=== PATIENT | male | born 1965 | race Caucasian/White ===

== ENCOUNTER 2018-06-23 11:33 | Emergency (ER) | payer BC, SELFPAY ==
[2018-06-23 11:33] VITALS: BP 177/93; PULSE 104; RESP 16; TEMP 36.6; O2SAT 96; BMI 45.6
--- NOTE | 2018-06-23 11:42 | EKG12_ITS ---
Test Reason : SOB Blood Pressure : / mmHG Vent. Rate : 076 BPM Atrial Rate : 076 BPM P-R Int : 174 ms QRS Dur : 096 ms QT Int : 372 ms P-R-T Axes : 058 -04 021 degrees QTc Int : 418 ms Normal sinus rhythm Moderate voltage criteria for LVH, may be normal variant Borderline ECG Confirmed by BETSY JENKINS, KAMI ([id number]), fan mail editor DOTTY HUERTAS ([id number]) on 06/28/2018 4:26:39 PM Referred By: SANIA Confirmed By:KAMI MEYER MD
--- NOTE | 2018-06-23 11:44 | ED.VIS.GEN ---
History of Present Illness Chief Complaint: Shortness of Breath Detail of Chief Complaint: Shortness of breath, YAP and chest pressure Informant: Patient Onset: Today - Dyspnea on exertion and chest pressure this morning walking up a flight of steps. Presently he has no chest discomfort., Month(s) - Patient reports shortness of breath since March. Has been on multiple course of antibiotics. States he gets better when on the antibiotics and then gets worse. Context: Onset with activity - YAP and chest pressure Timing: Continuous - Shortness of breath continuous since March with periods of improvement while on antibiotics, Intermittent - Patient unable to tell me how severe chest pain was or duration of chest tightness. He corrected me and states it is not pain its pressure. Quality: Chest pressure centrally Location: Central anterior chest Current Severity: Chest discomfort is gone. Shortness of breath is minimal Maximum Severity: Moderate Worsened by: Activity and upper respiratory infection Relieved by: Improvement while on antibiotics Associated Symptoms: He does acknowledge diaphoresis this morning. Narrative: Patient is a middle-aged male with history of hypertension, obstructive sleep apnea and reports compliance with CPAP machine who presents with shortness of breath since March is felt to be related to respiratory infection. He is completed multiple courses of antibiotics. He is present on Augmentin for reported sore throat. He also reports central chest discomfort walking up a flight of stairs with shortness of breath and diaphoresis. He denies symptoms of claudication. He denies history of hiatal hernia, hematemesis, melena medication. He denies history of PE, DVT or any risk factors. Prior similar symptoms: Yes Recent Illness/Hospitalization: Yes - Read narrative - Past Medical History (1) Hypertension Status: Chronic (2) Obstructive sleep apnea Status: Chronic Past Medical History - Allergies and Home Meds Allergies/Adverse Reactions: Allergies doxycycline monohydrate [From Monodox] Allergy (Verified 06/23/18 11:33) DOUBLE VISION Primary Care Physician: Ok Maldonado MD [Primary Care Provider] - Prior records reviewed: Yes Lives: Alone Smoking Status: Never smoker Drugs: None Review of Systems General: Denies: Chills, Fever, Malaise, Subjective, Sweats, Weight loss, - Eyes: Denies: Visual changes - bilaterally, Diplopia ENT: Reports: Rhinorrhea, Sore throat. Denies: Bilateral ear pain Cardiovascular: Reports: Chest pain, Palpitations Respiratory: Reports: Dyspnea, Dyspnea on exertion Gastrointestinal: Denies: Abdominal pain, Nausea, Vomiting, Diarrhea, Melena, Hematochezia Genitourinary: Denies: Dysuria, Hematuria, Frequency Musculoskeletal: Reports: Swelling - Patient reports swelling of lower extremities for months.. Denies: Myalgias, Arthralgias, Neck pain, Back pain, Extremity Pain Skin: Denies: Rash, Wounds Neurological: Denies: Headache, Weakness, Numbness Hematologic: Denies: Easy bruising, Easy bleeding Allergy: Denies: Uticaria, Swelling of the mouth Physical Exam Vital Signs/Narrative: Vital Signs Temp Pulse Resp BP Pulse Ox 06/23/18 11:33 97.8 F 104 H 16 177/93 H 96 Inital Vital Signs reviewed: Yes General: Well nourished, Well developed, Obese - BMI 45.7, No Acute Distress Head: Normocephalic, Atraumatic Eyes: Perrl, EOMI. Negative for: Pale conjunctiva, Scleral icterus ENT: Moist mucous membranes, No rhinorrhea Neck: Supple, Nontender, No lymphadenopathy, No JVD, - Cardiovascular: Regular rhythm, No murmurs, Normal S1, Normal S2, Tachycardia Respiratory: No distress, CTA bilaterally, Chest nontender. Negative for: Decreased Air Movement Abdomen: Soft, Nontender, Nondistended, Normal bowel sounds, No masses. Negative for: Hepatomegaly, Splenomegaly Back: Nontender, Normal Inspection Extremities: Nontender, Edema - 1+ pitting, - - There is no asymmetry, swelling, discoloration, leg vein distention, palpable cords or tenderness along the distribution of the deep venous system. Skin: Normal color, No rash. Negative for: Cyanosis, Jaundice Neurological: Alert, Oriented x3, Cranial nerves II-XII grossly intact, Normal Strength, Normal Sensation, Normal Gait Psychological: Normal affect, Normal Mood Diagnostic/Tx/Re-eval Impressions Chest X-Ray 06/23/18 12:33 IMPRESSION: Prominence of the pulmonary arteries bilaterally. 6.8 mm nodular density at the left lung base suggestive of a granuloma. This is unchanged. Electronically Signed: Trenton Myrick, at 12:51 EDT , Service support , 06/23/18 12:33 Chest PA and Lateral [RAD] Stat Laboratory Results 06/23/18 06/23/18 06/23/18 12:25 12:25 12:25 WBC 11.6 H RBC 4.92 Hgb 14.5 Hct 42.1 MCV 85.6 MCH 29.5 MCHC 34.4 RDW 13.5 RDW Differential 42.1 Plt Count 250 MPV 9.1 D-Dimer Quant (PE/DVT) 4.92 H* Sodium 141 Potassium 3.3 L Chloride 105 Carbon Dioxide 27.0 Anion Gap 9 BUN 18 Creatinine 0.96 Estim Creat Clear Calc 88.99 Est GFR (MDRD) Af Amer 106 Est GFR (MDRD) Non-Af 87 BUN/Creatinine Ratio 18.8 Glucose 92 Calcium 8.9 Troponin I < 0.015 CTA reveals bilateral blood clots right greater than left. - Medical Decision Making To evaluate patient's symptoms will obtain EKG to evaluate for cardiac ischemia. Chest x-ray to evaluate for pneumonia. Because he is tachycardic tachypnic and greater than age of 50 he has not PERC negative and reason for d-dimer. Since he is on a diuretic elect lites were obtained and to assess renal function in the event a CTA is indicated. CBC was obtained to evaluate for anemia. Clinically he does not appear anemic. Concern patient's symptoms are anginal equivalent. Because his d-dimer is elevated at 4.98 will obtain a CTA to evaluate for pulmonary embolus. If negative will call hospitalist for admission and further testing or exertional chest pain and dyspnea. Patient was informed he has blood clots bilaterally. He was informed treatment is anticoagulation. He was informed that there are multiple medications. He was specifically informed regarding Coumadin, Xarelto and Eliquis. He was explained risk benefits of all 3, reversing agents, dietary restrictions etc. He was informed of published studies. After numerous questions were asked and answered to his satisfaction he elected Eliquis. He received her first dose in the emergency department. He was informed since there is no cause for his pulmonary embolus he will be on anticoagulant for life. He was told no lacrosse, soccer football with his sons. He was informed he may bleed more easily and if he does hit his head he would need evaluation in the emergency department and probable CAT scan. ED Disposition - Plan for ED Patient: Disposition: Home or Assisted Living Diagnosis: Pulmonary embolism, bilateral Prescriptions: Apixaban [Eliquis] 5 mg PO BID #74 tablet Referrals: Ok Maldonado MD [Primary Care Provider] - 1 Week
[2018-06-23 11:47] VITALS: O2SAT 96
--- NOTE | 2018-06-23 12:33 | RAD_ITS ---
STUDY: X-RAY CHEST REASON FOR EXAM: Male, 53 years old. Chest pressure. Dyspnea on exertion. TECHNIQUE: PA and lateral views of the chest. COMPARISON: Comparison is made with prior study dated July 16, 2012. FINDINGS: EKG electrodes are seen. There is a 6.8 mm nodule in the lingular segment of the left upper lobe suggestive of a small granuloma. There is no demonstrated pleural abnormality. Normal size heart. Normal mediastinum and luisa. There is prominence of the pulmonary hilar arteries without peripheral pulmonary vascular congestion, suggesting pulmonary hypertension. Normal visualized aortic arch and descending thoracic aorta. There are degenerative changes of the visualized thoracic spine. Normal visualized ribs, clavicles, and shoulders. There is no demonstrated abnormality of the visualized soft tissue structures of the upper abdomen. RAD/Chest PA and Lateral IMPRESSION: Prominence of the pulmonary arteries bilaterally. 6.8 mm nodular density at the left lung base suggestive of a granuloma. This is unchanged. Electronically Signed: Trenton Myrick, at 12:51 EDT , Service support ,
[2018-06-23 12:50] LABS: Hematocrit 42.1 % (40-54); Hemoglobin 14.5 g/dl (13.0-16.5); Mean Corp Hgb Conc 34.4 g/gl (32-36); Mean Corpuscular Hgb 29.5 pg (27.0-32.0); Mean Corpuscular Volume 85.6 fL (80-94); Mean Platelet Vol. 9.1 fl (6.2-12.0); Platelet Count 250 K/mm3 (150-450); RBC Distribution Width CV 13.5 % (11.6-14.6); RBC Distribution Width SD 42.1 fl (35.1-43.9); Red Blood Count 4.92 M/mm3 (4.6-6.2); White Blood Count 11.6 K/mm3 (4.4-11.0)
[2018-06-23 12:57] LABS: Scan Indicated on CBC? Y/N NO
[2018-06-23 13:01] LABS: Anion Gap 9 (5-15); BUN 18 mg/dL (7-18); BUN/Creat Ratio 18.8 RATIO (10-20); Calcium,Total 8.9 mg/dL (8.5-10.1); Chloride 105 mmol/L (98-107); Creatinine, Serum 0.96 mg/dL (0.70-1.30); EST Glomerular Filtration Rate 87 mL/min (>60); Est Glom Filt Rate - Afr Amer 106 mL/min (>60); Estimated Creatinine Clearance 88.99 ml/min; Glucose 92 mg/dL (74-106); Potassium 3.3 mmol/L (3.5-5.1); Sodium Level 141 mmol/L (136-145)
[2018-06-23 13:33] LABS: D-Dimer Quantitative (DVT/PE) 4.92 FEU/ug/m (0.27-0.49)
--- NOTE | 2018-06-23 13:35 | CT_ITS ---
STUDY: CTA CHEST REASON FOR EXAM: Male, 53 years old. Shortness of breath. Elevated d-dimer. RADIATION DOSAGE (If Supplied By Facility): CTDIvol = ( 18.05 ) mGy, DLP = ( 742.55 ) mGycm TECHNIQUE: The examination was performed with the intravenous administration of 100 IV Isovue 370. Post-processing of the angiographic images was performed, with multiplanar reformation and 3D reconstruction. Individualized dose optimization techniques were used for this CT. COMPARISON: None. FINDINGS: There are multiple intraluminal filling defects in the distal portion of the right pulmonary artery extending into branches of the right upper, right interlobar and right lower lobe pulmonary arterial branches in keeping with the pulmonary emboli. Nonocclusive intraluminal filling defects are seen in branches of the left lower lobe pulmonary arterial branches. Normal thoracic aorta and visualized great vessels. There is no demonstrated aortic dissection. Normal heart and pericardium. Normal mediastinum. There are calcified right hilar lymph nodes. Normal visualized trachea and bronchi. The lungs are well expanded. Normal pulmonary parenchyma. Calcified granuloma in the left lower lobe. Normal pleura. Normal chest wall structures. There are degenerative changes of thoracic spine. Small hiatal hernia. CT/CTA Chest W/WO Contrast IMPRESSION: Extensive right pulmonary arterial emboli. Smaller left lower lobe pulmonary arterial emboli. N.B. : The above information has been verbally conveyed by Trenton Myrick to Johnathon Cope MD, on 06/23/2018 14:18:43 (ET). Electronically Signed: Trenton Myrick, at 14:19 EDT , Service support ,
[2018-06-23 13:46] VITALS: BP 124/72; PULSE 82; RESP 17; O2SAT 97
[2018-06-23 14:50] VITALS: BP 139/79; PULSE 74; RESP 16; O2SAT 94
[2018-06-23] MEDS: APIXABAN 5 MG TABLET 10 MG PO (15:05)
== END 2018-06-23 15:06 | disposition home or self-care (01) ==
PROVIDERS: Emergency Provider Emergency Medicine; Family Provider Family Medicine; PCP Family Medicine
DX: I26.99 Other pulmonary embolism without acute cor pulmonale (principal); I10 Essential (primary) hypertension; G47.33 Obstructive sleep apnea (adult) (pediatric); E66.9 Obesity, unspecified; Z68.42 Body mass index [BMI] 45.0-49.9, adult; Z79.82 Long term (current) use of aspirin; Z79.899 Other long term (current) drug therapy
CPT/HCPCS: 71046; 71275; 80048; 84484; 85027; 85379; 93005; 96360; 96361; 99285; J7040; Q9967; A4216

== ENCOUNTER 2018-06-24 20:02 | Observation (INO) | payer BC, SELFPAY ==
[2018-06-23 11:33] VITALS: BMI 45.6
[2018-06-24] VITALS (7 sets, daily range): BP systolic 108–167; BP diastolic 65–95; PULSE 75–115; RESP 14–20; TEMP 36.7; O2SAT 93–99; BMI 43.8; BMI 43.9
--- NOTE | 2018-06-24 20:17 | EKG12_ITS ---
Test Reason : REPEAT Blood Pressure : / mmHG Vent. Rate : 059 BPM Atrial Rate : 059 BPM P-R Int : 160 ms QRS Dur : 086 ms QT Int : 392 ms P-R-T Axes : 050 010 023 degrees QTc Int : 388 ms Sinus bradycardia Otherwise normal ECG Confirmed by LAVELLE COWAN ([id number]), assignment desk editor DOTTY HUERTAS ([id number]) on 06/28/2018 4:50:47 PM Referred By: KASSY Confirmed By:LAVELLE COWAN
--- NOTE | 2018-06-24 20:23 | US_ITS ---
STUDY: VENOUS DOPPLER ULTRASOUND - BILATERAL LOWER EXTREMITIES REASON FOR EXAM: Male, 53 years old. Bilateral swelling, right knee pain. TECHNIQUE: Ultrasound evaluation of the deep vein system to include snider-scale imaging and compression was performed. Snider-scale imaging and Doppler sonographic evaluation, including duplex spectral analysis and qualitative color flow sonography, was performed. COMPARISON: None. FINDINGS: RIGHT LEG Common femoral, femoral, and popliteal veins are patent with no evidence of luminal thrombus. Deep venous structures respond normally to compression and augmentation maneuvers. Normal color Doppler. Visualized calf veins are patent. LEFT LEG Common femoral, femoral, and popliteal veins are patent with no evidence of luminal thrombus. Deep venous structures respond normally to compression and augmentation maneuvers. Normal color Doppler. Visualized calf veins are patent. US/Venous Duplex Imag/Randolph Extrem IMPRESSION: Normal venous Doppler ultrasound of the bilateral lower extremities. Electronically Signed: Marilyn Abraham MD at 22:28 EDT Tel , Service support ,
--- NOTE | 2018-06-24 20:25 | RAD_ITS ---
STUDY: X-RAY CHEST REASON FOR EXAM: Male, 53 years old. Shortness breath. History of PE recently diagnosed. TECHNIQUE: Single AP portable view of the chest. COMPARISON: Chest x-ray and CT scan 06/23/2018. FINDINGS: The lungs are clear and expanded. Stable small calcified granuloma in the lower left lung. There is no demonstrated pleural abnormality. Normal size heart. Normal mediastinum and luisa. Normal visualized pulmonary arteries. Normal visualized aortic arch and descending thoracic aorta. Normal visualized thoracic spine. Normal visualized ribs, clavicles, and shoulders. There is no demonstrated abnormality of the visualized soft tissue structures of the upper abdomen. RAD/Chest 1 View (Portable) IMPRESSION: No change or acute chest disease. Electronically Signed: Bhavesh Orona MD at 20:40 EDT , Service support ,
--- NOTE | 2018-06-24 20:26 | ED.DCSUM_ITS ---
- ER Visit Summary Date of Service: 06/24/18 Chief Complaint: Shortness of breath History of Present Illness: The patient is a 53 M presents to the emergency department worsening shortness of breath. Patient was actually seen here yesterday. At that time, he is been having exertional dyspnea for the past few months. He underwent CTA of his chest. He had multiple bilateral pulmonary emboli. He was started on Eliquis and was discharged home because he was not hypoxic or tachypneic. He states that since starting Eliquis, his shortness of breath is actually worsened. He states he feels like he cannot walk a distance without getting dyspneic. He is also begun to have some right leg pain in his posterior thigh. He is also had increasing pain in his back which he states is what led him to the emergency department to get diagnosed. He denies any recent travel. He denies any recent surgeries. He states that he did injure his knee last year but was still ambulating without issue. He has no history of hypercoagulability. Physical Examination: Vital signs reviewed General: Well-nourished, well-developed Head: Normocephalic, atraumatic Eyes: Pupils equal and reactive, extraocular muscles intact Neck, supple, no lymphadenopathy Heart: Regular rate and rhythm Respiratory: No distress, clear bilaterally Abdomen: Soft, nontender, nondistended, no peritoneal signs Back: Nontender Extremities: Nontender, no edema, no cords Skin: Normal color no rash Neuro: Alert and oriented, no focal or lateralizing deficits Test Results: [] Emergency Department Course and Treatment: The patient presents with increased work of breathing, increasing pain and exertional dyspnea. He was diagnosed with pulmonary embolus yesterday. He was tachycardic and tachypneic on arrival. He would have transient episodes of hypoxia from 88-90%. However, when he ambulated he did not become hypoxic but did become markedly tachycardic and dyspneic. EKG shows no evidence of right ventricular strain. X-ray shows no volume overload. Will in the room, the patient did have what appeared to be a vasovagal episode. His heart rate went into the low 50s. He dropped his blood pressure became diaphoretic. He felt very lightheaded. This was transient and resolved. Cardiac enzymes are normal. Chest x-ray shows no volume overload. BNP is normal. However, given the patient's recent diagnosis of pulmonary embolus, exertional dyspnea, hypoxia, tachypnea I do feel that he would benefit from admission. I do feel that he is likely going to need further workup and is not doing well as an outpatient. The patient was discussed with the hospitalist. Treatment Plan: [] Disposition: Admission Impression: 1. Bilateral pulmonary embolus 2. Exertional dyspnea 3. Persistent tachycardia 4. Vasovagal near syncope This note was generated with [employer] dictation software. It may contain incorrect words, spelling, and punctuation that were not noted in review of the chart prior to signing ED Disposition - Plan for ED Patient: Referrals: Ok Maldonado MD [Primary Care Provider] -
[2018-06-24] MEDS: 0.9% Normal Saline 1,000 ML 999 ML IV (21:09)
[2018-06-24 21:18] LABS: Absolute Lymphocyte Count 2.17 X10^3/ul (0.83-4.51); Absolute Neutrophil Count 8.4 X10^3/uL (2.0-7.7); Basophil# 0.03 X10^3/uL; Basophil% 0.3 % (0-1); Eosinophil# 0.08 X10^3/uL; Eosinophils% 0.7 % (0-5); Hematocrit 48.2 % (40-54); Hemoglobin 17.1 g/dl (13.0-16.5); Lymphocyte # 2.17 X10^3/ul (4.0); Lymphocyte % 18.2 % (19-41); Mean Corp Hgb Conc 35.5 g/gl (32-36); Mean Corpuscular Hgb 29.9 pg (27.0-32.0); Mean Corpuscular Volume 84.4 fL (80-94); Mean Platelet Vol. 9.2 fl (6.2-12.0); Monocyte% 10.1 % (0-10); Neutrophil % 70.4 % (47-70); Platelet Count 296 K/mm3 (150-450); RBC Distribution Width CV 13.6 % (11.6-14.6); RBC Distribution Width SD 41.5 fl (35.1-43.9); Red Blood Count 5.71 M/mm3 (4.6-6.2); White Blood Count 11.9 K/mm3 (4.4-11.0)
[2018-06-24 21:19] LABS: POSITIVE COUNT NO; POSITIVE DIFFERENTIAL NO; POSITIVE MORPHOLOGY NO
--- NOTE | 2018-06-24 21:28 | EKG12_ITS ---
Test Reason : SOB Blood Pressure : / mmHG Vent. Rate : 095 BPM Atrial Rate : 095 BPM P-R Int : 152 ms QRS Dur : 084 ms QT Int : 346 ms P-R-T Axes : -02 -08 032 degrees QTc Int : 434 ms Normal sinus rhythm Normal ECG Confirmed by LAVELLE COWAN ([id number]), desk editor DOTTY HUERTAS ([id number]) on 06/28/2018 4:51:11 PM Referred By: KASSY Confirmed By:LAVELLE COWAN
[2018-06-24 21:32] LABS: ALB/GLOB Ratio 0.9 RATIO (0.9-2.4); AST(SGOT) 24 U/L (15-37); Alanine Aminotransfer ALT/SGPT 42 U/L (16-61); Alkaline Phosphatase 121 U/L (45-117); Anion Gap 9 (5-15); BUN 12 mg/dL (7-18); BUN/Creat Ratio 11.4 RATIO (10-20); Calcium,Total 9.3 mg/dL (8.5-10.1); Chloride 103 mmol/L (98-107); Creatinine, Serum 1.05 mg/dL (0.70-1.30); EST Glomerular Filtration Rate 78 mL/min (>60); Est Glom Filt Rate - Afr Amer 95 mL/min (>60); Estimated Creatinine Clearance 81.36 ml/min; Globulin 4.6 g/dL (2.2-4.2); Glucose 104 mg/dL (74-106); Potassium 3.4 mmol/L (3.5-5.1); Protein, Total 8.6 g/dL (6.4-8.2); Sodium Level 140 mmol/L (136-145)
[2018-06-24 21:44] LABS: BNP,B-Type NATRIURETIC PEPTIDE 14.8 pg/mL (0-100)
--- NOTE | 2018-06-24 22:17 | PCM.HP.STD ---
Problem List (1) Pulmonary embolism Status: Acute Qualifiers: Pulmonary embolism type: unspecified Chronicity: acute Acute cor pulmonale presence: without acute cor pulmonale Qualified Code(s): I26.99 - Other pulmonary embolism without acute cor pulmonale (2) Morbid obesity Status: Chronic (3) Hypertension Status: Chronic Qualifiers: Hypertension type: essential hypertension Qualified Code(s): I10 - Essential (primary) hypertension (4) Obstructive sleep apnea Status: Chronic History of Present Illness Date of Admission: 06/24/18 Chief Complaint: LE pain, dyspnea, chest pain The patient is a 53 y/o M w/ PMHx: HTN, Morbid Obesity, NINA on CPAP, recent 06/23/18 ED vision secondary to dyspnea as well as chest discomfort diagnosed with pulmonary emboli and secondary to patient appropriate vital signs with no evidence of hypoxia discharged home on Eliquis regimen with history of notable URI sxs since March and decreased activity who now returns to the [facility] ED on 06/24/18 with history of worsening exertional dyspnea, tachycardia with racing heart, lightheadedness and near syncope with exertional attempts in addition to severe RLE discomfort radiating upward. While in the ED the patient had notable vasovagal event, tachycardic initially then bradycardic, diaphoretic but improved with IVFs. Work-up in the ED included the evening prior CTPA w/ extensive right pulmonary artery emboli with a smaller left lower lobe pulmonary arterial emboli, currently evaluation w/ T 98, heart rate 115, BP 167/95, respiratory rate 18, 93% on room air, CBC with WBC 11.9, hemoglobin 17.1, platelet 296 with left shift, CMP with potassium 3.4, alk phos 121, troponin less than 0.015, BNP 14.8, chest x-ray with no acute cardiopulmonary process, EKG with sinus tachycardia without acute evidence of ischemia, DVT US w/ preliminary evaluation with no evidence to BL LE of acute DVT. In the ED patient administered normal saline. Past Medical History Past Medical History (Chronic Problems): Chronic Problems Hypertension (Chronic) Obstructive sleep apnea (Chronic) Morbid obesity (Chronic) Allergies doxycycline monohydrate [From Monodox] Allergy (Verified 06/24/18 20:07) DOUBLE VISION Home Medications: Ambulatory Orders Medication Instructions Recorded Aspirin E.C. [Ecotrin] 81 mg PO DAILY@0800 03/10/13 Lisinopril/Hydrochlorothiazide 1 tablet PO DAILY 03/10/13 [Zestoretic 20/ Tablet] Potassium Chloride [K-Dur] 10 meq PO DAILY 03/10/13 Apixaban [Eliquis] 10 mg PO BID 06/24/18 Surgical History: - - [place] teeth extraction, left bicep reattachment. Psychiatric History: No pertinent psych hx Lives: With Family - Patient is but still maintains a friendly relationship with his , has his kids. Smoking Status: Never smoker Tobacco Use: Non-smoker Alcohol: Occasional Drugs: None - *Family History Maternal History Items: - - Patient notes a maternal family history of severe osteoarthritis. Paternal History Items: - - Patient notes a paternal family history of congestive heart failure. Review of Systems Constitutional: Reports: Malaise, Weakness, Fatigue. Denies: Chills, Fever, Weight Change HEENT: Denies: Head Aches, Sinus Congestion, Sinus Drainage Cardiovascular: Reports: Chest Pain, Light Headedness. Denies: Palpitations Respiratory: Reports: Pleuritic Pain, Shortness of Breath, Shortness of breath upon exertion. Denies: Cough, Shortness of breath at rest, Sputum production, Wheezing Gastrointestinal: Denies: Abdominal Pain, Nausea, Vomiting Genitourinary: Denies: Dysuria Musculoskeletal: Reports: Joint Pain, Joint stiffness, Joint swelling, Joint Tenderness, Leg Pain Skin: Denies: Rash, Wounds Neurological: Denies: Numbness, Tingling, Focal weakness Psychiatric: Denies: Anxiety, Depression, Homicidal Ideations, Suicidal Ideations Hematologic/ Lymphatic: Denies: Easy Bruising, Easy Bleeding VTE Information - Inpt Only VTE Present on Admission: No VTE Mechan Device Prophylaxis: SCD's VTE Pharm Prophylaxis ordered?: Yes Patient Problems: Active and Suspected Problems Pulmonary embolism (Acute) Subjective: Seated upright in ED bed, fatigued appearing, [place] any current chest discomfort or market dyspnea. Objective: Physical Examination: General: awake, alert, oriented x 3 and cooperative, seated upright in the ED bed in no apparent distress. Skin: normal color, turgor, no icterus, cyanosis. HEENT: AT/NC, EOMI, PERRLA, mildly dry MM, no carotid bruits or JVD noted. Lungs: CTA bilaterally, moderate effort, mild decrease BL bases, no rales, ronchi or wheezing. Heart: Mildly tachycardic with regular rhythm; no gallop, rub audible. Abdomen: soft, morbidly obese, NTTP, ND, normal BS, no HSM; however, habitus makes examination difficult. Extremities: no cyanosis, clubbing, or edema, unable to reproduce any discomfort to the legs with palpation. Neurological: patient awake, alert, oriented x 3; cognitive function intact; pupils equally reactive to light and accomodation; cranial nerves II-XII grossly normal, moving all 4 extremities, no focal deficits, strength moderately to severely globally decreased secondary to acute presentation. Psychiatric: affect appears normal, no acute evidence of depressive or anxiety feelings. - Physical Exam Vital Signs Temp Pulse Resp BP Pulse Ox 98.0 F 75 14 108/67 96 06/24/18 20:03 06/24/18 21:11 06/24/18 21:11 06/24/18 21:11 06/24/18 21:11 Oxygen Flow Rate (L/min) 3 Oxygen Delivery Method Nasal Cannula Weight: 296 lb 15.402 oz Body Mass Index (BMI) 43.8 Laboratory Tests Past 24 Hrs 06/24/18 06/24/18 06/24/18 21:05 21:05 21:05 WBC 11.9 H RBC 5.71 Hgb 17.1 H Hct 48.2 MCV 84.4 MCH 29.9 MCHC 35.5 RDW 13.6 RDW Differential 41.5 Plt Count 296 MPV 9.2 Immature Gran % (Auto) 0.300 Neut % (Auto) 70.4 H Lymph % (Auto) 18.2 L [place] % (Auto) 10.1 H Eos % (Auto) 0.7 Baso % (Auto) 0.3 Absolute Neuts (auto) 8.4 H Absolute Lymphs (auto) 2.17 Total Counted Not Reportable Sodium 140 Potassium 3.4 L Chloride 103 Carbon Dioxide 28.0 Anion Gap 9 BUN 12 Creatinine 1.05 Estim Creat Clear Calc 81.36 Est GFR (MDRD) Af Amer 95 Est GFR (MDRD) Non-Af 78 BUN/Creatinine Ratio 11.4 Glucose 104 Calcium 9.3 Total Bilirubin 0.70 AST 24 ALT 42 Alkaline Phosphatase 121 H Troponin I < 0.015 B-Natriuretic Peptide 14.8 Total Protein 8.6 H Albumin 4.0 Globulin 4.6 H Albumin/Globulin Ratio 0.9 Assessment/Plan All Active Problems Pulmonary embolism (Acute) The patient is a 53 y/o M w/ PMHx: HTN, Morbid Obesity, NINA on CPAP, recent 06/23/18 ED vision secondary to dyspnea as well as chest discomfort diagnosed with pulmonary emboli and secondary to patient appropriate vital signs with no evidence of hypoxia discharged home on Eliquis regimen with history of notable URI sxs since March and decreased activity who now returns to the [facility] ED on 06/24/18 with history of worsening exertional dyspnea, tachycardia with racing heart, lightheadedness and near syncope with exertional attempts in addition to severe RLE discomfort radiating upward. (1) Dyspnea, chest pain secondary to Pulmonary Embolism: Work-up in the ED included the evening prior CTPA w/ extensive right pulmonary artery emboli with a smaller left lower lobe pulmonary arterial emboli, currently evaluation w/ T 98, heart rate 115, BP 167/95, respiratory rate 18, 93% on room air, CBC with WBC 11.9, hemoglobin 17.1, platelet 296 with left shift, CMP with potassium 3.4, alk phos 121, troponin less than 0.015, BNP 14.8, chest x-ray with no acute cardiopulmonary process, EKG with sinus tachycardia without acute evidence of ischemia, DVT US w/ preliminary evaluation with no evidence to BL LE of acute DVT. In the ED patient administered normal saline. Will admit to PCU, maintain on cardiac telemetry. Will obtain ECHO. Patient notes only ~ [address] recently at the most otherwise no marked travel, no recent surgeries but has been sessile with L knee pain, debility and URI intermittently since March. Given already on oral anticoagulant, will need to defer hypercoaguable panel. Will continue therapeutic eliquis regimen. Will obtain AM oxygenation assessment. (2) Hypokalemia: Admission K+ 3.4, supplementation given, repeat level in AM. (3) Hypertension: Continue home regimen including lisinopril, hydrochlorothiazide, PRN hydralazine. (4) Morbid Obesity: Weight loss and lifestyle changes encouraged, nutrition consulted. (5) NINA: CPAP q HS. (6) DVT Prophylaxis: SCDs, continue Eliquis as noted. Code Visit Inpatient E&M: 96965 Init Hosp L3
--- NOTE | 2018-06-24 23:22 | ECHOCS_ITS ---
Reason For Study: Dyspnea/SOB Procedure This was a 2D Doppler, Color Flow transthoracic echocardiogram. Contrast injection was performed. Exam performed portable in patient room. Left Ventricle Mild concentric left ventricular hypertrophy. The estimated ejection fraction is 65 %. Stage 1 diastolic dysfunction. No regional wall motion abnormalities noted. Right Ventricle Normal size and thickness. Normal systolic function. Atria The left atrium is mildly enlarged. Normal right atrium. Normal atrial septum. Mitral Valve The mitral valve is structurally normal. No prolapse or stenosis seen. Trivial mitral valve insufficiency. Tricuspid Valve Normal tricuspid valve. Trivial tricuspid valve insufficiency. Right ventricular systolic pressure estimated to be 41 mmHg. Mild pulmonary hypertension. Aortic Valve Normal aortic valve. Trisinus/trileaflet aortic valve. Pulmonic Valve Normal pulmonic valve. Great Vessels Normal aortic root. Normal arch. Normal inferior vena cava. Inferior vena cava collapse with sniff. Pericardium/Pleural No pericardial effusion. Medication Diluted definity 2ml given slow IV push to enhance endocardial definition. MMode/2D Measurements & Calculations LVIDd: 4.6 cm IVSd: 1.6 cm LAV(MOD-bp): 77.4 ml LVIDs: 3.1 cm LVPWd: 1.3 cm FS: 33.2 % LAV(MOD-bp) Indexed: 31.7 ml/m2 LAV(MOD-sp2): 81.1 ml LAV(MOD-sp4): 67.1 ml LA A4 area: 23.4 cm2 RA A4 area: 15.6 cm2 Time Measurements MV dec time: 0.22 sec Doppler Measurements & Calculations MV E max yon: 76.5 cm/sec Lat Peak E' Yon: 17.9 cm/sec Med Peak E' Yon: 9.5 cm/sec MV A max yon: 84.3 cm/sec E/E' lat: 4.3 E/E' med: 8.1 MV E/A: 0.91 MV V2 max: 102.1 cm/sec MV P1/2t max yon: 99.2 cm/sec Ao V2 max: 177.7 cm/sec MV max P.2 mmHg MV P1/2t: 91.3 msec Ao max P.6 mmHg MV V2 mean: 63.1 cm/sec Ao V2 mean: 110.2 cm/sec MV mean P.9 mmHg MV dec slope: 318.3 cm/sec2 Ao mean P.7 mmHg MV V2 VTI: 26.3 cm MVA(P1/2t): 2.4 cm2 Ao V2 VTI: 29.1 cm AI max yon: 278.2 cm/sec LV V1 max: 161.9 cm/sec PA V2 max: 122.3 cm/sec AI max P.0 mmHg LV V1 max P.5 mmHg AI dec slope: 163.7 cm/sec2 LV V1 mean P.8 mmHg AI P1/2t: 497.8 msec LV V1 mean: 98.6 cm/sec LV V1 VTI: 31.8 cm TR max yon: 299.1 cm/sec TR max P.8 mmHg Interpretation Summary Mild concentric left ventricular hypertrophy. The estimated ejection fraction is 65 %. Stage 1 diastolic dysfunction. The left atrium is mildly enlarged. Trivial mitral valve insufficiency. Trivial tricuspid valve insufficiency. Right ventricular systolic pressure estimated to be 41 mmHg. The study was technically difficult. There is no comparison study available. Contrast injection was performed. Ordering Physician: Alissa Butterfield Performed By: Donny Syed RCS
[2018-06-24 23:52] LABS: Magnesium 2.1 mg/dL (1.6-2.6)
[2018-06-24] MEDS: 0.9% NaCl Peripheral Flush Adult/Peds IV (23:56)
[2018-06-25] VITALS (7 sets, daily range): BP systolic 121–127; BP diastolic 66–75; PULSE 69–84; RESP 16–18; TEMP 37.2; O2SAT 94–98
--- NOTE | 2018-06-25 05:55 | EKG12_ITS ---
Test Reason : AM EKG Blood Pressure : / mmHG Vent. Rate : 069 BPM Atrial Rate : 069 BPM P-R Int : 156 ms QRS Dur : 084 ms QT Int : 378 ms P-R-T Axes : 003 018 030 degrees QTc Int : 405 ms Normal sinus rhythm Normal ECG When compared with ECG of 24-JUN-2018 21:06, MANUAL COMPARISON REQUIRED, DATA IS UNCONFIRMED Confirmed by BETSY JENKINS, KAMI ([id number]), film editor DOTTY HUERTAS ([id number]) on 06/30/2018 1:54:21 PM Referred By: DR COCHRAN Confirmed By:KAMI MEYER MD
[2018-06-25 07:02] LABS: Hematocrit 43.4 % (40-54); Hemoglobin 14.9 g/dl (13.0-16.5); Mean Corp Hgb Conc 34.3 g/gl (32-36); Mean Corpuscular Hgb 28.9 pg (27.0-32.0); Mean Corpuscular Volume 84.3 fL (80-94); Mean Platelet Vol. 9.5 fl (6.2-12.0); Platelet Count 235 K/mm3 (150-450); RBC Distribution Width CV 13.8 % (11.6-14.6); RBC Distribution Width SD 42.1 fl (35.1-43.9); Red Blood Count 5.15 M/mm3 (4.6-6.2)
[2018-06-25 07:13] LABS: Scan Indicated on CBC? Y/N NO
[2018-06-25 07:24] LABS: Anion Gap 6 (5-15); BUN 15 mg/dL (7-18); BUN/Creat Ratio 17.7 RATIO (10-20); Calcium,Total 8.4 mg/dL (8.5-10.1); Chloride 108 mmol/L (98-107); Creatinine, Serum 0.85 mg/dL (0.70-1.30); EST Glomerular Filtration Rate 100 mL/min (>60); Est Glom Filt Rate - Afr Amer 121 mL/min (>60); Glucose 107 mg/dL (74-106); Potassium 3.9 mmol/L (3.5-5.1); Sodium Level 139 mmol/L (136-145)
[2018-06-25] MEDS: hydroCHLOROthiazide 25 MG Tablet PO (08:50)
[2018-06-25] MEDS: APIXABAN 5 MG TABLET 10 MG PO (08:50)
[2018-06-25] MEDS: Lisinopril 20 MG Tablet PO (08:50)
--- NOTE | 2018-06-25 10:17 | CASEMGMT ---
TRAV LARIOS HOUSEKEEPER HOME CM to room to meet with patient for initial transition planning/care coordination assessment. TRAV LARIOS introduced self and role at [facility]. Pt voices understanding and consents to assessment at this time. Pt resting in bed in no distress at this time. Pt is A/O at this time and answers all questions appropriately. Care providers, pharmacy, and demographics verified/updated at this time. PCP: Joel Specialists: Delvin Renae Pharmacy: [facility] Insurance: [place] Prescription Benefit: Yes Living Will/HPOA: States think he has completed LW and HCPOA paperwork, but is unsure. States if he has, that his mom is HCPOA. Pt made aware that if he determines that he has not completed this paperwork and wishes to do so in the future, that he can make appt with SW as an out-pt. Provided pt with Traffic Rate Clerk Rac Card. [place]: Mother, 2 boys ages 11 and 12. Living Arrangements: Lives @ home and states both of his boys live with him. States is independent and currently employed. Transportation: Pt states drives self and states no transportation concerns at this time. States his ex- brought him to ER and either she or his mom will be able to take him home on d/c. DME: Has a CPAP. Denies having home O2 or nebulizer. Pt states no need for further DME at this time. HHC/SNF: No hx of either. No needs identified. Pt wishes to return home and states has no concerns with going home at time of discharge. CM to follow for home oxygen needs and any further discharge planning/needs. Pt voices no further concerns/needs at this time. Advised pt to ask for CM if any further questions/concerns/needs arise. Voices understanding. PLAN: Home Cristina CARDENAS RN, CM
--- NOTE | 2018-06-25 11:55 | DCINST_ITS ---
- Discharge Diagnoses Current Active Problems: Current Active and Chronic Problems Pulmonary embolism (Acute) Morbid obesity (Chronic) You will use the following diet at home:: No restrictions Your food should be the consistency of: Regular Your liquids should be the consistency of: Regular/Thin Discharge Activity: Return to Normal Activity Weight Bearing Status: Full weight bearing Additional Instructions: no aspirin, Ibuprofen, or Alleve use. Tylenol for pain Allergies/Adverse Reactions: Allergies doxycycline monohydrate [From Monodox] Allergy (Verified 06/24/18 20:07) DOUBLE VISION Medications to take at Discharge Lisinopril/Hydrochlorothiazide [Zestoretic / Tablet] 1 tablet PO DAILY 03/10/13 Potassium Chloride [K-Dur] 10 meq PO DAILY 03/10/13 Apixaban [Eliquis] 10 mg PO BID 06/24/18 Primary Care Physician: Ok Maldonado MD [Primary Care Provider] - Please follow up with your Primary Care Physician in: in 1-2 weeks Test Results: Test results from this visit will be discussed in further detail at your follow- up appointment, if applicable.
--- NOTE | 2018-06-26 08:29 | PCM.DC.SUM ---
Discharge Date and Diagnosis Date of Admission: 06/24/18 Date of Discharge: 06/25/18 - Primary Discharge Diagnosis #1 bilateral pulmonary emboli #2 near syncope secondary to bilateral pulmonary emboli #3 hypertension #4 obstructive sleep apnea #5 morbid obesity - Secondary Discharge Diagnosis Chronic Problems Hypertension (Chronic) Obstructive sleep apnea (Chronic) Morbid obesity (Chronic) Hospital Course and Treatment Operations: None Procedures: 2-D Echocardiogram Summary of Care Provided: The patient is a 53 year old M who was seen in the emergency room at [facility] with chief complaint of shortness of breath and lightheadedness. He had been seen in the emergency room 1 day prior and diagnosed with bilateral pulmonary emboli and placed on Eliquis. Workup in the emergency room included an examination which showed the patient to be tachycardic, pulse ox on room air was 93%-however when the patient ambulated he became tachycardic and dyspneic. Patient also felt lightheaded. Patient was placed in observation status on PCU, echocardiogram was obtained which showed a normal EF and no evidence of thrombus. Patient was kept on his Eliquis and monitored on telemetry. Patient did not require oxygen. On 06/25/18, patient was seen and examined: On examination he appeared in good health and spirits. Vital signs as documented. Skin warm and dry and without overt rashes. Neck without JVD. Lungs clear. Heart exam notable for regular rhythm, normal sounds and absence of murmurs, rubs or gallops. Abdomen unremarkable and without evidence of organomegaly, masses, or abdominal aortic enlargement. Extremities nonedematous. Neuro: Cranial nerves II through XII are grossly intact, no focal motor deficits were noted, sensation to light touch and pinprick intact. Psych: Patient is alert and oriented x3, he does not appear anxious or depressed On 06/25/18, patient was seen and examined felt to be in stable condition for discharge home. - Physical Exam Vital Signs Temp Pulse Resp BP Pulse Ox 98.9 F 84 18 121/75 H 95 06/25/18 08:43 06/25/18 10:52 06/25/18 08:43 06/25/18 08:43 06/25/18 08:43 Oxygen Flow Rate (L/min) 3 Oxygen Delivery Method Room Air Weight: 134.9 kg Body Mass Index (BMI) 43.9 Intake and Output for Last 24 Hours 06/24/18 06/25/18 06/26/18 23:59 23:59 23:59 Intake Total 320 / 320 Balance 320 / 320 Discharge Activity: Return to Normal Activity Weight Bearing Status: Full weight bearing Home Medications: Medications to take at Discharge Lisinopril/Hydrochlorothiazide [Zestoretic 20/25 Tablet] 1 tablet PO DAILY 03/10/13 Potassium Chloride [K-Dur] 10 meq PO DAILY 03/10/13 Apixaban [Eliquis] 10 mg PO BID 06/24/18 Primary Care Physician: Ok Maldonado MD [Primary Care Provider] - Please follow up with your Primary Care Physician in: in 1-2 weeks Disposition: Home Minutes spent on discharge:: 30 Patient Condition:: Stable Medical Necessity - Tobacco Use Smoking Status: Never smoker Tobacco Use: Non-smoker Meaningful Use Info Meaningful Use Diagnoses (Choose all that apply): VTE - VTE Anticoag overlap given w/in hospital stay or rx'd at dc?: No Pt receive overlap for 5 days?: No Reason overlap not ordered, prescribed, or given for 5 days: Treatment Not Indicated Code Visit OBSV E&M: 13092 Observation care discharge
== END 2018-06-25 11:55 | disposition home or self-care (01) ==
LOC: ED 20:25 → PCU 22:46
PROVIDERS: Admitting Provider Family Medicine; Emergency Provider Emergency Medicine; Family Provider Family Medicine; PCP Family Medicine; Visit Provider Internal Medicine
DX: I26.99 Other pulmonary embolism without acute cor pulmonale (principal); R55 Syncope and collapse; I10 Essential (primary) hypertension; G47.33 Obstructive sleep apnea (adult) (pediatric); E66.01 Morbid (severe) obesity due to excess calories; Z68.41 Body mass index [BMI] 40.0-44.9, adult; Z71.3 Dietary counseling and surveillance; Z79.01 Long term (current) use of anticoagulants; Z79.82 Long term (current) use of aspirin; Z79.899 Other long term (current) drug therapy; E87.6 Hypokalemia
CPT/HCPCS: 36415; 71045; 80048; 80053; 83735; 83880; 84484; 85025; 85027; 93005; 93306; 93970; 96360; 99218; 99285; J7030; J7040; Q9957; A4216; C8929; G0378

== ENCOUNTER 2018-08-25 21:02 | Emergency (ER) | payer BC, SELFPAY ==
[2018-06-24 23:03] VITALS: BMI 43.9
[2018-08-25 21:03] VITALS: BP 166/83; PULSE 95; RESP 20; TEMP 37; O2SAT 94; BMI 43.2
--- NOTE | 2018-08-25 21:51 | EKG12_ITS ---
Test Reason : BACK PAIN Blood Pressure : / mmHG Vent. Rate : 082 BPM Atrial Rate : 082 BPM P-R Int : 184 ms QRS Dur : 096 ms QT Int : 376 ms P-R-T Axes : 035 -10 023 degrees QTc Int : 439 ms Normal sinus rhythm with sinus arrhythmia Minimal voltage criteria for LVH, may be normal variant Borderline ECG Confirmed by CHARLES JENKINS, MAYTE ([id number]), state editor DERICK FISHMAN ([id number]) on 08/27/2018 9:30:56 AM Referred By: WARNER Confirmed By:MAYTE SOTO MD
--- NOTE | 2018-08-25 21:52 | CT_ITS ---
HISTORY: SOB,UPPER BACK PAIN.PRIOR PE ,PT ON ELIQUISHX:HTN,ASTHMA,GERD,SLEEP APNEA,PE EXAMINATION: CTA Chest WO/W Contrast TECHNIQUE: Helically acquired images were obtained of the chest following IV contrast as per pulmonary angiogram protocol with 3D reconstructions. A radiation dose optimization technique was used for this scan. IV Contrast dosage and agent: 100ML Isovue 370 COMPARISON: 06/23/18 CTA chest. FINDINGS: UPPER ABDOMEN: No acute pathology. PULMONARY ARTERIES: No new pulmonary emboli are evident. A small amount of residual linear nonocclusive clot is seen within right lower lobe basilar segmental branches, otherwise the extensive pulmonary emboli seen on the previous study have resolved. AORTA AND GREAT VESSELS: Normal in caliber. No evidence of dissection. HEART AND PERICARDIUM: Heart size is normal. There is no pericardial effusion. No signs of right heart strain. MEDIASTINUM AND DELANEY: There is no mediastinal or hilar adenopathy. Esophagus is unremarkable. There is no hiatal hernia. Calcified subcarinal and hilar lymph nodes incidentally noted. OTHER SOFT TISSUES: Included thyroid gland is unremarkable. There is no axillary, supraclavicular or lower cervical adenopathy. LUNGS AND LARGE AIRWAYS: No pneumonia or edema or acute findings. Incidental calcified granuloma left lower lobe. No pneumothorax. PLEURA: Unremarkable. No pleural effusion or thickening. BONES: No acute osseous abnormality. Mild degenerative changes thoracic spine. CT/CTA Chest W/WO Contrast IMPRESSION: No acute findings. Small amount of residual linear nonocclusive clot in right lower lobe segmental branches, residua of the large pulmonary embolus seen on the previous study. Individualized dose optimization techniques were used for this CT. at 2327 Reported and signed by: Javy Tesfaye MD Electronically Signed: Javy Tesfaye, at 23:26 EDT Tel , Service support ,
--- NOTE | 2018-08-25 21:58 | ED.DCSUM_ITS ---
History of Present Illness Chief Complaint: Back Informant: Patient, Family Onset: Days - 3 Context: Sudden Onset - randomly Timing: Intermittent, Lasts - minutes Quality: ache Location: mid-back Current Severity: gone Maximum Severity: Mild Worsened by: nothing - not worse w/ movement or deep breathing Relieved by: nothing - goes away on its own Associated Symptoms: sob mild. no cp. transient upper mid-abd discomfort earlier, gone. Narrative: 2 months ago patient was diagnosed with a PE and he had the same symptoms except he was much more short of breath. He had no chest discomfort. He had no pleuritic discomfort as he does not now. He is on Eliquis and has been compliant with it. He has a history of lymphedema in both of his legs, usually worse on the left. When he was diagnosed with a PE he had ultrasounds of his legs that were negative and nothing has changed there. He wears compression stockings. He had remote surgery in his left arm, states his bicep has been aching lately. No injury. - Past Medical History (1) Pulmonary embolism Status: Chronic (2) Hypertension Status: Chronic (3) Obstructive sleep apnea Status: Chronic Past Medical History - Allergies and Home Meds Allergies/Adverse Reactions: Allergies doxycycline monohydrate [From Monodox] Allergy (Verified 08/25/18 21:02) DOUBLE VISION Primary Care Physician: Ok Maldonado MD [Primary Care Provider] - Surgical History: - - [place] teeth extraction, left bicep reattachment. Lives: Spouse/ Significant Other Smoking Status: Never smoker - Family History Maternal Family History: Reports: - - Patient notes a maternal family history of severe osteoarthritis. Paternal Family History: Reports: - - Patient notes a paternal family history of congestive heart failure. Review of Systems General: Denies: Chills, Fever, Sweats Eyes: Denies: Visual changes - bilaterally, Diplopia ENT: Denies: Rhinorrhea, Sore throat Cardiovascular: Denies: Chest pain, Palpitations Respiratory: Reports: Dyspnea. Denies: Cough, Dyspnea on exertion Gastrointestinal: Denies: Abdominal pain, Nausea, Vomiting, Diarrhea, Melena, Hematochezia Genitourinary: Denies: Dysuria, Hematuria, Frequency Musculoskeletal: Reports: Back pain, Swelling - Chronic lower extremities, Extremity Pain - Left arm, mild Skin: Denies: Rash, Wounds Neurological: Denies: Headache, Weakness, Numbness Physical Exam Vital Signs/Narrative: Vital Signs Temp Pulse Resp BP Pulse Ox 08/25/18 21:03 98.6 F 95 20 H 166/83 H 94 Inital Vital Signs reviewed: Yes General: Well nourished, Well developed, Obese, No Acute Distress Head: Normocephalic, Atraumatic Eyes: Perrl, EOMI ENT: Moist mucous membranes, No rhinorrhea Neck: Supple, Nontender Cardiovascular: Regular rate, Regular rhythm, No murmurs Respiratory: No distress, CTA bilaterally, Chest nontender Abdomen: Soft, Nontender, Nondistended, Normal bowel sounds Back: Nontender, Normal Inspection Extremities: Nontender, Edema - Asymmetric both lower extremities, a little worse on left. Negative for: Calf Tenderness Skin: Normal color, No rash, No Trauma Neurological: Alert, Oriented x3, Cranial nerves II-XII grossly intact, Normal Strength, Normal Sensation, Normal Gait Psychological: Normal affect, Normal Mood Diagnostic/Tx/Re-eval Impressions Chest CTA 08/25/18 21:52 IMPRESSION: No acute findings. Small amount of residual linear nonocclusive clot in right lower lobe segmental branches, residua of the large pulmonary embolus seen on the previous study. Individualized dose optimization techniques were used for this CT. at 2327 Reported and signed by: Javy Tesfaye MD Electronically Signed: Javy Tesfaye, at 23:26 EDT Tel , Service support , 08/25/18 21:52 CTA Chest W/WO Contrast [CT] Stat Laboratory Results 08/25/18 08/25/18 08/25/18 22:05 22:10 22:10 WBC 8.9 RBC 5.02 Hgb 14.6 Hct 41.5 MCV 82.7 MCH 29.1 MCHC 35.2 RDW 12.9 RDW Differential 38.8 Plt Count 289 MPV 9.5 Immature Gran % (Auto) 0.200 Neut % (Auto) 55.5 Lymph % (Auto) 32.7 [place] % (Auto) 10.6 H Eos % (Auto) 0.8 Baso % (Auto) 0.2 Absolute Neuts (auto) 4.9 Absolute Lymphs (auto) 2.91 Total Counted Not Reportable Sodium 135 L Potassium 3.2 L Chloride 103 Carbon Dioxide 26.0 Anion Gap 6 BUN 8 Creatinine 0.81 Estim Creat Clear Calc 105.47 Est GFR (MDRD) Af Amer 129 Est GFR (MDRD) Non-Af 106 BUN/Creatinine Ratio 9.9 L Glucose 98 Calcium 9.1 Troponin I < 0.015 Urine Color Straw Urine Clarity Clear Urine pH 7.0 Ur Specific [place] 1.010 Urine Protein Negative Urine Glucose (UA) Normal Urine Ketones Negative Urine Occult Blood Negative Urine Nitrite Negative Urine Bilirubin Negative Urine Urobilinogen Normal Ur Leukocyte Esterase Negative Urine RBC 0 SEEN Urine WBC 0 SEEN Ur Squamous Epith Cells 0 SEEN Urine Bacteria 0 SEEN Urine Mucus 0 SEEN - Medical Decision Making Clinically patient is doing well. Testing was very reassuring, showing decreased and clot load of all pulmonary emboli and no new issues. He is reassured, recommend close outpatient follow-up, I think his low potassium is relatively incidental and has nothing to do with any of this. He does not have glycosuria, his dry mouth may have been a medication side effect causing him to drink a lot and in turn, urinate a lot. He is reassured and safely discharged home to follow-up. ED Disposition - Plan for ED Patient: Disposition: Home or Assisted Living Diagnosis: Back pain, Dyspnea, Pulmonary embolism Instructions: ED Spasm Back No Trauma Referrals: Ok Maldonado MD [Primary Care Provider] - As Needed
[2018-08-25 22:21] LABS: Bacteria 0 SEEN /hpf (None Seen); Mucous, Urine 0 SEEN /hpf (<or=2+); Red Blood Cells-Urine 0 SEEN /hpf (0-5); Squamous Epithelial Cells - UA 0 SEEN /hpf (0-5); White Blood Cells 0 SEEN /hpf (0-5)
[2018-08-25 22:25] LABS: Absolute Lymphocyte Count 2.91 X10^3/ul (0.83-4.51); Absolute Neutrophil Count 4.9 X10^3/uL (2.0-7.7); Basophil# 0.02 X10^3/uL; Basophil% 0.2 % (0-1); Eosinophil# 0.07 X10^3/uL; Eosinophils% 0.8 % (0-5); Hematocrit 41.5 % (40-54); Hemoglobin 14.6 g/dl (13.0-16.5); Lymphocyte # 2.91 X10^3/ul (4.0); Lymphocyte % 32.7 % (19-41); Mean Corp Hgb Conc 35.2 g/gl (32-36); Mean Corpuscular Hgb 29.1 pg (27.0-32.0); Mean Corpuscular Volume 82.7 fL (80-94); Mean Platelet Vol. 9.5 fl (6.2-12.0); Monocyte# 0.94 X10^3/uL; Monocyte% 10.6 % (0-10); Neutrophil # 4.94 X10^3/uL (2.7-7.7); Neutrophil % 55.5 % (47-70); Platelet Count 289 K/mm3 (150-450); RBC Distribution Width CV 12.9 % (11.6-14.6); RBC Distribution Width SD 38.8 fl (35.1-43.9); Red Blood Count 5.02 M/mm3 (4.6-6.2); White Blood Count 8.9 K/mm3 (4.4-11.0)
[2018-08-25 22:26] LABS: POSITIVE COUNT NO; POSITIVE DIFFERENTIAL NO; POSITIVE MORPHOLOGY NO
[2018-08-25 22:35] LABS: Color, Urine Straw (Yellow); Glucose, Dipstick Normal (Normal); Ketone-Dipstick Negative (Negative); Leukocyte Esterase-Dipstick Negative /ul (Negative); Nitrite-Dipstick Negative (Negative); Occult Blood-Urine Negative /ul (Negative); Protein-Dipstick Negative (Negative); Urine Bilirubin Dipstick Negative (Negative); Urine Clarity Clear (Clear); Urine Urobilinogen Normal (Normal)
[2018-08-25 22:43] LABS: Anion Gap 6 (5-15); BUN 8 mg/dL (7-18); BUN/Creat Ratio 9.9 RATIO (10-20); Calcium,Total 9.1 mg/dL (8.5-10.1); Chloride 103 mmol/L (98-107); Creatinine, Serum 0.81 mg/dL (0.70-1.30); EST Glomerular Filtration Rate 106 mL/min (>60); Est Glom Filt Rate - Afr Amer 129 mL/min (>60); Estimated Creatinine Clearance 105.47 ml/min; Glucose 98 mg/dL (74-106); Potassium 3.2 mmol/L (3.5-5.1); Sodium Level 135 mmol/L (136-145)
[2018-08-26 00:11] VITALS: BP 129/79; PULSE 72; RESP 16; O2SAT 97
== END 2018-08-26 00:22 | disposition home or self-care (01) ==
PROVIDERS: Emergency Provider Emergency Medicine; Family Provider Family Medicine; PCP Family Medicine
DX: M54.6 Pain in thoracic spine (principal); I26.99 Other pulmonary embolism without acute cor pulmonale; R06.00 Dyspnea, unspecified; I10 Essential (primary) hypertension; G47.33 Obstructive sleep apnea (adult) (pediatric); Z79.02 Long term (current) use of antithrombotics/antiplatelets; Z79.899 Other long term (current) drug therapy
CPT/HCPCS: 71275; 80048; 81001; 84484; 85025; 93005; 96360; 96361; 99283; J7030; Q9967; A4216

== ENCOUNTER 2019-02-16 12:10 | Emergency (ER) | payer BC, SELFPAY ==
[2019-02-16 12:11] VITALS: BP 172/99; PULSE 103; RESP 18; TEMP 36.1; O2SAT 96; BMI 44.6
[2019-02-16 12:30] VITALS: O2SAT 97
--- NOTE | 2019-02-16 12:50 | EKG12_ITS ---
Test Reason : CP SOB Blood Pressure : / mmHG Vent. Rate : 087 BPM Atrial Rate : 087 BPM P-R Int : 190 ms QRS Dur : 094 ms QT Int : 362 ms P-R-T Axes : 047 -07 028 degrees QTc Int : 435 ms Normal sinus rhythm Moderate voltage criteria for LVH, may be normal variant Borderline ECG Confirmed by ZOEY JENKINS, EJ ([id number]), editor continuity and script DOTTY HUERTAS ([id number]) on 02/20/2019 9:47:21 AM Referred By: IVÁN Confirmed By:STEVE GREER MD
--- NOTE | 2019-02-16 12:50 | CT_ITS ---
STUDY: CTA CHEST REASON FOR EXAM: Male, 54 years old. History of pulmonary embolism. RADIATION DOSAGE (If Supplied By Facility): CTDIvol = ( 11.47 ) mGy, DLP = ( 565.97 ) mGycm TECHNIQUE: The examination was performed with the intravenous administration of 100ML OF ISOVUE 370. Post-processing of the angiographic images was performed, with multiplanar reformation and 3D reconstruction. Individualized dose optimization techniques were used for this CT. COMPARISON: Comparison is made with prior study dated June 23, 2018. FINDINGS: Small benign-appearing bilateral Normal enhancement of the main pulmonary artery and right and left pulmonary arteries. Normal enhancement of the bilateral peripheral pulmonary arteries. There is no demonstrated pulmonary embolism. Normal thoracic aorta and visualized great vessels. There is no demonstrated aortic dissection. Normal heart and pericardium. Normal mediastinum. Normal hilar regions. Normal visualized trachea and bronchi. The lungs are well expanded. Normal pulmonary parenchyma. Normal pleura. Normal chest wall structures. There are degenerative changes of thoracic spine. Small hiatal hernia. CT/CTA Chest W/WO Contrast IMPRESSION: Normal CTA chest examination, without a demonstrated pulmonary embolism or arterial dissection. Electronically Signed: Trenton Myrick, at 14:28 EST , Service support ,
--- NOTE | 2019-02-16 12:51 | ED.DCSUM_ITS ---
History of Present Illness Chief Complaint: Shortness of Breath Detail of Chief Complaint: Short of breath, cough, back pain Onset: Weeks Current Severity: Moderate Maximum Severity: Moderate Narrative: Patient reports having 7-week history of cough and shortness of breath. He states it is been waxing and waning. He has had occasional chest and back pain. Today he noted more pain between his shoulder blades. He does have a history of pulmonary embolism and is currently on Eliquis. He denies fever or chills. He is been taking Sudafed and Mucinex. - Past Medical History (1) Hypertension Status: Chronic (2) Obstructive sleep apnea Status: Chronic (3) Pulmonary embolism Status: Chronic Past Medical History - Allergies and Home Meds Allergies/Adverse Reactions: Allergies doxycycline monohydrate [From Monodox] Allergy (Verified 02/16/19 12:15) DOUBLE VISION Primary Care Physician: Ok Maldonado MD [Primary Care Provider] - Prior records reviewed: Yes Surgical History: - - [place] teeth extraction, left bicep reattachment. Smoking Status: Never smoker - Family History Maternal Family History: Reports: - - Patient notes a maternal family history of severe osteoarthritis. Paternal Family History: Reports: - - Patient notes a paternal family history of congestive heart failure. Review of Systems General: Denies: Chills, Fever Eyes: Denies: Visual changes - bilaterally ENT: Reports: - - Sinus drainage. Denies: Bilateral ear pain Cardiovascular: Reports: Chest pain - Intermittent chest pain Respiratory: Reports: Dyspnea, Cough, Sputum Gastrointestinal: Denies: Abdominal pain, Vomiting, Diarrhea Musculoskeletal: Reports: Back pain Skin: Denies: Rash Neurological: Denies: Headache Hematologic: Denies: Easy bruising Allergy: Denies: Uticaria Physical Exam Vital Signs/Narrative: Vital Signs Temp Pulse Resp BP Pulse Ox 02/16/19 12:11 97 F L 103 H 18 172/99 H 96 Inital Vital Signs reviewed: Yes General: Well nourished, Well developed Head: Normocephalic ENT: Moist mucous membranes Neck: Supple Cardiovascular: Regular rate, Regular rhythm Respiratory: No distress, CTA bilaterally Abdomen: Soft, Nontender Skin: Normal color Neurological: Alert, Oriented x3 Psychological: Normal affect Diagnostic/Tx/Re-eval Impressions Chest CTA 02/16/19 12:50 IMPRESSION: Normal CTA chest examination, without a demonstrated pulmonary embolism or arterial dissection. Electronically Signed: Trenton Myrick, at 14:28 EST , Service support , 02/16/19 12:50 CTA Chest W/WO Contrast [CT] Stat Laboratory Results 02/16/19 02/16/19 13:20 13:20 WBC 7.4 RBC 4.98 Hgb 14.5 Hct 43.0 MCV 86.3 MCH 29.1 MCHC 33.7 RDW Std Deviation 41.0 RDW Coeff of Selena 13.2 Plt Count 278 MPV 9.4 Immature Gran % (Auto) 0.400 Neut % (Auto) 65.8 Lymph % (Auto) 21.6 [place] % (Auto) 10.2 H Eos % (Auto) 1.3 Baso % (Auto) 0.7 Absolute Neuts (auto) 4.9 Absolute Lymphs (auto) 1.61 Nucleated RBC % 0 Sodium 139 Potassium 3.5 Chloride 105 Carbon Dioxide 27.0 Anion Gap 7 BUN 14 Creatinine 0.93 Estim Creat Clear Calc 90.80 Est GFR (MDRD) Af Amer 109 Est GFR (MDRD) Non-Af 90 BUN/Creatinine Ratio 15.0 Glucose 93 Calcium 9.1 Troponin I < 0.015 - EKG Initial EKG Interpretation: Sinus Rhythm - Sinus at 87 with no acute ischemia. - Medical Decision Making On repeat evaluation patient is resting comfortably. Blood pressure was quite elevated on arrival but is currently 125/57. Test results are discussed with the patient. He has had this ongoing cough for the past 7 weeks. He has not had fever or chills. He does have URI symptoms with sinus drainage. I recommended taking Claritin daily to help dry this up. I did discuss with him the possibility that he may be developing cough from his lisinopril. Once his URI symptoms have resolved if he continues to have cough he will speak with his primary care physician. ED Disposition - Plan for ED Patient: Disposition: Home or Assisted Living Diagnosis: Viral URI, Musculoskeletal back pain Instructions: BRONCHITIS, No Antibiotic (Adult) Referrals: Ok Maldonado MD [Primary Care Provider] - 1-2 Weeks
[2019-02-16] MEDS: 0.9% Normal Saline 1,000 ML 150 ML IV (13:30)
[2019-02-16 13:31] LABS: Absolute Lymphocyte Count 1.61 X10^3/uL (0.83-4.51); Absolute Neutrophil Count 4.9 X10^3/uL (2.0-7.7); Basophil# 0.05 X10^3/uL; Basophil% 0.7 % (0-1); Eosinophils% 1.3 % (0-5); Hemoglobin 14.5 g/dL (13.0-16.5); Lymphocyte # 1.61 X10^3/ul (4.0); Lymphocyte % 21.6 % (19-41); Mean Corp Hgb Conc 33.7 g/dL (32-36); Mean Corpuscular Hgb 29.1 pg (27.0-32.0); Mean Corpuscular Volume 86.3 fL (80-94); Mean Platelet Vol. 9.4 fl (6.2-12.0); Monocyte# 0.76 X10^3/uL; Monocyte% 10.2 % (0-10); NRBC Flagged by Analyzer 0 % (0-5); Neutrophil # 4.89 X10^3/uL (2.7-7.7); Neutrophil % 65.8 % (47-70); Platelet Count 278 K/mm3 (150-450); RBC Distribution Width CV 13.2 % (11.6-14.6); Red Blood Count 4.98 M/mm3 (4.6-6.2); White Blood Count 7.4 K/mm3 (4.4-11.0)
[2019-02-16 13:47] LABS: Anion Gap 7 (5-15); BUN 14 mg/dL (7-18); Calcium,Total 9.1 mg/dL (8.5-10.1); Chloride 105 mmol/L (98-107); Creatinine, Serum 0.93 mg/dL (0.70-1.30); EST Glomerular Filtration Rate 90 mL/min (>60); Est Glom Filt Rate - Afr Amer 109 mL/min (>60); Glucose 93 mg/dL (74-106); Potassium 3.5 mmol/L (3.5-5.1); Sodium Level 139 mmol/L (136-145)
[2019-02-16 14:11] VITALS: BP 125/57; PULSE 81; RESP 14; O2SAT 96
[2019-02-16 14:47] VITALS: BP 111/63; PULSE 67; RESP 15; TEMP 34.4
== END 2019-02-16 14:48 | disposition home or self-care (01) ==
PROVIDERS: Emergency Provider Emergency Medicine; Family Provider Family Medicine; PCP Family Medicine
DX: J06.9 Acute upper respiratory infection, unspecified (principal); M54.6 Pain in thoracic spine; I10 Essential (primary) hypertension; G47.33 Obstructive sleep apnea (adult) (pediatric); Z86.711 Personal history of pulmonary embolism; Z79.02 Long term (current) use of antithrombotics/antiplatelets; Z79.899 Other long term (current) drug therapy
CPT/HCPCS: 71275; 80048; 84484; 85025; 93005; 96360; 99285; J7030; Q9967; A4216

== ENCOUNTER 2019-10-25 14:57 | Emergency (ER) | payer BC, SELFPAY ==
[2019-10-25 15:05] VITALS: BP 155/73; PULSE 94; RESP 18; TEMP 37.1; O2SAT 98; BMI 46.3
--- NOTE | 2019-10-25 15:14 | EKG12_ITS ---
Test Reason : PALP Blood Pressure : / mmHG Vent. Rate : 094 BPM Atrial Rate : 094 BPM P-R Int : 188 ms QRS Dur : 094 ms QT Int : 354 ms P-R-T Axes : 059 -05 038 degrees QTc Int : 442 ms Sinus rhythm with Premature supraventricular complexes Otherwise normal ECG Confirmed by LAVELLE COWAN ([id number]), editor house organ KEKE NERI ([id number]) on 10/28/2019 10:29:46 AM Referred By: IVÁN Confirmed By:LAVELLE COWAN
--- NOTE | 2019-10-25 15:15 | ED.VIS.GEN ---
History of Present Illness Chief Complaint: Palpitations Narrative: This patient is a 54-year-old male who presents with palpitations. This is been present for about 2 days. He has had similar symptoms in the past but not this consistent. He has no chest pain shortness of breath dizziness or lightheadedness. He denies a history of coronary artery disease. He does have a history of pulmonary embolism and is currently on Eliquis. He is treated for hypertension but denies diabetes or hyperlipidemia. Past Medical History - Allergies and Home Meds Allergies/Adverse Reactions: Allergies doxycycline monohydrate [From Monodox] Allergy (Verified 10/25/19 15:07) DOUBLE VISION Primary Care Physician: Ok Maldonado MD [Primary Care Provider] - Past Medical History: - - Pulmonary embolism, hypertension Surgical History: - - [place] teeth extraction, left bicep reattachment. Smoking Status: Never smoker - Family History Maternal Family History: Reports: - - Patient notes a maternal family history of severe osteoarthritis. Paternal Family History: Reports: - - Patient notes a paternal family history of congestive heart failure. Review of Systems All systems negative except as indicated General: Denies: Fever Eyes: Denies: Visual changes - bilaterally ENT: Denies: Bilateral ear pain Cardiovascular: Reports: Palpitations. Denies: Chest pain Respiratory: Denies: Dyspnea Gastrointestinal: Denies: Abdominal pain, Nausea, Vomiting Musculoskeletal: Denies: Myalgias, Arthralgias Skin: Denies: Rash Neurological: Denies: Headache Allergy: Denies: Uticaria Physical Exam Vital Signs/Narrative: Vital Signs Temp Pulse Resp BP Pulse Ox 10/25/19 15:05 98.8 F 94 18 155/73 H 98 Inital Vital Signs reviewed: Yes General: Well nourished, Well developed, Obese Head: Normocephalic Eyes: EOMI ENT: Moist mucous membranes Neck: Supple Cardiovascular: Regular rate, Regular rhythm Respiratory: No distress, CTA bilaterally Abdomen: Soft, Nontender Extremities: Nontender Skin: Normal color Neurological: Alert Psychological: Normal affect Diagnostic/Tx/Re-eval 10/25/19 16:35 Chest PA and Lateral [RAD] Stat Laboratory Results 10/25/19 10/25/19 15:18 15:18 WBC 9.4 RBC 4.94 Hgb 14.5 Hct 43.5 MCV 88.1 MCH 29.4 MCHC 33.3 RDW Std Deviation 41.3 RDW Coeff of Selena 12.9 Plt Count 307 MPV 9.5 Immature Gran % (Auto) 0.400 Neut % (Auto) 59.2 Lymph % (Auto) 27.2 [place] % (Auto) 11.0 H Eos % (Auto) 1.7 Baso % (Auto) 0.5 Absolute Neuts (auto) 5.5 Absolute Lymphs (auto) 2.55 Nucleated RBC % 0 Sodium 140 Potassium 3.4 L Chloride 108 H Carbon Dioxide 26.0 Anion Gap 6 BUN 15 Creatinine 0.96 Estim Creat Clear Calc 87.97 Est GFR (MDRD) Af Amer 104 Est GFR (MDRD) Non-Af 86 BUN/Creatinine Ratio 15.5 Glucose 94 Calcium 9.2 Magnesium 2.1 Troponin I < 0.015 - Medical Decision Making EKG shows sinus rhythm at a rate of 94 with occasional premature supraventricular complex. Labs are unremarkable. Chest x-ray 2 views on my view shows no obvious acute abnormality. Formal radiology read pending but if unremarkable plan is discharged with outpatient follow-up. ED Disposition - Plan for ED Patient: Disposition: Home or Assisted Living Diagnosis: Palpitations Instructions: ED Palpitations Referrals: Ok Maldonado MD [Primary Care Provider] -
[2019-10-25] MEDS: 0.9% Normal Saline 1,000 ML 999 ML IV (15:23)
[2019-10-25 15:40] LABS: Absolute Lymphocyte Count 2.55 X10^3/uL (0.83-4.51); Absolute Neutrophil Count 5.5 X10^3/uL (2.0-7.7); Basophil# 0.05 X10^3/uL; Basophil% 0.5 % (0-1); Eosinophil# 0.16 X10^3/uL; Eosinophils% 1.7 % (0-5); Hematocrit 43.5 % (40-54); Hemoglobin 14.5 g/dL (13.0-16.5); Lymphocyte # 2.55 X10^3/ul (4.0); Lymphocyte % 27.2 % (19-41); Mean Corp Hgb Conc 33.3 g/dL (32-36); Mean Corpuscular Hgb 29.4 pg (27.0-32.0); Mean Corpuscular Volume 88.1 fL (80-94); Mean Platelet Vol. 9.5 fl (6.2-12.0); Monocyte# 1.03 X10^3/uL; NRBC Flagged by Analyzer 0 % (0-5); Neutrophil # 5.53 X10^3/uL (2.7-7.7); Neutrophil % 59.2 % (47-70); Platelet Count 307 K/mm3 (150-450); RBC Distribution Width CV 12.9 % (11.6-14.6); RBC Distribution Width SD 41.3 fl (35.1-43.9); Red Blood Count 4.94 M/mm3 (4.6-6.2); White Blood Count 9.4 K/mm3 (4.4-11.0)
[2019-10-25 15:54] LABS: Anion Gap 6 (5-15); BUN 15 mg/dL (7-18); BUN/Creat Ratio 15.5 RATIO (10-20); Calcium,Total 9.2 mg/dL (8.5-10.1); Chloride 108 mmol/L (98-107); Creatinine, Serum 0.96 mg/dL (0.70-1.30); EST Glomerular Filtration Rate 86 mL/min (>60); Est Glom Filt Rate - Afr Amer 104 mL/min (>60); Estimated Creatinine Clearance 87.97 ml/min; Glucose 94 mg/dL (74-106); Magnesium 2.1 mg/dL (1.6-2.6); Potassium 3.4 mmol/L (3.5-5.1); Sodium Level 140 mmol/L (136-145)
[2019-10-25 16:15] VITALS: BP 134/69; PULSE 75; RESP 16; O2SAT 98
--- NOTE | 2019-10-25 16:35 | RAD_ITS ---
STUDY: X-RAY CHEST REASON FOR EXAM: Male, 54 years old. irregular heart beat x 3 days, happening more frequently today per patient TECHNIQUE: PA and lateral views of the chest. COMPARISON: JUNE 24 2018 FINDINGS: The lungs are clear and expanded. There is no demonstrated pleural abnormality. Normal size heart. Stable osseous structures. RAD/Chest PA and Lateral IMPRESSION: No demonstrated acute process Electronically Signed: Jaxson Friend MD at 16:49 EDT , Service support ,
[2019-10-25 17:24] VITALS: BP 129/69; PULSE 58; RESP 16; O2SAT 98
== END 2019-10-25 17:26 | disposition home or self-care (01) ==
PROVIDERS: Emergency Provider Emergency Medicine; PCP Family Medicine
DX: R00.2 Palpitations (principal); E66.9 Obesity, unspecified; I10 Essential (primary) hypertension; Z86.711 Personal history of pulmonary embolism; Z79.01 Long term (current) use of anticoagulants
CPT/HCPCS: 71046; 80048; 83735; 84484; 85025; 93005; 99284; J7030; A4216

== ENCOUNTER 2020-01-28 14:49 | Emergency (ER) | payer BC, SELFPAY ==
[2020-01-28 14:50] VITALS: BP 163/80; PULSE 93; RESP 20; TEMP 36.3; O2SAT 93; BMI 45.8
--- NOTE | 2020-01-28 15:07 | EKG12_ITS ---
Test Reason : SOB Blood Pressure : / mmHG Vent. Rate : 067 BPM Atrial Rate : 067 BPM P-R Int : 188 ms QRS Dur : 096 ms QT Int : 424 ms P-R-T Axes : 028 -02 010 degrees QTc Int : 448 ms Normal sinus rhythm Normal ECG Confirmed by CHARLES JENKINS, MAYTE ([id number]), general expeditor KEKE NERI ([id number]) on 01/31/2020 12:50:22 PM Referred By: ALEX Confirmed By:MAYTE SOTO MD
--- NOTE | 2020-01-28 15:08 | ED.DCSUM_ITS ---
- ER Visit Summary Date of Service: 01/28/20 Chief Complaint: Feels dehydrated History of Present Illness: The patient is a 54 M presenting to the ED because he feels dehydrated. He was diagnosed with Covid 8 days ago. His symptoms started 12 days ago. His children have also tested positive for Covid. He states his symptoms started with cough, sore throat, headache. He started having diarrhea 1-2 days ago. He is having diarrhea approximately 4 times per day. Denies abdominal pain, nausea, vomiting. Denies blood in his stool. Denies chest pain or shortness of breath. He has subjective fever and cough. He feels weak and fatigued. He states his mouth is dry. He has been drinking fluids but continues to feel fatigued and dehydrated. Physical Examination: Vitals are stable. Patient is afebrile. Alert no acute distress. Pulse ox 93% on room air. HEENT exam is unremarkable. Neck is supple. Lungs are clear and equal bilaterally. Heart is regular rate and rhythm. Abdomen is soft nontender nondistended. No guarding or rebound Extremities are unremarkable. Skin is warm and dry. No focal neurologic deficit. Remainder of exam is unremarkable. Emergency Department Course and Treatment: Patient was given IV fluids, Zofran. CBC unremarkable other than low lymphocytes. Sodium 131, potassium 3.3, glucose 109. Troponin is negative. EKG is sinus rhythm rate of 67 with no acute ischemic changes. Chest x-ray shows patchy ill-defined pulmonary opacities bilaterally worse on the left. Findings are nonspecific but could represent multifocal pneumonia including viral etiology. With ambulation his pulse ox is 95 to 97% on room air. He is started on Decadron and given a prescription for Decadron. He is set up for home O2 to use with exertion and as needed at home. He is advised signs and symptoms for which to return to the ED. Advised to follow up with PCP. Disposition: Discharge home Impression: COVID-19, pneumonia This note was generated with [employer] dictation software. It may contain incorrect words, spelling, and punctuation that were not noted in review of the chart prior to signing ED Disposition - Plan for ED Patient: Instructions: ED Viral Syndrome Prescriptions: Dexamethasone [Decadron] 6 mg PO DAILY #9 tab Prescription Printed Referrals: Ok Maldonado MD [Primary Care Provider] -
[2020-01-28] MEDS: 0.9% Normal Saline 1,000 ML 1000 ML IV (15:29)
[2020-01-28] MEDS: Ondansetron 4 MG/2 ML Vial IV (15:29)
--- NOTE | 2020-01-28 15:40 | RAD_ITS ---
STUDY: X-RAY CHEST REASON FOR EXAM: Male, 54 years old. COVID POSITIVE PATIENT, DEHYDRATION TECHNIQUE: Single AP portable view of the chest. COMPARISON: 10/25/2019. FINDINGS: Normal lung volumes. Patchy ill-defined pulmonary opacities bilaterally worse on the left. Findings are nonspecific but could represent multifocal pneumonia including viral etiology. No gross effusions. Normal size heart. Normal mediastinum and luisa. Normal visualized pulmonary arteries. Normal visualized aortic arch and descending thoracic aorta. Normal visualized thoracic spine. Normal visualized ribs, clavicles, and shoulders. There is no demonstrated abnormality of the visualized soft tissue structures of the upper abdomen. RAD/Chest 1 View (Portable) IMPRESSION: Patchy ill-defined pulmonary opacities bilaterally worse on the left. Findings are nonspecific but could represent multifocal pneumonia including viral etiology. Electronically Signed: Bhavesh Orona MD at 16:16 EST , Service support ,
[2020-01-28 15:45] LABS: Absolute Lymphocyte Count 0.95 X10^3/uL (0.83-4.51); Absolute Neutrophil Count 3.5 X10^3/uL (2.0-7.7); Basophil# 0.03 X10^3/uL; Basophil% 0.6 % (0-1); Eosinophil# 0.02 X10^3/uL; Eosinophils% 0.4 % (0-5); Hemoglobin 15.1 g/dL (13.0-16.5); Lymphocyte # 0.95 X10^3/ul (4.0); Lymphocyte % 18.6 % (19-41); Mean Corp Hgb Conc 34.3 g/dL (32-36); Mean Corpuscular Volume 84.6 fL (80-94); Monocyte# 0.63 X10^3/uL; Monocyte% 12.3 % (0-10); NRBC Flagged by Analyzer 0 % (0-5); Neutrophil # 3.45 X10^3/uL (2.7-7.7); Neutrophil % 67.3 % (47-70); Platelet Count 218 K/mm3 (150-450); RBC Distribution Width CV 12.1 % (11.6-14.6); RBC Distribution Width SD 36.8 fl (35.1-43.9); White Blood Count 5.1 K/mm3 (4.4-11.0)
[2020-01-28 16:06] LABS: Anion Gap 6 (5-15); BUN 7 mg/dL (7-18); BUN/Creat Ratio 7.9 RATIO (10-20); Calcium,Total 8.1 mg/dL (8.5-10.1); Chloride 99 mmol/L (98-107); Creatinine, Serum 0.89 mg/dL (0.70-1.30); EST Glomerular Filtration Rate 94 mL/min (>60); Est Glom Filt Rate - Afr Amer 114 mL/min (>60); Estimated Creatinine Clearance 94.88 ml/min; Glucose 109 mg/dL (74-106); Potassium 3.3 mmol/L (3.5-5.1); Sodium Level 131 mmol/L (136-145)
--- NOTE | 2020-01-28 16:35 | CM.ED ---
Social Work Consult: Home O2 Informant: Dr. Liao Telephone call to patient room due to patient being in precautions. Introduced self and social work role. Patient agreeable to speak with this group social worker. Patient agreeable to home oxygen being set up in the home through [employer]. Patient reports to have support in the home and adults checking in with patient. Patient does live at home with two children, 13 and 14. Patient ex- checks in on patient often. Patient denies concerns on returning to home/community. Patient states to have transportation to home today when oxygen is able to be set up. Telephone call to [facility] [employer], intake. Referral made. [employer] to call this group social worker with ETA for delivery of oxygen tank. Order for O2 obtained from Dr. Liao and faxed to [facility] [place]. Ferny TOMAS, TRAN
--- NOTE | 2020-01-28 16:44 | ED.DEP ---
ED Disposition - Plan for ED Patient: Instructions: ED Viral Syndrome Prescriptions: Dexamethasone [Decadron] 6 mg PO DAILY #9 tab Prescription Printed Referrals: Ok Maldonado MD [Primary Care Provider] -
[2020-01-28 16:45] VITALS: BP 136/73; PULSE 72; RESP 18; O2SAT 99
[2020-01-28] MEDS: dexAMETHasone 4 MG Tablet 6 MG PO (16:55)
--- NOTE | 2020-01-28 17:25 | CM.ED ---
Social Work Telephone call from [employer] delivery, ETA of [id number]. Updated medical team and patient. Ferny Booth [employer]OS[employer]RIER TENDER, TRAN
[2020-01-28 18:10] VITALS: BP 136/78; PULSE 82; RESP 16; O2SAT 98
--- NOTE | 2020-01-30 14:51 | CASEMGMT ---
TRAV CM follow-up call: Phone call placed to pt. Identifying voicemail received and voicemail left requesting a return call. Jennifer Mcdonald RN CM
--- NOTE | 2020-01-30 16:16 | CASEMGMT ---
TRAV LARIOS Follow-up: Pt returned call and left a voicemail stating that he was feeling better since his ED visit. He reported that he has been taking his prescription and and using his oxygen prn for shortness of breath. This TRAV LARIOS attempted to return pt's call but identifying voicemail was again received. Message left thanking patient for return call and information provided. Instructed pt to return call if he had any questions or if he began to feel worse to contact his PCP. Jennifer Mcdonald RN CM
--- NOTE | 2020-01-31 14:44 | CASEMGMT ---
TRAV LARIOS Follow-up: Call placed to pt's cell phone. TRAV LARIOS role and reason for call explained to pt. Pt agreeable to conversation. Pt states he is doing the same, is not getting better but not getting worse. Breathing: Pt reports SOB with exertion but not with rest. States he is wearing his home O2 at 2l/min continuously but takes it off occasionally. Pt states he does not have a pulse oximeter to check is PO reading. Pt reports a non-productive cough. Diet: Pt states he taking in water/fluids ok and has been eating some but not a lot. Sleep: Pt states he has been sleeping in a recliner to avoid laying flat. He has only been able to sleep 3-4 hours each night and then naps intermittently during the day. Other complaints/concerns: Pt also reports back pain while sitting up. Pt states he is concerned with getting blood clots as he has had them in the past. Noted pt was on Eliquis prior to his ED presentation. PCP Follow-up: Pt states he has not made a follow-up appointment with Dr. Maldnoado, his PCP. Encouraged pt to contact Dr. Maldonado's office for a follow-up appointment and to discuss his concerns regarding his back pain. Medications: Pt states he has been taking the prescribed decadron. Quarantine: Pt states he has been able to remain indoors but states his two sons that live with him also have had COVID so they have not needed to separate themselves. He has been able to have groceries and needed items delivered to his home. Jennifer Mcdonald RN CM
--- NOTE | 2020-02-01 15:23 | CASEMGMT ---
TRAV LARIOS Follow-up Call: Call placed to pt's cell phone number. Pt states he was feeling better this AM but is back to feeling how he was yesterday. States he does not feel worse than yesterday just the same. States he still gets SOB at times and has coughing fits. He was able to eat breakfast this AM but did not eat lunch. Still having difficulty with sleeping and was only able to sleep 3 hours in the recliner and then another hour in bed. Pt states he has a virtual call with his PCP in a few minutes. Pt denies any other questions or concerns at this time. Jennifer Mcdonald RN CM
--- NOTE | 2020-02-02 13:39 | CASEMGMT ---
RNCM Follow up phone call: -Called to materials management. Pulse oximeters are available and are in the ED. Call to [facility] Explained a pulse ox is needed for Sedrick Milian and he will have someone pick it up. She will have it at the triage desk along with the zone management paper. -Intro role of CM to patient via phone. Reviewed patient's condition. He states he is still tired and coughing, but his physician prescribed medication which he picked up and this has been helping him. No shortness of breath except with ambulation, resolves at rest. -Updated patient that pulse oximetry finger probe is available for him to peanut picker @ the ER. He would need to have a friend/family pull up to ER and let the screener know patient's name and they will get for him and instruct on use. -Instructed patient on pulse ox reading. He is currently on 2L NC. If pulse ox stays over 90, and breathing is comfortable, this would suffice. Instructed patient to monitor when ambulating, and if pulse ox drops he can increase the oxygen to 4L. If more than this is required, he should contact his physician. Explained he will receive a zone sheet from the ED with information on symptoms and when to call physician. Patient has good understanding and states he has someone not in quarantine who can pick pulse ox up. -pt states he still has back pain, but his PCP is aware. Zuri CARDENAS RN ACM
--- NOTE | 2020-02-03 15:40 | CASEMGMT ---
TRAV LARIOS Note: intro role of CM to patient via phone. Patient states he is doing well. He did receive the pulse oximeter from ER. His pulse ox is staying above 92% with rest and activity. Does still notice shortness of breath with activity, however has not needed to raise the oxygen liter flow as it does not drop below 91% and is resolved with rest. The patient states he lost his taste yesterday, but his smell has returned. Dr. Chaney was on unit and states though it is uncommon to lose smell, then taste at different times, the virus reacts differently with each person. This can last a few months. -Patient has f/u with his physician on Feb.16. TRAV LARIOS reviewed symptoms of concern including new fevers, increased shortness of breath. Pt is aware to contact his physician over weekend if symptoms worsen. - Pt states he still has no appetite, but is eating and drinking. TRAV LARIOS encouraged him to maintain fluid intake and mild foods at least as his appetite may stay decreased. -No further questions. TRAV LARIOS asked if pt would like a call on Thursday to see how he is doing, and he would prefer this. -Will call Thursday for final f/u. Zuri CARDENAS RN ACM
== END 2020-01-28 18:11 | disposition home or self-care (01) ==
LOC: ED 16:05
PROVIDERS: Emergency Provider Emergency Medicine; PCP Family Medicine
DX: U07.1 COVID-19 (principal); J12.89 Other viral pneumonia; I10 Essential (primary) hypertension; Z79.899 Other long term (current) drug therapy
CPT/HCPCS: 71045; 80048; 84484; 85025; 93005; 96361; 96374; 99284; J7030; A4216; J2405

== ENCOUNTER 2020-02-22 15:48 | Emergency (ER) | payer BC, SELFPAY ==
[2020-02-22 15:49] VITALS: BP 164/93; PULSE 102; RESP 16; TEMP 37.2; O2SAT 95; BMI 44.3
[2020-02-22 16:31] VITALS: O2SAT 99
--- NOTE | 2020-02-22 16:40 | ED.DCSUM_ITS ---
History of Present Illness Chief Complaint: Shortness of Breath Informant: Patient Narrative: 55-year-old male presenting with shortness of breath. He states this is mild and intermittent. He states he did note that his home pulse ox was 90% while ambulating. Patient admits to having Covid?19 a month ago. He states he has recovered well and has no other symptoms other than the shortness of breath and the low pulse ox reading. He is not sure if this is accurate. He denies any chest pain but does state that he has some back pain which is in his upper back. Patient has history of pulmonary embolism in the past and is on Eliquis currently. He states that he told his primary care physician about his back pain, hypoxia and he wanted him to come to the ER for a CT to make sure that his blood thinner is working. - Past Medical History (1) Hypertension Status: Chronic (2) Morbid obesity Status: Chronic (3) Obstructive sleep apnea Status: Chronic (4) Pulmonary embolism Status: Chronic Past Medical History - Allergies and Home Meds Allergies/Adverse Reactions: Allergies doxycycline monohydrate [From Monodox] Allergy (Verified 01/28/20 15:06) DOUBLE VISION Primary Care Physician: Ok Maldonado MD [Primary Care Provider] - Prior records reviewed: Yes Past Medical History: None - Reviewed in problem list Surgical History: noncontributory, - - Sawyer teeth extraction, left bicep reattachment. Lives: Alone Smoking Status: Never smoker Alcohol: None Drugs: None - Family History Maternal Family History: Reports: - - Patient notes a maternal family history of severe osteoarthritis. Paternal Family History: Reports: - - Patient notes a paternal family history of congestive heart failure. Review of Systems General: Denies: Chills, Fever, Sweats Eyes: Denies: Visual changes - bilaterally, Diplopia ENT: Denies: Rhinorrhea, Sore throat Cardiovascular: Denies: Chest pain, Palpitations Respiratory: Reports: Dyspnea. Denies: Cough, Sputum Gastrointestinal: Denies: Abdominal pain, Nausea, Vomiting, Diarrhea, Melena, Hematochezia Genitourinary: Denies: Dysuria, Hematuria Musculoskeletal: Denies: Myalgias, Arthralgias Skin: Denies: Rash, Abscess Neurological: Denies: Headache, Weakness Physical Exam Vital Signs/Narrative: Vital Signs Temp Pulse Resp BP Pulse Ox 02/22/20 15:49 99.0 F 102 H 16 164/93 H 95 Inital Vital Signs reviewed: Yes General: Obese, No Acute Distress Head: Normocephalic, Atraumatic Eyes: Perrl, EOMI ENT: Moist mucous membranes, No rhinorrhea Cardiovascular: Regular rate, Regular rhythm Respiratory: No distress, CTA bilaterally Abdomen: Soft, Nontender, Nondistended Back: Normal Inspection, - - No tenderness to palpation at T10/T11 where his stated pain is.. There is no bony step-off or deformity. . Negative for: CVA tenderness Extremities: Nontender, No edema Skin: Normal color, No rash. Negative for: Cyanosis Neurological: Alert, Oriented x3 Psychological: Normal affect, Normal Mood Diagnostic/Tx/Re-eval Clinical Impression(s) from Imaging Studies Chest CTA 02/22/20 17:12 IMPRESSION: Minimal to mild sporadic mostly peripheral infiltrates somewhat greater in the left than the right without a new broad area of consolidation, focal atelectasis or pleural effusion. This pattern would be substantially improved from the positive chest radiograph of 01/28/2020 but has not returned to a completely normal baseline appearance of 02/16/2019. Negative for pulmonary embolus. Normal thoracic aorta. Normal cardiac size without pericardial effusion. Minimal coronary calcification. Stigmata of old granulomatous disease. No acute bone findings. No acute findings in the uppermost abdomen. Electronically Signed: Claudia Nguyen MD at 18:23 EST , Service support , Laboratory Data 02/22/20 02/22/20 02/22/20 16:29 16:29 16:29 WBC 7.1 RBC 4.87 Hgb 14.5 Hct 42.1 MCV 86.4 MCH 29.8 MCHC 34.4 RDW Std Deviation 42.6 RDW Coeff of Selena 13.7 Plt Count 248 MPV 9.2 Immature Gran % (Auto) 0.600 Neut % (Auto) 54.0 Lymph % (Auto) 29.5 [place] % (Auto) 13.0 H Eos % (Auto) 2.5 Baso % (Auto) 0.4 Absolute Neuts (auto) 3.8 Absolute Lymphs (auto) 2.09 Nucleated RBC % 0 Sodium 137 Potassium 3.5 Chloride 105 Carbon Dioxide 27.0 Anion Gap 5 BUN 8 Creatinine 0.80 Estim Creat Clear Calc 104.33 Est GFR (MDRD) Af Amer 130 Est GFR (MDRD) Non-Af 107 BUN/Creatinine Ratio 10.1 Glucose 82 Calcium 9.2 Troponin I < 0.015 B-Natriuretic Peptide 15.4 - Rhythm Strip Rhythm Strip: Sinus Rhythm Rate: 88 - EKG Initial EKG Interpretation: Sinus Rhythm, No Acute Injury Pattern - Medical Decision Making 55-year-old male with history of Covid?nineteen 1 month ago presenting with some mild shortness of breath. He states his pulse ox was dipping into the 90s at home. He states this only happened a couple of times he was unsure if it is accurate. He called his PCP and told him he was having some upper back pain as well as a little bit of shortness of breath. He did tell him about his pulse oximeter. His PCP wanted him to come to the ER so he could get a CT scan to ensure that his Eliquis is working for his history of PE. Patient was tested again for Covid?19. He is not having any symptoms of this currently except the shortness of breath. I ambulated him at the bedside for 30 seconds and his pulse ox never went below 96 percent on room air. His EKG is interpreted by myself is sinus rhythm at [address] elevation or depressions. CBC and BMP are unremarkable troponin is negative. CTA of the chest does not show PE. Also resolving areas where previous Covid?19 infiltrate was. Given improvement on CTA and negative for pulmonary embolism I feel patient is safe to be discharged home. I did funeral pre arrangement counselor him to buy a new pulse oximeter is is may not be accurate. He will follow-up with his PCP and he is given return precautions. Impression: 1. Shortness of breath 2. History of Covid?19 ED Disposition - Plan for ED Patient: Disposition: Home or Assisted Living Instructions: Coronavirus Disease 2019 (COVID-19): Overview Referrals: Ok Maldonado MD [Primary Care Provider] -
--- NOTE | 2020-02-22 17:12 | CT_ITS ---
STUDY: CTA CHEST REASON FOR EXAM: Male, 55 years old. POST COVID X3 WKS AGO, SAT DROPS BELOW 90% W/ EXERTION RADIATION DOSAGE (If Supplied By Facility): CTDIvol = ( 11.48 ) mGy, DLP = ( 554.10 ) mGycm TECHNIQUE: The examination was performed with the intravenous administration of IV 100mL Isovue-370. Post-processing of the angiographic images was performed, with multiplanar reformation and 3D reconstruction. Individualized dose optimization techniques were used for this CT. COMPARISON: Prior portable chest exam 01/31/2020 and a prior chest CT exam of 02/17/2020. FINDINGS: Normal enhancement of the main pulmonary artery and right and left pulmonary arteries. Normal enhancement of the bilateral peripheral pulmonary arteries. There is no demonstrated pulmonary embolism. Normal thoracic aorta and visualized great vessels. There is no demonstrated aortic dissection. Normal heart and pericardium. Minimal coronary calcifications. Normal mediastinum. Normal hilar regions. Normal visualized trachea and bronchi. The lungs are well expanded. Mild/minimal sporadic mostly peripheral pulmonary infiltrates somewhat greater in the left lung than the right without a new area of broad consolidation, focal atelectasis or pleural effusion. Calcified granuloma at the left lung base. Calcified subcarinal lymph nodes. Normal chest wall structures. There are degenerative changes of thoracic spine. No acute findings in the uppermost abdomen. CT/CTA Chest W/WO Contrast IMPRESSION: Minimal to mild sporadic mostly peripheral infiltrates somewhat greater in the left than the right without a new broad area of consolidation, focal atelectasis or pleural effusion. This pattern would be substantially improved from the positive chest radiograph of 01/28/2020 but has not returned to a completely normal baseline appearance of 02/16/2019. Negative for pulmonary embolus. Normal thoracic aorta. Normal cardiac size without pericardial effusion. Minimal coronary calcification. Stigmata of old granulomatous disease. No acute bone findings. No acute findings in the uppermost abdomen. Electronically Signed: Claudia Nguyen MD at 18:23 EST , Service support ,
--- NOTE | 2020-02-22 17:12 | EKG12_ITS ---
Test Reason : Blood Pressure : / mmHG Vent. Rate : 088 BPM Atrial Rate : 088 BPM P-R Int : 184 ms QRS Dur : 082 ms QT Int : 368 ms P-R-T Axes : 054 012 044 degrees QTc Int : 445 ms Normal sinus rhythm Normal ECG Confirmed by BETSY JENKINS, KAMI ([id number]), editor city KEKE NERI ([id number]) on 02/24/2020 2:05:34 PM Referred By: DAYAMI/MARTIN Confirmed By:KAMI MEYER MD
[2020-02-22 17:22] LABS: Absolute Lymphocyte Count 2.09 X10^3/uL (0.83-4.51); Absolute Neutrophil Count 3.8 X10^3/uL (2.0-7.7); Basophil# 0.03 X10^3/uL; Basophil% 0.4 % (0-1); Eosinophil# 0.18 X10^3/uL; Eosinophils% 2.5 % (0-5); Hematocrit 42.1 % (40-54); Hemoglobin 14.5 g/dL (13.0-16.5); Lymphocyte # 2.09 X10^3/ul (4.0); Lymphocyte % 29.5 % (19-41); Mean Corp Hgb Conc 34.4 g/dL (32-36); Mean Corpuscular Hgb 29.8 pg (27.0-32.0); Mean Corpuscular Volume 86.4 fL (80-94); Mean Platelet Vol. 9.2 fl (6.2-12.0); Monocyte# 0.92 X10^3/uL; NRBC Flagged by Analyzer 0 % (0-5); Neutrophil # 3.82 X10^3/uL (2.7-7.7); Platelet Count 248 K/mm3 (150-450); RBC Distribution Width CV 13.7 % (11.6-14.6); RBC Distribution Width SD 42.6 fl (35.1-43.9); Red Blood Count 4.87 M/mm3 (4.6-6.2); White Blood Count 7.1 K/mm3 (4.4-11.0)
[2020-02-22 17:35] LABS: Anion Gap 5 (5-15); BUN 8 mg/dL (7-18); BUN/Creat Ratio 10.1 RATIO (10-20); Calcium,Total 9.2 mg/dL (8.5-10.1); Chloride 105 mmol/L (98-107); EST Glomerular Filtration Rate 107 mL/min (>60); Est Glom Filt Rate - Afr Amer 130 mL/min (>60); Estimated Creatinine Clearance 104.33 ml/min; Glucose 82 mg/dL (74-106); Potassium 3.5 mmol/L (3.5-5.1); Sodium Level 137 mmol/L (136-145)
[2020-02-22 17:50] LABS: BNP,B-Type NATRIURETIC PEPTIDE 15.4 pg/mL (0-100)
[2020-02-22 18:51] VITALS: BP 135/80; PULSE 87; RESP 22; O2SAT 97
== END 2020-02-22 19:00 | disposition home or self-care (01) ==
PROVIDERS: Emergency Provider Student in an Organized Health Care Education/Training Program; PCP Family Medicine
DX: U07.1 COVID-19 (principal); R06.02 Shortness of breath; I10 Essential (primary) hypertension; E66.01 Morbid (severe) obesity due to excess calories; Z86.711 Personal history of pulmonary embolism; Z79.02 Long term (current) use of antithrombotics/antiplatelets; Z79.899 Other long term (current) drug therapy
CPT/HCPCS: 71275; 80048; 83880; 84484; 85025; 87635; 93005; 99284; Q9967; A4216; U0003

== ENCOUNTER 2021-05-06 12:45 | Outpatient (RCR) | payer BC, SELFPAY | END 2021-05-13 23:59 | LOC: NS 12:45 | PROVIDERS: PCP Family Medicine; Visit Provider Family Medicine | DX: Z71.3 Dietary counseling and surveillance (principal); E66.01 Morbid (severe) obesity due to excess calories; Z68.42 Body mass index [BMI] 45.0-49.9, adult | CPT/HCPCS: 97802 ==

== ENCOUNTER 2021-06-04 16:00 | Outpatient (RCR) | payer BC, SELFPAY | END 2021-06-13 23:59 | LOC: NS 16:00 | PROVIDERS: PCP Family Medicine; Referring Provider Family Medicine; Visit Provider Family Medicine | DX: E66.01 Morbid (severe) obesity due to excess calories (principal); Z68.42 Body mass index [BMI] 45.0-49.9, adult | CPT/HCPCS: 97803 ==

== ENCOUNTER 2021-07-04 15:57 | Outpatient (RCR) | payer BC, SELFPAY | END 2021-07-13 23:59 | LOC: NS 15:57 | PROVIDERS: PCP Family Medicine; Referring Provider Family Medicine; Visit Provider Family Medicine | DX: Z71.3 Dietary counseling and surveillance (principal); E66.01 Morbid (severe) obesity due to excess calories; Z68.42 Body mass index [BMI] 45.0-49.9, adult | CPT/HCPCS: 97803 ==

== ENCOUNTER 2021-07-18 16:00 | Outpatient (RCR) | payer BC, SELFPAY | END 2021-08-13 23:59 | LOC: NS 16:00 | PROVIDERS: PCP Family Medicine; Referring Provider Family Medicine; Visit Provider Family Medicine | DX: Z71.3 Dietary counseling and surveillance (principal); E66.01 Morbid (severe) obesity due to excess calories; Z68.42 Body mass index [BMI] 45.0-49.9, adult | CPT/HCPCS: 97803 ==

== ENCOUNTER 2021-09-23 16:28 | Outpatient (RCR) | payer BC, SELFPAY | END 2021-10-13 23:59 | LOC: NS 16:28 | PROVIDERS: PCP Family Medicine; Referring Provider Family Medicine; Visit Provider Family Medicine | DX: Z71.3 Dietary counseling and surveillance (principal); E66.01 Morbid (severe) obesity due to excess calories; Z68.42 Body mass index [BMI] 45.0-49.9, adult | CPT/HCPCS: 97803 ==

== ENCOUNTER → 2021-10-08 | Outpatient (CLI) | payer BC, SELFPAY | END | disposition home or self-care (01) | PROVIDERS: PCP Family Medicine; Referring Provider Otolaryngology Otolaryngology/Facial Plastic Surgery; Visit Provider Otolaryngology Otolaryngology/Facial Plastic Surgery | DX: B36.9 Superficial mycosis, unspecified (principal) | CPT/HCPCS: 87070 ==

== ENCOUNTER 2021-10-21 16:28 | Outpatient (RCR) | payer BC, SELFPAY | END 2021-11-13 23:59 | LOC: NS 16:28 | PROVIDERS: PCP Family Medicine; Referring Provider Family Medicine; Visit Provider Family Medicine | DX: Z71.3 Dietary counseling and surveillance (principal); E66.01 Morbid (severe) obesity due to excess calories; Z68.42 Body mass index [BMI] 45.0-49.9, adult | CPT/HCPCS: 97803 ==

== ENCOUNTER 2021-11-20 16:26 | Outpatient (RCR) | payer BC, SELFPAY | END 2021-12-13 23:59 | LOC: NS 16:26 | PROVIDERS: PCP Family Medicine; Referring Provider Family Medicine; Visit Provider Family Medicine | DX: Z71.3 Dietary counseling and surveillance (principal); E66.01 Morbid (severe) obesity due to excess calories; Z68.42 Body mass index [BMI] 45.0-49.9, adult | CPT/HCPCS: 97803 ==

== ENCOUNTER 2022-01-09 16:29 | Outpatient (RCR) | payer BC, SELFPAY | END 2022-01-13 23:59 | LOC: NS 16:29 | PROVIDERS: PCP Family Medicine; Referring Provider Family Medicine; Visit Provider Family Medicine | DX: Z71.3 Dietary counseling and surveillance (principal); E66.01 Morbid (severe) obesity due to excess calories; Z68.42 Body mass index [BMI] 45.0-49.9, adult | CPT/HCPCS: 97803 ==

== ENCOUNTER 2022-03-25 16:00 | Outpatient (RCR) | payer BC, SELFPAY | END 2022-04-15 23:59 | LOC: NS 16:00 | PROVIDERS: PCP Family Medicine; Referring Provider Family Medicine; Visit Provider Family Medicine | DX: Z71.3 Dietary counseling and surveillance (principal); E66.01 Morbid (severe) obesity due to excess calories; Z68.42 Body mass index [BMI] 45.0-49.9, adult | CPT/HCPCS: 97803 ==

== ENCOUNTER 2022-04-29 15:56 | Outpatient (RCR) | payer BC, SELFPAY | END 2022-05-13 23:59 | LOC: NS 15:56 | PROVIDERS: PCP Family Medicine; Referring Provider Family Medicine; Visit Provider Family Medicine | DX: Z71.3 Dietary counseling and surveillance (principal); E66.01 Morbid (severe) obesity due to excess calories; Z68.42 Body mass index [BMI] 45.0-49.9, adult | CPT/HCPCS: 97803 ==

== ENCOUNTER 2022-07-07 16:29 | Outpatient (RCR) | payer BC, SELFPAY | END 2022-07-13 23:59 | LOC: NS 16:29 | PROVIDERS: PCP Family Medicine; Referring Provider Family Medicine; Visit Provider Family Medicine | DX: Z71.3 Dietary counseling and surveillance (principal); E66.01 Morbid (severe) obesity due to excess calories; Z68.42 Body mass index [BMI] 45.0-49.9, adult | CPT/HCPCS: 97803 ==

== ENCOUNTER 2022-09-01 16:30 | Outpatient (RCR) | payer BC, SELFPAY | END 2022-09-12 23:59 | LOC: NS 16:30 | PROVIDERS: PCP Family Medicine; Referring Provider Family Medicine; Visit Provider Family Medicine | DX: Z71.3 Dietary counseling and surveillance (principal); E66.01 Morbid (severe) obesity due to excess calories; Z68.42 Body mass index [BMI] 45.0-49.9, adult | CPT/HCPCS: 97803 ==

== ENCOUNTER 2022-11-05 15:56 | Outpatient (RCR) | payer BC, SELFPAY | END 2022-11-13 23:59 | LOC: NS 15:56 | PROVIDERS: PCP Family Medicine; Referring Provider Family Medicine; Visit Provider Family Medicine | DX: Z71.3 Dietary counseling and surveillance (principal); E66.01 Morbid (severe) obesity due to excess calories; Z68.42 Body mass index [BMI] 45.0-49.9, adult | CPT/HCPCS: 97803 ==

== ENCOUNTER 2023-02-14 07:08 | Emergency (ER) | payer BC, SELFPAY ==
[2023-02-14 07:09] VITALS: BP 176/90; PULSE 90; RESP 16; TEMP 36.2; O2SAT 100; BMI 47.9
--- NOTE | 2023-02-14 07:19 | CT_ITS ---
INDICATION: right submandibular swelling EXAMINATION: CT NECK WITH CONTRAST - CT Soft Tissue Neck W/ Contrast Injection TECHNIQUE: Helically acquired images were obtained of the neck following IV contrast. A radiation dose optimization technique was used for this scan. RADIATION DOSAGE (If Supplied By Facility): CTDIvol = ( 17.88 ) mGy, DLP = ( 513.79 ) mGycm IV Contrast dosage and agent: 75 mL of Isovue-300. COMPARISON: None. FINDINGS: NASOPHARYNX: Unremarkable. SUPRAHYOID NECK: Unremarkable oropharynx, oral cavity, parapharyngeal space, and retropharyngeal space. INFRAHYOID NECK: Unremarkable larynx, hypopharynx, and supraglottis. THYROID: No focal lesions. SALIVARY GLANDS: Mild enlargement of the right submandibular gland with inflammatory changes of the surrounding fat including mild thickening of the overlying the right platysma muscle in the overlying subcutaneous fat. No right submandibular intraglandular ductal dilatation and no right submandibular duct dilatation. Normal left submandibular gland. Normal sublingual glands. Normal and symmetrical parotid glands. LYMPH NODES: Small benign reactive nodes in the suprahyoid neck more than the infrahyoid neck. VASCULAR STRUCTURES: Normal carotid sheaths and normal vertebral arteries. VISUALIZED PORTIONS OF THE ORBITS, PARANASAL SINUSES, MASTOID AIR CELLS AND SKULL BASE: Unremarkable. BONES: C5-C6 degenerative disc space height narrowing with endplate sclerosis. Normal remaining cervical disc space heights. Normal vertebral body heights and alignment. No lytic or blastic lesions. No suspicious abnormality of the mandible and dentition. THORACIC INLET: Clear lung apices. CT/Soft Tissue Neck WITH Contrast IMPRESSION: Sialoadenitis of the right submandibular gland without obstructing calculi, intraglandular ductal dilatation or right submandibular duct dilatation. Electronically Signed: Alvarez Paz MD at 8:53 EST ,
--- NOTE | 2023-02-14 07:20 | EX.ED.DYSGE1 ---
HPI History of Present Illness Chief Complaint: Other, Pain/Inj Detail of Chief Complaint: Right neck swelling Informant: patient Narrative Narrative: Patient presents with swelling to the right side of his neck that started yesterday. Patient states that he has been sick with upper respiratory symptoms for about a week. He was seen at urgent care for the swelling and thought he may have a reactive lymph node. Patient also states the lower portion of his mouth under his tongue was swollen yesterday. He denies any fever other than low-grade temp up to 99. He denies chills or sweats. He cough mostly nonproductive and just mild. Denies significant sore throat. PFSH PFSH Home Medications Lisinopril/Hydrochlorothiazide [Zestoretic 20/25 Tablet] 1 tab PO DAILY bp 03/10/13 [History Last Taken 06/24/18] potassium chloride 10 mEq tablet,extended release(part/cryst) 10 meq PO DAILY supplement 03/10/13 [History Last Taken 06/24/18] apixaban 5 mg tablet (Eliquis) 5 mg PO BID blood thinner 06/24/18 [History Last Taken 06/24/18] albuterol sulfate 90 mcg/actuation aerosol inhaler 1 puff PO BID 02/16/19 [History Last Taken Unknown] clindamycin HCl 300 mg capsule (Cleocin HCl) 300 mg PO Q6H #40 CAPSULES 02/14/23 [Rx Last Taken Unknown] Allergy/AdvReac Type Severity Reaction Status Date / Time doxycycline monohydrate Allergy DOUBLE Verified 02/14/23 07:11 [From Monodox] VISION Social History Smoking Status: Never smoker ROS ROS ED Review of Systems ROS Unobtainable: other Constitutional Constitutional ED: Reports lethargy; Denies chills, fever(s), sweats or weight loss Eyes Eyes: Denies blurry vision, change in vision or diplopia ENT ENT ED: Reports other Details: Right neck swelling ; Denies rhinorrhea or sore throat Cardiovascular Cardiovascular: Denies chest pain, orthopnea or racing heartbeat Respiratory/Chest Respiratory/Chest: Reports dyspnea and dyspnea on exertion; Denies cough, orthopnea or sputum Gastrointestinal Gastrointestinal: Denies abdominal pain, diarrhea, nausea or vomiting Genitourinary Genitourinary ED: Denies dysuria, hematuria or urinary frequency Musculoskeletal Musculoskeletal: Denies arthralgias, back pain, myalgias or neck pain Integumentary Denies abscess, Abrasions or rash Neurologic Neurologic: Denies headache(s) or weakness Psychiatric Psychiatric: Denies anxiety, depression or suicidal thoughts Endocrine Endocrinology: Denies polydipsia, polyphagia or polyuria Hematologic/Lymphatic Hematologic/Lymphatic: Denies easy bleeding, easy bruising or lymphadenopathy Allergic/Immunologic Allergic/Immunologic ED: Denies mouth swelling, tongue swelling or urticaria EXAM Physical Exam Const Vital Signs: 02/14/23 07:09 Temperature 97.2 F L Temperature Source Temporal Pulse Rate 90 Respiratory Rate 16 Blood Pressure 176/90 H Blood Pressure Mean 118 Pulse Ox 100 Oxygen Delivery Method Room Air Positive well nourished and well developed General Appearance ED: well developed and NAD HEENT Reports TM's clear and moist mucous membranes normocephalic and atraumatic; Negative for trauma or tenderness Tympanic Membrane ED: Yes TM's clear Eyes PERRL and EOMs intact bilaterally General Eye ED: Negative for pale conjunctiva or scleral icterus Neck supple and no JVD Neck Narrative: Shahid with soft tissue swelling underneath the right mandible which I suspect may be submandibular gland. Evaluation of the salivary duct at the floor of the mouth does not reveal any abnormalities or stones within the duct. No facial swelling or cellulitic changes noted. Patient able to touch his tongue to the roof of his mouth. Uvula midline with no trismus General: Negative for tenderness Chest Wall inspection of chest normal and palpation of chest normal Chest: Negative for tenderness Resp normal respiratory effort and clear to auscultation bilaterally Effort and Inspection: Negative for respiratory distress or pain with movement Auscultation: Negative for rhonchi, wheezes or diminished lung sounds Cardio regular rate, regular rhythm, S1 normal heart sound, S2 normal heart sound and no murmurs Peripheral Pulses: pulses 2+ throughout GI normal to inspection, nondistended, normoactive bowel sounds, soft to palpation, non-tender, non-distended and no masses Back/Spine no CVA tenderness and no thoracic nor lumbar tenderness Extremity normal to inspection General Extremety ED: Negative for edema General Extremity: Negative for edema Neuro oriented x3, CN's II-XII intact bilaterally, no sensory deficits noted and gait normal Sensorium / Orientation: awake, alert, oriented to person, oriented to place and oriented to time Motor Exam: strength 5/5 throughout and strength abnormal Psych mental status grossly normal Skin no rashes or lesions noted and no wounds MDM MDM MDM Narrative Medical decision making narrative: Patient presents with right-sided submandibular swelling. Clinically I suspected enlarged salivary gland. IV line established. CBC with differential obtained showing a 12.0 with hemoglobin of 15 and platelet count of 284. Chemistries were unremarkable. I did obtain a CT scan of the soft tissue neck with IV contrast that was read by radiology as sialoadenitis without evidence of ductal obstruction. Patient will be started on clindamycin and will be referred to ENT. He is advised to use some warm compresses to the area. He is to return if difficulty swallowing or breathing. He is to return if high fevers or increased redness or swelling. Lab Data Attestation: I reviewed the patient's lab results. Labs: Laboratory Results - last 24 hr 02/14/23 07:50 WBC 12.0 H RBC 5.16 Hgb 15.0 Hct 44.9 MCV 87.0 MCH 29.1 MCHC 33.4 RDW Std Deviation 43.4 RDW Coeff of Selena 13.5 Plt Count 284 MPV 9.0 Immature Gran % (Auto) 1.300 H Neut % (Auto) 55.3 Lymph % (Auto) 33.2 [place] % (Auto) 9.3 Eos % (Auto) 0.6 Baso % (Auto) 0.3 Absolute Neuts (auto) 6.6 Absolute Lymphs (auto) 3.98 Nucleated RBC % 0 Sodium 134 L Potassium 3.4 L Chloride 99 Carbon Dioxide 30.0 Anion Gap 5 BUN 19 H Creatinine 0.86 Estim Creat Clear Calc 93.63 Est GFR (MDRD) Af Amer 117 Est GFR (MDRD) Non-Af 96 BUN/Creatinine Ratio 22.0 H Glucose 100 Calcium 8.6 Radiography Diagnostic Testing: Clinical Impression(s) from Imaging Studies Soft Tissue Neck CT 02/14/23 07:19 IMPRESSION: Sialoadenitis of the right submandibular gland without obstructing calculi, intraglandular ductal dilatation or right submandibular duct dilatation. Electronically Signed: Alvarez Paz MD at 8:53 EST , Discharge Plan Triage Chief Complaint: Other, Pain/Inj ED Provider: Cammy Mcnulty Dx/Rx/DC Orders Clinical Impression: Acute sialoadenitis Instructions: ED Salivary Gland Infection Prescriptions: New clindamycin HCl [Cleocin HCl] 300 mg capsule 300 mg PO Q6H Qty: 40 0RF No Action potassium chloride 10 MEQ tablet 10 meq PO DAILY Lisinopril/Hydrochlorothiazide [Zestoretic 20/25 Tablet] 1 TABLET tablet 1 tab PO DAILY apixaban [Eliquis] 5 MG tablet 5 mg PO BID Rx Instructions: 10 mg twice a day for 10 days. Then 5 mg twice a day. albuterol sulfate 18 GM HFA aerosol inhaler 1 puff PO BID Patient Comments: Inhale 2 Puffs as instructed every 4 hours as needed for Wheezing/Shortness of Breath. Primary Care Provider: Ok Maldonado Referrals: Ok Maldonado MD [Primary Care Provider] - Amari Penny MD [Med Staff - Active Staff] - 3-5 Days Disposition Disposition: Home, Self Care
[2023-02-14 08:03] LABS: Absolute Lymphocyte Count 3.98 X10^3/uL (0.83-4.51); Absolute Neutrophil Count 6.6 X10^3/uL (2.0-7.7); Basophil# 0.03 X10^3/uL; Basophil% 0.3 % (0-1); Eosinophil# 0.07 X10^3/uL; Eosinophils% 0.6 % (0-5); Hematocrit 44.9 % (40-54); Lymphocyte # 3.98 X10^3/ul (0.83-4.51); Lymphocyte % 33.2 % (19-41); Mean Corp Hgb Conc 33.4 g/dL (32-36); Mean Corpuscular Hgb 29.1 pg (27.0-32.0); Monocyte# 1.12 X10^3/uL; Monocyte% 9.3 % (0-10); NRBC Flagged by Analyzer 0 % (0-5); Neutrophil # 6.64 X10^3/uL (2.7-7.7); Neutrophil % 55.3 % (47-70); Platelet Count 284 K/mm3 (150-450); RBC Distribution Width CV 13.5 % (11.6-14.6); RBC Distribution Width SD 43.4 fl (35.1-43.9); Red Blood Count 5.16 M/mm3 (4.6-6.2)
[2023-02-14 08:15] LABS: Anion Gap 5 (5-15); BUN 19 mg/dL (7-18); Calcium,Total 8.6 mg/dL (8.5-10.1); Chloride 99 mmol/L (98-107); Creatinine, Serum 0.86 mg/dL (0.70-1.30); EST Glomerular Filtration Rate 96 mL/min (>60); Est Glom Filt Rate - Afr Amer 117 mL/min (>60); Estimated Creatinine Clearance 93.63 ml/min; Glucose 100 mg/dL (74-106); Potassium 3.4 mmol/L (3.5-5.1); Sodium Level 134 mmol/L (136-145)
[2023-02-14 09:08] VITALS: BP 126/59; BP 127/53; PULSE 76; RESP 16; O2SAT 96; O2SAT 97
[2023-02-14] MEDS: Clindamycin HCl 150 MG Capsule 300 MG PO (09:28)
== END 2023-02-14 09:34 | disposition home or self-care (01) ==
PROVIDERS: Emergency Provider Emergency Medicine; PCP Family Medicine; Visit Provider Emergency Medicine
DX: K11.20 Sialoadenitis, unspecified (principal)
CPT/HCPCS: 70491; 80048; 85025; 99283; A4216

== ENCOUNTER 2023-03-02 16:28 | Outpatient (RCR) | payer BC, SELFPAY | END 2023-03-15 23:59 | LOC: NS 16:28 | PROVIDERS: PCP Family Medicine; Referring Provider Family Medicine; Visit Provider Family Medicine | DX: Z71.3 Dietary counseling and surveillance (principal); E66.01 Morbid (severe) obesity due to excess calories; Z68.42 Body mass index [BMI] 45.0-49.9, adult | CPT/HCPCS: 97803 ==

== ENCOUNTER → 2023-04-20 | Outpatient (CLI) | payer BC, SELFPAY ==
--- NOTE | 2023-04-20 06:47 | CT_ITS ---
CT LEFT LOWER EXTREMITY WITH 3-D IMAGING CLINICAL INDICATION: Unilateral primary osteoarthritis, left knee TECHNIQUE: Axial CT images of the left lower extremity (including left hip, left knee, and left ankle) was performed without IV contrast material. Coronal and sagittal reformats were provided. RADIATION DOSAGE (If Supplied By Facility): CTDIvol = ( 21.35 ) mGy, DLP = ( 2539.59 ) mGycm COMPARISON: No relevant prior comparison study available. FINDINGS: Bones: Unremarkable left hip. There is severe degenerative arthrosis of the medial femorotibial compartment of the left knee with joint space narrowing, marginal osteophyte formation, and subchondral sclerosis. There is mild degenerative arthrosis of the patellofemoral and lateral femorotibial compartments of the left knee. Unremarkable left ankle. Osseous structures are intact without evidence of fracture or dislocation. No lytic or blastic osseous masses. Soft Tissues: There is a small left knee joint effusion. There is mild subcutaneous soft tissue edema along the anterior aspect of the knee. The deep soft tissue structures are unremarkable. The superficial soft tissues are otherwise unremarkable without evidence of a foreign body. CT/Extremity Lower without Contra IMPRESSION: Tricompartment degenerative arthrosis of the left knee, most severe in the medial femorotibial compartment. Small left knee joint effusion. Electronically Signed: Max Zazueta MD at 8:09 EST Reading Location ID and State: [facility] / [place] , Service support ,
--- OUTSIDE RECORDS SUMMARY | 2023-04-20 06:52 | XMS RPT_ITS | CCD ---
Author Name Unknown Address [address] [place] [address] Organization [facility] Care Team Providers Care Buckle Sewer Machine Name Role Phone Unavailable Primary Care Provider Unavailgeronimo Lemos MD, Lyssa Obrien Primary Care Provider Canelo JENKINS, Lyssa Obrien Primary Care Provider Canelo JENKINS, Lyssa Orbien Primary Care Provider PIERRE BURGOS Attending Unavailable LYSSA LEMOS Primary Care Unavailable LYSSA LEMOS Primary Care Unavailable LYSSA LEMOS Attending Unavailable CANELO, LYSSA A Primary Care Unavailable CANELO, LYSSA A Primary Care Unavailable CANELO, LYSSA A Primary Care Unavailable PIERRE BURGOS Attending Unavailable LYSSA LEMOS Primary Care Unavailable CANELOLYSSA AUGUSTE A Primary Care Unavailable LYSSA CARRIZALES Referring Unavailable CANELO, LYSSA A Primary Care Unavailable KATIA TAVARES Attending Unavailable CANELO, LYSSA A Primary Care Unavailable KATIA TAVARES Referring Unavailable CANELO LYSSA A Primary Care Unavailable PIERRE BURGOS Attending Unavailable LYSSA LEMOS Primary Care Unavailable BRIA OKEEFE Referring Unavailable DERICK SEGOVIA Attending Unavailable CANELO, LYSSA A Primary Care Unavailable CANELO, LYSAS A Primary Care Unavailable CANELO LYSSA A Attending Unavailable CANELO LYSSA A Primary Care Unavailable CANELO, LYSSA A Primary Care Unavailable LYSSA LEMOS A Referring Unavailable Allergies Allergy Classification Reported Allergen(s) Allergy Type Date of Onset Reaction(s) Facility (20 sources) Doxycycline; Translations: [DOXYCYCLINE MONOHYDRATE] Drug Allergy 09-14-2010 Other: See Comments [facility] Work Phone: Medications Current Medications Medication Drug Class(es) Dates Sig (Normalized) Sig (Original) amoxicillin 500 mg oral capsule (1 source) Penicillin-class Antibacterial Start: 08-25-2021 End: 08-30-2021 take 2 capsules by mouth three times daily amoxicillin (POLYMOX, AMOXIL) 500 mg capsule Take 2 capsules by mouth three times daily for 5 days. 30 capsule 0 08/25/2021 08/30/2021 Active Completed/Discontinued Medications Medication Drug Class(es) Dates Sig (Normalized) Sig (Original) [id number] 200 actuat albuterol 0.09 mg/actuat metered dose inhaler (20 sources) beta2-Adrenergic Agonist Start: 2020 End: 02-11-2023 take 2 puff(s) by inhalation every four hours as needed for wheezing albuterol HFA (VENTOLIN HFA) 90 mcg/actuation inhaler Inhale 2 Puffs as instructed every 4 hours as needed for wheezing/shortnes s of breath. 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 Diseases of mouth; excluding dental (3 sources) Disorder of tongue; Translations: [Other disturbances of oral epithelium, including tongue] Episodic Essential hypertension (20 sources) Benign essential hypertension; Translations: [Essential (primary) hypertension] Onset: 05-20-2007 Chronic Genitourinary symptoms and ill-defined conditions (20 sources) Delay when starting to pass urine; Translations: [Hesitancy of micturition] 03-11-2021 Episodic Mycoses (1 source) Tinea pedis; Translations: [Tinea pedis] Episodic Nonspecific chest pain (2 sources) Chest wall pain; Translations: [Other chest pain] Episodic Osteoarthritis (15 sources) Bilateral arthritis of knees; Translations: [Bilateral primary osteoarthritis of knee] Onset: 09-17-2022 Chronic Other connective tissue disease (4 sources) Pain in axilla; Translations: [Pain in unspecified upper arm] Episodic Other connective tissue disease (1 source) Pain in right toe(s); Translations: [Pain in right toe(s)] Onset: 03-26-2023 Episodic Other inflammatory condition of skin (20 sources) Rosacea; Translations: [Rosacea, unspecified] Onset: 06-30-2018 09-21-2018 Chronic Other liver diseases (20 sources) Steatosis of liver; Translations: [Fatty (change of) liver, not elsewhere classified] Onset: 10-03-2019 10-03-2019 Chronic Other liver diseases (1 source) Fatty (change of) liver, not elsewhere classified; Translations: [Fatty liver] Onset: 10-03-2019 Chronic Other lower respiratory disease (4 sources) Cough; Translations: [Cough] Episodic Other nutritional; endocrine; and metabolic disorders (4 sources) Body mass index 40+ - severely obese; Translations: [Morbid (severe) obesity due to excess calories] Chronic Other nutritional; endocrine; and metabolic disorders (20 sources) Morbid obesity; Translations: [Morbid (severe) obesity due to excess calories] Onset: 01-19-2009 05-29-2015 Chronic Other nutritional; endocrine; and metabolic disorders (20 sources) Iron overload; Translations: [Other disorders of iron metabolism] Onset: 10-12-2010 03-11-2021 Chronic Other nutritional; endocrine; and metabolic disorders (1 source) Morbid (severe) obesity due to excess calories; Translations: [Morbid obesity (HCC)] Onset: 05-29-2015 Chronic Other nutritional; endocrine; and metabolic disorders (1 source) Other disorders of iron metabolism; Translations: [Iron excess] Onset: 03-11-2021 Chronic Other upper respiratory infections (20 sources) Chronic sinusitis; Translations: [Chronic sinusitis, unspecified] Onset: 05-20-2007 03-11-2021 Chronic Other upper respiratory infections (3 sources) Acute maxillary sinusitis; Translations: [Acute maxillary sinusitis, unspecified] Episodic Otitis media and related conditions (1 source) Dysfunction of bilateral eustachian tubes; Translations: [Other specified disorders of Eustachian tube, bilateral] Episodic Residual codes; unclassified (20 sources) Obstructive sleep apnea syndrome; Translations: [Obstructive sleep apnea (adult) (pediatric)] Onset: 04-09-2021 04-09-2021 Chronic Residual codes; unclassified (20 sources) At risk for impaired skin integrity ; Translations: [Other specified personal risk factors, not elsewhere classified] Onset: 02-17-2019 02-17-2019 Episodic Spondylosis; intervertebral disc disorders; other back problems (20 sources) Lumbar arthritis; Translations: [Spondylosis without myelopathy or radiculopathy, lumbar region] Onset: 06-14-2015 03-11-2021 Chronic Unclassified (1 source) APPOINTMENT CANCELLED 01-27-2023 Unclassified (1 source) Acute cough; Translations: [Acute cough] Onset: 03-17-2023 Past or Other Problems Problem Classification Problem Date Documented Date Episodic/Chronic Allergic reactions (20 sources) Eczema; Translations: [Dermatitis, unspecified] Onset: 09-15-2017 03-23-2018 Episodic Diabetes mellitus without complication (20 sources) High hemoglobin A1c level; Translations: [Other abnormal glucose] Onset: 09-28-2019 05-03-2020 Episodic Miscellaneous mental health disorders (20 sources) Acute insomnia; Translations: [Adjustment insomnia] Onset: 06-06-2015 03-04-2016 Episodic Other aftercare (20 sources) Patient encounter status; Translations: [Other long term care pharmacist (current) drug therapy] Onset: 03-04-2016 04-09-2021 Episodic Other diseases of veins and lymphatics (20 sources) Venous insufficiency of leg; Translations: [Venous insufficiency (chronic) (peripheral)] Onset: 03-04-2016 03-04-2016 Episodic Other infections; including parasitic (20 sources) Personal history of other infectious and parasitic diseases; Translations: [History of 2019 novel coronavirus disease (COVID-19)] Onset: 01-25-2020 01-25-2020 Episodic Other inflammatory condition of skin (20 sources) Seborrheic dermatitis; Translations: [Seborrheic dermatitis, unspecified] Onset: 05-20-2007 03-04-2016 Episodic Other nervous system disorders (20 sources) H/O: visual disturbance; Translations: [Personal history of other diseases of the nervous system and sense organs] Onset: 09-13-2019 09-13-2019 Episodic Other non-traumatic joint disorders (20 sources) Pain in right knee; Translations: [Pain in joint, lower leg] Onset: 10-27-2011 03-04-2016 Episodic Other screening for suspected conditions (not mental disorders or infectious disease) (20 sources) D-dimer above reference range; Translations: [Other specified abnormal findings of blood chemistry] Onset: 03-04-2016 09-28-2019 Episodic Other skin disorders (20 sources) Actinic keratosis; Translations: [Actinic keratosis] Onset: 03-23-2018 09-21-2018 Episodic Pulmonary heart disease (20 sources) H/O: pulmonary embolus; Translations: [Personal history of pulmonary embolism] Onset: 06-23-2018 03-30-2019 Episodic Residual codes; unclassified (20 sources) Bilateral lower limb edema; Translations: [Localized edema] Onset: 05-20-2007 06-06-2015 Episodic Spondylosis; intervertebral disc disorders; other back problems (20 sources) Low back pain; Translations: [Midline low back pain without sciatica] Onset: 06-06-2015 03-04-2016 Episodic Results Test Name Value Interpretation Reference Range Facil ity Vital Signs Date Time Vital Sign Value Performing Clinician Faci lity 02-13-2023 08:07-0500 Body temperature 98.29 [degF] Amari Lin MD Work Phone: [facility] 02-13-2023 08:07-0500 Body weight 146.15 kg Amari Lin MD Work Phone: [facility] 02-13-2023 08:07-0500 Diastolic blood pressure 80 mm[Hg] Amari Lin MD Work Phone: [facility] 02-13-2023 08:07-0500 Heart rate 86 /min Amari Lin MD Work Phone: [facility] 02-13-2023 08:07-0500 Respiratory rate 16 /min Amari Lin MD Work Phone: [facility] 02-13-2023 08:07-0500 SaO2% (BldA) [Mass fraction] 97 % Amari Lin MD Work Phone: [facility] 02-13-2023 08:07-0500 Systolic blood pressure 138 mm[Hg] Amari Lin MD Work Phone: [facility] 02-09-2023 14:43-0500 Body temperature 99.19 [degF] Krislyn Aberegg PA Work Phone: [facility] 02-09-2023 14:43-0500 Body weight 148.33 kg Krislyn Aberegg PA Work Phone: [facility] 02-09-2023 14:43-0500 Diastolic blood pressure 78 mm[Hg] Krislyn Aberegg PA Work Phone: [facility] 02-09-2023 14:43-0500 Heart rate 90 /min Krislyn Aberegg PA Work Phone: [facility] 02-09-2023 14:43-0500 Respiratory rate 20 /min Krislyn Aberegg PA Work Phone: [facility] 02-09-2023 14:43-0500 SaO2% (BldA) [Mass fraction] 95 % Krislyn Aberegg PA Work Phone: [facility] 02-09-2023 14:43-0500 Systolic blood pressure 132 mm[Hg] Krislyn Aberegg PA Work Phone: [facility] 12-30-2022 09:07-0400 Body weight 144.7 kg Pierre Burgos MD Work Phone: [facility] 12-30-2022 09:07-0400 Diastolic blood pressure 74 mm[Hg] Pierre Burgos MD Work Phone: [facility] 12-30-2022 09:07-0400 Heart rate 60 /min Pierre Burgos MD Work Phone: [facility] 12-30-2022 09:07-0400 Respiratory rate 18 /min Pierre Burgos MD Work Phone: [facility] 12-30-2022 09:07-0400 Systolic blood pressure 128 mm[Hg] Pierre Burgos MD Work Phone: [facility] 09-29-2022 12:24-0400 Body weight 149.69 kg Pierre Burgos MD Work Phone: [facility] 09-29-2022 12:24-0400 Diastolic blood pressure 80 mm[Hg] Pierre Burgos MD Work Phone: [facility] 09-29-2022 12:24-0400 Heart rate 88 /min Pierre Burgos MD Work Phone: [facility] 09-29-2022 12:24-0400 Respiratory rate 16 /min Pierre Burgos MD Work Phone: [facility] 09-29-2022 12:24-0400 Systolic blood pressure 148 mm[Hg] Pierre Burgos MD Work Phone: [facility] 09-17-2022 19:43-0400 Diastolic blood pressure 80 mm[Hg] Lyssa Lemos MD Work Phone: [facility] 09-17-2022 19:43-0400 Systolic blood pressure 128 mm[Hg] Lyssa Lemos MD Work Phone: [facility] 09-17-2022 18:58-0400 Body weight 148.33 kg Lyssa Lemos MD Work Phone: [facility] 09-17-2022 18:58-0400 Heart rate 76 /min Lyssa Lemos MD Work Phone: [facility] 09-17-2022 18:58-0400 Respiratory rate 16 /min Lyssa Lemos MD Work Phone: [facility] 06-25-2022 12:22-0400 Body temperature 98.01 [degF] Corin Monserrat TRAFFIC ANALYST.ENTRY LEVEL FINANCIAL ANALYST Work Phone: [facility] 06-25-2022 12:22-0400 Body weight 150.14 kg Corin Monserrat TRAFFIC ANALYST.ENTRY LEVEL FINANCIAL ANALYST Work Phone: [facility] 06-25-2022 12:22-0400 Diastolic blood pressure 76 mm[Hg] Corin Monserrat TRAFFIC ANALYST.ENTRY LEVEL FINANCIAL ANALYST Work Phone: [facility] 06-25-2022 12:22-0400 Heart rate 92 /min Corin Monserrat TRAFFIC ANALYST.ENTRY LEVEL FINANCIAL ANALYST Work Phone: [facility] 06-25-2022 12:22-0400 Respiratory rate 16 /min Corin German TRAFFIC ANALYST.ENTRY LEVEL FINANCIAL ANALYST Work Phone: [facility] 06-25-2022 12:22-0400 SaO2% (BldA) [Mass fraction] 97 % Corin German TRAFFIC ANALYST.ENTRY LEVEL FINANCIAL ANALYST Work Phone: [facility] 06-25-2022 12:22-0400 Systolic blood pressure 144 mm[Hg] Corin German TRAFFIC ANALYST.ENTRY LEVEL FINANCIAL ANALYST Work Phone: [facility] 03-29-2022 08:56-0500 Body weight 144.7 kg Pierre Burgos MD Work Phone: [facility] 03-29-2022 08:56-0500 Diastolic blood pressure 82 mm[Hg] Pierre Burgos MD Work Phone: [facility] 03-29-2022 08:56-0500 Heart rate 72 /min Pierre Burgos MD Work Phone: [facility] 03-29-2022 08:56-0500 Respiratory rate 16 /min Pierre Burgos MD Work Phone: [facility] 03-29-2022 08:56-0500 Systolic blood pressure 128 mm[Hg] Pierre Burgos MD Work Phone: [facility] 02-28-2022 11:47-0500 Body temperature 98.4 [degF] Lyssa Carrizales TRAFFIC ANALYST.ENTRY LEVEL FINANCIAL ANALYST Work Phone: [facility] 02-28-2022 11:47-0500 Body weight 149.32 kg Lyssa Carrizales TRAFFIC ANALYST.ENTRY LEVEL FINANCIAL ANALYST Work Phone: [facility] 02-28-2022 11:47-0500 Diastolic blood pressure 82 mm[Hg] Lyssa Carrizales TRAFFIC ANALYST.ENTRY LEVEL FINANCIAL ANALYST Work Phone: [facility] 02-28-2022 11:47-0500 Heart rate 72 /min Lyssa Carrizales TRAFFIC ANALYST.ENTRY LEVEL FINANCIAL ANALYST Work Phone: [facility] 02-28-2022 11:47-0500 Respiratory rate 16 /min Lyssa Carrizales TRAFFIC ANALYST.ENTRY LEVEL FINANCIAL ANALYST Work Phone: [facility] 02-28-2022 11:47-0500 SaO2% (BldA) [Mass fraction] 98 % Lyssa Carrizales TRAFFIC ANALYST.ENTRY LEVEL FINANCIAL ANALYST Work Phone: [facility] 02-28-2022 11:47-0500 Systolic blood pressure 132 mm[Hg] Lyssa Carrizales TRAFFIC ANALYST.ENTRY LEVEL FINANCIAL ANALYST Work Phone: [facility] 10-15-2021 07:05-0400 Body temperature 97.39 [degF] Berenice Marie PA-C Work Phone: [facility] 10-15-2021 07:05-0400 Body weight 144.24 kg Berenice Marie PA-C Work Phone: [facility] 10-15-2021 07:05-0400 Diastolic blood pressure 70 mm[Hg] Berenice Marie PA-C Work Phone: [facility] 10-15-2021 07:05-0400 Heart rate 64 /min Berenicevalentine Marie PA-C Work Phone: [facility] 10-15-2021 07:05-0400 Respiratory rate 18 /min Berenicevalentine Marie PA-C Work Phone: [facility] 10-15-2021 07:05-0400 Systolic blood pressure 118 mm[Hg] Berenice Marie PA-C Work Phone: [facility] 10-10-2021 11:14-0400 Body temperature 98.01 [degF] Umu Panda-Juanjose TRAFFIC ANALYST.ENTRY LEVEL FINANCIAL ANALYST Work Phone: [facility] 10-10-2021 11:14-0400 Body weight 144.15 kg Umu Panda-Juanjose TRAFFIC ANALYST.ENTRY LEVEL FINANCIAL ANALYST Work Phone: [facility] 10-10-2021 11:14-0400 Diastolic blood pressure 76 mm[Hg] Umu Panda-Juanjose TRAFFIC ANALYST.ENTRY LEVEL FINANCIAL ANALYST Work Phone: [facility] 10-10-2021 11:14-0400 Heart rate 78 /min Umu Praisler-Wood TRAFFIC ANALYST.ENTRY LEVEL FINANCIAL ANALYST Work Phone: [facility] 10-10-2021 11:14-0400 Respiratory rate 20 /min Umu Praisler-Wood TRAFFIC ANALYST.ENTRY LEVEL FINANCIAL ANALYST Work Phone: [facility] 10-10-2021 11:14-0400 SaO2% (BldA) [Mass fraction] 97 % Umu Praisler-Wood TRAFFIC ANALYST.ENTRY LEVEL FINANCIAL ANALYST Work Phone: [facility] 10-10-2021 11:14-0400 Systolic blood pressure 122 mm[Hg] Umu Praisler-Wood TRAFFIC ANALYST.ENTRY LEVEL FINANCIAL ANALYST Work Phone: [facility] 09-30-2021 18:18-0400 Body temperature 98.2 [degF] Corin Monserrat TRAFFIC ANALYST.ENTRY LEVEL FINANCIAL ANALYST Work Phone: [facility] 09-30-2021 18:18-0400 Body weight 143.79 kg Corin Monserrat TRAFFIC ANALYST.ENTRY LEVEL FINANCIAL ANALYST Work Phone: [facility] 09-30-2021 18:18-0400 Diastolic blood pressure 82 mm[Hg] Corin Monserrat TRAFFIC ANALYST.ENTRY LEVEL FINANCIAL ANALYST Work Phone: [facility] 09-30-2021 18:18-0400 Heart rate 98 /min Corin Monserrat TRAFFIC ANALYST.ENTRY LEVEL FINANCIAL ANALYST Work Phone: [facility] 09-30-2021 18:18-0400 Respiratory rate 16 /min Corin Monserrat TRAFFIC ANALYST.ENTRY LEVEL FINANCIAL ANALYST Work Phone: [facility] 09-30-2021 18:18-0400 SaO2% (BldA) [Mass fraction] 96 % Corin Monserrat TRAFFIC ANALYST.ENTRY LEVEL FINANCIAL ANALYST Work Phone: [facility] 09-30-2021 18:18-0400 Systolic blood pressure 142 mm[Hg] Corin Monserrat TRAFFIC ANALYST.ENTRY LEVEL FINANCIAL ANALYST Work Phone: [facility] 08-25-2021 14:34-0400 Body temperature 98.8 [degF] Mable Walker TRAFFIC ANALYST.ENTRY LEVEL FINANCIAL ANALYST Work Phone: [facility] 08-25-2021 14:34-0400 Body weight 145.15 kg Mable Walker TRAFFIC ANALYST.ENTRY LEVEL FINANCIAL ANALYST Work Phone: [facility] 08-25-2021 14:34-0400 Diastolic blood pressure 92 mm[Hg] Mable Walker TRAFFIC ANALYST.ENTRY LEVEL FINANCIAL ANALYST Work Phone: [facility] 08-25-2021 14:34-0400 Heart rate 103 /min Mable Walker TRAFFIC ANALYST.ENTRY LEVEL FINANCIAL ANALYST Work Phone: [facility] 08-25-2021 14:34-0400 Respiratory rate 24 /min Mable Walker TRAFFIC ANALYST.ENTRY LEVEL FINANCIAL ANALYST Work Phone: [facility] 08-25-2021 14:34-0400 SaO2% (BldA) [Mass fraction] 98 % Mable Walker TRAFFIC ANALYST.ENTRY LEVEL FINANCIAL ANALYST Work Phone: [facility] 08-25-2021 14:34-0400 Systolic blood pressure 174 mm[Hg] Mable Walker TRAFFIC ANALYST.ENTRY LEVEL FINANCIAL ANALYST Work Phone: [facility] 08-19-2021 13:33-0400 Body temperature 99.19 [degF] Umu Praisler-Wood TRAFFIC ANALYST.ENTRY LEVEL FINANCIAL ANALYST Work Phone: [facility] 08-19-2021 13:33-0400 Body weight 144.52 kg Umu Praisler-Wood TRAFFIC ANALYST.ENTRY LEVEL FINANCIAL ANALYST Work Phone: [facility] 08-19-2021 13:33-0400 Diastolic blood pressure 70 mm[Hg] Umu Praisler-Wood TRAFFIC ANALYST.ENTRY LEVEL FINANCIAL ANALYST Work Phone: [facility] 08-19-2021 13:33-0400 Heart rate 105 /min Umu Praisler-Wood TRAFFIC ANALYST.ENTRY LEVEL FINANCIAL ANALYST Work Phone: [facility] 08-19-2021 13:33-0400 Respiratory rate 21 /min Umu Praisler-Wood TRAFFIC ANALYST.ENTRY LEVEL FINANCIAL ANALYST Work Phone: [facility] 08-19-2021 13:33-0400 SaO2% (BldA) [Mass fraction] 98 % Umu Praisler-Wood TRAFFIC ANALYST.ENTRY LEVEL FINANCIAL ANALYST Work Phone: [facility] 08-19-2021 13:33-0400 Systolic blood pressure 132 mm[Hg] Umu Kowalski APRN.ENTRY LEVEL FINANCIAL ANALYST Work Phone: [facility] 07-30-2021 19:52-0400 Body temperature 97.81 [degF] Mable Walker APRN.ENTRY LEVEL FINANCIAL ANALYST Work Phone: [facility] 07-30-2021 19:52-0400 Body weight 145.51 kg Mable Walker APRN.ENTRY LEVEL FINANCIAL ANALYST Work Phone: [facility] 07-30-2021 19:52-0400 Diastolic blood pressure 80 mm[Hg] Mable Walker APRN.ENTRY LEVEL FINANCIAL ANALYST Work Phone: [facility] 07-30-2021 19:52-0400 Heart rate 114 /min Mable Walker APRN.ENTRY LEVEL FINANCIAL ANALYST Work Phone: [facility] 07-30-2021 19:52-0400 Respiratory rate 18 /min Mable Walker APRN.ENTRY LEVEL FINANCIAL ANALYST Work Phone: [facility] 07-30-2021 19:52-0400 SaO2% (BldA) [Mass fraction] 98 % Mable Walker APRN.ENTRY LEVEL FINANCIAL ANALYST Work Phone: [facility] 07-30-2021 19:52-0400 Systolic blood pressure 126 mm[Hg] Mable Walker APRN.ENTRY LEVEL FINANCIAL ANALYST Work Phone: [facility] 06-11-2021 11:09-0400 Body weight 139.34 kg Pierre Burgos MD Work Phone: [facility] 06-11-2021 11:09-0400 Diastolic blood pressure 70 mm[Hg] Pierre Burgos MD Work Phone: [facility] 06-11-2021 11:09-0400 Heart rate 60 /min Pierre Burgos MD Work Phone: [facility] 06-11-2021 11:09-0400 Respiratory rate 16 /min Pierre Burgos MD Work Phone: [facility] 06-11-2021 11:090400 Systolic blood pressure 124 mm[Hg] Pierre Burgos MD Work Phone: [facility] Encounters Encounter Date Encounter Type Care Provider Facility Start: 04-08-2023 End: 04-08-2023 ambulatory BRIA OKEEFE Facility:[facility] Start: 04-02-2023 End: 04-02-2023 ambulatory PIERRE BURGOS Facility:[facility] Start: 03-26-2023 End: 03-27-2023 ambulatory KATIA ANUSHA Facility:[facility] Start: 03-24-2023 End: 03-24-2023 ambulatory LYSSA LEMOS Facility:[facility] Start: 03-17-2023 End: 03-17-2023 ambulatory LYSSA LEMOS Facility:[facility] Start: 02-13-2023 End: 02-13-2023 ambulatory LYSSA LEMOS Facility:[facility] Start: 02-13-2023 End: 02-13-2023 Patient encounter procedure Amari Lin MD Work Phone: [facility] Procedures Date Procedure Procedure Detail Performing Clinician Start: 09-24-2022 Lipid 1996 panel - S william or Plasma Caitlyn Walker MA Start: 11-26-2021 Us lmtd joint/oth no nvasc xtr strux r-t w/img Berenice Marie PA-C Work Phone: Start: 11-26-2021 Diagnostic mammograp hy computer-aided detcj bi Berenice Marie PA-C Work Phone: Start: 10-10-2021 Urnls dip stick/tabl et rgnt auto w/o microscopy [facility] Provider Start: 09-11-2021 Adult depression scr eening assessment Corin German APRN.ENTRY LEVEL FINANCIAL ANALYST Work Phone: Start: 05-03-2020 Adult depression scr eening assessment Pierre Burgos MD Work Phone: Start: 05-19-2019 Colonoscopy Pierre chambers MD Work Phone: Plan of Treatment Date Care Activity Detail Author Start: 05-18-2029 Colonoscopy COLONOSCOPY [facility] Start: 05-18-2029 COLORECTAL CANCER SCREENING COLORECTAL CANCER SCREENING [facility] Start: 09-25-2027 Lipid 1996 panel - Serum or Plasma Lipid Screening [facility] Start: 09-25-2027 LIPID SCREEN LIPID SCREEN [facility] Start: 09-25-2027 PROSTATE CANCER SCREENING DISCUSSION PROSTATE CANCER SCREENING DISCUSSION [facility] Start: 10-11-2026 LIPID SCREEN LIPID SCREEN [facility] Start: 10-11-2026 PROSTATE CANCER SCREENING DISCUSSION PROSTATE CANCER SCREENING DISCUSSION [facility] Start: 10-01-2025 LIPID SCREEN LIPID SCREEN [facility] Start: 10-01-2025 PROSTATE CANCER SCREENING DISCUSSION PROSTATE CANCER SCREENING DISCUSSION [facility] Start: 09-24-2025 DIABETES SCREEN DIABETES SCREEN [facility] Start: 09-24-2025 Diabetes Screening Diabetes Screening [facility] Start: 10-11-2024 DIABETES SCREEN DIABETES SCREEN [facility] Start: 03-11-2024 DIABETES SCREEN DIABETES SCREEN [facility] Start: 01-28-2024 Annual PCP Team Chronic Disease Visit Annual PCP Team Chronic Disease Visit [facility] Start: 12-31-2023 Annual PCP Team Chronic Disease Visit [facility] [facility] Start: 12-31-2023 BP Controlled (<130/80) BP Controlled (<130/80) [facility] Start: 09-30-2023 ANNUAL PCP TEAM CHRONIC DISEASE VISIT ANNUAL PCP TEAM CHRONIC DISEASE VISIT [facility] Start: 09-18-2023 ANNUAL PCP TEAM CHRONIC DISEASE VISIT ANNUAL PCP TEAM CHRONIC DISEASE VISIT [facility] Start: 09-18-2023 BP CONTROLLED (<130/80) BP CONTROLLED (<130/80) [facility] Start: 03-29-2023 ANNUAL PCP TEAM CHRONIC DISEASE VISIT ANNUAL PCP TEAM CHRONIC DISEASE VISIT [facility] Start: 03-04-2023 Urine microalbumin profile [facility] Start: 11-14-2022 Covid-19 Vaccine () Covid-19 Vaccine () [facility] Start: 11-14-2022 Influenza vaccination [facility] Start: 10-15-2022 ANNUAL PCP TEAM CHRONIC DISEASE VISIT ANNUAL PCP TEAM CHRONIC DISEASE VISIT [facility] Start: 10-15-2022 BP CONTROLLED (<130/80) BP CONTROLLED (<130/80) [facility] Start: 10-10-2022 BP CONTROLLED (<130/80) BP CONTROLLED (<130/80) [facility] Start: 09-15-2022 End: 11-15-2022 CBC W Auto Differential panel - Blood CBC + DIFF Lab Routine Iron excess Expected: 09/15/2022, Expires: 11/15/2022 [facility] Work Phone: Immunizations Immunization Date Immunization Notes Care Provider Jessica figueroa 12-22-2022 influenza, seasonal, injectable Pierre Burgos MD Work Phone: [facility] 03-18-2021 COVID-19 vaccine, ag e 12+ yr ([employer] - PURPLE TOP) Pierre Burgos MD Work Phone: [facility] Work Phone: 03-18-2021 zoster vaccine recombinant Pierre Burgos MD Work Phone: [facility] Work Phone: 12-17-2020 influenza, injectabl e, quadrivalent, contains preservative Pierre Burgos MD Work Phone: [facility] 12-17-2020 influenza virus vacc ine, unspecified formulation Caitlyn Walker MA [facility] 10-03-2020 zoster vaccine recombinant Pierre Burgos MD Work Phone: [facility] 06-29-2020 COVID-19 vaccine, fu ll dose (MODERNA) Pierre Burgos MD Work Phone: [facility] 05-31-2020 COVID-19 vaccine, fu ll dose (MODERNA) Pierre Burgos MD Work Phone: [facility] 12-15-2018 influenza virus vacc ine, unspecified formulation Pierre Burgos MD Work Phone: [facility] 12-07-2017 influenza, seasonal, injectable, preservative free Pierre Burgos MD Work Phone: [facility] 12-03-2017 influenza virus vacc ine, unspecified formulation Pierre Burgos MD Work Phone: [facility] 12-29-2016 influenza, seasonal, injectable Pierre Burgos MD Work Phone: [facility] 01-11-2016 influenza, seasonal, injectable Pierre Burgos MD Work Phone: [facility] 02-24-2014 pneumococcal polysaccharide vaccine, 23 valent Pierre Burgos MD Work Phone: [facility] 03-04-2013 tetanus toxoid, redu halie diphtheria toxoid, and acellular pertussis vaccine, adsorbed Pierre Burgos MD Work Phone: [facility] 12-12-2011 influenza virus vacc ine, unspecified formulation Pierre Burgos MD Work Phone: [facility] Work Phone: 02-27-2009 novel influenza-H1N1 -09, preservative-free, injectable Pierre Burgos MD Work Phone: [facility] Payers Date Payer Category Payer Unknown [employer] [id number] 2021-Present [phone] [address] [place] [address] PPO [id number] 2021 Unknown [employer] SS PPO [id number] 2021-Present [phone] [address] [place] [address] PPO [id number] 2021 Unknown [id number] Social History Date Type Detail Facility Tobacco smoking stat us NHIS [facility] Start: 1965 Sex Assigned At Not on file [place] Start: 05-08-2011 End: 02-28-2022 Tobacco smoking status NHIS Never smoked tobacco [facility] Start: 06-11-2021 End: 02-13-2023 Alcohol intake Current drinker of alcohol (finding) [facility] Start: 2020 End: 01-14-2021 History SDOH Alcohol Frequency 2 [facility] Start: 09-28-2019 End: 2020 History SDOH Alcohol Std Drinks 1 [facility] Start: 02-20-2012 History SDOH Alcohol Comment episodic, 3-4 drinks per month [facility] Start: 03-29-2019 End: 09-28-2019 History SDOH Social Connections Phone 5 [facility] Start: 03-29-2019 End: 2020 History SDOH Social Connections Orthodox 3 [facility] Start: 03-29-2019 Education 17 [facility] Start: 06-01-2021 End: 11-26-2021 Exposure to SARS-CoV-2 (event) Not sure [facility] Start: 05-08-2011 End: 02-28-2022 Tobacco use and exposure Smokeless tobacco non-user [facility] Start: 2020 End: 09-17-2022 History of Social function [facility] Start: 2020 End: 09-17-2022 Social connection and isolation panel [facility] Frequency of Communi cation with Friends and Family Not on file [facility] How often to you hav e a drink containing alcohol? Monthly or less [facility] How often do you hav e 6 or more drinks on 1 occasion? Never [facility] Do you feel stress - tense, restless, nervous, or anxious, or unable to sleep at night because your mind is troubled all the time - these days [OSQ] Not at all [facility] (I/We) worried wheth er (my/our) food would run out before (I/we) got money to buy more. Never true [facility] In the past 12 month s, was there a time when you were not able to pay the mortgage or rent on time? No [facility] Clinical Notes 06-11-2021 to 04-08-2023 Amari Lin MD - 02/13/2023 8:26 AM ESTTelephone Encounter - Lyssa Lemos MD - 02/11/2023 1:02 PM ESTTelephone Encounter - Diane Sanchez LPN - 02/11/2023 12:44 PM EST Note Date & Type Note Facility 04-08-2023 Note HNO ID: [id number] Author: DERICK SEGOVIA MD Service: ? Author Type: Physician Type: Progress Notes Filed: 04/08/2023 15:20 Note Text: HISTORY OF PRESENT ILLNESS: Sedrick Milian is a 58 year old male who presented with idiopathic pulmonary embolism in June 2018. He presented with acute shortness of breath and some back pain. No history of lower extremity edema or pain with an elevated d-dimer. His CT chest showing extensive pulmonary emboli in the right lung and smaller in the left lower lobe. He was started on Eliquis and venous Doppler study lower extremity showed no evidence of DVTs. He also had a 2-D echocardiogram which also showed normal LVEF with grade 1 diastolic dysfunction. He has been doing well on Eliquis, with no problems with anemia or bleeding. He is also taking a baby aspirin every day for prevention. His shortness of breath almost completely resolved and he has no further chest pain or back pain. He does not smoke, drink alcohol occasionally. He had a colonoscopy screening 8 years ago and it was normal. Recent PSA screening was normal as well. No family history of thromboembolism except for father who had phlebitis. Here for opinion re holding anticoagulation perioperatively around a knee replacement. Patient states they plan to stop eliquis 3 days pre op, cover with lovenox, then shortly after surgery resume eliquis. 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 I agree with plan for managing anticoagulation perioperatively as described.clear for surgery as planned Written and verbal health teaching given to patient, patient verbalizes understanding and agrees with treatment plan. PAST MEDICAL HISTORY Diagnosis Date Adjustment insomnia 06/06/2015 AK (actinic keratosis) 03/23/2018 right anterior scapl, treated cryo 03/23/2018 Arthritis of both knees 09/17/2022 Seeing Ceasar rodriguez Arthritis, lumbar spine 06/14/2015 Mild on x-ray 06/14/2015 Bilateral leg edema 05/20/2007 Long-standing, has had full work-up, negative, suspected weight-related Combined forms of age-related cataract of both eyes 08/29/2019 Eczema 09/15/2017 feet Elevated hemoglobin A1c 09/28/2019 Essential hypertension, benign 05/20/2007 Dx'd around 2000 Fatty liver 10/03/2019 History of 2019 novel coronavirus disease (COVID-19) 01/25/2020 01/19/2020 History of diplopia 09/13/201908/2019 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 Morales History of pulmonary embolus (PE) 06/23/2018 ER visit 06/23/2018 bilateral placed on Eliquis. Per hematology 03/2019 needs long term care pharmacist anticoagulation. Iron excess 10/12/2010 Negative hematology workup 2012: ASSESSMENT/PLAN: Patient does not have hemachromatosis based on lack of family history of hemachromatosis, genetic study, normal liver function and ferritin level. Elevated iron level likely related to ingestion of iron supplement and diet. Midline low back pain without sciatica 06/06/2015 Morbid obesity (HCC) NINA (obstructive sleep apnea) 04/09/2021 On CPAP Positive D dimer 09/28/2019 Reactive airway disease Right knee pain 10/27/2011 Rosacea Seborrhea SI (sacroiliac) pain 09/28/2019 right Unspecified sinusitis (chronic) Urinary hesitancy triggered by decongestant, improves with alpha sharmaine Venous insufficiency of both lower extremities 03/04/2016 Well adult exam 09/15/2017 last done: PAST SURGICAL HISTORY Procedure Laterality Date COLONOSCOPY FLX DX W/COLLJ SPEC WHEN PFRMD 07/23/09 Normal Colonoscopy, repeat 10 yrs COLONOSCOPY FLX DX W/COLLJ SPEC WHEN PFRMD 05/19/2019 Colonoscopy EGD 05/19/2019 EXTRACTION, ERUPTED TOOTH OR EXPOSED ROOT (ELEVATION AND/OR FORCEPS REMOVAL) wisdom teeth FECAL OCCULT BLOOD TEST 09/09/2016 negative PAST SURGICAL HISTORY OF 07/27/2015 left distal biceps repair FAMILY HISTORY Problem Relation Age of Onset Hypertension Mother Heart Father age 56 of CHF, enlarged heart Hypertension Father Coronary Artery Disease Brother CABG (possible drug related) Hypertension Brother other (congestive heart failure) Brother Alzheimer's Disease Maternal Grandmother 93 dementia Lipids Maternal Grandmother Coronary Artery Disease Maternal Grandfather mi age 62 Hypertension Maternal Grandfather Stroke Paternal Grandfather Diabetes Other no 1st degree other than late in life (80's) Colon Cancer No Family History Prostate Cancer No Family History Social History Tobacco Use Smoking status: Never Smokeless tobacco: Never Vaping Use Vaping Use: Never used Substance Use Topics Alcohol use: Yes Comment: episodic, 3-4 drinks per month Drug use: No ALLERGIES: ALLERGIES Allergen Reactions Monodox [Doxycyclin* Other: See Comments headaches and double vision CURRENT OUTPATIENT MEDICATIONS: lisinopril-hydroCHLOROthiazide (ZESTORETIC (more content not included)... [facility] 04-02-2023 Note HNO ID: [id number] Author: PIERRE BURGOS MD Service: ? Author Type: Physician Type: Progress Notes Filed: 04/02/2023 09:39 Note Text: Chief Complaint Patient presents with: F/U 3 Month HPI Sedrick Milian is a 58 year old male who presents here today for 3 month follow up. Pt of Dr. Lemos, who is here for weight loss management. Obesity: Tries to watch diet, less carb intake, trying to eat fruits and vegetables. Does not eat much sweets. He does not put any creamers or sugars in his coffee. He is exercising more to make sure he has strength to complete PT after his knee replacement. He was on 2 rounds of Prednisone recently due to having an URI, off the Prednisone tx now. Has used Adipex in the past but stopped taking due to breaking out in rash. He was on Ozempic which helped him to lose weight but it cost too much, insurance would not cover. He was 319 lbs at last visit in Dec. His goal is to get down to 312 lbs or lower to get his surgery done at end of next month. 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 Admits that he is not getting up in the middle of the night to eat. Past medical history, appointments, medications, allergies reviewed. Previous Medical History PAST MEDICAL HISTORY Diagnosis Date Adjustment insomnia 06/06/2015 AK (actinic keratosis) 03/23/2018 right anterior scapl, treated cryo 03/23/2018 Arthritis of both knees 09/17/2022 Seeing Ceasar rodriguez Arthritis, lumbar spine 06/14/2015 Mild on x-ray 06/14/2015 Bilateral leg edema 05/20/2007 Long-standing, has had full work-up, negative, suspected weight-related Combined forms of age-related cataract of both eyes 08/29/2019 Eczema 09/15/2017 feet Elevated hemoglobin A1c 09/28/2019 Essential hypertension, benign 05/20/2007 Dx'd around 2000 Fatty liver 10/03/2019 History of 2019 novel coronavirus disease (COVID-19) 01/25/2020 01/19/2020 History of diplopia 09/13/201908/2019 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 Morales History of pulmonary embolus (PE) 06/23/2018 ER visit 06/23/2018 bilateral placed on Eliquis. Per hematology 03/2019 needs chcf anticoagulation. Iron excess 10/12/2010 Negative hematology workup 2012: ASSESSMENT/PLAN: Patient does not have hemachromatosis based on lack of family history of hemachromatosis, genetic study, normal liver function and ferritin level. Elevated iron level likely related to ingestion of iron supplement and diet. Midline low back pain without sciatica 06/06/2015 Morbid obesity (HCC) NINA (obstructive sleep apnea) 04/09/2021 On CPAP Positive D dimer 09/28/2019 Reactive airway disease Right knee pain 10/27/2011 Rosacea Seborrhea SI (sacroiliac) pain 09/28/2019 right Unspecified sinusitis (chronic) Urinary hesitancy triggered by decongestant, improves with alpha sharmaine Venous insufficiency of both lower extremities 03/04/2016 Well adult exam 09/15/2017 last done: 09/28/20110 Previous Surgical History PAST SURGICAL HISTORY Procedure Laterality Date COLONOSCOPY FLX DX W/COLLJ SPEC WHEN PFRMD 07/23/09 Normal Colonoscopy, repeat 10 yrs COLONOSCOPY FLX DX W/COLLJ SPEC WHEN PFRMD 05/19/2019 Colonoscopy EGD 05/19/2019 EXTRACTION, ERUPTED TOOTH OR EXPOSED ROOT (ELEVATION AND/OR FORCEPS REMOVAL) wisdom teeth FECAL OCCULT BLOOD TEST 09/09/2016 negative PAST SURGICAL HISTORY OF 07/27/2015 left distal biceps repair Family History FAMILY HISTORY Problem Relation Age of Onset Hypertension Mother Heart Father age 56 of CHF, enlarged heart Hypertension Father Coronary Artery Disease Brother CABG (possible drug related) Hypertension Brother other (congestive heart failure) Brother Alzheimer's Disease Maternal Grandmother 93 dementia Lipids Maternal Grandmother Coronary Artery Disease Maternal Grandfather mi age 62 Hypertension Maternal Grandfather Stroke Paternal Grandfather Diabetes Other no 1st degree other than late in life (80's) Colon Cancer No Family History Prostate Cancer No Family History Patient Allergies ALLERGIES Allergen Reactions Monodox [Doxycyclin* Other: See Comments headaches and double vision Current Medications Current Outpatient Medications on File Prior to Visit Medication Sig lisinopril-hydroCHLOROthiazide (ZESTORETIC) 20-25 mg per tablet Take 1 tablet by mouth once daily. hydroCHLOROthiazide 25 mg tablet Take 1 tablet by mouth once daily. (Take in addition to the lisinopril/hctz combo.) apixaban (ELIQUIS) 5 mg tab(s) Take 1 tablet by mouth two times a day. [employer] azithromycin (ZITHROMAX Z-CINDY) 250 mg tablet Take 2 tablets day one, then, 1 tablet daily until gone. predniSONE (DELTASONE) 10 mg tablet Take 4 tabs daily for 3 days, then 2 tabs daily for 3 days, then 1 tab daily for 3 days with food. fluticasone (FLONASE) 50 mcg/actuation nasal spray Use 1 [place] in each nostril once daily. Or up to twice a day. (more content not included)... [facility] 03-26-2023 Note HNO ID: [id number] Author: RACHEL HARDEN RT(R) Service: ? Author Type: Cyber Security Instructor Type: Progress Notes Filed: 03/26/2023 12:30 Note Text: Radiology Service Progress Note PATIENT NAME: Sedrick Milian DATE OF SERVICE: March 26, 2023 TIME: 12:18 PM PATIENT IDENTITY VERIFICATION COMPLETED USING TWO (2) IDENTIFIERS: Name and Date of confirmed by patient verbally. FALL SCREENING: Has the patient had 2 falls in the last year or 1 fall with injury or currently using an Ambulatory Assistive Device (Walker, Cane, Wheelchair, Crutches, etc.)? No PATIENT GENDER DATA: Male PATIENT RELEVANT IMPLANT DATA REVIEWED: Yes RADIOLOGY DEPARTMENT: General X-ray: Exam(s) Completed: Lower Extremity X-Ray(s): Foot, Right PERIPHERAL IV DATA: Not applicable SIGNED BY: RT Kevin(R) March 26, 2023 12:18 PM [facility] 03-26-2023 Note HNO ID: [id number] Author: KATIA TAVARES APRN.ENTRY LEVEL FINANCIAL ANALYST Service: ? Author Type: Nurse Practitioner Type: Progress Notes Filed: 03/26/2023 12:06 Note Text: Chief Complaint Patient presents with: 6 Month Exam HPI Sedrick Milian is a 58 year old male who presents here today for Above Complaints.. Patient presents for routine follow up. Patient reports dry flaky patch to right first finger. Patient reports at times it cracks open and bleeds. Patient also reports right little toe pain when walking barefoot and turning. Past medical history, appointments, medications, allergies reviewed. Previous Medical History PAST MEDICAL HISTORY Diagnosis Date Adjustment insomnia 06/06/2015 AK (actinic keratosis) 03/23/2018 right anterior scapl, treated cryo 03/23/2018 Arthritis of both knees 09/17/2022 Seeing Ceasar rodriguez Arthritis, lumbar spine 06/14/2015 Mild on x-ray 06/14/2015 Bilateral leg edema 05/20/2007 Long-standing, has had full work-up, negative, suspected weight-related Combined forms of age-related cataract of both eyes 08/29/2019 Eczema 09/15/2017 feet Elevated hemoglobin A1c 09/28/2019 Essential hypertension, benign 05/20/2007 Dx'd around 2000 Fatty liver 10/03/2019 History of 2019 novel coronavirus disease (COVID-19) 01/25/2020 01/19/2020 History of diplopia 09/13/201908/2019 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 Morales History of pulmonary embolus (PE) 06/23/2018 ER visit 06/23/2018 bilateral placed on Eliquis. Per hematology 03/2019 needs long term care pharmacist anticoagulation. Iron excess 10/12/2010 Negative hematology workup 2012: ASSESSMENT/PLAN: Patient does not have hemachromatosis based on lack of family history of hemachromatosis, genetic study, normal liver function and ferritin level. Elevated iron level likely related to ingestion of iron supplement and diet. Midline low back pain without sciatica 06/06/2015 Morbid obesity (HCC) NINA (obstructive sleep apnea) 04/09/2021 On CPAP Positive D dimer 09/28/2019 Reactive airway disease Right knee pain 10/27/2011 Rosacea Seborrhea SI (sacroiliac) pain 09/28/2019 right Unspecified sinusitis (chronic) Urinary hesitancy triggered by decongestant, improves with alpha sharmaine Venous insufficiency of both lower extremities 03/04/2016 Well adult exam 09/15/2017 last done: 09/28/20110 Previous Surgical History PAST SURGICAL HISTORY Procedure Laterality Date COLONOSCOPY FLX DX W/COLLJ SPEC WHEN PFRMD 07/23/09 Normal Colonoscopy, repeat 10 yrs COLONOSCOPY FLX DX W/COLLJ SPEC WHEN PFRMD 05/19/2019 Colonoscopy EGD 05/19/2019 EXTRACTION, ERUPTED TOOTH OR EXPOSED ROOT (ELEVATION AND/OR FORCEPS REMOVAL) wisdom teeth FECAL OCCULT BLOOD TEST 09/09/2016 negative PAST SURGICAL HISTORY OF 07/27/2015 left distal biceps repair Family History FAMILY HISTORY Problem Relation Age of Onset Hypertension Mother Heart Father age 56 of CHF, enlarged heart Hypertension Father Coronary Artery Disease Brother CABG (possible drug related) Hypertension Brother other (congestive heart failure) Brother Alzheimer's Disease Maternal Grandmother 93 dementia Lipids Maternal Grandmother Coronary Artery Disease Maternal Grandfather mi age 62 Hypertension Maternal Grandfather Stroke Paternal Grandfather Diabetes Other no 1st degree other than late in life (80's) Colon Cancer No Family History Prostate Cancer No Family History Patient Allergies ALLERGIES Allergen Reactions Monodox [Doxycyclin* Other: See Comments headaches and double vision Current Medications Current Outpatient Medications on File Prior to Visit Medication Sig lisinopril-hydroCHLOROthiazide (ZESTORETIC) 20-25 mg per tablet Take 1 tablet by mouth once daily. hydroCHLOROthiazide 25 mg tablet Take 1 tablet by mouth once daily. (Take in addition to the lisinopril/hctz combo.) apixaban (ELIQUIS) 5 mg tab(s) Take 1 tablet by mouth two times a day. [employer] azithromycin (ZITHROMAX Z-CINDY) 250 mg tablet Take 2 tablets day one, then, 1 tablet daily until gone. predniSONE (DELTASONE) 10 mg tablet Take 4 tabs daily for 3 days, then 2 tabs daily for 3 days, then 1 tab daily for 3 days with food. fluticasone (FLONASE) 50 mcg/actuation nasal spray Use 1 [place] in each nostril once daily. Or up to twice a day. Rinse mouth after use. benzonatate (TESSALON PERLES) 100 mg capsule Take 1 capsule by mouth three times a day as needed for cough. albuterol HFA (VENTOLIN HFA) 90 mcg/actuation inhaler Inhale 2 Puffs as instructed every 4 hours as needed for wheezing/shortness of breath. Comp.Stocking,Knee,Regular,Lrg misc 1 Each once daily. For Leg Edema: R60.0, I87.2, and Z91.89. 30-40 mm. potassium chloride ER (KLOR-CON) 20 mEq tablet Take 1 tablet by mouth two times a day. Ipratropium (ATROVENT) 17 mcg/actuation inhaler Inhale 2 Puffs as instructed every 6 hours. (Patient not taki (more content not included)... [facility] 03-24-2023 Note HNO ID: [id number] Author: FADY CHANEY APRN.ENTRY LEVEL FINANCIAL ANALYST Service: ? Author Type: Nurse Practitioner Type: Progress Notes Filed: 03/24/2023 19:25 Note Text: This note was created using NoteWriter. Subjective Sedrick Milian is a 58 year old male. 58 year old male with PMH HTN presents for illness. Acute onset over the past several days Right ear pain Mild congestion +sinus pressure +cough Of note, he was evaluated on 03/17/22 for URI sx Treated as viral Endorses it is not getting better The history is provided by the patient. No foreign language interpreter was used. Sinus Problem This is a new problem. The current episode started in the past 7 days. The problem occurs constantly. The problem has been gradually worsening. Associated symptoms include congestion, coughing, fatigue and headaches. Pertinent negatives include no abdominal pain, anorexia, arthralgias, change in bowel habit, chest pain, chills, diaphoresis, fever, joint swelling, myalgias, nausea, neck pain, numbness, rash, sore throat, swollen glands, urinary symptoms, vertigo, visual change, vomiting or weakness. Nothing aggravates the symptoms. He has tried nothing for the symptoms. The treatment provided no relief. PAST MEDICAL HISTORY Diagnosis Date Adjustment insomnia 06/06/2015 AK (actinic keratosis) 03/23/2018 right anterior scapl, treated cryo 03/23/2018 Arthritis of both knees 09/17/2022 Seeing Ceasar rodriguez Arthritis, lumbar spine 06/14/2015 Mild on x-ray 06/14/2015 Bilateral leg edema 05/20/2007 Long-standing, has had full work-up, negative, suspected weight-related Combined forms of age-related cataract of both eyes 08/29/2019 Eczema 09/15/2017 feet Elevated hemoglobin A1c 09/28/2019 Essential hypertension, benign 05/20/2007 Dx'd around 2000 Fatty liver 10/03/2019 History of 2019 novel coronavirus disease (COVID-19) 01/25/2020 01/19/2020 History of diplopia 09/13/201908/2019 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 Morales History of pulmonary embolus (PE) 06/23/2018 ER visit 06/23/2018 bilateral placed on Eliquis. Per hematology 03/2019 needs chcf anticoagulation. Iron excess 10/12/2010 Negative hematology workup 2012: ASSESSMENT/PLAN: Patient does not have hemachromatosis based on lack of family history of hemachromatosis, genetic study, normal liver function and ferritin level. Elevated iron level likely related to ingestion of iron supplement and diet. Midline low back pain without sciatica 06/06/2015 Morbid obesity (HCC) NINA (obstructive sleep apnea) 04/09/2021 On CPAP Positive D dimer 09/28/2019 Reactive airway disease Right knee pain 10/27/2011 Rosacea Seborrhea SI (sacroiliac) pain 09/28/2019 right Unspecified sinusitis (chronic) Urinary hesitancy triggered by decongestant, improves with alpha sharmaine Venous insufficiency of both lower extremities 03/04/2016 Well adult exam 09/15/2017 last done: PAST SURGICAL HISTORY Procedure Laterality Date COLONOSCOPY FLX DX W/COLLJ SPEC WHEN PFRMD 07/23/09 Normal Colonoscopy, repeat 10 yrs COLONOSCOPY FLX DX W/COLLJ SPEC WHEN PFRMD 05/19/2019 Colonoscopy EGD 05/19/2019 EXTRACTION, ERUPTED TOOTH OR EXPOSED ROOT (ELEVATION AND/OR FORCEPS REMOVAL) wisdom teeth FECAL OCCULT BLOOD TEST 09/09/2016 negative PAST SURGICAL HISTORY OF 07/27/2015 left distal biceps repair ALLERGIES Monodox [Doxycycline Monohydrate] MEDICATIONS apixaban (ELIQUIS) 5 mg tab(s) Take 1 tablet by mouth two times a day. Script Sourcing fluticasone (FLONASE) 50 mcg/actuation nasal spray Use 1 [place] in each nostril once daily. Or up to twice a day. Rinse mouth after use. benzonatate (TESSALON PERLES) 100 mg capsule Take 1 capsule by mouth three times a day as needed for cough. guaiFENesin (MUCINEX) 600 mg 12 hr tablet Take 1 tablet by mouth two times a day as needed for cold/allergy symptoms (cough) for up to 7 days. albuterol HFA (VENTOLIN HFA) 90 mcg/actuation inhaler Inhale 2 Puffs as instructed every 4 hours as needed for wheezing/shortness of breath. Comp.Stocking,Knee,Regular,Lrg misc 1 Each once daily. For Leg Edema: R60.0, I87.2, and Z91.89. 30-40 mm. potassium chloride ER (KLOR-CON) 20 mEq tablet Take 1 tablet by mouth two times a day. lisinopril-hydroCHLOROthiazide (ZESTORETIC) 20-25 mg per tablet Take 1 tablet by mouth once daily. hydroCHLOROthiazide 25 mg tablet Take 1 tablet by mouth once daily. (Take in addition to the lisinopril/hctz combo.) azithromycin (ZITHROMAX Z-CINDY) 250 mg tablet Take 2 tablets day one, then, 1 tablet daily until gone. predniSONE (DELTASONE) 10 mg tablet Take 4 tabs daily for 3 days, then 2 tabs daily for 3 days, then 1 tab daily for 3 days with food. Ipratropium (ATROVENT) 17 mcg/actuation inhaler Inhale 2 Puffs as instructed every 6 hours. (Patient not taking: Reported on 03/17/2023) FAMILY HISTORY Problem Relation Age of Onset Hypertens (more content not included)... [facility] 03-17-2023 Note HNO ID: [id number] Author: Maria Isabel Lee RT(Simeon) Service: Radiology Author Type: Technologist Type: Progress Notes Filed: 03/17/2023 10:37 AM Note Text: Radiology Service Progress Note PATIENT NAME: Sedrick Milian DATE OF SERVICE: March 17, 2023 TIME: 10:32 AM PATIENT IDENTITY VERIFICATION COMPLETED USING TWO (2) IDENTIFIERS: Name and Date of confirmed by patient verbally. FALL SCREENING: Has the patient had 2 falls in the last year or 1 fall with injury or currently using an Ambulatory Assistive Device (Walker, Cane, Wheelchair, Crutches, etc.)? No PATIENT GENDER DATA: Male PATIENT RELEVANT IMPLANT DATA REVIEWED: Not Applicable RADIOLOGY DEPARTMENT: General X-ray: Exam(s) Completed: Chest X-Ray PERIPHERAL IV DATA: Not applicable SIGNED BY: RT Dariela(R) March 17, 2023 10:32 AM [facility] 03-17-2023 Note HNO ID: [id number] Author: Lyssa Carrizales APRN.[employer]CIAL ANALYST Service: ? Author Type: Nurse Practitioner Type: Progress Notes Filed: 03/17/2023 11:13 AM Note Text: Subjective HPI Nontoxic-appearing male presents urgent care chief complaint cough chest congestion headache fatigue. Duration of symptoms around 2 months. Was seen here 1127 diagnosed with viral cough. Placed on prednisone and Tessalon Perles. Returned again diagnosed with salivary duct infection on February 13. States next day he woke up and had facial swelling. Seen in the ED. Placed on 10 days of clindamycin. Followed up with ENT at the completion of antibiotics was diagnosed with ear infection. Placed on cefdinir. States felt a little better. Became ill about a week ago with new symptoms. States son is sick with a viral infection as well. Has not use any OTC medications. Denies any fever body aches chills productive cough chest pain shortness of breath pleuritic pain hemoptysis nausea vomiting abdominal pain change in bowel or bladder habits. Past medical history prescription medication use and allergies reviewed. BP 152/72 Pulse 96 Temp 37.3 ?C (99.1 ?F) Resp 18 Wt (!) 150.1 kg (331 lb) SpO2 97% BMI 48.88 kg/m? .Patient presents with: Chest Congestion: cough and headache x 2 months PAST MEDICAL HISTORY Diagnosis Date Adjustment insomnia 06/06/2015 AK (actinic keratosis) 03/23/2018 right anterior scapl, treated cryo 03/23/2018 Arthritis of both knees 09/17/2022 Seeing Ceasar rodriguez Arthritis, lumbar spine 06/14/2015 Mild on x-ray 06/14/2015 Bilateral leg edema 05/20/2007 Long-standing, has had full work-up, negative, suspected weight-related Combined forms of age-related cataract of both eyes 08/29/2019 Eczema 09/15/2017 feet Elevated hemoglobin A1c 09/28/2019 Essential hypertension, benign 05/20/2007 Dx'd around 2000 Fatty liver 10/03/2019 History of 2019 novel coronavirus disease (COVID-19) 01/25/2020 01/19/2020 History of diplopia 09/13/201908/2019 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 Morales History of pulmonary embolus (PE) 06/23/2018 ER visit 06/23/2018 bilateral placed on Eliquis. Per hematology 03/2019 needs [facility] anticoagulation. Iron excess 10/12/2010 Negative hematology workup 2012: ASSESSMENT/PLAN: Patient does not have hemachromatosis based on lack of family history of hemachromatosis, genetic study, normal liver function and ferritin level. Elevated iron level likely related to ingestion of iron supplement and diet. Midline low back pain without sciatica 06/06/2015 Morbid obesity (HCC) NINA (obstructive sleep apnea) 04/09/2021 On CPAP Positive D dimer 09/28/2019 Reactive airway disease Right knee pain 10/27/2011 Rosacea Seborrhea SI (sacroiliac) pain 09/28/2019 right Unspecified sinusitis (chronic) Urinary hesitancy triggered by decongestant, improves with alpha sharmaine Venous insufficiency of both lower extremities 03/04/2016 Well adult exam 09/15/2017 last done: PAST SURGICAL HISTORY Procedure Laterality Date COLONOSCOPY FLX DX W/COLLJ SPEC WHEN PFRMD 07/23/09 Normal Colonoscopy, repeat 10 yrs COLONOSCOPY FLX DX W/COLLJ SPEC WHEN PFRMD 05/19/2019 Colonoscopy EGD 05/19/2019 EXTRACTION, ERUPTED TOOTH OR EXPOSED ROOT (ELEVATION AND/OR FORCEPS REMOVAL) wisdom teeth FECAL OCCULT BLOOD TEST 09/09/2016 negative PAST SURGICAL HISTORY OF 07/27/2015 left distal biceps repair ALLERGIES Monodox [Doxycycline Monohydrate] MEDICATIONS albuterol HFA (VENTOLIN HFA) 90 mcg/actuation inhaler Inhale 2 Puffs as instructed every 4 hours as needed for wheezing/shortness of breath. apixaban (ELIQUIS) 5 mg tab(s) Take 1 tablet by mouth two times a day. Script Sourcing Comp.Stocking,Knee,Regular,Lrg misc 1 Each once daily. For Leg Edema: R60.0, I87.2, and Z91.89. 30-40 mm. potassium chloride ER (KLOR-CON) 20 mEq tablet Take 1 tablet by mouth two times a day. lisinopril-hydroCHLOROthiazide (ZESTORETIC) 20-25 mg per tablet Take 1 tablet by mouth once daily. hydroCHLOROthiazide 25 mg tablet Take 1 tablet by mouth once daily. (Take in addition to the lisinopril/hctz combo.) fluticasone (FLONASE) 50 mcg/actuation nasal spray Use 1 [place] in each nostril once daily. Or up to twice a day. Rinse mouth after use. benzonatate (TESSALON PERLES) 100 mg capsule Take 1 capsule by mouth three times a day as needed for cough. (Patient not taking: Reported on 03/17/2023) Ipratropium (ATROVENT) 17 mcg/actuation inhaler Inhale 2 Puffs as instructed every 6 hours. (Patient not taking: Reported on 03/17/2023) FAMILY HISTORY Problem Relation Age of Onset Hypertension Mother Heart Father age 56 of CHF, enlarged heart Hypertension Father Coronary Artery Disease Brother CABG (possible drug related) Hypertension Brother other (congestive heart failure) Brother Alzheimer's Disease Maternal Grandmother 93 (more content not included)... [facility] 02-13-2023 Note HNO ID: [id number] Author: Amari Lin MD Service: ? Author Type: Physician Type: Progress Notes Filed: 02/13/2023 11:53 AM Note Text: Patient presents with: Mouth Sores: Mouth sore under tongue x2 days and right ear pain. HPI: Feeling sore under the tongue for 2 days. He has been sick with URI for the last week. 2 home COVID tests negative. Positive symptoms: swollen area on the floor of the mouth at the right front of the tongue, swelling below the right jaw, Cough, Chest congestion, Sore throat, Earache, Nasal Congestion, Rhinorrhea, Negative symptoms: Shortness of breath, Fever, OTC: albuterol, robitussin. Prescribed prednisone and Tessalon for viral URI/bronchitis 4 days ago. MEDICATIONS: Current Outpatient Medications Medication Sig albuterol HFA (VENTOLIN HFA) 90 mcg/actuation inhaler Inhale 2 Puffs as instructed every 4 hours as needed for wheezing/shortness of breath. apixaban (ELIQUIS) 5 mg tab(s) Take 1 tablet by mouth two times a day. Script Sourcing predniSONE (DELTASONE) 20 mg tablet Take 2 tablets by mouth once daily for 4 days. Take daily with food. benzonatate (TESSALON PERLES) 100 mg capsule Take 1 capsule by mouth three times a day as needed for cough. Comp.Stocking,Knee,Regular,Lrg misc 1 Each once daily. For Leg Edema: R60.0, I87.2, and Z91.89. 30-40 mm. potassium chloride ER (KLOR-CON) 20 mEq tablet Take 1 tablet by mouth two times a day. lisinopril-hydroCHLOROthiazide (ZESTORETIC) 20-25 mg per tablet Take 1 tablet by mouth once daily. hydroCHLOROthiazide 25 mg tablet Take 1 tablet by mouth once daily. (Take in addition to the lisinopril/hctz combo.) fluticasone (FLONASE) 50 mcg/actuation nasal spray Use 1 [place] in each nostril once daily. Or up to twice a day. Rinse mouth after use. Ipratropium (ATROVENT) 17 mcg/actuation inhaler Inhale 2 Puffs as instructed every 6 hours. No current facility-administered medications for this visit. ALLERGIES: ALLERGIES Allergen Reactions Monodox [Doxycyclin* Other: See Comments headaches and double vision VITALS: BP 138/80 Pulse 86 Temp 36.8 ?C (98.3 ?F) Resp 16 Wt (!) 146.1 kg (322 lb 3.2 oz) SpO2 97% BMI 47.58 kg/m? PHYSICAL EXAM: GEN: mildly ill appearing, alert HEENT: PERRL, EOMI, conjunctiva clear Ears: canals clear. TMs without erythema, bulge, or effusion. Trace hyperemia right lower TM. Sinuses: non-tender frontal sinus, non-tender maxillary sinuses Throat: moist mucous membranes, mild erythema, no exudate. Mild erythema/ecchymosis at the right sublingual caruncle, no palpable mass. Neck: supple, no thyromegaly. Patient identifies tender mass at the submandibular triangle on the right, no other lymphadenopathy HEART: regular rate and rhythm, no murmurs LUNGS: clear to auscultation, no wheezes or crackles, no increased WOB; wheezy-raspy cough ASSESSMENT/PLAN: 1. Disorder of salivary duct - ICD9: 527.9, ICD10: K11.9 (primary diagnosis) No palpable salivary duct stone. Suspect viral sialadenitis. Supportive care with as needed analgesia and sour candy. Follow up with ENT if duct or gland swelling do not show improvement next week. 2. URI, acute - ICD9: 465.9, ICD10: J06.9 Continue supportive care for viral bronchitis. - BENZONATATE 100 MG CAPSULE Follow up with worsening cough, worsening shortness of breath, increasing chest pain, or late onset fever. Amari Lin MD [facility] 02-13-2023 History of Presen t illness Narrative Patient presents with: Mouth Sores: Mouth sore under tongue x2 days and right ear pain. HPI: Feeling sore under the tongue for 2 days. He has been sick with URI for the last week. 2 home COVID tests negative. Positive symptoms: swollen area on the floor of the mouth at the right front of the tongue, swelling below the right jaw, Cough, Chest congestion, Sore throat, Earache, Nasal Congestion, Rhinorrhea, Negative symptoms: Shortness of breath, Fever, OTC: albuterol, robitussin. Prescribed prednisone and Tessalon for viral URI/bronchitis 4 days ago. MEDICATIONS: Current Outpatient Medications Medication Sig albuterol HFA (VENTOLIN HFA) 90 mcg/actuation inhaler Inhale 2 Puffs as instructed every 4 hours as needed for wheezing/shortness of breath. apixaban (ELIQUIS) 5 mg tab(s) Take 1 tablet by mouth two times a day. Script Sourcing predniSONE (DELTASONE) 20 mg tablet Take 2 tablets by mouth once daily for 4 days. Take daily with food. benzonatate (TESSALON PERLES) 100 mg capsule Take 1 capsule by mouth three times a day as needed for cough. Comp.Stocking,Knee,Regular,Lrg misc 1 Each once daily. For Leg Edema: R60.0, I87.2, and Z91.89. 30-40 mm. potassium chloride ER (KLOR-CON) 20 mEq tablet Take 1 tablet by mouth two times a day. lisinopril-hydroCHLOROthiazide (ZESTORETIC) 20-25 mg per tablet Take 1 tablet by mouth once daily. hydroCHLOROthiazide 25 mg tablet Take 1 tablet by mouth once daily. (Take in addition to the lisinopril/hctz combo.) fluticasone (FLONASE) 50 mcg/actuation nasal spray Use 1 [place] in each nostril once daily. Or up to twice a day. Rinse mouth after use. Ipratropium (ATROVENT) 17 mcg/actuation inhaler Inhale 2 Puffs as instructed every 6 hours. No current facility-administered medications for this visit. ALLERGIES: ALLERGIES Allergen Reactions Monodox [Doxycyclin* Other: See Comments headaches and double vision VITALS: BP 138/80 Pulse 86 Temp 36.8 C (98.3 F) Resp 16 Wt (!) 146.1 kg (322 lb 3.2 oz) SpO2 97% BMI 47.58 kg/m PHYSICAL EXAM: GEN: mildly ill appearing, alert HEENT: PERRL, EOMI, conjunctiva clear Ears: canals clear. TMs without erythema, bulge, or effusion. Trace hyperemia right lower TM. Sinuses: non-tender frontal sinus, non-tender maxillary sinuses Throat: moist mucous membranes, mild erythema, no exudate. Mild erythema/ecchymosis at the right sublingual caruncle, no palpable mass. Neck: supple, no thyromegaly. Patient identifies tender mass at the submandibular triangle on the right, no other lymphadenopathy HEART: regular rate and rhythm, no murmurs LUNGS: clear to auscultation, no wheezes or crackles, no increased WOB; wheezy-raspy cough ASSESSMENT/PLAN: 1. Disorder of salivary duct - ICD9: 527.9, ICD10: K11.9 (primary diagnosis) No palpable salivary duct stone. Suspect viral sialadenitis. Supportive care with as needed analgesia and sour candy. Follow up with ENT if duct or gland swelling do not show improvement next week. 2. URI, acute - ICD9: 465.9, ICD10: J06.9 Continue supportive care for viral bronchitis. - BENZONATATE 100 MG CAPSULE Follow up with worsening cough, worsening shortness of breath, increasing chest pain, or late onset fever. Amari Lin MD documented in this encounter [facility] 02-11-2023 Miscellaneous Notes The following approved medication requests have been transmitted electronically. Requested Prescriptions Signed Prescriptions Disp Refills albuterol HFA (VENTOLIN HFA) 90 mcg/actuation inhaler 18 g 0 Sig: Inhale 2 Puffs as instructed every 4 hours as needed for wheezing/shortness of breath. Authorizing Provider: LYSSA LEMOS MD Last refill 02/01/20 Qty: 18 g with 1 refill MAGGIE 12/30/[address] Fawad STODDARD 03/20/23 Diane Sanchez LPN documented in this encounter [facility] 02-09-2023 Note HNO ID: [id number] Author: Magdaleno Dan PA Service: ? Author Type: Physician Motor Racer Type: Progress Notes Filed: 02/09/2023 2:57 PM Note Text: This note was created using [employer]. Subjective Sedrick Milian is a 58 year old male. HPI 8-year-old male presents for cough, congestion, body aches for 3 days. Patient has taken 2 home COVID test which were negative. He states he has been having a dry cough and nasal congestion. No fevers. No vomiting. No chest pain or shortness of breath. States he has had bronchitis in the past and does have some inhalers at home, but does not use them regularly. No other complaint. PAST MEDICAL HISTORY Diagnosis Date Adjustment insomnia 06/06/2015 AK (actinic keratosis) 03/23/2018 right anterior scapl, treated cryo 03/23/2018 Arthritis of both knees 09/17/2022 Seeing Ceasar rodriguez Arthritis, lumbar spine 06/14/2015 Mild on x-ray 06/14/2015 Bilateral leg edema 05/20/2007 Long-standing, has had full work-up, negative, suspected weight-related Combined forms of age-related cataract of both eyes 08/29/2019 Eczema 09/15/2017 feet Elevated hemoglobin A1c 09/28/2019 Essential hypertension, benign 05/20/2007 Dx'd around 2000 Fatty liver 10/03/2019 History of 2019 novel coronavirus disease (COVID-19) 01/25/2020 01/19/2020 History of diplopia 09/13/201908/2019 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 Morales History of pulmonary embolus (PE) 06/23/2018 ER visit 06/23/2018 bilateral placed on Eliquis. Per hematology 03/2019 needs long term care pharmacist anticoagulation. Iron excess 10/12/2010 Negative hematology workup 2012: ASSESSMENT/PLAN: Patient does not have hemachromatosis based on lack of family history of hemachromatosis, genetic study, normal liver function and ferritin level. Elevated iron level likely related to ingestion of iron supplement and diet. Midline low back pain without sciatica 06/06/2015 Morbid obesity (HCC) NINA (obstructive sleep apnea) 04/09/2021 On CPAP Positive D dimer 09/28/2019 Reactive airway disease Right knee pain 10/27/2011 Rosacea Seborrhea SI (sacroiliac) pain 09/28/2019 right Unspecified sinusitis (chronic) Urinary hesitancy triggered by decongestant, improves with alpha sharmaine Venous insufficiency of both lower extremities 03/04/2016 Well adult exam 09/15/2017 last done: PAST SURGICAL HISTORY Procedure Laterality Date COLONOSCOPY FLX DX W/COLLJ SPEC WHEN PFRMD 07/23/09 Normal Colonoscopy, repeat 10 yrs COLONOSCOPY FLX DX W/COLLJ SPEC WHEN PFRMD 05/19/2019 Colonoscopy EGD 05/19/2019 EXTRACTION, ERUPTED TOOTH OR EXPOSED ROOT (ELEVATION AND/OR FORCEPS REMOVAL) wisdom teeth FECAL OCCULT BLOOD TEST 09/09/2016 negative PAST SURGICAL HISTORY OF 07/27/2015 left distal biceps repair ALLERGIES Monodox [Doxycycline Monohydrate] MEDICATIONS Comp.Stocking,Knee,Regular,Lrg misc 1 Each once daily. For Leg Edema: R60.0, I87.2, and Z91.89. 30-40 mm. potassium chloride ER (KLOR-CON) 20 mEq tablet Take 1 tablet by mouth two times a day. lisinopril-hydroCHLOROthiazide (ZESTORETIC) 20-25 mg per tablet Take 1 tablet by mouth once daily. hydroCHLOROthiazide 25 mg tablet Take 1 tablet by mouth once daily. (Take in addition to the lisinopril/hctz combo.) apixaban (ELIQUIS) 5 mg tab(s) Take 1 tablet by mouth twice daily. Script Sourcing fluticasone (FLONASE) 50 mcg/actuation nasal spray Use 1 [place] in each nostril once daily. Or up to twice a day. Rinse mouth after use. Ipratropium (ATROVENT) 17 mcg/actuation inhaler Inhale 2 Puffs as instructed every 6 hours. albuterol HFA (VENTOLIN HFA) 90 mcg/actuation inhaler Inhale 2 Puffs as instructed every 4 hours as needed for Wheezing/Shortness of Breath. predniSONE (DELTASONE) 20 mg tablet Take 2 tablets by mouth once daily for 4 days. Take daily with food. benzonatate (TESSALON PERLES) 100 mg capsule Take 1 capsule by mouth three times a day as needed for cough. FAMILY HISTORY Problem Relation Age of Onset Hypertension Mother Heart Father age 56 of CHF, enlarged heart Hypertension Father Coronary Artery Disease Brother CABG (possible drug related) Hypertension Brother other (congestive heart failure) Brother Alzheimer's Disease Maternal Grandmother 93 dementia Lipids Maternal Grandmother Coronary Artery Disease Maternal Grandfather mi age 62 Hypertension Maternal Grandfather Stroke Paternal Grandfather Diabetes Other no 1st degree other than late in life (80's) Colon Cancer No Family History Prostate Cancer No Family History Social History Tobacco Use Smoking status: Never Smokeless tobacco: Never Vaping Use Vaping Use: Never used Substance Use Topics Alcohol use: Yes Comment: episodic, 3-4 drinks per month Drug use: No Review of Systems Constitutional: Negative for chills and fever. HENT: Positive for congestion. Negative for sore throat. (more content not included)... [facility] 02-09-2023 History of Presen t illness Narrative This note was created using [employer]. Subjective Sedrick Milian is a 58 year old male. HPI 8-year-old male presents for cough, congestion, body aches for 3 days. Patient has taken 2 home COVID test which were negative. He states he has been having a dry cough and nasal congestion. No fevers. No vomiting. No chest pain or shortness of breath. States he has had bronchitis in the past and does have some inhalers at home, but does not use them regularly. No other complaint. PAST MEDICAL HISTORY Diagnosis Date Adjustment insomnia 06/06/2015 AK (actinic keratosis) 03/23/2018 right anterior scapl, treated cryo 03/23/2018 Arthritis of both knees 09/17/2022 Seeing Ceasar rodriguez Arthritis, lumbar spine 06/14/2015 Mild on x-ray 06/14/2015 Bilateral leg edema 05/20/2007 Long-standing, has had full work-up, negative, suspected weight-related Combined forms of age-related cataract of both eyes 08/29/2019 Eczema 09/15/2017 feet Elevated hemoglobin A1c 09/28/2019 Essential hypertension, benign 05/20/2007 Dx'd around 2000 Fatty liver 10/03/2019 History of 2019 novel coronavirus disease (COVID-19) 01/25/2020 01/19/2020 History of diplopia 09/13/201908/2019 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 Morales History of pulmonary embolus (PE) 06/23/2018 ER visit 06/23/2018 bilateral placed on Eliquis. Per hematology 03/2019 needs long term care pharmacist anticoagulation. Iron excess 10/12/2010 Negative hematology workup 2012: ASSESSMENT/PLAN: Patient does not have hemachromatosis based on lack of family history of hemachromatosis, genetic study, normal liver function and ferritin level. Elevated iron level likely related to ingestion of iron supplement and diet. Midline low back pain without sciatica 06/06/2015 Morbid obesity (HCC) NINA (obstructive sleep apnea) 04/09/2021 On CPAP Positive D dimer 09/28/2019 Reactive airway disease Right knee pain 10/27/2011 Rosacea Seborrhea SI (sacroiliac) pain 09/28/2019 right Unspecified sinusitis (chronic) Urinary hesitancy triggered by decongestant, improves with alpha sharmaine Venous insufficiency of both lower extremities 03/04/2016 Well adult exam 09/15/2017 last done: PAST SURGICAL HISTORY Procedure Laterality Date COLONOSCOPY FLX DX W/COLLJ SPEC WHEN PFRMD 07/23/09 Normal Colonoscopy, repeat 10 yrs COLONOSCOPY FLX DX W/COLLJ SPEC WHEN PFRMD 05/19/2019 Colonoscopy EGD 05/19/2019 EXTRACTION, ERUPTED TOOTH OR EXPOSED ROOT (ELEVATION AND/OR FORCEPS REMOVAL) wisdom teeth FECAL OCCULT BLOOD TEST 09/09/2016 negative PAST SURGICAL HISTORY OF 07/27/2015 left distal biceps repair ALLERGIES Monodox [Doxycycline Monohydrate] MEDICATIONS Comp.Stocking,Knee,Regular,Lrg misc 1 Each once daily. For Leg Edema: R60.0, I87.2, and Z91.89. 30-40 mm. potassium chloride ER (KLOR-CON) 20 mEq tablet Take 1 tablet by mouth two times a day. lisinopril-hydroCHLOROthiazide (ZESTORETIC) 20-25 mg per tablet Take 1 tablet by mouth once daily. hydroCHLOROthiazide 25 mg tablet Take 1 tablet by mouth once daily. (Take in addition to the lisinopril/hctz combo.) apixaban (ELIQUIS) 5 mg tab(s) Take 1 tablet by mouth twice daily. Script Sourcing fluticasone (FLONASE) 50 mcg/actuation nasal spray Use 1 [place] in each nostril once daily. Or up to twice a day. Rinse mouth after use. Ipratropium (ATROVENT) 17 mcg/actuation inhaler Inhale 2 Puffs as instructed every 6 hours. albuterol HFA (VENTOLIN HFA) 90 mcg/actuation inhaler Inhale 2 Puffs as instructed every 4 hours as needed for Wheezing/Shortness of Breath. predniSONE (DELTASONE) 20 mg tablet Take 2 tablets by mouth once daily for 4 days. Take daily with food. benzonatate (TESSALON PERLES) 100 mg capsule Take 1 capsule by mouth three times a day as needed for cough. FAMILY HISTORY Problem Relation Age of Onset Hypertension Mother Heart Father age 56 of CHF, enlarged heart Hypertension Father Coronary Artery Disease Brother CABG (possible drug related) Hypertension Brother other (congestive heart failure) Brother Alzheimer's Disease Maternal Grandmother 93 dementia Lipids Maternal Grandmother Coronary Artery Disease Maternal Grandfather mi age 62 Hypertension Maternal Grandfather Stroke Paternal Grandfather Diabetes Other no 1st degree other than late in life (80's) Colon Cancer No Family History Prostate Cancer No Family History Social History Tobacco Use Smoking status: Never Smokeless tobacco: Never Vaping Use Vaping Use: Never used Substance Use Topics Alcohol use: Yes Comment: episodic, 3-4 drinks per month Drug use: No Review of Systems Constitutional: Negative for chills and fever. HENT: Positive for congestion. Negative for sore throat. Respiratory: Positive for cough. Negative for shortness of breath. Gastrointestinal: Negative for diarrhea and vomiting. Objective BP 132/78 Pulse 90 Temp 37.3 C (99.2 F) Resp 20 Wt (!) 148.3 kg (327 lb) SpO2 95% BMI 48.29 kg/m Physical Exam Vitals and nursing note reviewed. Constitutional: General: He is not in acute distress. Appearance: Normal appearance. He is not toxic-appearing. HENT: Right Ear: Tympanic membrane and ear canal normal. Left Ear: Tympanic membrane and ear canal normal. Nose: Nose normal. Mouth/Throat: Mouth: Mucous membranes are moist. Eyes: Conjunctiva/sclera: Conjunctivae normal. Cardiovascular: Rate and Rhythm: Normal rate and regular rhythm. Pulmonary: Effort: Pulmonary effort is normal. Breath sounds: Normal breath sounds. Skin: General: Skin is warm and dry. Neurological: Mental Status: He is alert. Assessment and Plan ASSESSMENT/PLAN: 1. Acute cough - ICD9: 786.2, ICD10: R05.1 (primary diagnosis) -Rx for prednisone. Rx for Tessalon Perles. -Suspect viral bronchitis. 2. URI, acute - ICD9: 465.9, ICD10: J06.9 - Discussed viral etiology and rationale for treatment. - Symptomatic treatment with prn analgesia - Supportive care with fluids and rest -declines viral swab Diagnosis and treatment plan were discussed and questions were answered to the patient's satisfaction. Pt acknowledged understanding of concepts and follow up plan. Specific signs and symptoms that would indicate the need for higher level of care were discussed in detail warranting prompt ER evaluation. ANNELIESE Boland documented in this encounter [facility] 01-27-2023 Note HNO ID: [id number] Author: Lyssa Lemos MD Service: ? Author Type: Physician Type: Progress Notes Filed: 01/27/2023 12:04 PM Note Text: Patient's surgery will not be until after the first of the year. Patient will contact ortho and let us know date of surgery and will get him in for pre-op. Patient will need Lovenox bridging prior to surgery. [facility] 01-27-2023 History of Presen t illness Narrative Patient's surgery will not be until after the first of the year. Patient will contact ortho and let us know date of surgery and will get him in for pre-op. Patient will need Lovenox bridging prior to surgery. documented in this encounter [facility] 01-05-2023 Miscellaneous Notes The following approved medication requests have been transmitted electronically. Requested Prescriptions Signed Prescriptions Disp Refills Comp.Stocking,Knee,Regular,Lrg misc 4 Each 11 Si Each once daily. For Leg Edema: R60.0, I87.2, and Z91.89. 30-40 mm. Authorizing Provider: LYSSA LEMOS MD MAGGIE 12/30/22 NOV 01/27/23 Diane Sanchez LPN documented in this encounter [facility] 01-05-2023 Miscellaneous Notes The following approved medication requests have been transmitted electronically. Requested Prescriptions Signed Prescriptions Disp Refills potassium chloride ER (KLOR-CON) 20 mEq tablet 180 tablet 1 Sig: Take 1 tablet by mouth two times a day. Authorizing Provider: LYSSA LEMOS MD Patient has been identified by name and date of : Yes Requested Prescriptions Pending Prescriptions Disp Refills potassium chloride ER (KLOR-CON) 20 mEq tablet 180 tablet 1 Sig: Take 1 tablet by mouth two times a day. RX INSTRUCTIONS: Patient aware RX will be sent to pharmacy. No need to notify patient. Caitlyn Walker MA Maggie 09/2022 Nov 01/2023 Last refill: 04/2022 Patient has been identified by name and date of : Yes Requested Prescriptions Pending Prescriptions Disp Refills potassium chloride ER (KLOR-CON) 20 mEq tablet 180 tablet 1 Sig: Take 1 tablet by mouth two times a day. RX INSTRUCTIONS: Patient aware RX will be sent to pharmacy. No need to notify patient. Camilla Solo documented in this encounter [facility] 12-30-2022 Note HNO ID: [id number] Author: Pierre Burgos MD Service: ? Author Type: Physician Type: Progress Notes Filed: 12/30/2022 9:24 AM Note Text: Chief Complaint Patient presents with: Follow Up HPI Sedrick Milian is a 57 year old male who presents here today for weight. Pt of Dr. Lemos who is seeing me for weight loss options. Obesity/PreDM: Pt taking Ozempic 0.5 mg weekly. Weight last visit was 330 lbs, today's weight 319 lbs. Pt reports that the medication is very expensive and is not covered by his insurance. Every refill is $998, without a voucher it was $1200.00. Didn't feel that he lost that much weight to continue taking the medication. He has used Adipex in the past but did not tolerate it, had side effects of rash while on it. He is working on watching diet, does have decreased appetite and less snacking between meals. Has cut out carbs, eating more protein, vegetables and adding more fruits. Cooking more meals at home and not eating fast food. Notes it's difficult with having two teenage children. 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 Reports that his exercise has really came to a stop due to his L knee, states it's shot. Does try to do walking. They want to see his weight at 312 lbs before they will replace the knee. HM - Received flu shot through Employer. Past medical history, appointments, medications, allergies reviewed. Previous Medical History PAST MEDICAL HISTORY Diagnosis Date Adjustment insomnia 06/06/2015 AK (actinic keratosis) 03/23/2018 right anterior scapl, treated cryo 03/23/2018 Arthritis of both knees 09/17/2022 Seeing Ceasar rodriguez Arthritis, lumbar spine 06/14/2015 Mild on x-ray 06/14/2015 Bilateral leg edema 05/20/2007 Long-standing, has had full work-up, negative, suspected weight-related Combined forms of age-related cataract of both eyes 08/29/2019 Eczema 09/15/2017 feet Elevated hemoglobin A1c 09/28/2019 Essential hypertension, benign 05/20/2007 Dx'd around 2000 Fatty liver 10/03/2019 History of 2019 novel coronavirus disease (COVID-19) 01/25/2020 01/19/2020 History of diplopia 09/13/201908/2019 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 Morales History of pulmonary embolus (PE) 06/23/2018 ER visit 06/23/2018 bilateral placed on Eliquis. Per hematology 03/2019 needs chcf anticoagulation. Iron excess 10/12/2010 Negative hematology workup 2012: ASSESSMENT/PLAN: Patient does not have hemachromatosis based on lack of family history of hemachromatosis, genetic study, normal liver function and ferritin level. Elevated iron level likely related to ingestion of iron supplement and diet. Midline low back pain without sciatica 06/06/2015 Morbid obesity (HCC) NINA (obstructive sleep apnea) 04/09/2021 On CPAP Positive D dimer 09/28/2019 Reactive airway disease Right knee pain 10/27/2011 Rosacea Seborrhea SI (sacroiliac) pain 09/28/2019 right Unspecified sinusitis (chronic) Urinary hesitancy triggered by decongestant, improves with alpha sharmaine Venous insufficiency of both lower extremities 03/04/2016 Well adult exam 09/15/2017 last done: Previous Surgical History PAST SURGICAL HISTORY Procedure Laterality Date COLONOSCOPY FLX DX W/COLLJ SPEC WHEN PFRMD 07/23/09 Normal Colonoscopy, repeat 10 yrs COLONOSCOPY FLX DX W/COLLJ SPEC WHEN PFRMD 05/19/2019 Colonoscopy EGD 05/19/2019 EXTRACTION, ERUPTED TOOTH OR EXPOSED ROOT (ELEVATION AND/OR FORCEPS REMOVAL) wisdom teeth FECAL OCCULT BLOOD TEST 09/09/2016 negative PAST SURGICAL HISTORY OF 07/27/2015 left distal biceps repair Family History FAMILY HISTORY Problem Relation Age of Onset Hypertension Mother Heart Father age 56 of CHF, enlarged heart Hypertension Father Coronary Artery Disease Brother CABG (possible drug related) Hypertension Brother other (congestive heart failure) Brother Alzheimer's Disease Maternal Grandmother 93 dementia Lipids Maternal Grandmother Coronary Artery Disease Maternal Grandfather mi age 62 Hypertension Maternal Grandfather Stroke Paternal Grandfather Diabetes Other no 1st degree other than late in life (80's) Colon Cancer No Family History Prostate Cancer No Family History Patient Allergies ALLERGIES Allergen Reactions Monodox [Doxycyclin* Other: See Comments headaches and double vision Current Medications Current Outpatient Medications on File Prior to Visit Medication Sig semaglutide (OZEMPIC) 0.25 mg or 0.5 mg (2 mg/3 mL) pen Inject 0.25 mg subcutaneously one time a week for 28 days, THEN 0.5 mg one time a week. lisinopril-hydroCHLOROthiazide (ZESTORETIC) 20-25 mg per tablet Take 1 tablet by mouth once daily. hydroCHLOROthiazide 25 mg tablet Take 1 tablet by mouth once daily. (Take in addition to the lisinopril/hctz combo.) potassium chloride ER (K-DUR, KLOR-CON) 20 mEq tablet Take 1 tablet by mouth twice daily. apixaban (ELIQUIS) 5 mg tab(s) Take (more content not included)... [facility] 12-30-2022 History of Presen t illness Narrative Chief Complaint Patient presents with: Follow Up HPI Sedrick Milian is a 57 year old male who presents here today for weight. Pt of Dr. Lemos who is seeing me for weight loss options. Obesity/PreDM: Pt taking Ozempic 0.5 mg weekly. Weight last visit was 330 lbs, today's weight 319 lbs. Pt reports that the medication is very expensive and is not covered by his insurance. Every refill is $998, without a voucher it was $1200.00. Didn't feel that he lost that much weight to continue taking the medication. He has used Adipex in the past but did not tolerate it, had side effects of rash while on it. He is working on watching diet, does have decreased appetite and less snacking between meals. Has cut out carbs, eating more protein, vegetables and adding more fruits. Cooking more meals at home and not eating fast food. Notes it's difficult with having two teenage children. 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 Reports that his exercise has really came to a stop due to his L knee, states it's shot. Does try to do walking. They want to see his weight at 312 lbs before they will replace the knee. HM - Received flu shot through Employer. Past medical history, appointments, medications, allergies reviewed. Previous Medical History PAST MEDICAL HISTORY Diagnosis Date Adjustment insomnia 06/06/2015 AK (actinic keratosis) 03/23/2018 right anterior scapl, treated cryo 03/23/2018 Arthritis of both knees 09/17/2022 Seeing Ceasar rodriguez Arthritis, lumbar spine 06/14/2015 Mild on x-ray 06/14/2015 Bilateral leg edema 05/20/2007 Long-standing, has had full work-up, negative, suspected weight-related Combined forms of age-related cataract of both eyes 08/29/2019 Eczema 09/15/2017 feet Elevated hemoglobin A1c 09/28/2019 Essential hypertension, benign 05/20/2007 Dx'd around 2000 Fatty liver 10/03/2019 History of 2019 novel coronavirus disease (COVID-19) 01/25/2020 01/19/2020 History of diplopia 09/13/201908/2019 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 Morales History of pulmonary embolus (PE) 06/23/2018 ER visit 06/23/2018 bilateral placed on Eliquis. Per hematology 03/2019 needs chcf anticoagulation. Iron excess 10/12/2010 Negative hematology workup 2012: ASSESSMENT/PLAN: Patient does not have hemachromatosis based on lack of family history of hemachromatosis, genetic study, normal liver function and ferritin level. Elevated iron level likely related to ingestion of iron supplement and diet. Midline low back pain without sciatica 06/06/2015 Morbid obesity (HCC) NINA (obstructive sleep apnea) 04/09/2021 On CPAP Positive D dimer 09/28/2019 Reactive airway disease Right knee pain 10/27/2011 Rosacea Seborrhea SI (sacroiliac) pain 09/28/2019 right Unspecified sinusitis (chronic) Urinary hesitancy triggered by decongestant, improves with alpha sharmaine Venous insufficiency of both lower extremities 03/04/2016 Well adult exam 09/15/2017 last done: Previous Surgical History PAST SURGICAL HISTORY Procedure Laterality Date COLONOSCOPY FLX DX W/COLLJ SPEC WHEN PFRMD 5/10/10 Normal Colonoscopy, repeat 10 yrs COLONOSCOPY FLX DX W/COLLJ SPEC WHEN PFRMD 05/19/2019 Colonoscopy EGD 05/19/2019 EXTRACTION, ERUPTED TOOTH OR EXPOSED ROOT (ELEVATION AND/OR FORCEPS REMOVAL) wisdom teeth FECAL OCCULT BLOOD TEST 09/09/2016 negative PAST SURGICAL HISTORY OF 07/27/2015 left distal biceps repair Family History FAMILY HISTORY Problem Relation Age of Onset Hypertension Mother Heart Father age 56 of CHF, enlarged heart Hypertension Father Coronary Artery Disease Brother CABG (possible drug related) Hypertension Brother other (congestive heart failure) Brother Alzheimer's Disease Maternal Grandmother 93 dementia Lipids Maternal Grandmother Coronary Artery Disease Maternal Grandfather mi age 62 Hypertension Maternal Grandfather Stroke Paternal Grandfather Diabetes Other no 1st degree other than late in life (80's) Colon Cancer No Family History Prostate Cancer No Family History Patient Allergies ALLERGIES Allergen Reactions Monodox [Doxycyclin* Other: See Comments headaches and double vision Current Medications Current Outpatient Medications on File Prior to Visit Medication Sig semaglutide (OZEMPIC) 0.25 mg or 0.5 mg (2 mg/3 mL) pen Inject 0.25 mg subcutaneously one time a week for 28 days, THEN 0.5 mg one time a week. lisinopril-hydroCHLOROthiazide (ZESTORETIC) 20-25 mg per tablet Take 1 tablet by mouth once daily. hydroCHLOROthiazide 25 mg tablet Take 1 tablet by mouth once daily. (Take in addition to the lisinopril/hctz combo.) potassium chloride ER (K-DUR, KLOR-CON) 20 mEq tablet Take 1 tablet by mouth twice daily. apixaban (ELIQUIS) 5 mg tab(s) Take 1 tablet by mouth twice daily. [employer] Comp.Stocking,Knee,Regular,Lrg misc 1 Each once daily. For Leg Edema: R60.0, I87.2, and Z91.89. 30-40 mm. fluticasone (FLONASE) 50 mcg/actuation nasal spray Use 1 [place] in each nostril once daily. Or up to twice a day. Rinse mouth after use. Ipratropium (ATROVENT) 17 mcg/actuation inhaler Inhale 2 Puffs as instructed every 6 hours. albuterol HFA (VENTOLIN HFA) 90 mcg/actuation inhaler Inhale 2 Puffs as instructed every 4 hours as needed for Wheezing/Shortness of Breath. No current facility-administered medications on file prior to visit. Social History Social History Tobacco Use Smoking status: Never Smokeless tobacco: Never Vaping Use Vaping Use: Never used Substance Use Topics Alcohol use: Yes Comment: episodic, 3-4 drinks per month Drug use: No EXAM: BP 128/74 (BP Site: Left Arm, BP Position: Sitting, BP Cuff Size: Large Adult) Pulse 60 Resp 18 Wt (!) 144.7 kg (319 lb) BMI 47.11 kg/m General Appearance: Well appearing, alert, in no acute distress, well-hydrated, well nourished. and Morbidly obese. Lungs: Lungs clear to auscultation. No wheezing, rhonchi, rales.. Heart: RRR without murmur, gallop, or rubs. No ectopy. Health Maintenance List Depression Assessment Never done Influenza Vaccine(1) due on 11/14/2022 DTaP,Tdap,Td Vaccine(2 - Td or Tdap) due on 03/04/2023 BP Controlled (<130/80) due on 09/18/2023 Annual PCP Team Chronic Disease Visit due on 09/30/2023 Diabetes Screening due on 09/24/2025 Lipid Screening due on 09/25/2027 Prostate Cancer Screening Discussion due on 09/25/2027 Colorectal Cancer Screening due on 05/18/2029 Hepatitis C Screening Completed HIV Screening Completed Shingrix Vaccine Completed Covid-19 Vaccine Completed Hepatitis B Vaccine Discontinued Data reviewed Weight graph ASSESSMENT/PLAN: 1. Obesity, Class III, BMI 40-49.9 (morbid obesity) (HCC) - ICD9: 278.01, ICD10: E66.01 (primary diagnosis) Weight decreasing - Will continue what he has at home of the Ozempic, then d/c - Will continue with diet changes and walking - Follow up in 3 months 2. Elevated hemoglobin A1c - ICD9: 790.29, ICD10: R73.09 - Diet, exercise and log peeler 3. Prediabetes - ICD9: 790.29, ICD10: R73.03 - As noted above 3 mo f/u I agree with the Chief Complaint, ROS, and Past Histories independently gathered by the clinical product support sales representative and the remaining scribed note accurately describes my personal service to the patient. Medical Decision Making: Problems: Low: Stable chronic illness Risk: Moderate: Drug management Medical Decision Making Level: 3 - Low Pierre Burgos MD The documentation for this note was completed by Nini Evans Ma acting as scribe for Pierre Burgos MD. December 30, 2022 9:18 AM. Nini Evans Ma documented in this encounter [facility] 12-25-2022 Miscellaneous Notes Patient scheduled. Caitlyn Walker MA Received paperwork from [facility] requesting surgery clearance. Left patient a message that patient needs scheduled for pre op appointment this can be with Dr. Lemos or Katia. Please allow 40 minute appointment. Paperwork given back to provider. Caitlyn Walker MA documented in this encounter [facility] 10-31-2022 Miscellaneous Notes Received denial for ozempic not covered for weight loss Elsa Johnston Ma Received PA request from pharmacy on Ozempic Completed form through [email or web address] and faxed Elsa Johnston Ma documented in this encounter [facility] 09-29-2022 Note HNO ID: [id number] Author: Pierre Burgos MD Service: ? Author Type: Physician Type: Progress Notes Filed: 09/29/2022 1:04 PM Note Text: Chief Complaint Patient presents with: 6 Month Exam HPI Sedrick Milian is a 57 year old male who presents here today for weight loss options Pt of Dr. Lemos. Obesity: Pt has used Adipex in the past but developed a rash while on it., dry mouth, extreme constipation, impotence issues. He tries to watch diet and is working with a log peeler. Pt prefers not to have surgery for his weight. States his weight is up and down and seems to more up every time it goes up. He states he has been walking a lot, has been getting cortisone shots in the knees due to knee pain. He states he feels like he is always running and busy. States that he will exercise too much and throw his knee out and then he is down and getting injections which then cause him to eat more. He states that the steroids increase his appetite. He wants to know how he can suppress his appetite. He states he is willing to try anything to get his weight under control. Last A1c was 5.7 and has been running around that for the last few years. He likes fruits and vegetables, forcing himself to eat more fruits. He doesn't eat many potatoes. He has switched his bread to [place] that has low calories. He states he is raising 2 boys ages 15 and 16 years old and then when they have taco night or pizza night he over eats. He tries to eat more protein. Past medical history, appointments, medications, allergies reviewed. Previous Medical History PAST MEDICAL HISTORY Diagnosis Date Adjustment insomnia 06/06/2015 AK (actinic keratosis) 03/23/2018 right anterior scapl, treated cryo 03/23/2018 Arthritis of both knees 09/17/2022 Seeing Ceasar rodriguez Arthritis, lumbar spine 06/14/2015 Mild on x-ray 06/14/2015 Bilateral leg edema 05/20/2007 Long-standing, has had full work-up, negative, suspected weight-related Combined forms of age-related cataract of both eyes 08/29/2019 Eczema 09/15/2017 feet Elevated hemoglobin A1c 09/28/2019 Essential hypertension, benign 05/20/2007 Dx'd around 2000 Fatty liver 10/03/2019 History of 2019 novel coronavirus disease (COVID-19) 01/25/2020 01/19/2020 History of diplopia 09/13/201908/2019 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 Morales History of pulmonary embolus (PE) 06/23/2018 ER visit 06/23/2018 bilateral placed on Eliquis. Per hematology 03/2019 needs long term care pharmacist anticoagulation. Iron excess 10/12/2010 Negative hematology workup 2012: ASSESSMENT/PLAN: Patient does not have hemachromatosis based on lack of family history of hemachromatosis, genetic study, normal liver function and ferritin level. Elevated iron level likely related to ingestion of iron supplement and diet. Midline low back pain without sciatica 06/06/2015 Morbid obesity (HCC) NINA (obstructive sleep apnea) 04/09/2021 On CPAP Positive D dimer 09/28/2019 Reactive airway disease Right knee pain 10/27/2011 Rosacea Seborrhea SI (sacroiliac) pain 09/28/2019 right Unspecified sinusitis (chronic) Urinary hesitancy triggered by decongestant, improves with alpha sharmaine Venous insufficiency of both lower extremities 03/04/2016 Well adult exam 09/15/2017 last done: 09/28/20110 Previous Surgical History PAST SURGICAL HISTORY Procedure Laterality Date COLONOSCOPY FLX DX W/COLLJ SPEC WHEN PFRMD 07/23/09 Normal Colonoscopy, repeat 10 yrs COLONOSCOPY FLX DX W/COLLJ SPEC WHEN PFRMD 05/19/2019 Colonoscopy EGD 05/19/2019 EXTRACTION, ERUPTED TOOTH OR EXPOSED ROOT (ELEVATION AND/OR FORCEPS REMOVAL) wisdom teeth FECAL OCCULT BLOOD TEST 09/09/2016 negative PAST SURGICAL HISTORY OF 07/27/2015 left distal biceps repair Family History FAMILY HISTORY Problem Relation Age of Onset Hypertension Mother Heart Father age 56 of CHF, enlarged heart Hypertension Father Coronary Artery Disease Brother CABG (possible drug related) Hypertension Brother other (congestive heart failure) Brother Alzheimer's Disease Maternal Grandmother 93 dementia Lipids Maternal Grandmother Coronary Artery Disease Maternal Grandfather mi age 62 Hypertension Maternal Grandfather Stroke Paternal Grandfather Diabetes Other no 1st degree other than late in life (80's) Colon Cancer No Family History Prostate Cancer No Family History Patient Allergies ALLERGIES Allergen Reactions Monodox [Doxycyclin* Other: See Comments headaches and double vision Current Medications Current Outpatient Medications on File Prior to Visit Medication Sig lisinopril-hydroCHLOROthiazide (ZESTORETIC) 20-25 mg per tablet Take 1 tablet by mouth once daily. hydroCHLOROthiazide 25 mg tablet Take 1 tablet by mouth once daily. (Take in addition to the lisinopril/hctz combo.) potassium chloride ER (K-DUR, KLOR-CON) 20 mEq tablet Take 1 tablet by mouth twice daily. (more content not included)... [facility] 09-29-2022 Instructions Trina Myrick Ma - 09/29/2022 12:59 PM EDT Start Ozempic 0.25 mg weekly for 4 weeks then increase to the 0.5 mg weekly till next visit with provider. You can go to the Ozempic website and see if there is any discount cards or coupons to apply toward cost. May try [facility]. documented in this encounter [facility] 09-29-2022 History of Presen t illness Narrative Chief Complaint Patient presents with: 6 Month Exam HPI Sedrick Milian is a 57 year old male who presents here today for weight loss options Pt of Dr. Lemos. Obesity: Pt has used Adipex in the past but developed a rash while on it., dry mouth, extreme constipation, impotence issues. He tries to watch diet and is working with a log peeler. Pt prefers not to have surgery for his weight. States his weight is up and down and seems to more up every time it goes up. He states he has been walking a lot, has been getting cortisone shots in the knees due to knee pain. He states he feels like he is always running and busy. States that he will exercise too much and throw his knee out and then he is down and getting injections which then cause him to eat more. He states that the steroids increase his appetite. He wants to know how he can suppress his appetite. He states he is willing to try anything to get his weight under control. Last A1c was 5.7 and has been running around that for the last few years. He likes fruits and vegetables, forcing himself to eat more fruits. He doesn't eat many potatoes. He has switched his bread to [place] that has low calories. He states he is raising 2 boys ages 15 and 16 years old and then when they have taco night or pizza night he over eats. He tries to eat more protein. Past medical history, appointments, medications, allergies reviewed. Previous Medical History PAST MEDICAL HISTORY Diagnosis Date Adjustment insomnia 06/06/2015 AK (actinic keratosis) 03/23/2018 right anterior scapl, treated cryo 03/23/2018 Arthritis of both knees 09/17/2022 Seeing Ceasar rodriguez Arthritis, lumbar spine 06/14/2015 Mild on x-ray 06/14/2015 Bilateral leg edema 05/20/2007 Long-standing, has had full work-up, negative, suspected weight-related Combined forms of age-related cataract of both eyes 08/29/2019 Eczema 09/15/2017 feet Elevated hemoglobin A1c 09/28/2019 Essential hypertension, benign 05/20/2007 Dx'd around 1999 Fatty liver 10/03/2019 History of 2019 novel coronavirus disease (COVID-19) 01/25/2020 01/19/2020 History of diplopia 09/13/201908/2019 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 Morales History of pulmonary embolus (PE) 06/23/2018 ER visit 06/23/2018 bilateral placed on Eliquis. Per hematology 03/2019 needs [facility] anticoagulation. Iron excess 10/12/2010 Negative hematology workup 2012: ASSESSMENT/PLAN: Patient does not have hemachromatosis based on lack of family history of hemachromatosis, genetic study, normal liver function and ferritin level. Elevated iron level likely related to ingestion of iron supplement and diet. Midline low back pain without sciatica 06/06/2015 Morbid obesity (HCC) NINA (obstructive sleep apnea) 04/09/2021 On CPAP Positive D dimer 09/28/2019 Reactive airway disease Right knee pain 10/27/2011 Rosacea Seborrhea SI (sacroiliac) pain 09/28/2019 right Unspecified sinusitis (chronic) Urinary hesitancy triggered by decongestant, improves with alpha sharmaine Venous insufficiency of both lower extremities 03/04/2016 Well adult exam 09/15/2017 last done: Previous Surgical History PAST SURGICAL HISTORY Procedure Laterality Date COLONOSCOPY FLX DX W/COLLJ SPEC WHEN PFRMD 07/23/09 Normal Colonoscopy, repeat 10 yrs COLONOSCOPY FLX DX W/COLLJ SPEC WHEN PFRMD 05/19/2019 Colonoscopy EGD 05/19/2019 EXTRACTION, ERUPTED TOOTH OR EXPOSED ROOT (ELEVATION AND/OR FORCEPS REMOVAL) wisdom teeth FECAL OCCULT BLOOD TEST 09/09/2016 negative PAST SURGICAL HISTORY OF 07/27/2015 left distal biceps repair Family History FAMILY HISTORY Problem Relation Age of Onset Hypertension Mother Heart Father age 56 of CHF, enlarged heart Hypertension Father Coronary Artery Disease Brother CABG (possible drug related) Hypertension Brother other (congestive heart failure) Brother Alzheimer's Disease Maternal Grandmother 93 dementia Lipids Maternal Grandmother Coronary Artery Disease Maternal Grandfather mi age 62 Hypertension Maternal Grandfather Stroke Paternal Grandfather Diabetes Other no 1st degree other than late in life (80's) Colon Cancer No Family History Prostate Cancer No Family History Patient Allergies ALLERGIES Allergen Reactions Monodox [Doxycyclin* Other: See Comments headaches and double vision Current Medications Current Outpatient Medications on File Prior to Visit Medication Sig lisinopril-hydroCHLOROthiazide (ZESTORETIC) 20-25 mg per tablet Take 1 tablet by mouth once daily. hydroCHLOROthiazide 25 mg tablet Take 1 tablet by mouth once daily. (Take in addition to the lisinopril/hctz combo.) potassium chloride ER (K-DUR, KLOR-CON) 20 mEq tablet Take 1 tablet by mouth twice daily. apixaban (ELIQUIS) 5 mg tab(s) Take 1 tablet by mouth twice daily. [employer]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 sleep apnea) 04/09/2021 On CPAP Positive D dimer 09/28/2019 Reactive airway disease Right knee pain 10/27/2011 Rosacea Seborrhea SI (sacroiliac) pain 09/28/2019 right Unspecified sinusitis (chronic) Urinary hesitancy triggered by decongestant, improves with alpha sharmaine Venous insufficiency of both lower extremities 03/04/2016 Well adult exam 09/15/2017 last done: I have confirmed and edited as necessary, the [facility] Review of Systems Constitutional: Negative for chills and fever. HENT: Positive for congestion, ear pain (right) and sinus pain. Negative for sore throat. Respiratory: Negative for cough, sputum production, shortness of breath and wheezing. Cardiovascular: Negative for chest pain. Musculoskeletal: Negative for myalgias. Neurological: Negative for headaches. Objective Physical Exam Vitals and nursing note reviewed. Constitutional: Appearance: He is not toxic-appearing. HENT: Head: Normocephalic and atraumatic. Right Ear: Ear canal and external ear normal. A middle ear effusion is present. Tympanic membrane is bulging. Left Ear: Tympanic membrane, ear canal and external ear normal. Nose: No mucosal edema, congestion or rhinorrhea. Right Sinus: Maxillary sinus tenderness and frontal sinus tenderness present. Left Sinus: No maxillary sinus tenderness or frontal sinus tenderness. Mouth/Throat: Pharynx: Uvula midline. No oropharyngeal exudate or posterior oropharyngeal erythema. Tonsils: No tonsillar abscesses. Comments: Post nasal drainage Cardiovascular: Rate and Rhythm: Normal rate and regular rhythm. Heart sounds: Normal heart sounds. Pulmonary: Effort: Pulmonary effort is normal. Breath sounds: Normal breath sounds. No decreased breath sounds, wheezing, rhonchi or rales. Lymphadenopathy: Head: Right side of head: No submental, submandibular, tonsillar or preauricular adenopathy. Left side of head: No submental, submandibular, tonsillar or preauricular adenopathy. Cervical: No cervical adenopathy. Right cervical: No superficial cervical adenopathy. Left cervical: No superficial cervical adenopathy. Neurological: Mental Status: He is alert. ASSESSMENT/PLAN: 1. Acute non-recurrent maxillary sinusitis - ICD9: 461.0, ICD10: J01.00 - Will begin treatment with Augmentin 875 mg PO BID for 5 days - Supportive care with plenty of fluids, rest, and analgesia prn. - Follow up in one week if symptoms persist or worsen. - Flonase 2 sprays in each nostril once a day 2. Plaque, tongue - ICD9: 528.6, ICD10: K13.29 Appears to be normal tongue placque, no burning or redness Listerine zero, brushing/tongue scraper Diagnosis and treatment plan were discussed and questions were answered to the patient's satisfaction. Pt acknowledged understanding of concepts and follow up plan. Specific signs and symptoms t (more content not included)... [facility] 06-25-2022 History of Presen t illness Narrative Subjective The history is provided by the patient. No foreign language interpreter was used. HPI Sedrick Milian is a 57 year old male who presents today for CC of sinus pressure and congestion, as well as right ear pain for over a week. He is also having a plaque in his tongue . He has used no treatment or medications. BP 144/76 Pulse 92 Temp 36.7 C (98 F) Resp 16 Wt (!) 150.1 kg (331 lb) SpO2 97% BMI 48.88 kg/m Social History Tobacco Use Smoking status: Never Smokeless tobacco: Never Vaping Use Vaping Use: Never used Substance Use Topics Alcohol use: Yes Comment: episodic, 3-4 drinks per month Drug use: No PAST MEDICAL HISTORY Diagnosis Date Adjustment insomnia 06/06/2015 AK (actinic keratosis) 03/23/2018 right anterior scapl, treated cryo 03/23/2018 Arthritis, lumbar spine 06/14/2015 Mild on x-ray 06/14/2015 Bilateral leg edema 05/20/2007 Long-standing, has had full work-up, negative, suspected weight-related Combined forms of age-related cataract of both eyes 08/29/2019 Eczema 09/15/2017 feet Elevated hemoglobin A1c 09/28/2019 Essential hypertension, benign 05/20/2007 Dx'd around 1999 Fatty liver 10/03/2019 History of 2019 novel coronavirus disease (COVID-19) 01/25/2020 01/19/2020 History of diplopia 09/13/201908/2019 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 Morales History of pulmonary embolus (PE) 06/23/2018 ER visit 06/23/2018 bilateral placed on Eliquis. Per hematology 03/2019 needs chcf anticoagulation. Iron excess 10/12/2010 Negative hematology workup 2012: ASSESSMENT/PLAN: Patient does not have hemachromatosis based on lack of family history of hemachromatosis, genetic study, normal liver function and ferritin level. Elevated iron level likely related to ingestion of iron supplement and diet. Midline low back pain without sciatica 06/06/2015 Morbid obesity (HCC) NINA (obstructive sleep apnea) 04/09/2021 On CPAP Positive D dimer 09/28/2019 Reactive airway disease Right knee pain 10/27/2011 Rosacea Seborrhea SI (sacroiliac) pain 09/28/2019 right Unspecified sinusitis (chronic) Urinary hesitancy triggered by decongestant, improves with alpha sharmaine Venous insufficiency of both lower extremities 03/04/2016 Well adult exam 09/15/2017 last done: I have confirmed and edited as necessary, the [facility] Review of Systems Constitutional: Negative for chills and fever. HENT: Positive for congestion, ear pain (right) and sinus pain. Negative for sore throat. Respiratory: Negative for cough, sputum production, shortness of breath and wheezing. Cardiovascular: Negative for chest pain. Musculoskeletal: Negative for myalgias. Neurological: Negative for headaches. Objective Physical Exam Vitals and nursing note reviewed. Constitutional: Appearance: He is not toxic-appearing. HENT: Head: Normocephalic and atraumatic. Right Ear: Ear canal and external ear normal. A middle ear effusion is present. Tympanic membrane is bulging. Left Ear: Tympanic membrane, ear canal and external ear normal. Nose: No mucosal edema, congestion or rhinorrhea. Right Sinus: Maxillary sinus tenderness and frontal sinus tenderness present. Left Sinus: No maxillary sinus tenderness or frontal sinus tenderness. Mouth/Throat: Pharynx: Uvula midline. No oropharyngeal exudate or posterior oropharyngeal erythema. Tonsils: No tonsillar abscesses. Comments: Post nasal drainage Cardiovascular: Rate and Rhythm: Normal rate and regular rhythm. Heart sounds: Normal heart sounds. Pulmonary: Effort: Pulmonary effort is normal. Breath sounds: Normal breath sounds. No decreased breath sounds, wheezing, rhonchi or rales. Lymphadenopathy: Head: Right side of head: No submental, submandibular, tonsillar or preauricular adenopathy. Left side of head: No submental, submandibular, tonsillar or preauricular adenopathy. Cervical: No cervical adenopathy. Right cervical: No superficial cervical adenopathy. Left cervical: No superficial cervical adenopathy. Neurological: Mental Status: He is alert. ASSESSMENT/PLAN: 1. Acute non-recurrent maxillary sinusitis - ICD9: 461.0, ICD10: J01.00 - Will begin treatment with Augmentin 875 mg PO BID for 5 days - Supportive care with plenty of fluids, rest, and analgesia prn. - Follow up in one week if symptoms persist or worsen. - Flonase 2 sprays in each nostril once a day 2. Plaque, tongue - ICD9: 528.6, ICD10: K13.29 Appears to be normal tongue placque, no burning or redness Listerine zero, brushing/tongue scraper Diagnosis and treatment plan were discussed and questions were answered to the patient's satisfaction. Pt acknowledged understanding of concepts and follow up plan. Specific signs and symptoms that would indicate the need for higher level of care were discussed in detail warranting prompt ER evaluation. Corin German APRN.ENTRY LEVEL FINANCIAL ANALYST documented in this encounter [facility] 05-05-2022 Miscellaneous Notes Pharmacy requesting refills as follows: Requested Prescriptions Pending Prescriptions Disp Refills potassium chloride ER (K-DUR, KLOR-CON) 20 mEq tablet [Pharmacy Med Name: potassium chloride ER 20 mEq tablet,extended release(part/cryst)] 180 tablet 1 Sig: Take 1 tablet by mouth twice daily. MAGGIE: 03/29/22 NOV: 09/29/22 Last Refill: 08/15/21 #180 1 refill Nani Kathleen LPN documented in this encounter [facility] 04-08-2022 Miscellaneous Notes Patient has been identified by name and date of : Yes Requested Prescriptions Pending Prescriptions Disp Refills lisinopril-hydroCHLOROthiazide (PRINZIDE, ZESTORETIC) 20-25 mg per tablet 90 tablet 1 Sig: Take 1 tablet by mouth once daily. hydroCHLOROthiazide (HYDRODIURIL, ESIDRIX) 25 mg tablet 90 tablet 1 Sig: Take 1 tablet by mouth once daily. (Take in addition to the lisinopril/hctz combo.) Date of last office visit in primary care: 03/29/22 Next appt scheduled 09/29/2022 Please advise. Thank you. Aleah Manuel LPN documented in this encounter [facility] 03-29-2022 History of Presen t illness Narrative Chief Complaint Patient presents with: F/U 6 Month HPI Sedrick Milian is a 57 year old male who presents here today for a 6 month weight follow up. Established patient of Dr. Lemos who's here today for a weight follow up. Only follows this office due to PCP not prescribing weight loss medications. Weight - Pt was given Rx of Adipex previously, did not tolerate medication.He prefers to work on diet and lifestyle. He eats protein shake or yogurt for breakfast and lunch, tried to avoid carbs like pasta and potatoes. Eats a lot of vegetables and fruit. 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 He prefers not to use meds or pursue surgery at this time. Would like to lose weight for health benefits. Discussed GLP-1 agonists as an option. Past medical history, appointments, medications, allergies reviewed. Previous Medical History PAST MEDICAL HISTORY Diagnosis Date Adjustment insomnia 06/06/2015 AK (actinic keratosis) 03/23/2018 right anterior scapl, treated cryo 03/23/2018 Arthritis, lumbar spine 06/14/2015 Mild on x-ray 06/14/2015 Bilateral leg edema 05/20/2007 Long-standing, has had full work-up, negative, suspected weight-related Combined forms of age-related cataract of both eyes 08/29/2019 Eczema 09/15/2017 feet Elevated hemoglobin A1c 09/28/2019 Essential hypertension, benign 05/20/2007 Dx'd around 1999 Fatty liver 10/03/2019 History of 2019 novel coronavirus disease (COVID-19) 01/25/2020 01/19/2020 History of diplopia 09/13/201908/2019 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 Morales History of pulmonary embolus (PE) 06/23/2018 ER visit 06/23/2018 bilateral placed on Eliquis. Per hematology 03/2019 needs chcf anticoagulation. Iron excess 10/12/2010 Negative hematology workup 2012: ASSESSMENT/PLAN: Patient does not have hemachromatosis based on lack of family history of hemachromatosis, genetic study, normal liver function and ferritin level. Elevated iron level likely related to ingestion of iron supplement and diet. Midline low back pain without sciatica 06/06/2015 Morbid obesity (HCC) NINA (obstructive sleep apnea) 04/09/2021 On CPAP Positive D dimer 09/28/2019 Reactive airway disease Right knee pain 10/27/2011 Rosacea Seborrhea SI (sacroiliac) pain 09/28/2019 right Unspecified sinusitis (chronic) Urinary hesitancy triggered by decongestant, improves with alpha sharmaine Venous insufficiency of both lower extremities 03/04/2016 Well adult exam 09/15/2017 last done: Previous Surgical History PAST SURGICAL HISTORY Procedure Laterality Date COLONOSCOPY FLX DX W/COLLJ SPEC WHEN PFRMD 07/23/09 Normal Colonoscopy, repeat 10 yrs COLONOSCOPY FLX DX W/COLLJ SPEC WHEN PFRMD 05/19/2019 Colonoscopy EGD 05/19/2019 EXTRACTION, ERUPTED TOOTH OR EXPOSED ROOT (ELEVATION AND/OR FORCEPS REMOVAL) wisdom teeth FECAL OCCULT BLOOD TEST 09/09/2016 negative PAST SURGICAL HISTORY OF 07/27/2015 left distal biceps repair Family History FAMILY HISTORY Problem Relation Age of Onset Hypertension Mother Heart Father age 56 of CHF, enlarged heart Hypertension Father Colon Cancer No Family History Coronary Artery Disease Maternal Grandfather mi age 62 Hypertension Maternal Grandfather Stroke Paternal Grandfather Diabetes Other no 1st degree other than late in life (80's) Prostate Cancer No Family History Coronary Artery Disease Brother CABG (possible drug related) Alzheimer's Disease Maternal Grandmother 93 dementia Lipids Maternal Grandmother Hypertension Brother Patient Allergies ALLERGIES Allergen Reactions Monodox [Doxycyclin* Other: See Comments headaches and double vision Current Medications Current Outpatient Medications on File Prior to Visit Medication Sig lisinopril-hydroCHLOROthiazide (PRINZIDE, ZESTORETIC) 20-25 mg per tablet Take 1 tablet by mouth once daily. hydroCHLOROthiazide (HYDRODIURIL, ESIDRIX) 25 mg tablet Take 1 tablet by mouth once daily. (Take in addition to the lisinopril/hctz combo.) potassium chloride ER (K-DUR, KLOR-CON) 20 mEq tablet Take 1 tablet by mouth twice daily. apixaban (ELIQUIS) 5 mg tab(s) Take 1 tablet by mouth twice daily. [employer] Comp.Stocking,Knee,Regular,Lrg misc 1 Each once daily. For Leg Edema: R60.0, I87.2, and Z91.89. 30-40 mm. fluticasone (FLONASE) 50 mcg/actuation nasal spray Use 1 [place] in each nostril once daily. Or up to twice a day. Rinse mouth after use. Ipratropium (ATROVENT) 17 mcg/actuation inhaler Inhale 2 Puffs as instructed every 6 hours. albuterol HFA (VENTOLIN HFA) 90 mcg/actuation inhaler Inhale 2 Puffs as instructed every 4 hours as needed for Wheezing/Shortness of Breath. No current facility-administered medications on file prior to visit. Social History Social History Tobacco Use Smoking status: Never Smokeless tobacco: Never Vaping Use Vaping Use: Never used Substance Use Topics Alcohol use: Yes Comment: episodic, 3-4 drinks per month Drug use: No EXAM: BP 128/82 (BP Site: Left Arm, BP Position: Sitting, BP Cuff Size: Large Adult) Pulse 72 Resp 16 Wt (!) 144.7 kg (319 lb) BMI 47.11 kg/m General Appearance: Well appearing, alert, in no acute distress, well-hydrated, well nourished. and Morbidly obese. Lungs: Lungs clear to auscultation. No wheezing, rhonchi, rales.. Heart: RRR without murmur, gallop, or rubs. No ectopy. Health Maintenance List HEPATITIS B(1 of 3 - 3-dose series) Never done BP CONTROLLED (<130/80) due on 03/29/2020 COVID-19 VACCINE(4 - Booster for Moderna series) due on 05/13/2021 INFLUENZA(1) due on 11/14/2021 DEPRESSION ASSESSMENT Never done ANNUAL PCP TEAM CHRONIC DISEASE VISIT due on 10/15/2022 DTAP,TDAP,TD(2 - Td or Tdap) due on 03/04/2023 DIABETES SCREEN due on 10/11/2024 LIPID SCREEN due on 10/11/2026 PROSTATE CANCER SCREENING DISCUSSION due on 10/11/2026 COLORECTAL CANCER SCREENING due on 05/18/2029 HEPATITIS C SCREENING Completed HIV SCREENING Completed SHINGRIX VACCINE Completed Data reviewed None ASSESSMENT/PLAN: 1. Obesity, Class III, BMI 40-49.9 (morbid obesity) (HCC) - ICD9: 278.01, ICD10: E66.01 (primary diagnosis) Weight decreasing - Behavioral intervention 2. Essential hypertension, benign - ICD9: 401.1, ICD10: I10 - good control - Continue current medication(s) - Discussed need and benefit for weight loss. Follow up in 6 months or prn Medical Decision Making: Problems: Low: Stable chronic illness Risk: Low: Low risk from testing/treatment Medical Decision Making Level: 3 - Low Pierre Burgos MD documented in this encounter [facility] 02-28-2022 Instructions Lyssa Carrizales APRN.ENTRY LEVEL FINANCIAL ANALYST - 02/28/2022 12:15 PM EST [facility] PATIENT INFO ACUTE SINUSITIS OVERVIEW Rhinosinusitis, or more commonly sinusitis, is the medical term for inflammation (swelling) of the lining of the sinuses and nose. The sinuses are the hollow areas within the facial bones that are connected to the nasal openings. The sinuses are lined with mucous membranes, similar to the inside of the nose. There are two main types of sinusitis: acute and chronic. Acute sinusitis is inflammation that lasts for less than four weeks while chronic sinusitis lasts for more than 12 weeks. Acute sinusitis is common, affecting approximately one million people per year in the [place]. ACUTE SINUSITIS CAUSES The most common cause of acute sinusitis is a viral infection associated with the common cold. Bacterial sinusitis occurs much less commonly, in only 0.5 to 2 percent of cases, usually as a complication of viral sinusitis. Because antibiotics are effective only against bacterial, and not viral, infections, most people do not need antibiotics for acute sinusitis. ACUTE SINUSITIS SYMPTOMS Symptoms of acute sinusitis include: Nasal congestion or blockage Thick, yellow to green discharge from the nose Pain in the teeth Pain or pressure in the face that is worse when bending forwards Other acute sinusitis symptoms can include fever (temperature greater than 100.4 F or 38 C), fatigue, cough, difficulty or inability to smell, ear pressure or fullness, headache, and bad breath. In most cases, these symptoms develop over the course of one day and begin to improve within seven to 10 days. DO I NEED TO BE EXAMINED? It is difficult to know if you have a viral or bacterial sinus infection initially. However, most people with a viral infection improve without treatment within seven to 10 days after symptoms begin. Bacterial sinusitis also sometimes improves without treatment, although it can also worsen and require treatment. If one or more of the following bothersome symptoms last more than seven days, an examination by a healthcare provider is recommended: Thick, yellow to green discharge from the nose Face or tooth pain, especially if it is only on one side Tenderness over the maxillary sinuses (located on the left and right side of the nose, inside the cheekbones) Symptoms that initially improve and then worsen When to seek immediate help -- If you have one or more of the following symptoms, you should seek medical attention immediately (even if symptoms have been present for less than seven days): High fever (>102.5 F or 39.2 C) Sudden, severe pain in the face or head Double vision or difficulty seeing Confusion or difficulty thinking clearly Swelling or redness around one or both eyes Stiff neck, shortness of breath ACUTE SINUSITIS TREATMENT Initial treatment of a sinus infection aims to relieve symptoms since almost everyone will improve within the first seven to 10 days. Experts recommend avoiding antibiotics during this time unless there is clear evidence of a severe bacterial infection. Initial treatment Pain relief -- Non-prescription pain medications, such as acetaminophen (eg, Tylenol ) or ibuprofen (eg, Motrin , Advil ) are recommended for pain. Nasal irrigation and saline sprays -- Rinsing the nose with a salt-water (saline) solution is called nasal irrigation or nasal lavage. Saline is also available in a standard nasal spray, although this is not as effective as using larger amounts of water in an irrigation. Nasal irrigation is particularly useful for treating drainage down the back of the throat, sneezing, nasal dryness, and congestion. The treatment helps by rinsing out allergens and irritants from the nose. Saline rinses also clean the nasal lining and can be used before applying sprays containing medications, to get a better effect from the medication. Nasal lavage with warmed saline can be performed as needed, once per day, or twice daily for increased symptoms. Nasal lavage carries few risks when performed correctly. Saline nasal sprays and irrigation kits can be purchased [id number]. Saline mixes can also be purchased or patients can make their own solution. A variety of devices, including bulb syringes, Neti pots, and bottle sprayers, may be used to perform nasal lavage; instructions for nasal lavage are provided in the table. At least 200 mL (about 3/4 cup) of fluid is recommended for each nostril. Nasal decongestants -- Nasal decongestant sprays, including oxymetazoline (Afrin ) and phenylephrine (Tommy-synephrine ) can be used to temporarily treat congestion. However, these sprays should not be used for more than two to three days due to the risk of rebound congestion (when the nose is congested constantly unless the medication is used repeatedly). Other treatments -- Other treatments for congestion, such as oral antihistamines (such as diphenhydramine/Benadryl ) or zinc supplements are not proven to improve symptoms of sinusitis and can have unwanted side effects. Medications to thin secretions (such as guaifenesin) may help to clear mucus. Secondline treatment -- If symptoms have not improved in seven to ten days, you should arrange for medical evaluation. You may need further treatment. Nasal glucocorticoids -- Nasal glucocorticoids (steroids delivered by a nasal spray) can help to reduce swelling inside the nose, usually within two to three days. These drugs have few side effects and dramatically relieve symptoms in most people. There are a number of nasal glucocorticoids available by prescription. These drugs are all effective, but differ in how frequently they must be used and how much they cost. You may need to use a nasal decongestant for a few days before starting a nasal glucocorticoid to reduce nasal swelling; this will allow the nasal glucocorticoid to reach more areas of the nasal passages Do I need an antibiotic? -- If bothersome symptoms of sinusitis persist for 10 or more days, it is possible that you have bacterial sinusitis. The need for antibiotics depends upon the severity of your symptoms. Mild symptoms -- There are two possible treatment options if you have mild sinusitis symptoms: treat with antibiotics or continue to watch and wait for one week. Watching and waiting is a reasonable option because up to 75 percent of people with bacterial sinusitis improve within one month without antibiotics. During the watch and wait period, treatments to improve symptoms are recommended. If symptoms worsen or do not improve after watching and waiting, treatment with an antibiotic is usually recommended. Treatments to relieve symptoms are recommended while using antibiotics. Moderate or severe symptoms -- Most healthcare providers will prescribe an antibiotic for moderate to severe symptoms (temperature >38.3 C or 101 F and/or severe pain that interferes with usual activities). Treatments to relieve symptoms are also recommended during antibiotic treatment. One of the least expensive and most effective antibiotics for sinusitis is amoxicillin. An alternate antibiotic will be prescribed if you are allergic to penicillin. Regardless of which antibiotic is prescribed, it is important to follow the dosing instructions carefully and to finish the entire course of treatment. Taking the medication less often than prescribed or stopping the medication early can lead to complications, such as a recurrent infection. What if I do not improve with treatment? -- If you do not improve or worsen after a course of antibiotics, you should be re-examined. In some cases, symptoms of sinusitis improve but then recur. This is usually because the infection was not completely eliminated by the antibiotic. An alternate antibiotic, extended antibiotic treatment, and/or further testing may be recommended, depending upon your individual situation. documented in this encounter [facility] 02-28-2022 History of Presen t illness Narrative Subjective HPI Nontoxic-appearing male presents urgent care chief complaint left ear pain and sinus pressure. Duration of symptom 2 weeks. Associated symptoms left ear pressure and ringing at times. Patient states he does have significant sinus pressure this has worsened over the last 4 to 5 days. Has used OTC medications this has not helped. Denies any recent sick contacts. Denies any significant pain currently. States most bothersome symptom is sinus pressure and ringing in his ears. Does have a follow-up scheduled with [facility] for next week. No ear trauma. No otorrhea. Denies any fever body aches chills productive cough chest pain shortness of breath pleuritic pain hemoptysis nausea vomiting abdominal pain change in bowel or bladder habits. Past medical history prescription medication use and allergies reviewed. .Patient presents with: Ear Problem: Left ear pressure and ringing x 1-2 weeks PAST MEDICAL HISTORY Diagnosis Date Adjustment insomnia 06/06/2015 AK (actinic keratosis) 03/23/2018 right anterior scapl, treated cryo 03/23/2018 Arthritis, lumbar spine 06/14/2015 Mild on x-ray 06/14/2015 Bilateral leg edema 05/20/2007 Long-standing, has had full work-up, negative, suspected weight-related Combined forms of age-related cataract of both eyes 08/29/2019 Eczema 09/15/2017 feet Elevated hemoglobin A1c 09/28/2019 Essential hypertension, benign 05/20/2007 Dx'd around 2000 Fatty liver 10/03/2019 History of 2019 novel coronavirus disease (COVID-19) 01/25/2020 01/19/2020 History of diplopia 09/13/201908/2019 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 Morales History of pulmonary embolus (PE) 06/23/2018 ER visit 06/23/2018 bilateral placed on Eliquis. Per hematology 03/2019 needs chcf anticoagulation. Iron excess 10/12/2010 Negative hematology workup 2012: ASSESSMENT/PLAN: Patient does not have hemachromatosis based on lack of family history of hemachromatosis, genetic study, normal liver function and ferritin level. Elevated iron level likely related to ingestion of iron supplement and diet. Midline low back pain without sciatica 06/06/2015 Morbid obesity (HCC) NINA (obstructive sleep apnea) 04/09/2021 On CPAP Positive D dimer 09/28/2019 Reactive airway disease Right knee pain 10/27/2011 Rosacea Seborrhea SI (sacroiliac) pain 09/28/2019 right Unspecified sinusitis (chronic) Urinary hesitancy triggered by decongestant, improves with alpha sharmaine Venous insufficiency of both lower extremities 03/04/2016 Well adult exam 09/15/2017 last done: PAST SURGICAL HISTORY Procedure Laterality Date COLONOSCOPY FLX DX W/COLLJ SPEC WHEN PFRMD 07/23/09 Normal Colonoscopy, repeat 10 yrs COLONOSCOPY FLX DX W/COLLJ SPEC WHEN PFRMD 05/19/2019 Colonoscopy EGD 05/19/2019 EXTRACTION, ERUPTED TOOTH OR EXPOSED ROOT (ELEVATION AND/OR FORCEPS REMOVAL) wisdom teeth FECAL OCCULT BLOOD TEST 09/09/2016 negative PAST SURGICAL HISTORY OF 07/27/2015 left distal biceps repair ALLERGIES Monodox [Doxycycline Monohydrate] MEDICATIONS lisinopril-hydroCHLOROthiazide (PRINZIDE, ZESTORETIC) 20-25 mg per tablet Take 1 tablet by mouth once daily. hydroCHLOROthiazide (HYDRODIURIL, ESIDRIX) 25 mg tablet Take 1 tablet by mouth once daily. (Take in addition to the lisinopril/hctz combo.) potassium chloride ER (K-DUR, KLOR-CON) 20 mEq tablet Take 1 tablet by mouth twice daily. apixaban (ELIQUIS) 5 mg tab(s) Take 1 tablet by mouth twice daily. Script Sourcing Comp.Stocking,Knee,Regular,Lrg misc 1 Each once daily. For Leg Edema: R60.0, I87.2, and Z91.89. 30-40 mm. fluticasone (FLONASE) 50 mcg/actuation nasal spray Use 1 [place] in each nostril once daily. Or up to twice a day. Rinse mouth after use. Ipratropium (ATROVENT) 17 mcg/actuation inhaler Inhale 2 Puffs as instructed every 6 hours. albuterol HFA (VENTOLIN HFA) 90 mcg/actuation inhaler Inhale 2 Puffs as instructed every 4 hours as needed for Wheezing/Shortness of Breath. FAMILY HISTORY Problem Relation Age of Onset Hypertension Mother Heart Father age 56 of CHF, enlarged heart Hypertension Father Colon Cancer No Family History Coronary Artery Disease Maternal Grandfather mi age 62 Hypertension Maternal Grandfather Stroke Paternal Grandfather Diabetes Other no 1st degree other than late in life (80's) Prostate Cancer No Family History Coronary Artery Disease Brother CABG (possible drug related) Alzheimer's Disease Maternal Grandmother 93 dementia Lipids Maternal Grandmother Hypertension Brother Social History Tobacco Use Smoking status: Never Smokeless tobacco: Never Vaping Use Vaping Use: Never used Substance Use Topics Alcohol use: Yes Comment: episodic, 3-4 drinks per month Drug use: No BP 132/82 Pulse 72 Temp 36.9 C (98.4 F) (Tympanic) Resp 16 Wt (!) 149.3 kg (329 lb 3.2 oz) SpO2 98% BMI 48.61 kg/m Review of Systems Constitutional: Negative for chills, fever and malaise/fatigue. HENT: Positive for congestion, ear pain, sinus pain and tinnitus. Negative for ear discharge and sore throat. Eyes: Negative for blurred vision, pain, discharge and redness. Respiratory: Negative for cough, hemoptysis, sputum production, shortness of breath, wheezing and stridor. Cardiovascular: Negative for chest pain. Gastrointestinal: Negative for abdominal pain, diarrhea, nausea and vomiting. Musculoskeletal: Negative for myalgias. Skin: Negative for itching and rash. Neurological: Negative for dizziness and headaches. Objective Physical Exam Constitutional: General: He is not in acute distress. Appearance: He is not diaphoretic. HENT: Head: Normocephalic. Jaw: No trismus, tenderness, swelling or pain on movement. Right Ear: Hearing, tympanic membrane, ear canal and external ear normal. No mastoid tenderness. Left Ear: Hearing, tympanic membrane, ear canal and external ear normal. No mastoid tenderness. Ears: Comments: Ear fluid noted behind left ear greater than right Nose: Congestion present. Mouth/Throat: Mouth: Mucous membranes are moist. Pharynx: Oropharynx is clear. No oropharyngeal exudate or posterior oropharyngeal erythema. Eyes: Conjunctiva/sclera: Conjunctivae normal. Pupils: Pupils are equal, round, and reactive to light. Cardiovascular: Rate and Rhythm: Normal rate and regular rhythm. Heart sounds: Normal heart sounds. Pulmonary: Effort: Pulmonary effort is normal. No tachypnea, accessory muscle usage or respiratory distress. Breath sounds: Normal breath sounds. No stridor. No wheezing, rhonchi or rales. Abdominal: Palpations: Abdomen is soft. Tenderness: There is no abdominal tenderness. Musculoskeletal: Cervical back: Normal range of motion and neck supple. No rigidity or tenderness. Lymphadenopathy: Cervical: No cervical adenopathy. Skin: General: Skin is warm and dry. Neurological: Mental Status: He is alert and oriented to person, place, and time. ASSESSMENT/PLAN: 1. Eustachian tube dysfunction, bilateral - ICD9: 381.81, ICD10: H69.83 (primary diagnosis) 2. Bacterial sinusitis - ICD9: 473.9, 041.9, ICD10: J32.9, B96.89 Patient diagnosed with eustachian tube dysfunction. No evidence of bacterial infection noted TMs. Will use antihistamines. Additionally patient will placed on Augmentin due to increasing maxillary sinus pressure. We will follow-up with ENT as scheduled on Thursday. Patient was educated on supportive therapies. Patient will follow up with primary care provider as needed. Patient was instructed to immediately proceed to emergency room for any new, worsening, or symptoms lasting longer than anticipated. The patient's clinical presentation is otherwise unremarkable at this time. Based on exam and clinical finding, the patient is stable for discharge. Plan of care was discussed with patient. Patient verbalizes understanding and agrees to plan of care. This note was generated using [employer] software. It may contain errors in wording, punctuation, or spelling. Lyssa Carrizales APRN.JONAH documented in this encounter [facility] 11-26-2021 Miscellaneous Notes Pt notified of same. Diane Sanchez LPN Let patient know that US and mammograms were negative. Berenice Marie PA-C documented in this encounter [facility] 11-26-2021 History of Presen t illness Narrative Radiology Service Progress Note PATIENT NAME: Sedrick Milian DATE OF SERVICE: November 26, 2021 TIME: 9:45 AM PATIENT IDENTITY VERIFICATION COMPLETED USING TWO (2) IDENTIFIERS: Name and Date of confirmed by patient verbally. FALL SCREENING: Has the patient had 2 falls in the last year or 1 fall with injury or currently using an Ambulatory Assistive Device (Walker, Cane, Wheelchair, Crutches, etc.)? No PATIENT GENDER DATA: Male PATIENT RELEVANT IMPLANT DATA REVIEWED: Not Applicable RADIOLOGY DEPARTMENT: Ultrasound PERIPHERAL IV DATA: Not applicable SIGNED BY: Fady Greenberg RDMS RVT November 26, 2021 9:45 AM documented in this encounter [facility] 11-26-2021 History of Presen t illness Narrative Radiology Service Progress Note PATIENT NAME: Sedrick Milian DATE OF SERVICE: November 26, 2021 TIME: 9:02 AM PATIENT IDENTITY VERIFICATION COMPLETED USING TWO (2) IDENTIFIERS: Name and Date of confirmed by patient verbally. FALL SCREENING: Has the patient had 2 falls in the last year or 1 fall with injury or currently using an Ambulatory Assistive Device (Walker, Cane, Wheelchair, Crutches, etc.)? No PATIENT GENDER DATA: Male PATIENT RELEVANT IMPLANT DATA REVIEWED: Not Applicable RADIOLOGY DEPARTMENT: Mammography PERIPHERAL IV DATA: Not applicable SIGNED BY: RT Julius(Simeon) November 26, 2021 9:02 AM documented in this encounter [facility] 10-15-2021 Miscellaneous Notes done May we please have bilateral diagnostic mammogram orders placed per [facility] imaging protocol. Thank you very much! Sue documented in this encounter [facility] 10-15-2021 Instructions Berenice Marie PA-C - 10/15/2021 7:37 AM EDT Repeat urine in 2 weeks. documented in this encounter [facility] 10-15-2021 History of Presen t illness Narrative Chief Complaint Patient presents with: F/U 6 Month HPI Sedrick Milian is a 56 year old male who presents here today for Chronic Medical Conditions.. Patient with hx of HTN, NINA, elevated glucose, Fatty liver, morbid obesity, leg edema, venous insufficiency, and those as below. Complaints: 1. Pain in axilla. Bilateral. Has been on and off for a while. Started after an illness but then resolved. Came back after vaccinations then resolved. But now discomfort comes and goes still. 2. Yellow tongue. Saw ENT and they felt it was thrush but scrapings came back negative and did not improve after nystatin tx. Still on a tx that ENT gave him. Does have tenderness at times. 3. Right lower rib cage/ right side pain. Has been going on for 3 weeks. Worse when he flexes to his right or even some on his left. Past medical history, appointments, medications, allergies reviewed. Previous Medical History PAST MEDICAL HISTORY Diagnosis Date Adjustment insomnia 06/06/2015 AK (actinic keratosis) 03/23/2018 right anterior scapl, treated cryo 03/23/2018 Arthritis, lumbar spine 06/14/2015 Mild on x-ray 06/14/2015 Bilateral leg edema 05/20/2007 Long-standing, has had full work-up, negative, suspected weight-related Combined forms of age-related cataract of both eyes 08/29/2019 Eczema 09/15/2017 feet Elevated hemoglobin A1c 09/28/2019 Essential hypertension, benign 05/20/2007 Dx'd around 2000 Fatty liver 10/03/2019 History of 2019 novel coronavirus disease (COVID-19) 01/25/2020 01/19/2020 History of diplopia 09/13/201908/2019 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 Morales History of pulmonary embolus (PE) 06/23/2018 ER visit 06/23/2018 bilateral placed on Eliquis. Per hematology 03/2019 needs chcf anticoagulation. Iron excess 10/12/2010 Negative hematology workup 2012: ASSESSMENT/PLAN: Patient does not have hemachromatosis based on lack of family history of hemachromatosis, genetic study, normal liver function and ferritin level. Elevated iron level likely related to ingestion of iron supplement and diet. Midline low back pain without sciatica 06/06/2015 Morbid obesity (HCC) NINA (obstructive sleep apnea) 04/09/2021 On CPAP Positive D dimer 09/28/2019 Reactive airway disease Right knee pain 10/27/2011 Rosacea Seborrhea SI (sacroiliac) pain 09/28/2019 right Unspecified sinusitis (chronic) Urinary hesitancy triggered by decongestant, improves with alpha sharmaine Venous insufficiency of both lower extremities 03/04/2016 Well adult exam 09/15/2017 last done: 09/28/20110 Previous Surgical History PAST SURGICAL HISTORY Procedure Laterality Date COLONOSCOPY FLX DX W/COLLJ SPEC WHEN PFRMD 07/23/09 Normal Colonoscopy, repeat 10 yrs COLONOSCOPY FLX DX W/COLLJ SPEC WHEN PFRMD 05/19/2019 Colonoscopy EGD 05/19/2019 EXTRACTION, ERUPTED TOOTH OR EXPOSED ROOT (ELEVATION AND/OR FORCEPS REMOVAL) wisdom teeth FECAL OCCULT BLOOD TEST 09/09/2016 negative PAST SURGICAL HISTORY OF 07/27/2015 left distal biceps repair Family History FAMILY HISTORY Problem Relation Age of Onset Hypertension Mother Heart Father age 56 of CHF, enlarged heart Hypertension Father Colon Cancer No Family History Coronary Artery Disease Maternal Grandfather mi age 62 Hypertension Maternal Grandfather Stroke Paternal Grandfather Diabetes Other no 1st degree other than late in life (80's) Prostate Cancer No Family History Coronary Artery Disease Brother CABG (possible drug related) Alzheimer's Disease Maternal Grandmother 93 dementia Lipids Maternal Grandmother Hypertension Brother Patient Allergies ALLERGIES Allergen Reactions Monodox [Doxycyclin* Other: See Comments headaches and double vision Current Medications Current Outpatient Medications on File Prior to Visit Medication Sig predniSONE (DELTASONE) 10 mg tablet Take 4 tabs daily for 3 days, then 2 tabs daily for 3 days, then 1 tab daily for 3 days with food. potassium chloride ER (K-DUR, KLOR-CON) 20 mEq tablet Take 1 tablet by mouth twice daily. apixaban (ELIQUIS) 5 mg tab(s) Take 1 tablet by mouth twice daily. Script Sourcing lisinopril-hydroCHLOROthiazide (PRINZIDE, ZESTORETIC) 20-25 mg per tablet Take 1 tablet by mouth once daily. hydroCHLOROthiazide (HYDRODIURIL, ESIDRIX) 25 mg tablet Take 1 tablet by mouth once daily. (Take in addition to the lisinopril/hctz combo.) Comp.Stocking,Knee,Regular,Lrg misc 1 Each once daily. For Leg Edema: R60.0, I87.2, and Z91.89. 30-40 mm. fluticasone (FLONASE) 50 mcg/actuation nasal spray Use 1 [place] in each nostril once daily. Or up to twice a day. Rinse mouth after use. Ipratropium (ATROVENT) 17 mcg/actuation inhaler Inhale 2 Puffs as instructed every 6 hours. albuterol HFA (VENTOLIN HFA) 90 mcg/actuation inhaler Inhale 2 Puffs as instructed every 4 hours as needed for Wheezing/Shortness of Breath. No current facility-administered medications on file prior to visit. Social History Social History Tobacco Use Smoking status: Never Smoker Smokeless tobacco: Never Used Vaping Use Vaping Use: Never used Substance Use Topics Alcohol use: Yes Comment: episodic, 3-4 drinks per month Drug use: No Review of Symptoms REVIEW OF SYSTEMS GENERAL: No weight loss, malaise or fevers NECK: Negative for lumps, goiter, pain and significant neck swelling RESPIRATORY: Negative for cough, hemoptysis, wheezing, COPD, dyspnea or shortness of breath CARDIOVASCULAR: Negative for chest pain, leg swelling, hypertension, CHF or palpitations NEURO: No history of headaches, syncope, paralysis, seizures or tremors see HPI EXAM: BP 118/70 (BP Site: Left Arm, BP Position: Sitting, BP Cuff Size: Large Adult) Pulse 64 Temp 36.3 C (97.4 F) Resp 18 Wt (!) 144.2 kg (318 lb) BMI 46.96 kg/m General Appearance: Well appearing, alert, in no acute distress, well-hydrated, well nourished.. Oropharynx: brownish/yellowish tinge to tongue. No erythema. . Neck: Supple, no adenopathy; thyroid symmetric, normal size, no bruits. Lungs: Lungs clear to auscultation. No wheezing, rhonchi, rales.. Heart: RRR without murmur, gallop, or rubs. No ectopy. Abdomen: Normal abdominal exam, Abdomen soft, non-tender. Bowel sounds normal. No masses, organomegaly. Extremities: +edema b/l. No deformities, skin discoloration, clubbing or cyanosis. Good capillary refill. . Peripheral Pulses: Normal. Axilla: no pain to palp.. CHest wall: pain to palp of right lower rib cage. Health Maintenance List COVID-19 VACCINE(4 - Booster for Moderna series) due on 07/16/2021 INFLUENZA(1) due on 11/14/2021 ANNUAL PCP TEAM CHRONIC DISEASE VISIT due on 09/11/2022 DEPRESSION SCREENING due on 09/11/2022 BP CONTROLLED (<130/80) due on 10/10/2022 DTAP,TDAP,TD(2 - Td or Tdap) due on 03/04/2023 DIABETES SCREEN due on 10/11/2024 LIPID SCREEN due on 10/11/2026 PROSTATE CANCER SCREENING DISCUSSION due on 10/11/2026 COLORECTAL CANCER SCREENING due on 05/18/2029 HEPATITIS C SCREENING Completed HIV SCREENING Completed SHINGRIX VACCINE Completed Data reviewed Component Latest Ref Rng & Units 10/11/2021 WBC 3.70 - 11.00 k/uL 7.79 RBC 4.20 - 6.00 m/uL 5.07 Hemoglobin 13.0 - 17.0 g/dL 15.1 Hematocrit 39.0 - 51.0 % 44.4 MCV 80.0 - 100.0 fL 87.6 MCH 26.0 - 34.0 pg 29.8 MCHC 30.5 - 36.0 g/dL 34.0 RDW-CV 11.5 - 15.0 % 13.2 Platelet Count 150 - 400 k/uL 275 MPV 9.0 - 12.7 fL 10.5 Neut% % 52.9 Abs Neut (ANC) 1.45 - 7.50 k/uL 4.12 Lymph% % 32.5 Abs Lymph 1.00 - 4.00 k/uL 2.53 Randolph% % 11.2 Abs Randolph <0.87 k/uL 0.87 (H) Eosin% % 2.3 Abs Eosin <0.46 k/uL 0.18 Baso% % 0.6 Abs Baso <0.11 k/uL 0.05 Immature Gran % % 0.5 IMMATURE GRANS (ABS) <0.10 k/uL 0.04 NRBC /100 WBC 0.0 Absolute nRBC <0.01 k/uL <0.01 DTYPE Auto Protein, Total 6.3 - 8.0 g/dL 6.9 Albumin 3.9 - 4.9 g/dL 3.9 Calcium 8.5 - 10.2 mg/dL 9.8 Bilirubin, Total 0.2 - 1.3 mg/dL 0.5 Alkaline Phosphatase 38 - 113 U/L 94 AST 14 - 40 U/L 24 ALT 10 - 54 U/L 26 Glucose 74 - 99 mg/dL 92 BUN 9 - 24 mg/dL 13 Creatinine 0.73 - 1.22 mg/dL 0.84 Sodium 136 - 144 mmol/L 133 (L) Potassium 3.7 - 5.1 mmol/L 4.0 Chloride 97 - 105 mmol/L 98 CO2 22 - 30 mmol/L 23 Anion Gap 9 - 18 mmol/L 12 eGFR >=60 mL/min/1.73m 102 Total Cholesterol, Nonfasting <200 mg/dL 156 Triglycerides, Nonfasting <150 mg/dL 106 HDL Cholesterol, Nonfasting >39 mg/dL 40 LDL Cholesterol, Nonfasting <100 mg/dL 95 Non HDL Cholesterol, Nonfasting <130 mg/dL 116 VLDL Cholesterol, Nonfasting <30 mg/dL 21 Total Chol/HDL Ratio, Nonfasting <5.10 mg/dL 3.90 LDL/HDL Ratio, Nonfasting <2.54 mg/dL 2.38 Hemoglobin A1C 4.3 - 5.6 % 5.6 Estimated Average Glucose mg/dL 114 PSA <2.60 ng/mL 0.40 ASSESSMENT/PLAN: 1. Essential hypertension, benign - ICD9: 401.1, ICD10: I10 (primary diagnosis) - good control - Continue current medication(s) - Recommended regular aerobic exercise. - Recommend home blood pressure monitoring, to bring results in on next visit - Goal of BP <130/80 - LISINOPRIL 20 MG-HYDROCHLOROTHIAZIDE 25 MG TABLET 2. Adjustment insomnia - ICD9: 307.41, ICD10: F51.02 stable 3. Mild intermittent reactive airway disease without complication - ICD9: 493.90, ICD10: J45.20 stable 4. NINA (obstructive sleep apnea) - ICD9: 327.23, ICD10: G47.33 Using cpap 5. Elevated hemoglobin A1c - ICD9: 790.29, ICD10: R73.09 stable 6. Bilateral leg edema - ICD9: 782.3, ICD10: R60.0 Continue diuretics and compression stockings Patient's weight gain may be worsening the leg swelling. Will monitor 7. Venous insufficiency of both lower extremities - ICD9: 459.81, ICD10: I87.2 As above 8. Morbid obesity - ICD9: 278.01, ICD10: E66.01 Weight increasing - Behavioral intervention 9. Pain in axilla, unspecified laterality - ICD9: 729.5, ICD10: M79.629 Check: - US AXILLA ONLY LT - US AXILLA ONLY RT 10. Microscopic hematuria - ICD9: 599.72, ICD10: R31.29 Recheck in 2 weeks - URINALYSIS, WITH MICROSCOPIC 11. Chest wall pain - ICD9: 786.52, ICD10: R07.89 Finish tx with prednisone. Follow up if not improving in 2 weeks. F/u for PE in 6 months. Berenice Marie PA-C documented in this encounter [facility] 10-12-2021 Miscellaneous Notes Results called to patient. Urine culture shows no infection. Labs are benign. Keep follow-up up with primary care 10/15/2021. Advised follow-up on microscopic blood in the urine, possible urology consult. documented in this encounter [facility] 10-10-2021 Instructions Umu Kowalski APRN.[facility] - 10/10/2021 11:48 AM EDT ASSESSMENT/PLAN: 1. Right-sided chest wall pain - ICD9: 786.52, ICD10: R07.89 - XR RIBS/CHEST 3V AP RIB/OBLS/CXR RIGHT Radiologist IMPRESSION: No acute radiographic abnormality. Gore Seamer: DELIO Transcribe Date/Time: Oct 10 2021 11:37A Dictated by : SHARLA MCCLURE, - CBC + DIFF- to rule out infection. - COMP METABOLIC PANEL- to evaluate kidney function. - Urine dip in office: trace of blood. Will send for culture. - suspect costochondritis - rest, ice, antiinflammatory medication. 2. Microscopic hematuria - ICD9: 599.72, ICD10: R31.29 - URINE CULTURE - Follow-up with your PCP in 3-5 days if symptoms have not improved or sooner if symptoms worsen - Discussed red flags and need for immediate medical evaluation if any occur. - Discussed supportive care treatment with fluids, rest and analgesia. - Discussed expected course of illness Umu Kowalski APRN.[employer] COSTOCHONDRITIS DESCRIPTION: An inflammation of the cartilage of one or more ribs, most commonly the second or third ribs. The pain that results is often intensified by movements that change the position of the ribs, such as lying down, bending over, coughing or sneezing. Pain may mimic that of coronary artery disease. The disorder is more common in young adults but can occur in any age group. RISK INCREASES WITH: -Trauma, such as a severe blow to the chest. -Unusual physical activity. -Upper respiratory infection. PREVENTIVE MEASURES: Avoidance of activities that may strain or cause trauma to the rib cage. TREATMENT: -Rest -Heating pad or ice massage applied to the affected area. -Avoidance of sudden movements that will intensify the pain. MEDICATION: -Mild pain medications, such as aspirin, acetaminophen or ibuprofen may help relieve discomfort. -Stronger pain medicines may be prescribed. -Steroid injections may be prescribed. ACTIVITY: As tolerated. REPORT: New or unexplained symptoms develop. documented in this encounter [facility] 10-10-2021 History of Presen t illness Narrative Subjective HPI Sedrick Milian is a 56 year old male who presents with right side chest wall pain. Pain is intermittent, occurs with certain movements and is sharp/stabbing. He rates the pain 10/10 when it occurs. He denies any known injury. He has pain with cough, deep breaths, and bending forward or to the right side. Review of Systems Constitutional: Negative for chills and fever. HENT: Negative for congestion. Respiratory: Negative for cough. Cardiovascular: Positive for chest pain (right chest wall pain). Musculoskeletal: Negative for myalgias. BP 122/76 Pulse 78 Temp 36.7 C (98 F) Resp 20 Wt (!) 144.2 kg (317 lb 12.8 oz) SpO2 97% BMI 46.93 kg/m PAST MEDICAL HISTORY Diagnosis Date Adjustment insomnia 06/06/2015 AK (actinic keratosis) 03/23/2018 right anterior scapl, treated cryo 03/23/2018 Arthritis, lumbar spine 06/14/2015 Mild on x-ray 06/14/2015 Bilateral leg edema 05/20/2007 Long-standing, has had full work-up, negative, suspected weight-related Combined forms of age-related cataract of both eyes 08/29/2019 Eczema 09/15/2017 feet Elevated hemoglobin A1c 09/28/2019 Essential hypertension, benign 05/20/2007 Dx'd around 2000 Fatty liver 10/03/2019 History of 2019 novel coronavirus disease (COVID-19) 01/25/2020 01/19/2020 History of diplopia 09/13/201908/2019 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 Morales History of pulmonary embolus (PE) 06/23/2018 ER visit 06/23/2018 bilateral placed on Eliquis. Per hematology 03/2019 needs long term care pharmacist anticoagulation. Iron excess 10/12/2010 Negative hematology workup 2012: ASSESSMENT/PLAN: Patient does not have hemachromatosis based on lack of family history of hemachromatosis, genetic study, normal liver function and ferritin level. Elevated iron level likely related to ingestion of iron supplement and diet. Midline low back pain without sciatica 06/06/2015 Morbid obesity (HCC) NINA (obstructive sleep apnea) 04/09/2021 On CPAP Positive D dimer 09/28/2019 Reactive airway disease Right knee pain 10/27/2011 Rosacea Seborrhea SI (sacroiliac) pain 09/28/2019 right Unspecified sinusitis (chronic) Urinary hesitancy triggered by decongestant, improves with alpha sharmaine Venous insufficiency of both lower extremities 03/04/2016 Well adult exam 09/15/2017 last done: PAST SURGICAL HISTORY Procedure Laterality Date COLONOSCOPY FLX DX W/COLLJ SPEC WHEN PFRMD 07/23/09 Normal Colonoscopy, repeat 10 yrs COLONOSCOPY FLX DX W/COLLJ SPEC WHEN PFRMD 05/19/2019 Colonoscopy EGD 05/19/2019 EXTRACTION, ERUPTED TOOTH OR EXPOSED ROOT (ELEVATION AND/OR FORCEPS REMOVAL) wisdom teeth FECAL OCCULT BLOOD TEST 09/09/2016 negative PAST SURGICAL HISTORY OF 07/27/2015 left distal biceps repair ALLERGIES Monodox [Doxycycline Monohydrate] MEDICATIONS potassium chloride ER (K-DUR, KLOR-CON) 20 mEq tablet Take 1 tablet by mouth twice daily. apixaban (ELIQUIS) 5 mg tab(s) Take 1 tablet by mouth twice daily. Script Sourcing lisinopril-hydroCHLOROthiazide (PRINZIDE, ZESTORETIC) 20-25 mg per tablet Take 1 tablet by mouth once daily. hydroCHLOROthiazide (HYDRODIURIL, ESIDRIX) 25 mg tablet Take 1 tablet by mouth once daily. (Take in addition to the lisinopril/hctz combo.) Comp.Stocking,Knee,Regular,Lrg misc 1 Each once daily. For Leg Edema: R60.0, I87.2, and Z91.89. 30-40 mm. fluticasone (FLONASE) 50 mcg/actuation nasal spray Use 1 [place] in each nostril once daily. Or up to twice a day. Rinse mouth after use. Ipratropium (ATROVENT) 17 mcg/actuation inhaler Inhale 2 Puffs as instructed every 6 hours. albuterol HFA (VENTOLIN HFA) 90 mcg/actuation inhaler Inhale 2 Puffs as instructed every 4 hours as needed for Wheezing/Shortness of Breath. FAMILY HISTORY Problem Relation Age of Onset Hypertension Mother Heart Father age 56 of CHF, enlarged heart Hypertension Father Colon Cancer No Family History Coronary Artery Disease Maternal Grandfather mi age 62 Hypertension Maternal Grandfather Stroke Paternal Grandfather Diabetes Other no 1st degree other than late in life (80's) Prostate Cancer No Family History Coronary Artery Disease Brother CABG (possible drug related) Alzheimer's Disease Maternal Grandmother 93 dementia Lipids Maternal Grandmother Hypertension Brother Social History Tobacco Use Smoking status: Never Smoker Smokeless tobacco: Never Used Vaping Use Vaping Use: Never used Substance Use Topics Alcohol use: Yes Comment: episodic, 3-4 drinks per month Drug use: No Objective Physical Exam Vitals and nursing note reviewed. Constitutional: Appearance: He is obese. Cardiovascular: Rate and Rhythm: Normal rate and regular rhythm. Heart sounds: Normal heart sounds. Pulmonary: Effort: Pulmonary effort is normal. No respiratory distress. Breath sounds: Normal breath sounds. No wheezing or rales. Chest: Chest wall: No mass, swelling, tenderness or crepitus. Skin: General: Skin is warm and dry. Capillary Refill: Capillary refill takes less than 2 seconds. Findings: No erythema or rash. Neurological: Mental Status: He is alert. ASSESSMENT/PLAN: 1. Right-sided chest wall pain - ICD9: 786.52, ICD10: R07.89 - XR RIBS/CHEST 3V AP RIB/OBLS/CXR RIGHT Radiologist IMPRESSION: No acute radiographic abnormality. Gore Seamer: DELIO Transcribe Date/Time: Oct 10 2021 11:37A Dictated by : SHARLA MCCLURE DO - CBC + DIFF- to rule out infection. - COMP METABOLIC PANEL- to evaluate kidney function. - Urine dip in office: trace of blood. Will send for culture. - suspect costochondritis - rest, ice, antiinflammatory medication. 2. Microscopic hematuria - ICD9: 599.72, ICD10: R31.29 - URINE CULTURE - Follow-up with your PCP in 3-5 days if symptoms have not improved or sooner if symptoms worsen - Discussed red flags and need for immediate medical evaluation if any occur. - Discussed supportive care treatment with fluids, rest and analgesia. - Discussed expected course of illness Umu Kowalski APRN.JONAH documented in this encounter [facility] 10-07-2021 Miscellaneous Notes Patient given results and verbalized understanding of instructions given. Tiffanie Guajardo ----- Message from Umu Kowalski APRN.CNP sent at 10/05/2021 8:04 AM EDT ----- Please advise patient the fungal test was negative after 4 days. Umu Kowalski APRN.CNP documented in this encounter [facility] 09-30-2021 Instructions Corin German APRN.CNP - 09/30/2021 6:34 PM EDT Medication as ordered Follow up with Dr. Lemos if no improvement documented in this encounter [facility] 09-30-2021 History of Presen t illness Narrative Images from the original note were not included. Subjective The history is provided by the patient. No foreign language interpreter was used. HPI Sedrick Milian is a 56 year old male who presents today for CC of white plaque on his tongue for the past few days. He has over the past two months been on oral steroids, as well as inhaled steroids. Recent antibiotic use. He tried a shot of whiskey without relief. BP 142/82 Pulse 98 Temp 36.8 C (98.2 F) Resp 16 Wt (!) 143.8 kg (317 lb) SpO2 96% BMI 46.81 kg/m Social History Tobacco Use Smoking status: Never Smoker Smokeless tobacco: Never Used Vaping Use Vaping Use: Never used Substance Use Topics Alcohol use: Yes Comment: episodic, 3-4 drinks per month Drug use: No PAST MEDICAL HISTORY Diagnosis Date Adjustment insomnia 06/06/2015 AK (actinic keratosis) 03/23/2018 right anterior scapl, treated cryo 03/23/2018 Arthritis, lumbar spine 06/14/2015 Mild on x-ray 06/14/2015 Bilateral leg edema 05/20/2007 Long-standing, has had full work-up, negative, suspected weight-related Combined forms of age-related cataract of both eyes 08/29/2019 Eczema 09/15/2017 feet Elevated hemoglobin A1c 09/28/2019 Essential hypertension, benign 05/20/2007 Dx'd around 2000 Fatty liver 10/03/2019 History of 2019 novel coronavirus disease (COVID-19) 01/25/2020 01/19/2020 History of diplopia 09/13/201908/2019 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 Morales History of pulmonary embolus (PE) 06/23/2018 ER visit 06/23/2018 bilateral placed on Eliquis. Per hematology 03/2019 needs long term care pharmacist anticoagulation. Iron excess 10/12/2010 Negative hematology workup 2012: ASSESSMENT/PLAN: Patient does not have hemachromatosis based on lack of family history of hemachromatosis, genetic study, normal liver function and ferritin level. Elevated iron level likely related to ingestion of iron supplement and diet. Midline low back pain without sciatica 06/06/2015 Morbid obesity (HCC) NINA (obstructive sleep apnea) 04/09/2021 On CPAP Positive D dimer 09/28/2019 Reactive airway disease Right knee pain 10/27/2011 Rosacea Seborrhea SI (sacroiliac) pain 09/28/2019 right Unspecified sinusitis (chronic) Urinary hesitancy triggered by decongestant, improves with alpha sharmaine Venous insufficiency of both lower extremities 03/04/2016 Well adult exam 09/15/2017 last done: I have confirmed and edited as necessary, the [facility] Review of Systems Constitutional: Negative for chills and fever. HENT: Negative for sore throat. Plaque on tongue Gastrointestinal: Negative for abdominal pain, diarrhea, nausea and vomiting. Objective Physical Exam Vitals and nursing note reviewed. HENT: Nose: Nose normal. Mouth/Throat: Tongue: Lesions present. Pulmonary: Effort: Pulmonary effort is normal. Skin: General: Skin is warm and dry. Neurological: Mental Status: He is alert and oriented to person, place, and time. Psychiatric: Mood and Affect: Affect normal. ASSESSMENT/PLAN: 1. Tongue plaque - ICD9: 528.6, ICD10: K13.29 Appears to be tongue placque possible thrush Nystatin as ordered Culture done Follow up with PCP prn - FUNGAL SCREEN Diagnosis and treatment plan were discussed and questions were answered to the patient's satisfaction. Pt acknowledged understanding of concepts and follow up plan. Specific signs and symptoms that would indicate the need for higher level of care were discussed in detail warranting prompt ER evaluation. Corin German APRN.JONAH documented in this encounter [facility] 08-25-2021 History of Presen t illness Narrative CC: Patient presents with: Cough: x 1 month, sweating x 3 days HPI: Sedrick Milian is a 56 year old male who presents to the office with complaint of cough, nonproductive and wheezing for a month. Symptoms are worsening Associated symptoms includes cough. Denies fever, nausea, vomiting and diarrhea. Treatments tried include prednisone and tessalon perals with no relief of symptoms. Sick contacts: unknown. History of asthma, frequent episodes of bronchitis, chronic bronchitis, bronchiectasis or COPD: No Smoker: No Seasonal/environmental allergies: No The ROS is otherwise negative. The patient's pmh, medications, allergies, and past visits are reviewed. PHYSICAL EXAM: BP 174/92 Pulse 103 Temp 37.1 C (98.8 F) Resp 24 Wt (!) 145.2 kg (320 lb) SpO2 98% BMI 46.33 kg/m General appearance: alert, cooperative, pleasant, in no acute distress Head: Normocephalic Eyes: EOM's intact, conjunctiva pink and moist, no icterus, sclera white, non-injected Heart: Negative. RRR without obvious murmur, gallop, or rubs. No ectopy. Lungs: wheezing diffusely PAST MEDICAL HISTORY Diagnosis Date Adjustment insomnia 06/06/2015 AK (actinic keratosis) 03/23/2018 right anterior scapl, treated cryo 03/23/2018 Arthritis, lumbar spine 06/14/2015 Mild on x-ray 06/14/2015 Bilateral leg edema 05/20/2007 Long-standing, has had full work-up, negative, suspected weight-related Combined forms of age-related cataract of both eyes 08/29/2019 Eczema 09/15/2017 feet Elevated hemoglobin A1c 09/28/2019 Essential hypertension, benign 05/20/2007 Dx'd around 2000 Fatty liver 10/03/2019 History of 2019 novel coronavirus disease (COVID-19) 01/25/2020 01/19/2020 History of diplopia 09/13/201908/2019 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 Morales History of pulmonary embolus (PE) 06/23/2018 ER visit 06/23/2018 bilateral placed on Eliquis. Per hematology 03/2019 needs long term care pharmacist anticoagulation. Iron excess 10/12/2010 Negative hematology workup 2012: ASSESSMENT/PLAN: Patient does not have hemachromatosis based on lack of family history of hemachromatosis, genetic study, normal liver function and ferritin level. Elevated iron level likely related to ingestion of iron supplement and diet. Midline low back pain without sciatica 06/06/2015 Morbid obesity (HCC) NINA (obstructive sleep apnea) 04/09/2021 On CPAP Positive D dimer 09/28/2019 Reactive airway disease Right knee pain 10/27/2011 Rosacea Seborrhea SI (sacroiliac) pain 09/28/2019 right Unspecified sinusitis (chronic) Urinary hesitancy triggered by decongestant, improves with alpha sharmaine Venous insufficiency of both lower extremities 03/04/2016 Well adult exam 09/15/2017 last done: PAST SURGICAL HISTORY Procedure Laterality Date COLONOSCOPY FLX DX W/COLLJ SPEC WHEN PFRMD 07/23/09 Normal Colonoscopy, repeat 10 yrs COLONOSCOPY FLX DX W/COLLJ SPEC WHEN PFRMD 05/19/2019 Colonoscopy EGD 05/19/2019 EXTRACTION, ERUPTED TOOTH OR EXPOSED ROOT (ELEVATION AND/OR FORCEPS REMOVAL) wisdom teeth FECAL OCCULT BLOOD TEST 09/09/2016 negative PAST SURGICAL HISTORY OF 07/27/2015 left distal biceps repair ALLERGIES Monodox [Doxycycline Monohydrate] MEDICATIONS benzonatate (TESSALON PERLES) 100 mg capsule Take 2 capsules by mouth three times daily as needed for cough. potassium chloride ER (K-DUR, KLOR-CON) 20 mEq tablet Take 1 tablet by mouth twice daily. apixaban (ELIQUIS) 5 mg tab(s) Take 1 tablet by mouth twice daily. Script Sourcing lisinopril-hydroCHLOROthiazide (PRINZIDE, ZESTORETIC) 20-25 mg per tablet Take 1 tablet by mouth once daily. hydroCHLOROthiazide (HYDRODIURIL, ESIDRIX) 25 mg tablet Take 1 tablet by mouth once daily. (Take in addition to the lisinopril/hctz combo.) Comp.Stocking,Knee,Regular,Lrg misc 1 Each once daily. For Leg Edema: R60.0, I87.2, and Z91.89. 30-40 mm. fluticasone (FLONASE) 50 mcg/actuation nasal spray Use 1 [place] in each nostril once daily. Or up to twice a day. Rinse mouth after use. Ipratropium (ATROVENT) 17 mcg/actuation inhaler Inhale 2 Puffs as instructed every 6 hours. albuterol HFA (VENTOLIN HFA) 90 mcg/actuation inhaler Inhale 2 Puffs as instructed every 4 hours as needed for Wheezing/Shortness of Breath. amoxicillin (POLYMOX, AMOXIL) 500 mg capsule Take 2 capsules by mouth three times daily for 5 days. FAMILY HISTORY Problem Relation Age of Onset Hypertension Mother Heart Father age 56 of CHF, enlarged heart Hypertension Father Colon Cancer No Family History Coronary Artery Disease Maternal Grandfather mi age 62 Hypertension Maternal Grandfather Stroke Paternal Grandfather Diabetes Other no 1st degree other than late in life (80's) Prostate Cancer No Family History Coronary Artery Disease Brother CABG (possible drug related) Alzheimer's Disease Maternal Grandmother 93 dementia Lipids Maternal Grandmother Hypertension Brother Social History Tobacco Use Smoking status: Never Smoker Smokeless tobacco: Never Used Vaping Use Vaping Use: Never used Substance Use Topics Alcohol use: Yes Comment: episodic, 3-4 drinks per month Drug use: No ASSESSMENT/PLAN: 1. Cough - ICD9: 786.2, ICD10: R05.9 - XR CHEST 2V FRONTAL/LAT patient will come and get an xray Thursday morning. If positive will notify patient. If medication needs changed will be changed at this time. Was treated with amoxicillin bid for 5 days. instructed if this does not work he needs to follow up with his PCP. Patient confident it is not related to lisinopril. Prescription instructions reviewed with patient as applicable. Potential red flag symptoms discussed with the patient. Reviewed appropriate action plan to take if red flag symptoms occur. Patient agreeable to treatment plan. Mable Walker APRN.JONAH documented in this encounter [facility] 08-19-2021 History of Presen t illness Narrative Subjective Sedrick Milian presents for cough and wheezing. He reports that he was treated for a cough 4 weeks ago with prednisone and that was progressively improving until 3 days ago when the cough began to get worse with occasional wheezing.He reports that his son is currently sick with a cough and URI symptoms. Reports wheezing typically resolves after coughing. Denies shortness of breath, chest pain, sore throat, fever, or ear pain. Reports chills that have since resolved and mild rhinorrhea. Reports taking robitussin with some relief. The history is provided by the patient. No foreign language interpreter was used. Cough The current episode started more than 2 days ago. The problem has been gradually worsening. The cough is non-productive. There has been no fever. Associated symptoms include rhinorrhea (mild) and wheezing. Pertinent negatives include no chest pain, no chills (resolved), no ear pain, no headaches, no sore throat and no shortness of breath. He has tried cough syrup for the symptoms. The treatment provided mild relief. His past medical history does not include COPD or asthma. Review of Systems Constitutional: Negative for chills (resolved) and fever. HENT: Positive for rhinorrhea (mild). Negative for congestion, ear pain, sinus pain and sore throat. Respiratory: Positive for cough and wheezing. Negative for sputum production and shortness of breath. Cardiovascular: Negative for chest pain. Neurological: Negative for headaches. BP 132/70 Pulse 105 Temp 37.3 C (99.2 F) Resp 21 Wt (!) 144.5 kg (318 lb 9.6 oz) SpO2 98% BMI 46.13 kg/m PAST MEDICAL HISTORY Diagnosis Date Adjustment insomnia 06/06/2015 AK (actinic keratosis) 03/23/2018 right anterior scapl, treated cryo 03/23/2018 Arthritis, lumbar spine 06/14/2015 Mild on x-ray 06/14/2015 Bilateral leg edema 05/20/2007 Long-standing, has had full work-up, negative, suspected weight-related Combined forms of age-related cataract of both eyes 08/29/2019 Eczema 09/15/2017 feet Elevated hemoglobin A1c 09/28/2019 Essential hypertension, benign 05/20/2007 Dx'd around 2000 Fatty liver 10/03/2019 History of 2019 novel coronavirus disease (COVID-19) 01/25/2020 01/19/2020 History of diplopia 09/13/201908/2019 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 Morales History of pulmonary embolus (PE) 06/23/2018 ER visit 06/23/2018 bilateral placed on Eliquis. Per hematology 03/2019 needs long term care pharmacist anticoagulation. Iron excess 10/12/2010 Negative hematology workup 2012: ASSESSMENT/PLAN: Patient does not have hemachromatosis based on lack of family history of hemachromatosis, genetic study, normal liver function and ferritin level. Elevated iron level likely related to ingestion of iron supplement and diet. Midline low back pain without sciatica 06/06/2015 Morbid obesity (HCC) NINA (obstructive sleep apnea) 04/09/2021 On CPAP Positive D dimer 09/28/2019 Reactive airway disease Right knee pain 10/27/2011 Rosacea Seborrhea SI (sacroiliac) pain 09/28/2019 right Unspecified sinusitis (chronic) Urinary hesitancy triggered by decongestant, improves with alpha sharmaine Venous insufficiency of both lower extremities 03/04/2016 Well adult exam 09/15/2017 last done: PAST SURGICAL HISTORY Procedure Laterality Date COLONOSCOPY FLX DX W/COLLJ SPEC WHEN PFRMD 07/23/09 Normal Colonoscopy, repeat 10 yrs COLONOSCOPY FLX DX W/COLLJ SPEC WHEN PFRMD 05/19/2019 Colonoscopy EGD 05/19/2019 EXTRACTION, ERUPTED TOOTH OR EXPOSED ROOT (ELEVATION AND/OR FORCEPS REMOVAL) wisdom teeth FECAL OCCULT BLOOD TEST 09/09/2016 negative PAST SURGICAL HISTORY OF 07/27/2015 left distal biceps repair ALLERGIES Monodox [Doxycycline Monohydrate] MEDICATIONS potassium chloride ER (K-DUR, KLOR-CON) 20 mEq tablet Take 1 tablet by mouth twice daily. apixaban (ELIQUIS) 5 mg tab(s) Take 1 tablet by mouth twice daily. Script Sourcing lisinopril-hydroCHLOROthiazide (PRINZIDE, ZESTORETIC) 20-25 mg per tablet Take 1 tablet by mouth once daily. hydroCHLOROthiazide (HYDRODIURIL, ESIDRIX) 25 mg tablet Take 1 tablet by mouth once daily. (Take in addition to the lisinopril/hctz combo.) Comp.Stocking,Knee,Regular,Lrg misc 1 Each once daily. For Leg Edema: R60.0, I87.2, and Z91.89. 30-40 mm. fluticasone (FLONASE) 50 mcg/actuation nasal spray Use 1 [place] in each nostril once daily. Or up to twice a day. Rinse mouth after use. Ipratropium (ATROVENT) 17 mcg/actuation inhaler Inhale 2 Puffs as instructed every 6 hours. albuterol HFA (VENTOLIN HFA) 90 mcg/actuation inhaler Inhale 2 Puffs as instructed every 4 hours as needed for Wheezing/Shortness of Breath. benzonatate (TESSALON PERLES) 100 mg capsule Take 2 capsules by mouth three times daily as needed for cough. predniSONE (DELTASONE) 20 mg tablet Take 2 tablets by mouth once daily for 5 days. FAMILY HISTORY Problem Relation Age of Onset Hypertension Mother Heart Father age 56 of CHF, enlarged heart Hypertension Father Colon Cancer No Family History Coronary Artery Disease Maternal Grandfather mi age 62 Hypertension Maternal Grandfather Stroke Paternal Grandfather Diabetes Other no 1st degree other than late in life (80's) Prostate Cancer No Family History Coronary Artery Disease Brother CABG (possible drug related) Alzheimer's Disease Maternal Grandmother 93 dementia Lipids Maternal Grandmother Hypertension Brother Social History Tobacco Use Smoking status: Never Smoker Smokeless tobacco: Never Used Vaping Use Vaping Use: Never used Substance Use Topics Alcohol use: Yes Comment: episodic, 3-4 drinks per month Drug use: No Objective Physical Exam Vitals and nursing note reviewed. Constitutional: Appearance: Normal appearance. HENT: Right Ear: Hearing, tympanic membrane, ear canal and external ear normal. Left Ear: Hearing, tympanic membrane, ear canal and external ear normal. Nose: No congestion or rhinorrhea. Mouth/Throat: Mouth: Mucous membranes are moist. Pharynx: Uvula midline. No pharyngeal swelling or posterior oropharyngeal erythema. Tonsils: 0 on the right. 2+ on the left. Comments: Chronic enlarged left tonsil Cardiovascular: Rate and Rhythm: Normal rate and regular rhythm. Pulmonary: Effort: Pulmonary effort is normal. No respiratory distress. Breath sounds: Wheezing (end expiratory wheezing ) present. No rhonchi. Neurological: Mental Status: He is alert. ASSESSMENT/PLAN: 1. Cough - ICD9: 786.2, ICD10: R05.9 - COVID WITH FLUA+B, ROUTINE - BENZONATATE 100 MG CAPSULE - PREDNISONE 20 MG TABLET - Return if symptoms worsen or cough persists. JAS Jones student TEACHING PROVIDER (Physician/PA/TRAFFIC ANALYST) NOTE OF PERSONAL INVOLVEMENT IN CARE: I have personally seen and examined the patient and performed the medical decision-making components. I have reviewed the Advanced Practice Registered Nurse (TRAFFIC ANALYST) Student's documentation and verified the findings in the note as written. Any additions or changes are noted in bold/italics. Signature: Umu Kowalski Date: 08/19/2021 Time: 3:34 PM documented in this encounter [facility] 08-19-2021 Instructions Matilda Pereira - 08/19/2021 2:00 PM EDT ASSESSMENT/PLAN: 1. Cough - ICD9: 786.2, ICD10: R05.9 - COVID WITH FLUA+B, ROUTINE - BENZONATATE 100 MG CAPSULE - PREDNISONE 20 MG TABLET - Return if symptoms worsen or cough persists. JAS Jones student COUGH: Your doctor wants you to have this information about coughing. The body has a cough reflex which helps expel mucous secretions and irritants from the lung and airway passages. Cough spasms are periods of continuous coughing lasting several minutes. Most coughs is caused by virus infections which may last for up to 2-3 weeks. Coughing helps to protect the lung from pneumonia. A persistent cough lasting longer than 4-6 weeks requires medical evaluation by your primary care doctor. Treatment of cough includes measures to loosen the cough and thin the mucous. Warm liquids, cough drops, and nonprescription cough medicine may help reduce dry hacking cough. Use a humidifier if necessary as dry air can make coughs worse. Ultrasonic humidifiers are especially useful as they kill molds and many bacteria. Some cough medicines have antihistamines, decongestants, or alcohol in them; there is no proof that any of these help control cough. Prescription cough medicine or those with dextromethorphan (DM) should be reserved for dry coughs that prevent sleep or cause spasms or chest pain. Avoid any exposure to cigarette smoke as this will worsen the cough or make it last much longer. Call your doctor right away if you or your child have increased breathing difficulty, a high fever, a cough that lasts longer than 3 weeks, or other serious complaints. documented in this encounter [facility] 08-15-2021 Miscellaneous Notes Pharmacy verified in Epic Patient has been identified by name and date of : Yes Patient aware RX will be sent to pharmacy. No need to notify patient. Patient phones for refill(s): Pending Prescriptions Disp Refills POTASSIUM CHLORIDE ER 20 MEQ TABLET,EXTENDED RELEASE(PART/CRYST) 180 tablet 1 Sig: Take 1 tablet by mouth twice daily. GEN: No Date of last office visit : 06/11/2021 Date of next office visit : 09/11/2021 Last 2 Encounter Wt Readings: Date: Wt: 07/30/2021 145.5 kg (320 lb 12.8 oz) 06/11/2021 139.3 kg (307 lb 3.2 oz) Not applicable Please advise. Eulalia Alford Pss documented in this encounter [facility] 07-30-2021 History of Presen t illness Narrative CC: Patient presents with: Cough: Pt denied chest pain, SOB Chest Congestion 5- 6 days HPI: Sedrick Milian is a 56 year old male who presents to the office with complaint of cough, nonproductive and wheezing for a few days. Symptoms are worsening Associated symptoms includes rhinorrhea. Denies body aches, fever, decreased appetite, nausea, vomiting and diarrhea. Treatments tried include nothing so far. with no relief of symptoms. Sick contacts: unknown. History of asthma, frequent episodes of bronchitis, chronic bronchitis, bronchiectasis or COPD: No Smoker: No Seasonal/environmental allergies: No The ROS is otherwise negative. The patient's pmh, medications, allergies, and past visits are reviewed. PHYSICAL EXAM: BP 126/80 Pulse 114 Temp 36.6 C (97.8 F) Resp 18 Wt (!) 145.5 kg (320 lb 12.8 oz) SpO2 98% BMI 46.45 kg/m General appearance: alert, cooperative, pleasant, in no acute distress Head: Normocephalic Eyes: EOM's intact, conjunctiva pink and moist, no icterus, sclera white, non-injected Heart: Negative. RRR without obvious murmur, gallop, or rubs. No ectopy. Lungs: wheezing diffusely PAST MEDICAL HISTORY Diagnosis Date Adjustment insomnia 06/06/2015 AK (actinic keratosis) 03/23/2018 right anterior scapl, treated cryo 03/23/2018 Arthritis, lumbar spine 06/14/2015 Mild on x-ray 06/14/2015 Bilateral leg edema 05/20/2007 Long-standing, has had full work-up, negative, suspected weight-related Combined forms of age-related cataract of both eyes 08/29/2019 Eczema 09/15/2017 feet Elevated hemoglobin A1c 09/28/2019 Essential hypertension, benign 05/20/2007 Dx'd around 2000 Fatty liver 10/03/2019 History of 2019 novel coronavirus disease (COVID-19) 01/25/2020 01/19/2020 History of diplopia 09/13/201908/2019 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 Morales History of pulmonary embolus (PE) 06/23/2018 ER visit 06/23/2018 bilateral placed on Eliquis. Per hematology 03/2019 needs chcf anticoagulation. Iron excess 10/12/2010 Negative hematology workup 2012: ASSESSMENT/PLAN: Patient does not have hemachromatosis based on lack of family history of hemachromatosis, genetic study, normal liver function and ferritin level. Elevated iron level likely related to ingestion of iron supplement and diet. Midline low back pain without sciatica 06/06/2015 Morbid obesity (HCC) NINA (obstructive sleep apnea) 04/09/2021 On CPAP Positive D dimer 09/28/2019 Reactive airway disease Right knee pain 10/27/2011 Rosacea Seborrhea SI (sacroiliac) pain 09/28/2019 right Unspecified sinusitis (chronic) Urinary hesitancy triggered by decongestant, improves with alpha sharmaine Venous insufficiency of both lower extremities 03/04/2016 Well adult exam 09/15/2017 last done: PAST SURGICAL HISTORY Procedure Laterality Date COLONOSCOPY FLX DX W/COLLJ SPEC WHEN PFRMD 07/23/09 Normal Colonoscopy, repeat 10 yrs COLONOSCOPY FLX DX W/COLLJ SPEC WHEN PFRMD 05/19/2019 Colonoscopy EGD 05/19/2019 EXTRACTION, ERUPTED TOOTH OR EXPOSED ROOT (ELEVATION AND/OR FORCEPS REMOVAL) wisdom teeth FECAL OCCULT BLOOD TEST 09/09/2016 negative PAST SURGICAL HISTORY OF 07/27/2015 left distal biceps repair ALLERGIES Monodox [Doxycycline Monohydrate] MEDICATIONS apixaban (ELIQUIS) 5 mg tab(s) Take 1 tablet by mouth twice daily. Script Sourcing lisinopril-hydroCHLOROthiazide (PRINZIDE, ZESTORETIC) 20-25 mg per tablet Take 1 tablet by mouth once daily. hydroCHLOROthiazide (HYDRODIURIL, ESIDRIX) 25 mg tablet Take 1 tablet by mouth once daily. (Take in addition to the lisinopril/hctz combo.) Comp.Stocking,Knee,Regular,Lrg misc 1 Each once daily. For Leg Edema: R60.0, I87.2, and Z91.89. 30-40 mm. potassium chloride ER (K-DUR, KLOR-CON) 20 mEq tablet Take 1 tablet by mouth twice daily. fluticasone (FLONASE) 50 mcg/actuation nasal spray Use 1 [place] in each nostril once daily. Or up to twice a day. Rinse mouth after use. Ipratropium (ATROVENT) 17 mcg/actuation inhaler Inhale 2 Puffs as instructed every 6 hours. albuterol HFA (VENTOLIN HFA) 90 mcg/actuation inhaler Inhale 2 Puffs as instructed every 4 hours as needed for Wheezing/Shortness of Breath. FAMILY HISTORY Problem Relation Age of Onset Hypertension Mother Heart Father age 56 of CHF, enlarged heart Hypertension Father Colon Cancer No Family History Coronary Artery Disease Maternal Grandfather mi age 62 Hypertension Maternal Grandfather Stroke Paternal Grandfather Diabetes Other no 1st degree other than late in life (80's) Prostate Cancer No Family History Coronary Artery Disease Brother CABG (possible drug related) Alzheimer's Disease Maternal Grandmother 93 dementia Lipids Maternal Grandmother Hypertension Brother Social History Tobacco Use Smoking status: Never Smoker Smokeless tobacco: Never Used Vaping Use Vaping Use: Never used Substance Use Topics Alcohol use: Yes Comment: episodic, 3-4 drinks per month Drug use: No ASSESSMENT/PLAN: 1. Cough - ICD9: 786.2, ICD10: R05.9 Prescription instructions reviewed with patient as applicable. Prednisone 40 mg daily for 5 days and instructed to get Claritin daily and use his albuterol inhaler. No antibiotics at this time. Potential red flag symptoms discussed with the patient. Reviewed appropriate action plan to take if red flag symptoms occur. Patient agreeable to treatment plan. Mable Walker APRN.JONAH documented in this encounter [facility] 06-11-2021 History of Presen t illness Narrative Chief Complaint Patient presents with: F/U 1 month HPI Sedrick Milian is a 56 year old male who presents here today for 1 month follow up. Obesity: Pt has not been taking the Adipex for several weeks due to multiple side effects and a rash. Pt notes that this has completely resolved. He has been trying to lose weight on his own by watching diet and working with [facility]. He's been working with them for the past 5 weeks. They have him on a diet plan by trying to watch foods he should avoid eating and quartering his plate to protein, starches and vegetables/fruits. She is wanting pt to have 20-28 grams of protein per meal. Thought he was eating a lot of this prior to this program, but really was not. Eating more salads, tuna and salmon but getting tired of this. He will have one day where he doesn't follow the diet and seems to gain weight. Did get a bike to ride, but has issues with his knee that will prevent him from riding his bike for 30 minutes every day. Does still have some issues with his children and getting them all on the same diet vs cooking three different meals per day. Pt has gained 6 lbs since his last OV. He is very cautious about restarting a medication due to the side effects he had with Adipex. He would like to work on lifestyle changes before restarting medication. Past medical history, appointments, medications, allergies reviewed. Previous Medical History PAST MEDICAL HISTORY Diagnosis Date Adjustment insomnia 06/06/2015 AK (actinic keratosis) 03/23/2018 right anterior scapl, treated cryo 03/23/2018 Arthritis, lumbar spine 06/14/2015 Mild on x-ray 06/14/2015 Bilateral leg edema 05/20/2007 Long-standing, has had full work-up, negative, suspected weight-related Combined forms of age-related cataract of both eyes 08/29/2019 Eczema 09/15/2017 feet Elevated hemoglobin A1c 09/28/2019 Essential hypertension, benign 05/20/2007 Dx'd around 2000 Fatty liver 10/03/2019 History of 2019 novel coronavirus disease (COVID-19) 01/25/2020 01/19/2020 History of diplopia 09/13/201908/2019 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 Morales History of pulmonary embolus (PE) 06/23/2018 ER visit 06/23/2018 bilateral placed on Eliquis. Per hematology 03/2019 needs chcf anticoagulation. Iron excess 10/12/2010 Negative hematology workup 2012: ASSESSMENT/PLAN: Patient does not have hemachromatosis based on lack of family history of hemachromatosis, genetic study, normal liver function and ferritin level. Elevated iron level likely related to ingestion of iron supplement and diet. Midline low back pain without sciatica 06/06/2015 Morbid obesity (HCC) NINA (obstructive sleep apnea) 04/09/2021 On CPAP Positive D dimer 09/28/2019 Reactive airway disease Right knee pain 10/27/2011 Rosacea Seborrhea SI (sacroiliac) pain 09/28/2019 right Unspecified sinusitis (chronic) Urinary hesitancy triggered by decongestant, improves with alpha sharmaine Venous insufficiency of both lower extremities 03/04/2016 Well adult exam 09/15/2017 last done: 09/28/20110 Previous Surgical History PAST SURGICAL HISTORY Procedure Laterality Date COLONOSCOPY FLX DX W/COLLJ SPEC WHEN PFRMD 07/23/09 Normal Colonoscopy, repeat 10 yrs COLONOSCOPY FLX DX W/COLLJ SPEC WHEN PFRMD 05/19/2019 Colonoscopy EGD 05/19/2019 EXTRACTION, ERUPTED TOOTH OR EXPOSED ROOT (ELEVATION AND/OR FORCEPS REMOVAL) wisdom teeth FECAL OCCULT BLOOD TEST 09/09/2016 negative PAST SURGICAL HISTORY OF 07/27/2015 left distal biceps repair Family History FAMILY HISTORY Problem Relation Age of Onset Hypertension Mother Heart Father age 56 of CHF, enlarged heart Hypertension Father Colon Cancer No Family History Coronary Artery Disease Maternal Grandfather mi age 62 Hypertension Maternal Grandfather Stroke Paternal Grandfather Diabetes Other no 1st degree other than late in life (80's) Prostate Cancer No Family History Coronary Artery Disease Brother CABG (possible drug related) Alzheimer's Disease Maternal Grandmother 93 dementia Lipids Maternal Grandmother Hypertension Brother Patient Allergies ALLERGIES Allergen Reactions Monodox [Doxycyclin* Other: See Comments headaches and double vision Current Medications Current Outpatient Medications on File Prior to Visit Medication Sig apixaban (ELIQUIS) 5 mg tab(s) Take 1 tablet by mouth twice daily. Script Sourcing lisinopril-hydroCHLOROthiazide (PRINZIDE, ZESTORETIC) 20-25 mg per tablet Take 1 tablet by mouth once daily. hydroCHLOROthiazide (HYDRODIURIL, ESIDRIX) 25 mg tablet Take 1 tablet by mouth once daily. (Take in addition to the lisinopril/hctz combo.) Comp.Stocking,Knee,Regular,Lrg misc 1 Each once daily. For Leg Edema: R60.0, I87.2, and Z91.89. 30-40 mm. potassium chloride ER (K-DUR, KLOR-CON) 20 mEq tablet Take 1 tablet by mouth twice daily. fluticasone (FLONASE) 50 mcg/actuation nasal spray Use 1 [place] in each nostril once daily. Or up to twice a day. Rinse mouth after use. Ipratropium (ATROVENT) 17 mcg/actuation inhaler Inhale 2 Puffs as instructed every 6 hours. albuterol HFA (VENTOLIN HFA) 90 mcg/actuation inhaler Inhale 2 Puffs as instructed every 4 hours as needed for Wheezing/Shortness of Breath. Current Facility-Administered Medications on File Prior to Visit Medication perflutren lipid microspheres 1.3 mL in NaCl (PF) 0.9% 10 mL injection (DEFINITY) sodium chloride 0.9 % (flush) 10 mL (BD POSIFLUSH) Social History Social History Tobacco Use Smoking status: Never Smoker Smokeless tobacco: Never Used Vaping Use Vaping Use: Never used Substance Use Topics Alcohol use: Yes Comment: episodic, 3-4 drinks per month Drug use: No EXAM: BP 124/70 (BP Site: Left Arm, BP Position: Sitting, BP Cuff Size: Large Adult) Pulse 60 Resp 16 Wt (!) 139.3 kg (307 lb 3.2 oz) BMI 44.48 kg/m General Appearance: Well appearing, alert, in no acute distress, well-hydrated, well nourished. and Obese. Lungs: Lungs clear to auscultation. No wheezing, rhonchi, rales.. Heart: RRR without murmur, gallop, or rubs. No ectopy. Health Maintenance List DEPRESSION SCREENING due on 05/03/2021 ANNUAL PCP TEAM CHRONIC DISEASE VISIT due on 05/10/2022 BP CONTROLLED (<130/80) due on 05/10/2022 DTAP,TDAP,TD(2 - Td or Tdap) due on 03/04/2023 DIABETES SCREEN due on 03/11/2024 LIPID SCREEN due on 10/01/2025 PROSTATE CANCER SCREENING DISCUSSION due on 10/01/2025 COLORECTAL CANCER SCREENING due on 05/18/2029 INFLUENZA Completed HEPATITIS C SCREENING Completed HIV SCREENING Completed SHINGRIX VACCINE Completed COVID-19 VACCINE Completed MENINGOCOCCAL CONJUGATE Aged Out Data reviewed Weight graph ASSESSMENT/PLAN: 1. Obesity, Class III, BMI 40-49.9 (morbid obesity) (HCC) - ICD9: 278.01, ICD10: E66.01 Weight increasing - Behavioral intervention and - Medical nutrition therapy with dietitian - Discussed Wegovy. Pt would prefer to hold off on medication at present time. Setup appt in 3 months for weight check, discuss possible Wegovy. I agree with the Chief Complaint, ROS, and Past Histories independently gathered by the clinical product support sales representative and the remaining scribed note accurately describes my personal service to the patient. Medical Decision Making: Problems: Low: Stable chronic illness Risk: Moderate: Drug management Medical Decision Making Level: 3 - Low Pierre Burgos MD The documentation for this note was completed by Nini Evans Ma acting as scribe for Pierre Burgos MD. June 11, 2021 11:18 AM. Nini Evans Ma documented in this encounter [facility]- Primary [facility]- Primary [facility] Diagnosis Cough- Primary [facility] Diagnosis Tongue plaque- Primary Leukoplakia of oral mucosa, including tongue [facility] Diagnosis Right-sided chest wall pain- Primary Painful respiration Microscopic hematuria [facility] Diagnosis Essential hypertension, benign- Primary Adjustment insomnia Transient disorder of initiating or maintaining sleep Mild intermittent reactive airway disease without complication INNA (obstructive sleep apnea) Obstructive sleep apnea (adult) (pediatric) Elevated hemoglobin A1c Other abnormal blood chemistry Bilateral leg edema Edema Venous insufficiency of both lower extremities Morbid obesity Pain in axilla, unspecified laterality Microscopic hematuria Chest wall pain Painful respiration [facility] Diagnosis Axillary pain, unspecified laterality- Primary [facility] Diagnosis Axillary pain, unspecified laterality [facility] Diagnosis Pain in axilla, unspecified laterality [facility] Diagnosis Eustachian tube dysfunction, bilateral- Primary Bacterial sinusitis Unspecified sinusitis (chronic) [facility] Diagnosis Obesity, Class III, BMI 40-49.9 (morbid obesity) (HCC)- Primary Morbid obesity Essential hypertension, benign [facility] Diagnosis Essential hypertension, benign [facility] Diagnosis Acute non-recurrent maxillary sinusitis- Primary Plaque, tongue [facility] Diagnosis Elevated hemoglobin A1c- Primary Other abnormal blood chemistry Essential hypertension, benign Iron excess Other disorders of iron metabolism Fatty liver Other chronic nonalcoholic liver disease Prostate cancer screening Special screening for malignant neoplasm of prostate [facility] Diagnosis Well adult exam- Primary Routine general medical examination at a health care facility Essential hypertension, benign Elevated hemoglobin A1c Other abnormal blood chemistry Bilateral leg edema Edema History of pulmonary embolus (PE) Personal history of pulmonary embolism Adjustment insomnia Transient disorder of initiating or maintaining sleep Morbid obesity NINA (obstructive sleep apnea) Obstructive sleep apnea (adult) (pediatric) Venous insufficiency of both lower extremities Fatty liver Other chronic nonalcoholic liver disease Arthritis of both knees Unspecified arthropathy, lower leg Tinea pedis of left foot Dermatophytosis of foot Abnormality of tongue [facility] Diagnosis Elevated hemoglobin A1c- Primary Other abnormal blood chemistry Obesity, Class III, BMI 40-49.9 (morbid obesity) ([facility]) Morbid obesity Prediabetes Other abnormal glucose documented in [facility] Diagnosis Obesity, Class III, BMI 40-49.9 (morbid obesity) ([facility])- Primary Morbid obesity Elevated hemoglobin A1c Other abnormal blood chemistry Prediabetes Other abnormal glucose documented in this encounter [facility] note* Diagnosis Venous insufficiency of both lower extremities At risk for loss of skin integrity Other specified conditions influencing health status documented in this encounter [facility]* Diagnosis APPOINTMENT CANCELLED- Primary documented in this encounter [facility]* Diagnosis Acute cough- Primary URI, acute Acute upper respiratory infections of unspecified site documented in this encounter [facility] note* Diagnosis Disorder of salivary duct- Primary URI, acute Acute upper respiratory infections of unspecified site documented in this encounter [facility] for referral (narrative)* Diagnostic Procedure Only (Urgent) - Closed Specialty Diagnoses / Procedures Referred By Mercedes nails Referred To Contact XR IMAGING Diagnoses Right-sided chest wall pain Procedures XR RIBS/CHEST 3V AP RIB/OBLS/CXR RIGHT RADEX RIBS UNI W/POSTEROANT CH MINIMUM 3 VIEWS Umu Kowalski APRN.CNP [address] [place] [address] Xr Imaging Referral ID Status Reason Start Date Expiration Date V isits Requested Visits Authorized [id number] Closed Auto-Generate d Referral 10/10/2021 11/09/2022 1 1 [facility] for referral (narrative)* Diagnostic Procedure Only (Routine) - Authorized Specialty Diagnoses / Procedures Referred By Mercedes nails Referred To Contact BR IMAGING Diagnoses Pain in axilla, unspecified laterality Procedures US AXILLA ONLY RT US LMTD JOINT/OTH NONVASC XTR STRUX R-T W/IMG Berenice Marie PA-C [address] [place] [address] [facility] [address] [place] [address] Referral ID Status Reason Start Date Expiration Date Visits Requested Visits Authorized [id number] Authorized Auto-Generat ed Referral 10/15/2021 11/14/2022 1 1 * Diagnostic Procedure Only (Routine) - Authorized Specialty Diagnoses / Procedures Referred By Contac t Referred To Contact BR IMAGING Diagnoses Pain in axilla, unspecified laterality Procedures US AXILLA ONLY LT US LMTD JOINT/OTH NONVASC XTR STRUX R-T W/IMG Berenice Marie PA-C [address] [place] [address] [facility] [address] [place] [address] Referral ID Status Reason Start Date Expiration Date Visits Requested Visits Authorized [id number] Authorized Auto-Generat ed Referral 10/15/2021 11/14/2022 1 1 [facility] for referral (narrative)* Diagnostic Procedure Only (Routine) - Pending Review Specialty Diagnoses / Procedures Referred By Contac t Referred To Contact BR IMAGING Diagnoses Axillary pain, unspecified laterality Procedures NELDA DIAGNOSTIC BILAT DIAGNOSTIC MAMMOGRAPHY COMPUTER-AIDED DETCJ Berenice Clemens PA-C [address] [place] [address] [facility] [address] [place] [address] Referral ID Status Reason Start Date Expiration Date Visits Requested Visits Authorized [id number] Pending Review Auto-Generat ed Referral 10/15/2021 11/14/2022 1 1 [facility] for referral (narrative)* Diagnostic Procedure Only (Routine) - Closed Specialty Diagnoses / Procedures Referred By Contac t Referred To Contact BR IMAGING Diagnoses Axillary pain, unspecified laterality Procedures NELDA DIAGNOSTIC BILAT DIAGNOSTIC MAMMOGRAPHY COMPUTER-AIDED DETCJ BI Berenice Marie PA-C [address] [place] [address] [facility] [address] [place] [address] Referral ID Status Reason Start Date Expiration Date V isits Requested Visits Authorized [id number] Closed Auto-Generate d Referral 10/15/2021 11/14/2022 1 1 [facility] for referral (narrative)* Diagnostic Procedure Only (Routine) - Closed Specialty Diagnoses / Procedures Referred By Contac t Referred To Contact BR IMAGING Diagnoses Pain in axilla, unspecified laterality Procedures US AXILLA ONLY RT US LMTD JOINT/OTH NONVASC XTR STRUX R-T W/RUIG Berenice Marie PA-C [address] [place] [address] [facility] [address] [place] [address] Referral ID Status Reason Start Date Expiration Date V isits Requested Visits Authorized [id number] Closed Auto-Generate d Referral 10/15/2021 11/14/2022 1 1 * Diagnostic Procedure Only (Routine) - Closed Specialty Diagnoses / Procedures Referred By Contac t Referred To Contact BR IMAGING Diagnoses Pain in axilla, unspecified laterality Procedures US AXILLA ONLY LT US LMTD JOINT/OTH NONVASC XTR STRUX R-T W/Berenice Benítez PA-C [address] [place] [address] [facility] [address] [place] [address] Referral ID Status Reason Start Date Expiration Date V isits Requested Visits Authorized [id number] Closed Auto-Generate d Referral 10/15/2021 11/14/2022 1 1 [facility] for visit Narrative* Diagnostic Procedure Only (Routine) - Closed Specialty Diagnoses / Procedures Referred By Mercedes t Referred To Contact BR IMAGING Diagnoses Axillary pain, unspecified laterality Procedures NELDA DIAGNOSTIC BILAT DIAGNOSTIC MAMMOGRAPHY COMPUTER-AIDED DETCJ BI Berenice Marie PA-C [address] [place] [address] [facility] [address] [place] [address] Referral ID Status Reason Start Date Expiration Date V isits Requested Visits Authorized [id number] Closed Auto-Generate d Referral 10/15/2021 11/14/2022 1 1 [facility] Advance Directives No Advanced Directives Records FoundDocuments on File Type Date Recorded Patient Office Manager Expl anation Advance Directives and Living Will Power of Printing Sign Machine Operator Documents on File Type Date Recorded Patient Office Manager Expl anation Advance Directive(s) 05/19/2019 7:47 AM Advance Directive(s) 05/04/2019 3:35 PM Documents on File Type Date Recorded Patient Office Manager Expl anation Advance Directive(s) 05/19/2019 7:47 AM Advance Directive(s) 05/04/2019 3:35 PM Summary Purpose Family History No Family History Records FoundNo Family History Records Found Health Concerns Infection Onset Date Last Indicated Resolved Time COVID-19 Rule-Out 08/19/2021 08/19/2021 Reason for Referral Specialty Diagnoses / Procedures Referred By Mercedes nails Referred To Contact Ent - Otolaryngology Diagnoses Abnormality of tongue Procedures CONSULT TO ENT OFFICE/OUTPATIENT NEW HIGH MDM 60-74 MINUTES Lyssa Lemos MD [address] [place] [address] Referral ID Status Reason Start Date Expiration Date Visits Requested Visits Authorized [id number] Authorized PCP Requested Referral 09/17/2022 09/17/2023 1 1 Additional Source Comments (unrecognized sect ion and content) No Status Records FoundNo Status Records Found INFORMATION SOURCE (unrecogn ized section and content) DATE CREATED AUTHOR AUTHOR'S ORGANIZ ATION 04/09/2023 [facility] Source Comments (unrecognize d section and content) In the event this informatio n is protected by the Federal Confidentiality of Alcohol and Drug Abuse Patient Records regulations: The Federal rules restrict any use of the information to criminally investigate or prosecute any alcohol or drug abuse patient.[facility] the event this information is protected by the Federal Confidentiality of Alcohol and Drug Abuse Patient Records regulations: The Federal rules restrict any use of the information to criminally investigate or prosecute any alcohol or drug abuse patient.[facility] HospitalIn the event this information is protected by the Federal Confidentiality of Alcohol and Drug Abuse Patient Records regulations: The Federal rules restrict any use of the information to criminally investigate or prosecute any alcohol or drug abuse patient.[facility] HospitalIn the event this information is protected by the Federal Confidentiality of Alcohol and Drug Abuse Patient Records regulations: The Federal rules restrict any use of the information to criminally investigate or prosecute any alcohol or drug abuse patient.[facility] HospitalIn the event this information is protected by the Federal Confidentiality of Alcohol and Drug Abuse Patient Records regulations: The Federal rules restrict any use of the information to criminally investigate or prosecute any alcohol or drug abuse patient.[facility] HospitalIn the event this information is protected by the Federal Confidentiality of Alcohol and Drug Abuse Patient Records regulations: The Federal rules restrict any use of the information to criminally investigate or prosecute any alcohol or drug abuse patient.[facility] HospitalIn the event this information is protected by the Federal Confidentiality of Alcohol and Drug Abuse Patient Records regulations: The Federal rules restrict any use of the information to criminally investigate or prosecute any alcohol or drug abuse patient.[facility] HospitalIn the event this information is protected by the Federal Confidentiality of Alcohol and Drug Abuse Patient Records regulations: The Federal rules restrict any use of the information to criminally investigate or prosecute any alcohol or drug abuse patient.[facility] HospitalIn the event this information is protected by the Federal Confidentiality of Alcohol and Drug Abuse Patient Records regulations: The Federal rules restrict any use of the information to criminally investigate or prosecute any alcohol or drug abuse patient.[facility] HospitalIn the event this information is protected by the Federal Confidentiality of Alcohol and Drug Abuse Patient Records regulations: The Federal rules restrict any use of the information to criminally investigate or prosecute any alcohol or drug abuse patient.[facility] HospitalIn the event this information is protected by the Federal Confidentiality of Alcohol and Drug Abuse Patient Records regulations: The Federal rules restrict any use of the information to criminally investigate or prosecute any alcohol or drug abuse patient.[facility] HospitalIn the event this information is protected by the Federal Confidentiality of Alcohol and Drug Abuse Patient Records regulations: The Federal rules restrict any use of the information to criminally investigate or prosecute any alcohol or drug abuse patient.[facility] HospitalIn the event this information is protected by the Federal Confidentiality of Alcohol and Drug Abuse Patient Records regulations: The Federal rules restrict any use of the information to criminally investigate or prosecute any alcohol or drug abuse patient.[facility] HospitalIn the event this information is protected by the Federal Confidentiality of Alcohol and Drug Abuse Patient Records regulations: The Federal rules restrict any use of the information to criminally investigate or prosecute any alcohol or drug abuse patient.[facility] HospitalIn the event this information is protected by the Federal Confidentiality of Alcohol and Drug Abuse Patient Records regulations: The Federal rules restrict any use of the information to criminally investigate or prosecute any alcohol or drug abuse patient.[facility] HospitalIn the event this information is protected by the Federal Confidentiality of Alcohol and Drug Abuse Patient Records regulations: The Federal rules restrict any use of the information to criminally investigate or prosecute any alcohol or drug abuse patient.[facility] HospitalIn the event this information is protected by the Federal Confidentiality of Alcohol and Drug Abuse Patient Records regulations: The Federal rules restrict any use of the information to criminally investigate or prosecute any alcohol or drug abuse patient.[facility] HospitalIn the event this information is protected by the Federal Confidentiality of Alcohol and Drug Abuse Patient Records regulations: The Federal rules restrict any use of the information to criminally investigate or prosecute any alcohol or drug abuse patient.[facility] HospitalIn the event this information is protected by the Federal Confidentiality of Alcohol and Drug Abuse Patient Records regulations: The Federal rules restrict any use of the information to criminally investigate or prosecute any alcohol or drug abuse patient.[facility] HospitalIn the event this information is protected by the Federal Confidentiality of Alcohol and Drug Abuse Patient Records regulations: The Federal rules restrict any use of the information to criminally investigate or prosecute any alcohol or drug abuse patient.[facility] HospitalIn the event this information is protected by the Federal Confidentiality of Alcohol and Drug Abuse Patient Records regulations: The Federal rules restrict any use of the information to criminally investigate or prosecute any alcohol or drug abuse patient.[facility] HospitalIn the event this information is protected by the Federal Confidentiality of Alcohol and Drug Abuse Patient Records regulations: The Federal rules restrict any use of the information to criminally investigate or prosecute any alcohol or drug abuse patient.[facility] HospitalIn the event this information is protected by the Federal Confidentiality of Alcohol and Drug Abuse Patient Records regulations: The Federal rules restrict any use of the information to criminally investigate or prosecute any alcohol or drug abuse patient.[facility] HospitalIn the event this information is protected by the Federal Confidentiality of Alcohol and Drug Abuse Patient Records regulations: The Federal rules restrict any use of the information to criminally investigate or prosecute any alcohol or drug abuse patient.[facility] HospitalIn the event this information is protected by the Federal Confidentiality of Alcohol and Drug Abuse Patient Records regulations: The Federal rules restrict any use of the information to criminally investigate or prosecute any alcohol or drug abuse patient.[facility] HospitalIn the event this information is protected by the Federal Confidentiality of Alcohol and Drug Abuse Patient Records regulations: The Federal rules restrict any use of the information to criminally investigate or prosecute any alcohol or drug abuse patient.[facility] HospitalIn the event this information is protected by the Federal Confidentiality of Alcohol and Drug Abuse Patient Records regulations: The Federal rules restrict any use of the information to criminally investigate or prosecute any alcohol or drug abuse patient.[facility] HospitalIn the event this information is protected by the Federal Confidentiality of Alcohol and Drug Abuse Patient Records regulations: The Federal rules restrict any use of the information to criminally investigate or prosecute any alcohol or drug abuse patient.[facility] HospitalIn the event this information is protected by the Federal Confidentiality of Alcohol and Drug Abuse Patient Records regulations: The Federal rules restrict any use of the information to criminally investigate or prosecute any alcohol or drug abuse patient.[facility] HospitalIn the event this information is protected by the Federal Confidentiality of Alcohol and Drug Abuse Patient Records regulations: The Federal rules restrict any use of the information to criminally investigate or prosecute any alcohol or drug abuse patient.[facility] HospitalIn the event this information is protected by the Federal Confidentiality of Alcohol and Drug Abuse Patient Records regulations: The Federal rules restrict any use of the information to criminally investigate or prosecute any alcohol or drug abuse patient.[facility] HospitalIn the event this information is protected by the Federal Confidentiality of Alcohol and Drug Abuse Patient Records regulations: The Federal rules restrict any use of the information to criminally investigate or prosecute any alcohol or drug abuse patient.[facility] HospitalIn the event this information is protected by the Federal Confidentiality of Alcohol and Drug Abuse Patient Records regulations: The Federal rules restrict any use of the information to criminally investigate or prosecute any alcohol or drug abuse patient.[facility] Reason for Visit (unrecogniz ed section and content) Reason Comments Cough Pt denied chest pain , SOB Chest Congestion Reason Onset Date Comments Refill Request 08/15/2021 Reason Comments Cough wheezing x 1 month Reason Comments Cough x 1 month, sweating x 3 days Reason Comments Mouth/Lip Problem yellow tongue, after inhaler use and antibiotics Reason Comments Results Reason Comments Abdominal Pain R side/ rib pain x4 months intermittent, now getting worse Reason Comments Results Urine Cx negative Reason Comments F/U 6 Month Reason Comments Orders Reason Comments Radiology US Specialty Diagnoses / Procedures Referred By Contac t Referred To Contact [facility] Diagnoses Pain in axilla, unspecified laterality Procedures US AXILLA ONLY RT US LMTD JOINT/OTH NONVASC XTR STRUX R-T W/IMG Berenice Marie PA-C [address] [place] [address] [facility] [address] [place] [address] Referral ID Status Reason Start Date Expiration Date V isits Requested Visits Authorized [id number] Closed Auto-Generate d Referral 10/15/2021 11/14/2022 1 1 Reason Comments Ear Problem Left ear pressure an d ringing x 1-2 weeks Reason Comments F/U 6 Month Reason Onset Date Comments Refill Request 04/08/2022 Reason Comments Refill Request Reason Comments Nasal Congestion drainage, ear pain, sore throat x over 1 week Reason Comments Orders Reason Comments Physical Reason Comments 6 Month Exam Reason Comments Opened In Error Reason Comments Insurance Authorization Ozempic Reason Comments Appointment Reason Comments Follow Up Reason Onset Date Comments Refill Request 01/05/2023 Reason Comments Chest Congestion sinus pressure, drai nage and cough x 3 days Reason Onset Date Comments Refill Request 02/11/2023 Reason Comments Mouth Sores Mouth sore under ton shira x2 days and right ear pain. Care Teams (unrecognized sec tion and content) [employer] Relationship Specialty Start Date End Date Lyssa Lemos MD [address] [place] [address] PCP - General Family Practice 06/06/15 [employer] Relationship Specialty Start Date End Date Lyssa Lemos MD [facility] [place] [address] PCP - General Family Practice 06/06/15 [employer] Relationship Specialty Start Date End Date Lyssa Lemos MD [address] [place] [id number] PCP - General Family Practice 06/06/15 [employer] Relationship Specialty Start Date End Date Lsysa Lemos MD [address] [place] [id number] PCP - General Family Practice 06/06/15 [employer] Relationship Specialty Start Date End Date Lyssa Lemos MD [address] [place] [id number] PCP - General Family Practice 06/06/15 [employer] Relationship Specialty Start Date End Date Lyssa Lemos MD [address] [place] [id number] PCP - General Family Practice 06/06/15 [employer] Relationship Specialty Start Date End Date Lyssa Lemos MD [address] [facility] [place] [place] [address] PCP - General Family Practice 06/06/15 [employer] Relationship Specialty Start Date End Date Lyssa Lemos MD [facility] [place] [address] PCP - General Family Practice 06/06/15 [employer] Relationship Specialty Start Date End Date Lyssa Lemos MD [address] [place] [address], [place] [address] PCP - General Family Practice 06/06/15 [employer] Relationship Specialty Start Date End Date Lyssa Lemos MD [address] [place] [address], [place] [address] PCP - General Family Practice 06/06/15 [employer] Relationship Specialty Start Date End Date Lyssa Lemos MD [address] [place] [address], [place] [address] PCP - General Family Practice 06/06/15 [employer] Machine Relationship Specialty Start Date End Date Lyssa Lemos MD [address] [place] [address], [place] [address] PCP - General Family Medicine 06/06/15 [employer] Machine Relationship Specialty Start Date End Date Lyssa Lemos MD [facility] [place] [address] PCP - General Family Medicine 06/06/15 [employer] Machine Relationship Specialty Start Date End Date Lyssa Lemos MD [address] [place] [address], [place] [address] PCP - General Family Medicine 06/06/15 [employer] Relationship Specialty Start Date End Date Lyssa Lemos MD [address] [place] [address], [place] [address] PCP - General Family Medicine 06/06/15 [employer] Relationship Specialty Start Date End Date Lyssa Lemos MD [address] [place] [address] PCP - General Family Medicine 06/06/15 [employer] Relationship Specialty Start Date End Date Lyssa Lemos MD [address] [place] [address] PCP - General Family Medicine 06/06/15 [employer] Relationship Specialty Start Date End Date Lyssa Lemos MD [address] [place] [address] PCP - General Family Medicine 06/06/15 [employer] Relationship Specialty Start Date End Date Lyssa Lemos MD [address] [place] [address] PCP - General Family Medicine 06/06/15 [employer] Relationship Specialty Start Date End Date Lyssa Lemos MD [address] [place] [address] PCP - General Family Medicine 06/06/15 [employer] Relationship Specialty Start Date End Date Lyssa Lemos MD [address] [place] [address] PCP - General Family Medicine 06/06/15 [employer] Relationship Specialty Start Date End Date Lyssa Lemos MD [address] [place] [address] PCP - General Family Medicine 06/06/15 [employer] Relationship Specialty Start Date End Date Lyssa Lemos MD [address] [place] [address] PCP - General Family Medicine 06/06/15 [employer] Relationship Specialty Start Date End Date Lyssa Lemos MD [address] [place] [address] - General Family [facility] 06/06/15 [employer]er Machine Relationship Specialty Start Date End Date Lyssa Lemos MD [address] [place] [address] PCP - General Family Medicine 06/06/15 FOR RECORDS PERTAINING TO PATIENTS WHO ARE OR HAVE BEEN ENROLLED IN A CHEMICAL DEPENDENCY/SUBSTANCEABUSE PROGRAM, SOME INFORMATION MAY BE OMITTED. This clinical summary was aggregated from multiple sources. Caution should be exercised in using it in the provision of clinical care. This summary normalizes information from multiple sources, and as a consequence, information in this document may materially change the coding, format and clinical context of patient data. In addition, data may be omitted in some cases. CLINICAL DECISIONS SHOULD BE BASED ON THE PRIMARY CLINICAL RECORDS. [facility] [facility]. provides no warranty or guarantee of the accuracy or completeness of information in this document.
== END | disposition home or self-care (01) ==
LOC: CT 06:46
PROVIDERS: PCP Family Medicine; Referring Provider Physician Assistant; Visit Provider Physician Assistant
DX: M17.12 Unilateral primary osteoarthritis, left knee (principal)
CPT/HCPCS: 73700

== ENCOUNTER 2023-04-29 16:25 | Outpatient (RCR) | payer BC, SELFPAY | END 2023-05-14 23:59 | LOC: NS 16:25 | PROVIDERS: PCP Family Medicine; Referring Provider Family Medicine; Visit Provider Family Medicine | DX: Z71.3 Dietary counseling and surveillance (principal); E66.01 Morbid (severe) obesity due to excess calories; Z68.42 Body mass index [BMI] 45.0-49.9, adult | CPT/HCPCS: 97803 ==

== ENCOUNTER 2023-05-11 06:50 | Day surgery (SDC) | payer BC, SELFPAY ==
[2023-04-20 08:03] LABS: Absolute Lymphocyte Count 2.76 X10^3/uL (0.83-4.51); Absolute Neutrophil Count 4.3 X10^3/uL (2.0-7.7); Basophil# 0.05 X10^3/uL; Basophil% 0.6 % (0-1); Eosinophil# 0.66 X10^3/uL; Eosinophils% 7.4 % (0-5); Hematocrit 44.1 % (40-54); Hemoglobin 14.6 g/dL (13.0-16.5); Lymphocyte # 2.76 X10^3/ul (0.83-4.51); Lymphocyte % 30.9 % (19-41); Mean Corp Hgb Conc 33.1 g/dL (32-36); Mean Corpuscular Volume 87.5 fL (80-94); Mean Platelet Vol. 9.4 fl (6.2-12.0); Monocyte# 1.09 X10^3/uL; Monocyte% 12.2 % (0-10); NRBC Flagged by Analyzer 0 % (0-5); Neutrophil # 4.31 X10^3/uL (2.7-7.7); Neutrophil % 48.2 % (47-70); Platelet Count 308 K/mm3 (150-450); RBC Distribution Width CV 13.2 % (11.6-14.6); RBC Distribution Width SD 42.4 fl (35.1-43.9); Red Blood Count 5.04 M/mm3 (4.6-6.2); White Blood Count 8.9 K/mm3 (4.4-11.0)
[2023-04-20 08:21] LABS: Anion Gap 4 (5-15); BUN 16 mg/dL (7-18); BUN/Creat Ratio 19.8 RATIO (10-20); Calcium,Total 10.3 mg/dL (8.5-10.1); Chloride 106 mmol/L (98-107); Creatinine, Serum 0.81 mg/dL (0.70-1.30); EST Glomerular Filtration Rate 104 mL/min (>60); Est Glom Filt Rate - Afr Amer 126 mL/min (>60); Glucose 111 mg/dL (74-106); Potassium 3.6 mmol/L (3.5-5.1); Sodium Level 136 mmol/L (136-145)
[2023-04-20 08:26] LABS: Magnesium 2.2 mg/dL (1.6-2.6)
[2023-04-20 12:02] LABS: Hemoglobin A1c 5.6 % (3.8-5.6)
[2023-05-11] VITALS (13 sets, daily range): BP systolic 84–141; BP diastolic 43–80; PULSE 53–91; RESP 13–20; TEMP 36.1–36.8; O2SAT 94–99; BMI 47.9
--- NOTE | 2023-05-11 | KNEE_PTH ---
PATHOLOGY RESULTS PATIENT: ASA THOMAS LOC: [facility] [place] [facility] [place] U#:[id number] AGE/SX: 58/M ROOM: RE05/11/[address]: Dr. Zafar Valentin DO : 1965 BED: DIS: 05/11/2023 SPEC #: [id number] RECD: 05/11/23 13:27 STATUS: ISAIAS REZachariah #: [id number] ALDAIR: 05/11/23 00:[address]: Zafar Valentin DEPT: SURGICAL PATHOLOGY RECD BY: Ej Brown ENTERED: 05/11/23 13:28 SP TYPE: TOTAL KNEE OTHR DR: Dr. Ok Maldonado MD Tissues: Knee, NOS Procedures: Decalcification bone/plaque Surgery Specimen Level IV HEADER OPERATION: ERAS, total knee replacement robotic arm assist PRE-OP DIAGNOSIS: Unilateral primary osteoarthritis left knee; varus deformity TISSUE SUBMITTED: Left knee bone and tissue MICROSCOPIC DIAGNOSIS Bone and soft tissue of left knee, total knee resection: Severe degenerative joint disease. AM:mirta 05/14/2023 MICROSCOPIC DESCRIPTION Slides are reviewed. GROSS DESCRIPTION Received is one container designated bone and soft tissue left knee. The specimen consists of multiple fragments of pan-yellow bone measuring in aggregate 16.0 x 11.0 x 2.0 cm. Also in the specimen container are multiple fragments of yellow-white soft tissue measuring in aggregate 6.0 x 5.0 x 1.0 cm. A number of bony fragments contain articular surfaces consistent with tibial plateau and femoral condyle and displaying prominent osteophyte formation, eburnation and bone erosion. Industry Consultant sections are submitted in two cassettes as follows: 1 - soft tissue, 2 - bone after decalcification. / AM:mirta 05/11/2023 TC:5 [facility]: [id number], [id number]
--- OUTSIDE RECORDS SUMMARY | 2023-05-11 06:53 | XMS RPT_ITS | CCD ---
Author Name Unknown Address [address] [place] [address] Organization [facility] Care Team Providers Care 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 Name Role Phone Unavailable Primary Care Provider UnavailLyssa Gregory MD Primary Care Provider Lyssa Lemos MD Primary Care Provider [phone] Lyssa Lemos MD Primary Care Provider [phone] LYSSA LEMOS Primary Care Unavailable LYSSA LEMOS A Primary Care Unavailable LYSSA LEMOS A Referring Unavailable PIERRE BURGOS Attending Unavailable LYSSA LEMOS Primary Care Unavailable LYSSA LEMOS A Primary Care Unavailable LYSSA LEMOS A Primary Care Unavailable CANELO, LYSSA A Primary Care Unavailable KATIA TAVARES Attending Unavailable CANELO, LYSSA A Primary Care Unavailable KATIA TAVARES Referring Unavailable PIERRE BURGOS Attending Unavailable LYSSA LEMOS A Primary Care Unavailable DERICK SEGOVIA Attending Unavailable BRIA OKEEFE Referring Unavailable CANELO, LYSSA A Primary Care Unavailable CANELO, LYSSA A Primary Care Unavailable CANELO, LYSSA A Primary Care Unavailable LYSSA LEMOS A Attending Unavailable CANELO LYSSA A Primary Care Unavailable LYSSA LEMOS A Attending Unavailable PIERRE BURGOS Attending Unavailable CANELO, LYSSA A Primary Care Unavailable CANELO, LYSSA A Primary Care Unavailable CANELO, LYSSA A Attending Unavailable CANELO, LYSSA A Primary Care Unavailable LYSSA CARRIZALES Referring Unavailable CANELO LYSSA A Primary Care Unavailable Allergies Allergy Classification Reported Allergen(s) Allergy Type Date of Onset Reaction(s) Facility (20 sources) Doxycycline; Translations: [DOXYCYCLINE MONOHYDRATE] Drug Allergy 09-14-2010 Other: See Comments [facility] Work Phone: Medications Current Medications Medication [...] Drug Class(es) Dates Sig (Normalized) Sig (Original) [id number] 200 actuat albuterol 0.09 mg/actuat metered dose inhaler (20 sources) beta2-Adrenergic Agonist Start: 2020 End: 05-01-2023 take 2 puff(s) by inhalation every four hours as needed for wheezing albuterol HFA (VENTOLIN HFA) 90 mcg/actuation inhaler Inhale 2 Puffs as instructed every 4 hours as needed for wheezing/shortness of breath. 18 g 0 02/11/2023 05/01/2023 Discontinued Problems Active Problems Problem Classification Problem Date [...] pain; Translations: [Other chest pain] Episodic Osteoarthritis (20 sources) Bilateral arthritis of knees; Translations: [Bilateral [...] (4 sources) Cough; Translations: [Cough] Episodic Other non-traumatic joint disorders (2 sources) Pain in left knee; Translations: [Pain in joint, lower leg] Onset: 05-01-2023 05-01-2023 Episodic Other nutritional; endocrine; and metabolic disorders [...] (20 sources) Patient encounter status; Translations: [Other fdc (current) drug therapy] Onset: 03-04-2016 04-09-2021 Episodic [...] Date Time Vital Sign Value Performing Clinician Kerry burk 05-01-2023 08:38-0500 Body weight 150.14 kg Lyssa Lemos MD Work Phone: [facility] 05-01-2023 08:38-0500 Diastolic blood pressure 84 mm[Hg] Lyssa Lemos MD Work Phone: [facility] 05-01-2023 08:38-0500 Heart rate 70 /min Lyssa Lemos MD Work Phone: [facility] 05-01-2023 08:38-0500 Respiratory rate 16 /min Lyssa Lemos MD Work Phone: [facility] 05-01-2023 08:38-0500 Systolic blood pressure 122 mm[Hg] Lyssa Lemos MD Work Phone: [facility] 02-13-2023 08:07-0500 Body temperature 98.29 [degF] Amari Lin MD Work Phone: [facility] 02-13-2023 08:07-0500 Body weight 146.15 kg Amari Lin MD Work Phone: [facility] 02-13-2023 08:07-0500 Diastolic blood pressure 80 mm[Hg] Amari Lin MD Work Phone: [facility] 02-13-2023 08:07-0500 Heart rate 86 /min Amari Lin MD Work Phone: [facility] 02-13-2023 08:07-0500 Respiratory rate 16 /min Amari Lin MD Work Phone: [facility] 02-13-2023 08:07-0500 SaO2% (BldA) [Mass fraction] 97 % Amari Lin MD Work Phone: [facility] 02-13-2023 08:07-0500 Systolic blood pressure 138 mm[Hg] Amari Lin MD Work Phone: [facility] 02-09-2023 14:43-0500 Body temperature 99.19 [degF] Krislyn Aberegg PA Work Phone: [facility] 02-09-2023 14:43-0500 Body weight 148.33 kg Krislyn Aberegg PA Work Phone: [facility] 02-09-2023 14:43-0500 Diastolic blood pressure 78 mm[Hg] Krislyn Aberegg PA Work Phone: [facility] 02-09-2023 14:43-0500 Heart rate 90 /min Krislyn Aberegg PA Work Phone: [facility] 02-09-2023 14:43-0500 Respiratory rate 20 /min Krislyn Aberegg PA Work Phone: [facility] 02-09-2023 14:43-0500 SaO2% (BldA) [Mass fraction] 95 % Krislyn Aberegg PA Work Phone: [facility] 02-09-2023 14:43-0500 Systolic blood pressure 132 mm[Hg] Magdaleno COY Work Phone: [facility] 12-30-2022 09:07-0400 Body weight 144.7 kg Pierre Burgos MD Work Phone: [facility] 12-30-2022 09:07-0400 Diastolic blood pressure 74 mm[Hg] Pierre Burgos MD Work Phone: [facility] 12-30-2022 09:07-0400 Heart rate 60 /min Pierre Burgos MD Work Phone: [facility] 12-30-2022 09:07-0400 Respiratory rate 18 /min Pierre Burgos MD Work Phone: [facility] 12-30-2022 09:07-0400 Systolic blood pressure 128 mm[Hg] Pierre Burgos MD Work Phone: [facility] 09-29-2022 12:24-0400 Body weight 149.69 kg Pierre Burgos MD Work Phone: [facility] 09-29-2022 12:24-0400 Diastolic blood pressure 80 mm[Hg] Pierre Burgos MD Work Phone: [facility] 09-29-2022 12:24-0400 Heart rate 88 /min Pierre Burgos MD Work Phone: [facility] 09-29-2022 12:24-0400 Respiratory rate 16 /min Pierre Burgos MD Work Phone: [facility] 09-29-2022 12:24-0400 Systolic blood pressure 148 mm[Hg] Pierre Burgos MD Work Phone: [facility] 09-17-2022 19:43-0400 Diastolic blood pressure 80 mm[Hg] Lyssa Lemos MD Work Phone: [facility] 09-17-2022 19:43-0400 Systolic blood pressure 128 mm[Hg] Lyssa Lemos MD Work Phone: [facility] 09-17-2022 18:58-0400 Body weight 148.33 kg Lyssa Lemos MD Work Phone: [facility] 09-17-2022 18:58-0400 Heart rate 76 /min Lyssa Lemos MD Work Phone: [facility] 09-17-2022 18:58-0400 Respiratory rate 16 /min Lyssa Lemos MD Work Phone: [facility] 06-25-2022 12:22-0400 Body temperature 98.01 [degF] Corin Monserrat HEALTH INFORMATION MANAGER.911 EMERGENCY SERVICES DISPATCHER Work Phone: [facility] 06-25-2022 12:22-0400 Body weight 150.14 kg Corin Monserrat HEALTH INFORMATION MANAGER.911 EMERGENCY SERVICES DISPATCHER Work Phone: [facility] 06-25-2022 12:22-0400 Diastolic blood pressure 76 mm[Hg] Corin Monserrat HEALTH INFORMATION MANAGER.911 EMERGENCY SERVICES DISPATCHER Work Phone: [facility] 06-25-2022 12:22-0400 Heart rate 92 /min Corin Monserrat HEALTH INFORMATION MANAGER.911 EMERGENCY SERVICES DISPATCHER Work Phone: [facility] 06-25-2022 12:22-0400 Respiratory rate 16 /min Corin Monserrat HEALTH INFORMATION MANAGER.911 EMERGENCY SERVICES DISPATCHER Work Phone: [facility] 06-25-2022 12:22-0400 SaO2% (BldA) [Mass fraction] 97 % Corin Monserrat HEALTH INFORMATION MANAGER.911 EMERGENCY SERVICES DISPATCHER Work Phone: [facility] 06-25-2022 12:22-0400 Systolic blood pressure 144 mm[Hg] Corin Monserrat HEALTH INFORMATION MANAGER.911 EMERGENCY SERVICES DISPATCHER Work Phone: [facility] 03-29-2022 08:56-0500 Body weight 144.7 kg Pierre Burgos MD Work Phone: [facility] 03-29-2022 08:56-0500 Diastolic blood pressure 82 mm[Hg] Pierre Burgos MD Work Phone: [facility] 03-29-2022 08:56-0500 Heart rate 72 /min Pierre Burgos MD Work Phone: [facility] 03-29-2022 08:56-0500 Respiratory rate 16 /min Pierre Burgos MD Work Phone: [facility] 03-29-2022 08:56-0500 Systolic blood pressure 128 mm[Hg] Pierre Burgos MD Work Phone: [facility] 02-28-2022 11:47-0500 Body temperature 98.4 [degF] Lyssa Pendlebury HEALTH INFORMATION MANAGER.911 EMERGENCY SERVICES DISPATCHER Work Phone: [facility] 02-28-2022 11:47-0500 Body weight 149.32 kg Lyssa Pendlebury HEALTH INFORMATION MANAGER.911 EMERGENCY SERVICES DISPATCHER Work Phone: [facility] 02-28-2022 11:47-0500 Diastolic blood pressure 82 mm[Hg] Lyssa Pendlebury HEALTH INFORMATION MANAGER.911 EMERGENCY SERVICES DISPATCHER Work Phone: [facility] 02-28-2022 11:47-0500 Heart rate 72 /min Lyssa Pendlebury HEALTH INFORMATION MANAGER.911 EMERGENCY SERVICES DISPATCHER Work Phone: [facility] 02-28-2022 11:47-0500 Respiratory rate 16 /min Lyssa Pendlebury HEALTH INFORMATION MANAGER.911 EMERGENCY SERVICES DISPATCHER Work Phone: [facility] 02-28-2022 11:47-0500 SaO2% (BldA) [Mass fraction] 98 % Lyssa Pendlebury HEALTH INFORMATION MANAGER.911 EMERGENCY SERVICES DISPATCHER Work Phone: [facility] 02-28-2022 11:47-0500 Systolic blood pressure 132 mm[Hg] Lyssa Pendlebury HEALTH INFORMATION MANAGER.911 EMERGENCY SERVICES DISPATCHER Work Phone: [facility] 10-15-2021 07:05-0400 Body temperature 97.39 [degF] Berenice Marie PA-C Work Phone: [facility] 10-15-2021 07:05-0400 Body weight 144.24 kg Berenice Marie PA-C Work Phone: [facility] 10-15-2021 07:05-0400 Diastolic blood pressure 70 mm[Hg] Berenice Marie PA-C Work Phone: [facility] 10-15-2021 07:05-0400 Heart rate 64 /min Berenice Marie PA-C Work Phone: [facility] 10-15-2021 07:05-0400 Respiratory rate 18 /min Berenice Marie PA-C Work Phone: [facility] 10-15-2021 07:05-0400 Systolic blood pressure 118 mm[Hg] Berenice Marie PA-C Work Phone: [facility] 10-10-2021 11:14-0400 Body temperature 98.01 [degF] Umu Praisler-Wood HEALTH INFORMATION MANAGER.911 EMERGENCY SERVICES DISPATCHER Work Phone: [facility] 10-10-2021 11:14-0400 Body weight 144.15 kg Umu Praisler-Wood HEALTH INFORMATION MANAGER.911 EMERGENCY SERVICES DISPATCHER Work Phone: [facility] 10-10-2021 11:14-0400 Diastolic blood pressure 76 mm[Hg] Umu Praisler-Wood HEALTH INFORMATION MANAGER.911 EMERGENCY SERVICES DISPATCHER Work Phone: [facility] 10-10-2021 11:14-0400 Heart rate 78 /min Umu Praisler-Wood HEALTH INFORMATION MANAGER.911 EMERGENCY SERVICES DISPATCHER Work Phone: [facility] 10-10-2021 11:14-0400 Respiratory rate 20 /min Umu Praisler-Wood HEALTH INFORMATION MANAGER.911 EMERGENCY SERVICES DISPATCHER Work Phone: [facility] 10-10-2021 11:14-0400 SaO2% (BldA) [Mass fraction] 97 % Umu Praisler-Wood HEALTH INFORMATION MANAGER.911 EMERGENCY SERVICES DISPATCHER Work Phone: [facility] 10-10-2021 11:14-0400 Systolic blood pressure 122 mm[Hg] Umu Praisler-Wood HEALTH INFORMATION MANAGER.911 EMERGENCY SERVICES DISPATCHER Work Phone: [facility] 09-30-2021 18:18-0400 Body temperature 98.2 [degF] Corin Monserrat HEALTH INFORMATION MANAGER.911 EMERGENCY SERVICES DISPATCHER Work Phone: [facility] 09-30-2021 18:18-0400 Body weight 143.79 kg Corin Monserrat HEALTH INFORMATION MANAGER.911 EMERGENCY SERVICES DISPATCHER Work Phone: [facility] 09-30-2021 18:18-0400 Diastolic blood pressure 82 mm[Hg] Corin Monserrat HEALTH INFORMATION MANAGER.911 EMERGENCY SERVICES DISPATCHER Work Phone: [facility] 09-30-2021 18:18-0400 Heart rate 98 /min Corin German HEALTH INFORMATION MANAGER.911 EMERGENCY SERVICES DISPATCHER Work Phone: [facility] 09-30-2021 18:18-0400 Respiratory rate 16 /min Corin Monserrat HEALTH INFORMATION MANAGER.911 EMERGENCY SERVICES DISPATCHER Work Phone: [facility] 09-30-2021 18:18-0400 SaO2% (BldA) [Mass fraction] 96 % Corin German HEALTH INFORMATION MANAGER.911 EMERGENCY SERVICES DISPATCHER Work Phone: [facility] 09-30-2021 18:18-0400 Systolic blood pressure 142 mm[Hg] Corin German HEALTH INFORMATION MANAGER.911 EMERGENCY SERVICES DISPATCHER Work Phone: [facility] 08-25-2021 14:34-0400 Body temperature 98.8 [degF] Mable Walker HEALTH INFORMATION MANAGER.911 EMERGENCY SERVICES DISPATCHER Work Phone: [facility] 08-25-2021 14:34-0400 Body weight 145.15 kg Mable Walker APRN.911 EMERGENCY SERVICES DISPATCHER Work Phone: [facility] 08-25-2021 14:34-0400 Diastolic blood pressure 92 mm[Hg] Mable Walker HEALTH INFORMATION MANAGER.911 EMERGENCY SERVICES DISPATCHER Work Phone: [facility] 08-25-2021 14:34-0400 Heart rate 103 /min Mable Walker HEALTH INFORMATION MANAGER.911 EMERGENCY SERVICES DISPATCHER Work Phone: [facility] 08-25-2021 14:34-0400 Respiratory rate 24 /min Mable Walker HEALTH INFORMATION MANAGER.911 EMERGENCY SERVICES DISPATCHER Work Phone: [facility] 08-25-2021 14:34-0400 SaO2% (BldA) [Mass fraction] 98 % Mable Walker HEALTH INFORMATION MANAGER.911 EMERGENCY SERVICES DISPATCHER Work Phone: [facility] 08-25-2021 14:34-0400 Systolic blood pressure 174 mm[Hg] Mable Walker HEALTH INFORMATION MANAGER.911 EMERGENCY SERVICES DISPATCHER Work Phone: [facility] 08-19-2021 13:33-0400 Body temperature 99.19 [degF] Umu Praisler-Wood HEALTH INFORMATION MANAGER.911 EMERGENCY SERVICES DISPATCHER Work Phone: [facility] 08-19-2021 13:33-0400 Body weight 144.52 kg Umu Praisler-Wood HEALTH INFORMATION MANAGER.911 EMERGENCY SERVICES DISPATCHER Work Phone: [facility] 08-19-2021 13:33-0400 Diastolic blood pressure 70 mm[Hg] Umu Praisler-Wood HEALTH INFORMATION MANAGER.911 EMERGENCY SERVICES DISPATCHER Work Phone: [facility] 08-19-2021 13:33-0400 Heart rate 105 /min Umu Praisler-Wood HEALTH INFORMATION MANAGER.911 EMERGENCY SERVICES DISPATCHER Work Phone: [facility] 08-19-2021 13:33-0400 Respiratory rate 21 /min Umu Praisler-Wood HEALTH INFORMATION MANAGER.911 EMERGENCY SERVICES DISPATCHER Work Phone: [facility] 08-19-2021 13:33-0400 SaO2% (BldA) [Mass fraction] 98 % Umu Praisler-Wood HEALTH INFORMATION MANAGER.911 EMERGENCY SERVICES DISPATCHER Work Phone: [facility] 08-19-2021 13:33-0400 Systolic blood pressure 132 mm[Hg] Umu Praisler-Wood HEALTH INFORMATION MANAGER.911 EMERGENCY SERVICES DISPATCHER Work Phone: [facility] 07-30-2021 19:52-0400 Body temperature 97.81 [degF] Mable Walker HEALTH INFORMATION MANAGER.911 EMERGENCY SERVICES DISPATCHER Work Phone: [facility] 07-30-2021 19:52-0400 Body weight 145.51 kg Mable Walker HEALTH INFORMATION MANAGER.911 EMERGENCY SERVICES DISPATCHER Work Phone: [facility] 07-30-2021 19:52-0400 Diastolic blood pressure 80 mm[Hg] Mable Walker HEALTH INFORMATION MANAGER.911 EMERGENCY SERVICES DISPATCHER Work Phone: [facility] 07-30-2021 19:52-0400 Heart rate 114 /min Mable Walker HEALTH INFORMATION MANAGER.911 EMERGENCY SERVICES DISPATCHER Work Phone: [facility] 07-30-2021 19:52-0400 Respiratory rate 18 /min Mable Walker APRN.911 EMERGENCY SERVICES DISPATCHER Work Phone: [facility] 07-30-2021 19:52-0400 SaO2% (BldA) [Mass fraction] 98 % Mable Walker APRN.911 EMERGENCY SERVICES DISPATCHER Work Phone: [facility] 07-30-2021 19:52-0400 Systolic blood pressure 126 mm[Hg] Mable Walker APRN.911 EMERGENCY SERVICES DISPATCHER Work Phone: [facility] 06-11-2021 11:09-0400 Body weight 139.34 kg Pierre Burgos MD Work Phone: [facility] 06-11-2021 11:09-0400 Diastolic blood pressure 70 mm[Hg] Pierre Burgos MD Work Phone: [facility] 06-11-2021 11:09-0400 Heart rate 60 /min Pierre Burgos MD Work Phone: [facility] 06-11-2021 11:09-0400 Respiratory rate 16 /min Pierre Burgos MD Work Phone: [facility] 06-11-2021 11:09-0400 Systolic blood pressure 124 mm[Hg] Pierre Burgos MD Work Phone: [facility] Encounters Encounter Date Encounter Type Care Provider Facility Start: 05-04-2023 Telephone encounter Lyssa Lemos MD Work Phone: [facility] Procedures Date Procedure Procedure Detail Performing Clinician Start: 04-20-2023 BMP - EXTERNAL [facility] Prov ider Start: 04-20-2023 Hemoglobin A1c/Hemoglobin.total in Blood [facility] Provider Start: 09-24-2022 Lipid 1996 panel - S william or Plasma Caitlyn Walker MA Start: 11-26-2021 Us lmtd joint/oth no nvasc xtr strux r-t w/img Berenice Marie PA-C Work Phone: Start: 11-26-2021 Diagnostic mammograp hy computer-aided detcj bi Berenice Marie PA-C Work Phone: Start: 10-10-2021 Urnls dip stick/tabl et rgnt auto w/o microscopy [facility] Provider Start: 09-11-2021 Adult depression scr eening assessment Corin German HEALTH INFORMATION MANAGER.911 EMERGENCY SERVICES DISPATCHER Work Phone: Start: 05-03-2020 Adult depression scr eening assessment Pierre Burgos MD Work Phone: Start: 05-19-2019 Colonoscopy Pierre chambers MD Work Phone: Plan of Treatment Date Care Activity Detail Author Start: 05-18-2029 Colonoscopy COLONOSCOPY [facility] Start: 05-18-2029 COLORECTAL CANCER SCREENING COLORECTAL CANCER SCREENING [facility] Start: 05-18-2029 Screening for malignant neoplasm of colon [facility] Start: 09-25-2027 Lipid 1996 panel - Serum or Plasma Lipid Screening [facility] Start: 09-25-2027 Lipid panel Lipid Screening [facility] Start: 09-25-2027 LIPID SCREEN LIPID SCREEN [facility] Start: 09-25-2027 PROSTATE CANCER SCREENING DISCUSSION PROSTATE CANCER SCREENING DISCUSSION [facility] Start: 09-25-2027 Prostate specific antigen measurement Prostate Cancer Screening Discussion [facility] Start: 10-11-2026 LIPID SCREEN LIPID SCREEN [facility] Start: 10-11-2026 PROSTATE CANCER SCREENING DISCUSSION PROSTATE CANCER SCREENING DISCUSSION [facility] Start: 04-20-2026 Diabetes Screening Diabetes Screening [facility] Start: 10-01-2025 LIPID SCREEN LIPID SCREEN [facility] Start: 10-01-2025 PROSTATE CANCER SCREENING DISCUSSION PROSTATE CANCER SCREENING DISCUSSION [facility] Start: 09-24-2025 DIABETES SCREEN DIABETES SCREEN [facility] Start: 09-24-2025 Diabetes Screening Diabetes Screening [facility] Start: 10-11-2024 DIABETES SCREEN DIABETES SCREEN [facility] Start: 05-01-2024 Annual PCP Team Chronic Disease Visit Annual PCP Team Chronic Disease Visit [facility] Start: 04-02-2024 Annual PCP Team Chronic Disease Visit Annual PCP Team Chronic Disease Visit [facility] Start: 03-11-2024 DIABETES SCREEN DIABETES SCREEN [facility] Start: 01-28-2024 Annual PCP Team Chronic Disease Visit Annual PCP Team Chronic Disease Visit [facility] Start: 12-31-2023 Annual PCP Team Chronic Disease Visit Annual PCP Team Chronic Disease Visit [facility] Start: 12-31-2023 BP Controlled (<130/80) BP Controlled (<130/80) [facility] Start: 09-30-2023 ANNUAL PCP TEAM CHRONIC DISEASE VISIT ANNUAL PCP TEAM CHRONIC DISEASE VISIT [facility] Start: 09-18-2023 ANNUAL PCP TEAM CHRONIC DISEASE VISIT ANNUAL PCP TEAM CHRONIC DISEASE VISIT [facility] Start: 09-18-2023 BP CONTROLLED (<130/80) BP CONTROLLED (<130/80) [facility] Start: 03-29-2023 ANNUAL PCP TEAM CHRONIC DISEASE VISIT ANNUAL PCP TEAM CHRONIC DISEASE VISIT [facility] Start: 03-04-2023 Urine microalbumin profile [facility] Start: 11-14-2022 Covid-19 Vaccine () Covid-19 Vaccine () [facility] Start: 11-14-2022 Influenza vaccination [facility] Start: 10-15-2022 ANNUAL PCP TEAM CHRONIC DISEASE VISIT ANNUAL PCP TEAM CHRONIC DISEASE VISIT [facility] Start: 10-15-2022 BP CONTROLLED (<130/80) BP CONTROLLED (<130/80) [facility] Start: 10-10-2022 BP CONTROLLED (<130/80) BP CONTROLLED (<130/80) [facility] Start: 09-15-2022 End: 11-15-2022 CBC W Auto Differential panel - Blood CBC + DIFF Lab Routine Iron excess Expected: 09/15/2022, Expires: 11/15/2022 [facility] Work Phone: Immunizations Immunization Date Immunization Notes Care Provider [facility] 12-22-2022 influenza, seasonal, injectable Pierre Burgos MD Work Phone: [facility] 03-18-2021 COVID-19 vaccine, ag e 12+ yr (PFIZER-BIONTATG Access - PURPLE TOP) Pierre Burgos MD Work Phone: [facility] Work Phone: 03-18-2021 zoster vaccine recombinant Pierre Burgos MD Work Phone: [facility] Work Phone: 12-17-2020 influenza, injectabl e, quadrivalent, contains preservative Pierre Burgos MD Work Phone: [facility] 12-17-2020 influenza virus vacc ine, unspecified formulation Caitlyn Walker MA [facility] 10-03-2020 zoster vaccine recombinant Pierre Burgos MD Work Phone: [facility] 06-29-2020 COVID-19 vaccine, fu ll dose (MODERNA) Pierre Burgos MD Work Phone: [facility] 05-31-2020 COVID-19 vaccine, fu ll dose (MODERNA) Pierre Burgos MD Work Phone: [facility] 12-15-2018 influenza virus vacc ine, unspecified formulation Pierre Burgos MD Work Phone: [facility] 12-07-2017 influenza, seasonal, injectable, preservative free Pierre Burgos MD Work Phone: [facility] 12-03-2017 influenza virus vacc ine, unspecified formulation Pierre Burgos MD Work Phone: [facility] 12-29-2016 influenza, seasonal, injectable Pierre Burgos MD Work Phone: [facility] 01-11-2016 influenza, seasonal, injectable Pierre Burgos MD Work Phone: [facility] 02-24-2014 pneumococcal polysaccharide vaccine, 23 valent Pierre Burgos MD Work Phone: [facility] 03-04-2013 tetanus toxoid, redu halie diphtheria toxoid, and acellular pertussis vaccine, adsorbed Pierre Burgos MD Work Phone: [facility] 12-12-2011 influenza virus vacc ine, unspecified formulation Pierre Burgos MD Work Phone: [facility] Work Phone: 02-27-2009 novel influenza-H1N1 -09, preservative-free, injectable Pierre Burgos MD Work Phone: [facility] Payers Date Payer Category Payer Unknown [employer] P[employer] [id number] 2021-Present [phone] [facility] [id number] [place] [address] PPO [id number] 2021 Unknown [employer] PPO [id number] 2021-Present [phone] [address] [place] [address] PPO [id number] 2021 Unknown [id number] Social History Date Type Detail Facility Tobacco smoking stat us NHIS Unknown if ever smoked [facility] Start: 1965 [facility] Start: 05-08-2011 End: 02-28-2022 Tobacco smoking status NHIS Never smoked tobacco [facility] Start: 06-11-2021 End: 05-01-2023 Alcohol intake Current drinker of [facility] (finding) [facility] [facility] Start: 2020 End: 03-29-2020 History SDOH Alcohol Frequency 2 [facility] Start: 09-28-2019 End: 2020 History SDOH Alcohol Std Drinks 1 [facility] Start: 02-20-2012 History SDOH Alcohol Comment episodic, 3-4 drinks per month [facility] Start: 03-29-2019 End: 09-28-2019 History SDOH Social Connections Phone 5 [facility] Start: 03-29-2019 End: 2020 History SDOH Social Connections Judaism 3 [facility] Start: 03-29-2019 Education 17 [facility] Start: 06-01-2021 End: 11-26-2021 Exposure to SARS-CoV-2 (event) Not sure [facility] Start: 05-08-2011 End: 02-28-2022 Tobacco use and exposure Smokeless tobacco non-user [facility] Start: 2020 End: 09-17-2022 History of Social function [facility] Start: 2020 End: 09-17-2022 Social connection and isolation panel [facility] Frequency of Communi cation with Friends and Family Not on file [facility] How often to you hav e a drink containing alcohol? Monthly or less [facility] How often do you hav e 6 or more drinks on 1 occasion? Never [facility] Do you feel stress - tense, restless, nervous, or anxious, or unable to sleep at night because your mind is troubled all the time - these days [OSQ] Not at all [facility] (I/We) worried wheth er (my/our) food would run out before (I/we) got money to buy more. Never true [facility] In the past 12 month s, was there a time when you were not able to pay the mortgage or rent on time? No [facility] Clinical Notes 06-11-2021 to 05-04-2023 Telephone Encounter - Caitlyn Walker MA - 05/04/2023 4:26 PM ESTTelephone Encounter - Emilee Moreau RN - 05/04/2023 9:08 AM ESTPatient InstructionsPatient InstructionsPatient Instructions Note Date & Type Note Facility 05-04-2023 Miscellaneous Notes This was faxed on 05/01/2023. Refaxing. Caitlyn Wlaker MA [facility] calls to request surgical clearance forms and recent OV note be faxed to them. Faxed OV note to [phone] per request. Please fax surgical clearance forms to [phone]. Emilee Moreau RN documented in this encounter [facility] 05-04-2023 Miscellaneous Notes Rec'd covermymeds PA for lovenox. When reviewing this it says covered at 12.75$ for local pharmacy. called the pharmacy and pt paid henning with a discount card. documented in this encounter [facility] 05-01-2023 Note HNO ID: [id number] Author: LYSSA LEMOS MD Service: ? Author Type: Physician Type: Progress Notes Filed: 05/01/2023 09:31 Note Text: Chief Complaint Patient presents with: Pre-Op Exam HPI Sedrick Milian is a 58 year old male who presents here today for Pre op. Patient is here for robotic assisted left total knee arthorplasty with Ceasar Rodriguez, Dr. Okeefe at [facility]. Patient is scheduled 05/11/2023. Patient did see hematology was cleared. Patient with Hx of HTN and on fdc anticoagulation for Hx of PE's. Patient indicated that EKG, CT and labs completed at [facility]. Patient can move furniture and walk a flight of steps without chest pain or shortness of breath. Past medical history, appointments, medications, allergies reviewed. [...] placed on Eliquis. Per hematology 03/2019 needs fdc anticoagulation. Iron excess 10/12/2010 Negative hematology workup [...] (FLONASE) 50 mcg/actuation nasal spray Use 1 [place] in each nostril once daily. Or up to twice a day. Rinse mouth after use. Comp.Stocking,Knee,Regular,Lrg misc 1 Each once daily. For Leg Edema: R60.0, I87.2, and Z91.89. 30-40 mm. potassium chloride ER (KLOR-CON) 20 mEq tablet Take 1 tablet by mouth two times a day. benzonatate (TESSALON PERLES) 100 mg capsule Take 1 capsule by mouth three times a day as needed for cough. (Patient not taking: Reported on 05/01/2023) albuterol HFA (VENTOLIN HFA) 90 mcg/actuation inhaler Inhale 2 Puffs as instructed every 4 hours as needed for wheezing/shortness of breath. (Patient not taking: Reported on 05/01/2023) No current facility-administered medications on file prior to visit. Social History Social (more content not included)... [facility] 05-01-2023 Instructions Lyssa Lemos MD - 05/01/2023 9:20 AM EST Stop the Eliquis 2 days prior to surgery. On Days one and two prior to surgery you will be bridged with Lovenox 40 mg SQ once a day. Restart the Eliquis the day after surgery. documented in this encounter [facility] 05-01-2023 History of Presen t illness Narrative Chief Complaint Patient presents with: Pre-Op Exam HPI Sedrick Milian is a 58 year old male who presents here today for Pre op. Patient is here for robotic assisted left total knee arthorplasty with Ceasar Rodriguez, Dr. Okeefe at [facility]. Patient is scheduled 05/11/2023. Patient did see hematology was cleared. Patient with Hx of HTN and on fdc anticoagulation for Hx of PE's. Patient indicated that EKG, CT and labs completed at [facility]. Patient can move furniture and walk a flight of steps without chest pain or shortness of breath. Past medical history, appointments, medications, allergies reviewed. [...] placed on Eliquis. Per hematology 03/2019 needs intermediate designer anticoagulation. Iron excess 10/12/2010 Negative hematology workup [...] (FLONASE) 50 mcg/actuation nasal spray Use 1 [place] in each nostril once daily. Or up to twice a day. Rinse mouth after use. Comp.Stocking,Knee,Regular,Lrg misc 1 Each once daily. For Leg Edema: R60.0, I87.2, and Z91.89. 30-40 mm. potassium chloride ER (KLOR-CON) 20 mEq tablet Take 1 tablet by mouth two times a day. benzonatate (TESSALON PERLES) 100 mg capsule Take 1 capsule by mouth three times a day as needed for cough. (Patient not taking: Reported on 05/01/2023) albuterol HFA (VENTOLIN HFA) 90 mcg/actuation inhaler Inhale 2 Puffs as instructed every 4 hours as needed for wheezing/shortness of breath. (Patient not taking: Reported on 05/01/2023) No current facility-administered medications on file prior [...] of breath CARDIOVASCULAR: Negative for chest pain, increased leg swelling, hypertension, CHF or palpitations GI: No nausea, vomiting, or diarrhea and no stomach pain. : No history of dysuria, frequency or blood SKIN: Negative for lesions, rash, and itching HEMATOLOGY/LYMPHOLOGY: Negative for prolonged bleeding, bruising easily or swollen nodes NEURO: No history of headaches, syncope, paralysis, seizures or tremors Musc: increased left knee pain and swelling. EXAM: BP 122/84 (BP Site: Right Arm, BP Position: Sitting, BP Cuff Size: Large Adult) Pulse 70 Resp 16 Wt (!) 150.1 kg (331 lb) BMI 49.02 kg/m Last 4 Encounter Wt Readings: Date: Wt: 05/01/2023 150.1 kg (331 lb) 04/08/2023 148.8 kg (328 lb) 04/02/2023 144.9 kg (319 lb 6.4 oz) 03/26/2023 146.5 kg (323 lb) General Appearance: Well appearing, alert, in no acute distress, well-hydrated, well nourished. and Morbidly obese. Skin: Skin color, texture, turgor normal, no suspicious rashes or lesions. Head: Normocephalic, no masses, lesions, tenderness or abnormalities. Eyes: Anicteric sclera. Pupils are equally round and reactive to light. Extraocular movements are intact. . Ears: External ears normal, canals clear. Nose/Sinuses: Nares normal, septum midline, mucosa normal, no drainage or sinus tenderness. Oropharynx: Lips, mucosa, and tongue normal, teeth and gums normal, oropharynx normal. Neck: Supple, no adenopathy; thyroid symmetric, normal size, no bruits. Lungs: Lungs clear to auscultation. No wheezing, rhonchi, rales.. Heart: RRR without murmur, gallop, or rubs. No ectopy. Abdomen: Normal abdominal exam, Abdomen soft, non-tender. Bowel sounds normal. No masses, organomegaly. Extremities: No deformities, edema, skin discoloration, Good capillary refill. . Peripheral Pulses: Normal. Neurologic: Gait normal. Sensation to light touch and crainal nerves 2-12 intact.. Health Maintenance List Covid-19 Vaccine(2022- season) due on 11/14/2022 DTaP,Tdap,Td Vaccine(2 - Td or Tdap) due on 03/04/2023 BP Controlled (<130/80) due on 09/18/2023 Annual PCP Team Chronic Disease Visit due on 04/02/2024 Diabetes Screening due on 04/20/2026 Lipid Screening due on 09/25/2027 Prostate Cancer Screening Discussion due on 09/25/2027 Colorectal Cancer Screening due on 05/18/2029 Spirometry Completed Influenza Vaccine Completed Depression Assessment Completed Hepatitis C Screening Completed HIV Screening Completed Shingrix Vaccine Completed Hepatitis B Vaccine Discontinued Data reviewed Outside EKG 04/20/2023: showed NSR with no acute ST or T wave changes and no changes when compared to EKG from 06/27/2011 Component Latest Ref Rng & Units 04/20/2023 Glucose 74 - 106 MG/DL 111 (A) Sodium 136 - 145 MEQ/L 136 Potassium 3.5 - 5.1 MEQ/L 3.6 Chloride 98 - 107 MEQ/L 106 BICARBONATE 26 Anion Gap 4 Urea Nitrogen 6 - 20 mg/dL 16 Creatinine 0.6 - 1.3 MG/DL 0.81 GFR mL/MIN 104 GFR AFR AMER mL/MIN 126 Calcium 8.8 - 10.5 MG/DL 10.3 Hemoglobin A1C 0 - 5.7 % 5.6 A/P ASSESSMENT/PLAN: 1. Pre-op examination - ICD9: V72.84, ICD10: Z01.818 (primary diagnosis) - Based on the ACC/AHA Classification of Surgical procedure risk this is a moderate risk procedure. Based on the Marbin's Simple Cardiac Risk Index patient has a cardiac risk of 0.4%. patient has a moderate to excellent exercise capacity. Patient is medically released to proceed with left TKA on 05/11/2023. 2. Arthritis of left knee - ICD9: 716.96, ICD10: M17.12 - plan is for left TKA per Dr. Okeefe 3. Acute pain of left knee - ICD9: 719.46, ICD10: M25.562 - as per #2 4. History of pulmonary embolus (PE) - ICD9: V12.55, ICD10: Z86.711 - patient instructed to stop his Eliquis 2 days prior to surgery. On Days one and two prior to surgery he will be bridged with Lovenox 40 mg SQ once a day. Patient instructed to restart the Eliquis the day after surgery. 5. Essential hypertension, benign - ICD9: 401.1, ICD10: I10 - Controlled - Continue current medications - Recommend home blood pressure monitoring, to bring results to next visit - Encouraged sodium restriction, DASH or Mediterranean diet - Recommend regular aerobic exercise F/u next routine. Lyssa Lemos MD documented in this encounter [facility] 04-21-2023 Note HNO ID: [id number] Author: CARMEL SANCHEZ LPN Service: ? Author Type: LICENSED NURSE Type: Progress Notes Filed: 04/21/2023 14:43 Note Text: Scan on 04/21/2023 2:15 PM by ProviderFarrukh PA-C: Microbiology [facility] 04-21-2023 History of Presen t illness Narrative Scan on 04/21/2023 2:15 PM by ProviderFarrukh PA-C: Microbiology documented in this encounter [facility] 04-08-2023 Note HNO ID: [id number] Author: DERICK SEGOVIA MD Service: ? Author [...] placed on Eliquis. Per hematology 03/2019 needs fdc anticoagulation. Iron excess 10/12/2010 Negative hematology workup [...] MEDICATIONS: lisinopril-hydroCHLOROthiazide (ZESTORETIC (more content not included)... [facility] 04-02-2023 Note HNO ID: [id number] Author: PIERRE BURGOS MD Service: ? Author [...] month. 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 Admits that he is not getting up [...] placed on Eliquis. Per hematology 03/2019 needs intermediate designer anticoagulation. Iron excess 10/12/2010 Negative hematology workup [...] (FLONASE) 50 mcg/actuation nasal spray Use 1 [place] in each nostril once daily. Or up to twice a day. (more content not included)... [facility] 03-26-2023 Note HNO ID: [id number] Author: RACHEL HARDEN RT(R) Service: ? Author Type: Manager Skilled Type: Progress Notes Filed: 03/26/2023 12:30 Note [...] RT Kevin(R) March 26, 2023 12:18 PM [facility] 03-26-2023 Note HNO ID: [id number] Author: KATIA TAVARES APRN.911 EMERGENCY SERVICES DISPATCHER Service: ? Author Type: Nurse Practitioner Type: [...] placed on Eliquis. Per hematology 03/2019 needs intermediate designer anticoagulation. Iron excess 10/12/2010 Negative hematology workup [...] (FLONASE) 50 mcg/actuation nasal spray Use 1 [place] in each nostril once daily. Or up [...] (Patient not taki (more content not included)... [facility] 03-24-2023 Note HNO ID: [id number] Author: FADY CHANEY APRN.911 EMERGENCY SERVICES DISPATCHER Service: ? Author Type: Nurse Practitioner Type: [...] history is provided by the patient. No language and literature division chair was used. Sinus Problem This is a [...] placed on Eliquis. Per hematology 03/2019 needs fdc anticoagulation. Iron excess 10/12/2010 Negative hematology workup [...] (FLONASE) 50 mcg/actuation nasal spray Use 1 [place] in each nostril once daily. Or up [...] of Onset Hypertens (more content not included)... [facility] 03-17-2023 Note HNO ID: [id number] Author: Maria Isabel Lee RT(R) Service: Radiology Author Type: Technologist Type: Progress [...] RT Dariela(R) March 17, 2023 10:32 AM [facility] 03-17-2023 Note HNO ID: [id number] Author: Lyssa Carrizales APRN.911 EMERGENCY SERVICES DISPATCHER Service: ? Author Type: Nurse Practitioner Type: [...] placed on Eliquis. Per hematology 03/2019 needs intermediate designer anticoagulation. Iron excess 10/12/2010 Negative hematology workup [...] (FLONASE) 50 mcg/actuation nasal spray Use 1 [place] in each nostril once daily. Or up [...] Maternal Grandmother 89 (more content not included)... [facility] 02-13-2023 Note HNO ID: [id number] Author: Amari Lin MD Service: ? Author [...] (FLONASE) 50 mcg/actuation nasal spray Use 1 [place] in each nostril once daily. Or up [...] or late onset fever. Amari Lin MD [facility] 02-13-2023 History of Presen t illness [...] (FLONASE) 50 mcg/actuation nasal spray Use 1 [place] in each nostril once daily. Or up [...] Amari Lin MD documented in this encounter [facility] 02-11-2023 Miscellaneous Notes The following approved medication requests have been transmitted electronically. Requested Prescriptions Signed Prescriptions Disp Refills albuterol HFA (VENTOLIN HFA) 90 mcg/actuation inhaler 18 g 0 Sig: Inhale 2 Puffs as instructed every 4 hours as needed for wheezing/shortness of breath. Authorizing Provider: LYSSA LEMOS MD Last refill 02/01/20 Qty: 18 g with 1 refill ORAL 12/30/[address] Fawad STODDARD 03/20/23 Carmel Sanchez LPN documented in this encounter [facility] 02-09-2023 Note HNO ID: [id number] Author: Magdaleno Dan PA Service: ? Author Type: Physician Engine Assembly Supervisor Type: Progress Notes Filed: 02/09/2023 2:57 PM [...] Arthritis of both knees 09/17/2022 Seeing Ceasar rodriguze Arthritis, lumbar spine 06/14/2015 Mild on x-ray [...] placed on Eliquis. Per hematology 03/2019 needs fdc anticoagulation. Iron excess 10/12/2010 Negative hematology workup [...] (FLONASE) 50 mcg/actuation nasal spray Use 1 [place] in each nostril once daily. Or up [...] for sore throat. (more content not included)... [facility] 02-09-2023 History of Presen t illness Narrative This note was created using Eposriter. Subjective Sedrick Milian is a 58 year [...] placed on Eliquis. Per hematology 03/2019 needs fdc anticoagulation. Iron excess 10/12/2010 Negative hematology workup [...] (FLONASE) 50 mcg/actuation nasal spray Use 1 [place] in each nostril once daily. Or up [...] evaluation. ANNELIESE Boland documented in this encounter [facility] 01-27-2023 Note HNO ID: [id number] Author: Lyssa Lemos MD Service: ? Author Type: Physician Type: Progress Notes Filed: 01/27/2023 12:04 PM Note Text: Patient's surgery will not be until after the first of the year. Patient will contact ortho and let us know date of surgery and will get him in for pre-op. Patient will need Lovenox bridging prior to surgery. [facility] 01-27-2023 History of Presen t illness Narrative Patient's surgery will not be until after the first of the year. Patient will contact ortho and let us know date of surgery and will get him in for pre-op. Patient will need Lovenox bridging prior to surgery. documented in this encounter [facility] 01-05-2023 Miscellaneous Notes The following approved medication requests have been transmitted electronically. Requested Prescriptions Signed Prescriptions Disp Refills Comp.Stocking,Knee,Regular,Lrg misc 4 Each 11 Si Each once daily. For Leg Edema: R60.0, I87.2, and Z91.89. 30-40 mm. Authorizing Provider: LYSSA LEMOS MD ORAL 12/30/22 NOV 01/27/23 Carmel Sanchez LPN documented in this encounter [facility] 01-05-2023 Miscellaneous Notes The following approved [...] need to notify patient. Caitlyn Walker MA [facility] 09/2022 Nov 01/2023 Last refill: 04/2022 Patient [...] patient. Camilla Solo documented in this encounter [facility] 12-30-2022 Note HNO ID: [id number] Author: Pierre Burgos MD Service: ? Author [...] having two teenage children. 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 Reports that his exercise has really came [...] placed on Eliquis. Per hematology 03/2019 needs intermediate designer anticoagulation. Iron excess 10/12/2010 Negative hematology workup [...] mg tab(s) Take (more content not included)... [facility] 12-30-2022 History of Presen t illness [...] having two teenage children. 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 Reports that his exercise has really came [...] placed on Eliquis. Per hematology 03/2019 needs fdc anticoagulation. Iron excess 10/12/2010 Negative hematology workup [...] (FLONASE) 50 mcg/actuation nasal spray Use 1 [place] in each nostril once daily. Or up [...] 790.29, ICD10: R73.09 - Diet, exercise and pharmacy technician program director 3. Prediabetes - ICD9: 790.29, ICD10: R73.03 - As noted above 3 mo f/u I agree with the Chief Complaint, ROS, and Past Histories independently gathered by the clinical residential support specialist and the remaining scribed note accurately describes [...] Nini Evans Ma documented in this encounter [facility] 12-25-2022 Miscellaneous Notes Patient scheduled. Caitlyn Walker MA Received paperwork from Ceasar Rodriguez requesting surgery clearance. Left patient a message that patient needs scheduled for pre op appointment this can be with Dr. Lemos or Katia. Please allow 40 minute appointment. Paperwork given back to provider. Caitlyn Walker MA documented in this encounter [facility] 10-31-2022 Miscellaneous Notes Received denial for ozempic not covered for weight loss Elsa Johnston Ma Received PA request from pharmacy on Ozempic Completed form through [employer] and faxed Elsa Johnston Ma documented in this encounter [facility] 09-29-2022 Note HNO ID: [id number] Author: Pierre Burgos MD Service: ? Author [...] watch diet and is working with a pharmacy technician program director. Pt prefers not to have surgery for [...] placed on Eliquis. Per hematology 03/2019 needs intermediate designer anticoagulation. Iron excess 10/12/2010 Negative hematology workup [...] mouth twice daily. (more content not included)... [facility] 09-29-2022 Instructions Trina Myrick Ma - 09/29/2022 12:59 PM EDT Start Ozempic 0.25 mg weekly for 4 weeks then increase to the 0.5 mg weekly till next visit with provider. You can go to the Ozempic website and see if there is any discount cards or coupons to apply toward cost. May try Good [facility]. documented in this encounter [facility] 09-29-2022 History of Presen t illness [...] watch diet and is working with a pharmacy technician program director. Pt prefers not to have surgery for [...] placed on Eliquis. Per hematology 03/2019 needs fdc anticoagulation. Iron excess 10/12/2010 Negative hematology workup [...] (FLONASE) 50 mcg/actuation nasal spray Use 1 [place] in each nostril once daily. Or up [...] 09/24/2022 Negative Ketones, Urine 09/24/2022 Negative Specific [place], Ur 09/24/2022 1.007 Hemoglobin/Blood,Ur 09/24/2022 Negative pH, [...] 09/24/2022 2.71 Monocytes % 09/24/2022 13.0 Abs [place] 09/24/2022 1.12 (H) Eosinophils % 09/24/2022 3.7 Abs Eosin 09/24/2022 0.32 Basophils % 09/24/2022 0.6 Abs Baso 09/24/2022 0.05 Immature Granulocytes % 09/24/2022 0.9 Abs Immature Gran 09/24/2022 0.08 NRBC 09/24/2022 0.0 Absolute nRBC 09/24/2022 <0.01 Diff Type 09/24/2022 Auto ASSESSMENT/PLAN: 1. Elevated hemoglobin A1c - ICD9: 790.29, ICD10: R73.09 (primary diagnosis) Start Ozempic Recommend diet and exercise Continue with Staffing Clerk 2. Obesity, Class III, BMI 40-49.9 (morbid obesity) (HCC) - ICD9: 278.01, ICD10: E66.01 Weight increasing Start Ozempic Recommend healthy diet and exercise Continue with Staffing Clerk Follow up in 3 months. I agree with the Chief Complaint, ROS, and Past Histories independently gathered by the clinical residential support specialist and the remaining scribed note accurately describes [...] Trina Myrick Ma documented in this encounter [facility] 09-29-2022 Miscellaneous Notes Patient calls and notified of results and providers instructions. Patient verbalizes understanding. Emilee Moreau RN Left message for pt to contact office. Carmel Sanchez LPN Let patient know his UA, CBC iron studies, lipid panel, prostate lab, electrolytes, liver and kidney functions were all ok. Blood sugar test slightly elevated again. Advise working on reduced carbs, sugars, sweets and starches in diet. documented in this encounter [facility] 09-17-2022 Note HNO ID: [id number] Author: Lyssa Lemos MD Service: ? Author [...] why. Left Knee: has arthritis and seeing [facility] and is going to Get a [...] placed on Eliquis. Per hematology 03/2019 needs fdc anticoagulation. Iron excess 10/12/2010 Negative hematology workup [...] twice daily. lisinop (more content not included)... [facility] 09-17-2022 Instructions Lyssa Lemos MD - 09/17/2022 7:43 PM EDT advised on use of over the counter Lamisil or lotrimin cream twice a day for the next 3-4 weeks. If not improving in the next 2 weeks though send a my chart message to Dr. Lemos. documented in this encounter [facility] 09-17-2022 History of Presen t illness [...] why. Left Knee: has arthritis and seeing [facility] and is going to Get a [...] placed on Eliquis. Per hematology 03/2019 needs intermediate designer anticoagulation. Iron excess 10/12/2010 Negative hematology workup [...] (FLONASE) 50 mcg/actuation nasal spray Use 1 [place] in each nostril once daily. Or up [...] shortness of breath (had some with the wiMAN smoke but has resolved) CARDIOVASCULAR: Negative for [...] Lyssa Lemos MD documented in this encounter [facility] 09-15-2022 Miscellaneous Notes Patient notified and [...] in the AM. documented in this encounter [facility] 06-25-2022 Note HNO ID: [id number] Author: Corin German APRN.911 EMERGENCY SERVICES DISPATCHER Service: ? Author Type: Nurse Practitioner Type: Progress Notes Filed: 06/25/2022 12:47 PM Note Text: Subjective The history is provided by the patient. No language and literature division chair was used. HPI Sedrick Milian is a [...] placed on Eliquis. Per hematology 03/2019 needs intermediate designer anticoagulation. Iron excess 10/12/2010 Negative hematology workup [...] Well adult exam 09/15/2017 last done: 09/28/20110 I have confirmed and edited as necessary, the [facility] Review of Systems Constitutional: Negative for chills [...] and symptoms t (more content not included)... [facility] 06-25-2022 History of Presen t illness Narrative Subjective The history is provided by the patient. No language and literature division chair was used. HPI Sedrick Milian is a [...] placed on Eliquis. Per hematology 03/2019 needs fdc anticoagulation. Iron excess 10/12/2010 Negative hematology workup [...] Well adult exam 09/15/2017 last done: 09/28/20110 I have confirmed and edited as necessary, the [facility] Review of Systems Constitutional: Negative for chills [...] detail warranting prompt ER evaluation. Corin German APRN.911 EMERGENCY SERVICES DISPATCHER documented in this encounter [facility] 05-05-2022 Miscellaneous Notes Pharmacy requesting refills as follows: Requested Prescriptions Pending Prescriptions Disp Refills potassium chloride ER (K-DUR, KLOR-CON) 20 mEq tablet [Pharmacy Med Name: potassium chloride ER 20 mEq tablet,extended release(part/cryst)] 180 tablet 1 Sig: Take 1 tablet by mouth twice daily. ORAL: 03/29/22 NOV: 09/29/22 Last Refill: 08/15/21 #180 1 refill Nani Kathleen LPN documented in this encounter [facility] 04-08-2022 Miscellaneous Notes Patient has been [...] Aleah Manuel LPN documented in this encounter [facility] 03-29-2022 History of Presen t illness [...] of vegetables and fruit. Has worked with pharmacy technician program director in the past. He prefers not to [...] placed on Eliquis. Per hematology 03/2019 needs intermediate designer anticoagulation. Iron excess 10/12/2010 Negative hematology workup [...] (FLONASE) 50 mcg/actuation nasal spray Use 1 [place] in each nostril once daily. Or up [...] Pierre Burgos MD documented in this encounter [facility] 02-28-2022 Instructions Lyssa Carrizales APRN.[facility] - 02/28/2022 12:15 PM EST [facility] [...] sprays and irrigation kits can be purchased [id number]. Saline mixes can also be purchased or [...] your individual situation. documented in this encounter [facility] 02-28-2022 History of Presen t illness [...] placed on Eliquis. Per hematology 03/2019 needs intermediate designer anticoagulation. Iron excess 10/12/2010 Negative hematology workup [...] (FLONASE) 50 mcg/actuation nasal spray Use 1 [place] in each nostril once daily. Or up [...] of care. This note was generated using ShareWithU software. It may contain errors in wording, punctuation, or spelling. Lyssa Carrizales APRN.JONAH documented in this encounter [facility] 11-26-2021 Miscellaneous Notes Pt notified of same. Carmel Sanchez LPN Let patient know that US and mammograms were negative. Berenice Marie PA-C documented in this encounter [facility] 11-26-2021 History of Presen t illness [...] 2021 9:45 AM documented in this encounter [facility] 11-26-2021 History of Presen t illness [...] IV DATA: Not applicable SIGNED BY: RT Julius(R) November 26, 2021 9:02 AM documented in this encounter [facility] 10-15-2021 Miscellaneous Notes done May we please have bilateral diagnostic mammogram orders placed per [facility] imaging protocol. Thank you very much! Sue documented in this encounter [facility] 10-15-2021 Instructions Berenice Marie PA-C - 10/15/2021 7:37 AM EDT Repeat urine in 2 weeks. documented in this encounter [facility] 10-15-2021 History of Presen t illness [...] placed on Eliquis. Per hematology 03/2019 needs fdc anticoagulation. Iron excess 10/12/2010 Negative hematology workup [...] (FLONASE) 50 mcg/actuation nasal spray Use 1 [place] in each nostril once daily. Or up [...] Abs Lymph 1.00 - 4.00 k/uL 2.53 [place]% % 11.2 Abs [place] <0.87 k/uL 0.87 (H) Eosin% % 2.3 [...] Berenice Marie PA-C documented in this encounter [facility] 10-12-2021 Miscellaneous Notes Results called to patient. Urine culture shows no infection. Labs are benign. Keep follow-up up with primary care 10/15/2021. Advised follow-up on microscopic blood in the urine, possible urology consult. documented in this encounter [facility] 10-10-2021 Instructions Umu Kowalski APRN.JONAH - 10/10/2021 11:48 AM EDT ASSESSMENT/PLAN: 1. Right-sided chest wall pain - ICD9: 786.52, ICD10: R07.89 - XR RIBS/CHEST 3V AP RIB/OBLS/CXR RIGHT Radiologist IMPRESSION: No acute radiographic abnormality. Intranet Support: DELIO Transcribe Date/Time: Oct 10 2021 11:37A [...] Discussed expected course of illness Umu Kowalski APRN.911 EMERGENCY SERVICES DISPATCHER COSTOCHONDRITIS DESCRIPTION: An inflammation of the cartilage [...] unexplained symptoms develop. documented in this encounter [facility] 10-10-2021 History of Presen t illness [...] placed on Eliquis. Per hematology 03/2019 needs fdc anticoagulation. Iron excess 10/12/2010 Negative hematology workup [...] (FLONASE) 50 mcg/actuation nasal spray Use 1 [place] in each nostril once daily. Or up [...] RIGHT Radiologist IMPRESSION: No acute radiographic abnormality. Intranet Support: DELIO Transcribe Date/Time: Oct 10 2021 11:37A [...] Discussed expected course of illness Umu Kowalski APRN.CNP documented in this encounter [facility] 10-07-2021 Miscellaneous Notes Patient given results and verbalized understanding of instructions given. Tiffanie Guajardo ----- Message from Umu Kowalski APRN.CNP sent at 10/05/2021 8:04 AM EDT ----- Please advise patient the fungal test was negative after 4 days. Umu Kowalski APRN.CNP documented in this encounter [facility] 09-30-2021 Instructions Corin German APRN.CNP - 09/30/2021 6:34 PM EDT Medication as ordered Follow up with Dr. Lemos if no improvement documented in this encounter [facility] 09-30-2021 History of Presen t illness Narrative Images from the original note were not included. Subjective The history is provided by the patient. No language and literature division chair was used. HPI Sedrick Milian is a [...] placed on Eliquis. Per hematology 03/2019 needs fdc anticoagulation. Iron excess 10/12/2010 Negative hematology workup [...] have confirmed and edited as necessary, the [facility] Review of Systems Constitutional: Negative for chills [...] Corin German APRN.JONAH documented in this encounter [facility] 08-25-2021 History of Presen t illness [...] placed on Eliquis. Per hematology 03/2019 needs intermediate designer anticoagulation. Iron excess 10/12/2010 Negative hematology workup [...] (FLONASE) 50 mcg/actuation nasal spray Use 1 [place] in each nostril once daily. Or up [...] Mable Walker APRN.JONAH documented in this encounter [facility] 08-19-2021 History of Presen t illness [...] history is provided by the patient. No language and literature division chair was used. Cough The current episode started [...] placed on Eliquis. Per hematology 03/2019 needs fdc anticoagulation. Iron excess 10/12/2010 Negative hematology workup [...] (FLONASE) 50 mcg/actuation nasal spray Use 1 [place] in each nostril once daily. Or up [...] cough persists. JAS Jones student TEACHING PROVIDER (Physician/PA/HEALTH INFORMATION MANAGER) NOTE OF PERSONAL INVOLVEMENT IN CARE: I have personally seen and examined the patient and performed the medical decision-making components. I have reviewed the Advanced Practice Registered Nurse (HEALTH INFORMATION MANAGER) Student's documentation and verified the findings in the note as written. Any additions or changes are noted in bold/italics. Signature: Umu Kowalski Date: 08/19/2021 Time: 3:34 PM documented in this encounter [facility] 08-19-2021 Instructions Matilda Pereira - 08/19/2021 [...] other serious complaints. documented in this encounter [facility] 08-15-2021 Miscellaneous Notes Pharmacy verified in [facility] Patient has been identified by name and [...] Eulalia Alford Pss documented in this encounter [facility] 07-30-2021 History of Presen t illness [...] placed on Eliquis. Per hematology 03/2019 needs fdc anticoagulation. Iron excess 10/12/2010 Negative hematology workup [...] (FLONASE) 50 mcg/actuation nasal spray Use 1 [place] in each nostril once daily. Or up [...] Mable Walker APRN.JONAH documented in this encounter [facility] 06-11-2021 History of Presen t illness [...] and working with [employer] [facility] at [facility]. He's been working with them for the [...] placed on Eliquis. Per hematology 03/2019 needs fdc anticoagulation. Iron excess 10/12/2010 Negative hematology workup [...] (FLONASE) 50 mcg/actuation nasal spray Use 1 [place] in each nostril once daily. Or up [...] Past Histories independently gathered by the clinical residential support specialist and the remaining scribed note accurately describes [...] Nini Evans Ma documented in this encounter [facility] Diagnosis Cough- Primary [facility] Diagnosis Cough- Primary [facility] Diagnosis Cough- Primary [facility] Diagnosis Tongue plaque- Primary Leukoplakia of oral mucosa, including tongue [facility] Diagnosis Right-sided chest wall pain- Primary Painful respiration Microscopic hematuria [facility] Diagnosis Essential hypertension, benign- Primary Adjustment insomnia Transient disorder of initiating or maintaining sleep Mild intermittent reactive airway disease without complication NINA (obstructive sleep apnea) Obstructive sleep apnea (adult) (pediatric) Elevated hemoglobin A1c Other abnormal blood chemistry Bilateral leg edema Edema Venous insufficiency of both lower extremities Morbid obesity Pain in axilla, unspecified laterality Microscopic hematuria Chest wall pain Painful respiration [facility] Diagnosis Axillary pain, unspecified laterality- Primary [facility] Diagnosis Axillary pain, unspecified laterality [facility] Diagnosis Pain in axilla, unspecified laterality [facility] Diagnosis Eustachian tube dysfunction, bilateral- Primary Bacterial sinusitis Unspecified sinusitis (chronic) [facility] Diagnosis Obesity, Class III, BMI 40-49.9 (morbid obesity) ([facility])- Primary Morbid obesity Essential hypertension, benign [facility] Diagnosis Essential hypertension, benign [facility] Diagnosis Acute non-recurrent maxillary sinusitis- Primary Plaque, tongue [facility] Diagnosis Elevated hemoglobin A1c- Primary Other abnormal blood chemistry Essential hypertension, benign Iron excess Other disorders of iron metabolism Fatty liver Other chronic nonalcoholic liver disease Prostate cancer screening Special screening for malignant neoplasm of prostate [facility] Diagnosis Well adult exam- Primary Routine [...] Abnormality of tongue [facility] Diagnosis Elevated hemoglobin A1c- Primary Other abnormal blood chemistry Obesity, Class III, BMI 40-49.9 (morbid obesity) (HCC) Morbid obesity Prediabetes Other abnormal glucose [facility] Diagnosis Obesity, Class III, BMI 40-49.9 (morbid obesity) ([facility])- Primary Morbid obesity Elevated hemoglobin A1c Other abnormal blood chemistry Prediabetes Other abnormal glucose [facility] Diagnosis Venous insufficiency of both lower extremities At risk for loss of skin integrity Other specified conditions influencing health status [facility] Diagnosis APPOINTMENT CANCELLED- Primary [facility] Diagnosis Acute cough- Primary URI, acute Acute upper respiratory infections of unspecified site [facility] Diagnosis Disorder of salivary duct- Primary URI, acute Acute upper respiratory infections of unspecified site [facility] Diagnosis Pre-op examination- Primary Preoperative examination, unspecified Arthritis of left knee Unspecified arthropathy, lower leg Acute pain of left knee History of pulmonary embolus (PE) Personal history of pulmonary embolism Essential hypertension, benign documented in this encounter [facility] for referral (narrative)* Diagnostic Procedure Only (Urgent) - Closed Specialty Diagnoses / Procedures Referred By Mercedes t Referred To Contact XR IMAGING Diagnoses Right-sided chest wall pain Procedures XR RIBS/CHEST 3V AP RIB/OBLS/CXR RIGHT RADEX RIBS UNI W/POSTEROANT CH MINIMUM 3 VIEWS Umu Kowalski, 911 EMERGENCY SERVICES DISPATCHER [address] [place] [address] Xr Imaging Referral ID Status Reason Start Date Expiration Date V isits Requested Visits Authorized [id number] Closed Auto-Generate d Referral 10/10/2021 11/09/2022 1 1 [facility] for referral (narrative)* Diagnostic Procedure Only (Routine) - Authorized Specialty Diagnoses / Procedures [facility] To [facility] BR IMAGING Diagnoses Pain in axilla, unspecified laterality Procedures US AXILLA ONLY RT US LMTD JOINT/OTH NONVASC XTR STRUX R-T W/RUIG Berenice Marie PA-C [address] [place] [address] Br Imaging [address] [place] [address] Referral ID Status Reason Start Date Expiration Date Visits Requested Visits Authorized [id number] Authorized Auto-Generat ed Referral 10/15/2021 11/14/2022 1 1 * Diagnostic Procedure Only (Routine) - Authorized Specialty Diagnoses / Procedures [facility] To Contact BR IMAGING Diagnoses Pain in axilla, unspecified laterality Procedures US AXILLA ONLY LT US LMTD JOINT/OTH NONVASC XTR STRUX R-T W/RUIG Berenice Marie PA-C [address] [place] [address] [facility] [address] [place] [address] Referral ID Status Reason Start Date Expiration Date Visits Requested Visits Authorized [id number] Authorized Auto-Generat ed Referral 10/15/2021 11/14/2022 1 1 [facility] for referral (narrative)* Diagnostic Procedure Only (Routine) - Pending Review Specialty Diagnoses / Procedures Referred By Contac t Referred To Contact BR IMAGING Diagnoses Axillary pain, unspecified laterality Procedures NELDA DIAGNOSTIC BILAT DIAGNOSTIC MAMMOGRAPHY COMPUTER-AIDED DETCJ Berenice Clemens PA-C [address] [place] [address] [facility] [address] [place] [address] Referral ID Status Reason Start Date Expiration Date Visits Requested Visits Authorized [id number] Pending Review Auto-Generat ed Referral 10/15/2021 11/14/2022 1 1 T [facility] for referral (narrative)* Diagnostic Procedure Only (Routine) - Closed Specialty Diagnoses / Procedures Referred By Contac t Referred To Contact BR IMAGING Diagnoses Axillary pain, unspecified laterality Procedures NELDA DIAGNOSTIC BILAT DIAGNOSTIC MAMMOGRAPHY COMPUTER-AIDED DETCJ Berenice Clemens PA-C [address] [place] [address] [facility] [address] [place] [address] Referral ID Status Reason Start Date Expiration Date V isits Requested Visits Authorized [id number] Closed Auto-Generate d Referral 10/15/2021 11/14/2022 1 1 T [facility] for referral (narrative)* Diagnostic Procedure Only (Routine) - Closed Specialty Diagnoses / Procedures Referred By Contac t Referred To Contact BR IMAGING Diagnoses Pain in axilla, unspecified laterality Procedures US AXILLA ONLY RT US LMTD JOINT/OTH NONVASC XTR STRUX R-T W/Berenice Benítez PA-C [address] [place] [address] [facility] [address] [place] [address] Referral ID Status Reason Start Date Expiration Date V isits Requested Visits Authorized [id number] Closed Auto-Generate d Referral 10/15/2021 11/14/2022 1 1 * Diagnostic Procedure Only (Routine) - Closed Specialty Diagnoses / Procedures Referred By Contac t Referred To Contact BR IMAGING Diagnoses Pain in axilla, unspecified laterality Procedures US AXILLA ONLY LT US LMTD JOINT/OTH NONVASC XTR STRUX R-T W/Berenice Benítez PA-C [address] [place] [address] [facility] Imaging [address] [place] [address] Referral ID Status Reason Start Date Expiration Date V isits Requested Visits Authorized [id number] Closed Auto-Generate d Referral 10/15/2021 11/14/2022 1 1 [facility] for visit Narrative* Diagnostic Procedure Only (Routine) - Closed Specialty Diagnoses / Procedures Referred By Contac t Referred To Contact BR IMAGING Diagnoses Axillary pain, unspecified laterality Procedures NELDA DIAGNOSTIC BILAT DIAGNOSTIC MAMMOGRAPHY COMPUTER-AIDED DETCJ BI Berenice Marie PA-C [address] [place] [address] [facility] [address] [place] [address] Referral ID Status Reason Start Date Expiration Date V isits Requested Visits Authorized [id number] Closed Auto-Generate d Referral 10/15/2021 11/14/2022 1 1 [facility] Advance Directives No Advanced Directives Records FoundDocuments on File Type Date Recorded Patient Technology Support Analyst Expl anation Advance Directives and Living Will Power of Field Artillery Basic Documents on File Type Date Recorded Patient Technology Support Analyst Expl anation Advance Directive(s) 05/19/2019 7:47 AM Advance Directive(s) 05/04/2019 3:35 PM Documents on File Type Date Recorded Patient Technology Support Analyst Expl anation Advance Directive(s) 05/19/2019 7:47 AM Advance Directive(s) 05/04/2019 3:35 PM Summary Purpose Family History No Family History Records FoundNo Family History Records Found Health Concerns Infection Onset Date Last Indicated Resolved Time COVID-19 Rule-Out 08/19/2021 08/19/2021 Reason for Referral Specialty Diagnoses / Procedures Referred By Contac t Referred To Contact Ent - Otolaryngology Diagnoses Abnormality of tongue Procedures CONSULT TO ENT OFFICE/OUTPATIENT NEW HIGH MDM 60-74 MINUTES Lyssa Lemos MD [address] [place] [address] Referral ID Status Reason Start Date Expiration Date Visits Requested Visits Authorized [id number] Authorized PCP Requested Referral 09/17/2022 09/17/2023 1 1 Additional Source Comments (unrecognized sect ion and content) No Status Records FoundNo Status Records Found INFORMATION SOURCE (unrecogn ized section and content) DATE CREATED AUTHOR AUTHOR'S ORGANIZ ATION 05/05/2023 [facility] Source Comments (unrecognize d section and content) In the event this informatio n is protected by the Federal Confidentiality of Alcohol and Drug Abuse Patient Records regulations: The Federal rules restrict any use of the information to criminally investigate or prosecute any alcohol or drug abuse patient.[facility] the event this information is protected by the Federal Confidentiality of Alcohol and Drug Abuse Patient Records regulations: The Federal rules restrict any use of the information to criminally investigate or prosecute any alcohol or drug abuse patient.[facility] the event this information is protected by the Federal Confidentiality of Alcohol and Drug Abuse Patient Records regulations: The Federal rules restrict any use of the information to criminally investigate or prosecute any alcohol or drug abuse patient.[facility] the event this information is protected by the Federal Confidentiality of Alcohol and Drug Abuse Patient Records regulations: The Federal rules restrict any use of the information to criminally investigate or prosecute any alcohol or drug abuse patient.[facility] the event this information is protected by the Federal Confidentiality of Alcohol and Drug Abuse Patient Records regulations: The Federal rules restrict any use of the information to criminally investigate or prosecute any alcohol or drug abuse patient.[facility] Hospital[facility] the event this information is protected by the Federal Confidentiality of Alcohol and Drug Abuse Patient Records regulations: The Federal rules restrict any use of the information to criminally investigate or prosecute any alcohol or drug abuse patient.[facility] Hospital[facility] the event this information is protected by the Federal Confidentiality of Alcohol and Drug Abuse Patient Records regulations: The Federal rules restrict any use of the information to criminally investigate or prosecute any alcohol or drug abuse patient.[facility] the event this information is protected by the Federal Confidentiality of Alcohol and Drug Abuse Patient Records regulations: The Federal rules restrict any use of the information to criminally investigate or prosecute any alcohol or drug abuse patient.[facility] Hospital[facility] the event this information is protected by the Federal Confidentiality of Alcohol and Drug Abuse Patient Records regulations: The Federal rules restrict any use of the information to criminally investigate or prosecute any alcohol or drug abuse patient.[facility] Hospital[facility] the event this information is protected by the Federal Confidentiality of Alcohol and Drug Abuse Patient Records regulations: The Federal rules restrict any use of the information to criminally investigate or prosecute any alcohol or drug abuse patient.[facility] the event this information is protected by the Federal Confidentiality of Alcohol and Drug Abuse Patient Records regulations: The Federal rules restrict any use of the information to criminally investigate or prosecute any alcohol or drug abuse patient.[facility] Hospital[facility] the event this information is protected by the Federal Confidentiality of Alcohol and Drug Abuse Patient Records regulations: The Federal rules restrict any use of the information to criminally investigate or prosecute any alcohol or drug abuse patient.[facility] Hospital[facility] the event this information is protected by the Federal Confidentiality of Alcohol and Drug Abuse Patient Records regulations: The Federal rules restrict any use of the information to criminally investigate or prosecute any alcohol or drug abuse patient.[facility] Hospital[facility] the event this information is protected by the Federal Confidentiality of Alcohol and Drug Abuse Patient Records regulations: The Federal rules restrict any use of the information to criminally investigate or prosecute any alcohol or drug abuse patient.[facility] Hospital[facility] the event this information is protected by the Federal Confidentiality of Alcohol and Drug Abuse Patient Records regulations: The Federal rules restrict any use of the information to criminally investigate or prosecute any alcohol or drug abuse patient.[facility] HospitalIn the event this information is protected by the Federal Confidentiality of Alcohol and Drug Abuse Patient Records regulations: The Federal rules restrict any use of the information to criminally investigate or prosecute any alcohol or drug abuse patient.[facility] HospitalIn the event this information is protected by the Federal Confidentiality of Alcohol and Drug Abuse Patient Records regulations: The Federal rules restrict any use of the information to criminally investigate or prosecute any alcohol or drug abuse patient.[facility] HospitalIn the event this information is protected by the Federal Confidentiality of Alcohol and Drug Abuse Patient Records regulations: The Federal rules restrict any use of the information to criminally investigate or prosecute any alcohol or drug abuse patient.[facility] HospitalIn the event this information is protected by the Federal Confidentiality of Alcohol and Drug Abuse Patient Records regulations: The Federal rules restrict any use of the information to criminally investigate or prosecute any alcohol or drug abuse patient.[facility] HospitalIn the event this information is protected by the Federal Confidentiality of Alcohol and Drug Abuse Patient Records regulations: The Federal rules restrict any use of the information to criminally investigate or prosecute any alcohol or drug abuse patient.[facility] HospitalIn the event this information is protected by the Federal Confidentiality of Alcohol and Drug Abuse Patient Records regulations: The Federal rules restrict any use of the information to criminally investigate or prosecute any alcohol or drug abuse patient.[facility] HospitalIn the event this information is protected by the Federal Confidentiality of Alcohol and Drug Abuse Patient Records regulations: The Federal rules restrict any use of the information to criminally investigate or prosecute any alcohol or drug abuse patient.[facility] HospitalIn the event this information is protected by the Federal Confidentiality of Alcohol and Drug Abuse Patient Records regulations: The Federal rules restrict any use of the information to criminally investigate or prosecute any alcohol or drug abuse patient.[facility] HospitalIn the event this information is protected by the Federal Confidentiality of Alcohol and Drug Abuse Patient Records regulations: The Federal rules restrict any use of the information to criminally investigate or prosecute any alcohol or drug abuse patient.[facility] HospitalIn the event this information is protected by the Federal Confidentiality of Alcohol and Drug Abuse Patient Records regulations: The Federal rules restrict any use of the information to criminally investigate or prosecute any alcohol or drug abuse patient.[facility] HospitalIn the event this information is protected by the Federal Confidentiality of Alcohol and Drug Abuse Patient Records regulations: The Federal rules restrict any use of the information to criminally investigate or prosecute any alcohol or drug abuse patient.[facility] HospitalIn the event this information is protected by the Federal Confidentiality of Alcohol and Drug Abuse Patient Records regulations: The Federal rules restrict any use of the information to criminally investigate or prosecute any alcohol or drug abuse patient.[facility] HospitalIn the event this information is protected by the Federal Confidentiality of Alcohol and Drug Abuse Patient Records regulations: The Federal rules restrict any use of the information to criminally investigate or prosecute any alcohol or drug abuse patient.[facility] HospitalIn the event this information is protected by the Federal Confidentiality of Alcohol and Drug Abuse Patient Records regulations: The Federal rules restrict any use of the information to criminally investigate or prosecute any alcohol or drug abuse patient.[facility] HospitalIn the event this information is protected by the Federal Confidentiality of Alcohol and Drug Abuse Patient Records regulations: The Federal rules restrict any use of the information to criminally investigate or prosecute any alcohol or drug abuse patient.[facility] HospitalIn the event this information is protected by the Federal Confidentiality of Alcohol and Drug Abuse Patient Records regulations: The Federal rules restrict any use of the information to criminally investigate or prosecute any alcohol or drug abuse patient.[facility] HospitalIn the event this information is protected by the Federal Confidentiality of Alcohol and Drug Abuse Patient Records regulations: The Federal rules restrict any use of the information to criminally investigate or prosecute any alcohol or drug abuse patient.[facility] HospitalIn the event this information is protected by the Federal Confidentiality of Alcohol and Drug Abuse Patient Records regulations: The Federal rules restrict any use of the information to criminally investigate or prosecute any alcohol or drug abuse patient.[facility] HospitalIn the event this information is protected by the Federal Confidentiality of Alcohol and Drug Abuse Patient Records regulations: The Federal rules restrict any use of the information to criminally investigate or prosecute any alcohol or drug abuse patient.[facility] HospitalIn the event this information is protected by the Federal Confidentiality of Alcohol and Drug Abuse Patient Records regulations: The Federal rules restrict any use of the information to criminally investigate or prosecute any alcohol or drug abuse patient.[facility] HospitalIn the event this information is protected by the Federal Confidentiality of Alcohol and Drug Abuse Patient Records regulations: The Federal rules restrict any use of the information to criminally investigate or prosecute any alcohol or drug abuse patient.[facility] HospitalIn the event this information is protected by the Federal Confidentiality of Alcohol and Drug Abuse Patient Records regulations: The Federal rules restrict any use of the information to criminally investigate or prosecute any alcohol or drug abuse patient.[facility] HospitalIn the event this information is protected by the Federal Confidentiality of Alcohol and Drug Abuse Patient Records regulations: The Federal rules restrict any use of the information to criminally investigate or prosecute any alcohol or drug abuse patient.[facility] Reason for Visit (unrecogniz ed section [...] XTR STRUX R-T W/IMG Berenice Marie PA-C [address] [place] [address] [facility] [address] [place] [address] Referral ID Status Reason Start Date Expiration Date V isits Requested Visits Authorized [id number] Closed Auto-Generate d Referral 10/15/2021 11/14/2022 1 [...] shira x2 days and right ear pain. Reason Comments Outside [id number] Ordered Reason Comments Pre-Op Exam Reason Comments Insurance Authorization Reason Comments Forms Care Teams (unrecognized sec tion and content) 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 Start Date End Date Lyssa Lemos MD [facility] [place] [address] PCP - General Family Practice 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 Start Date End Date Lyssa Lemos MD [address] [place] [id number] PCP - General Family Practice 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 Start Date End Date Lyssa Lemos MD [address] [place] [id number] PCP - General Family Practice 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 Start Date End Date Lyssa Lemos MD [address] [place] [address] [place] [address] PCP - General Family Practice 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 Start Date End Date Lyssa Lemos MD [address] [place] [address] PCP - General Family Practice 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 Start Date End Date Lyssa Lemos MD [address] [place] [address] PCP - General Family Practice 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 Start Date End Date Lyssa Lemos MD [address] [facility] [address] PCP - General Family Practice 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 Start Date End Date Lyssa Lemos MD [facility] [place] [address] PCP - General Family Practice 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 Start Date End Date Lyssa Lemos MD [address] [place] [address], [place] [address] PCP - General Family Practice 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 Start Date End Date Lyssa Lemos MD [address] [place] [address], [place] [address] PCP - General Family Practice 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 Start Date End Date Lyssa Lemos MD [address] [place] [address], [place] [address] PCP - General Family Practice 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 Start Date End Date Lyssa Lemos MD [address] [place] [address], [place] [address] PCP - General Family Medicine 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 Start Date End Date Lyssa Lemos MD [facility] [place] [address] PCP - General Family Medicine 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 Start Date End Date Lyssa Lemos MD [address] [place] [address], [place] [address] PCP - General Family Medicine 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 Start Date End Date Lyssa Lemos MD [address] [place] [address], [place] [address] PCP - General Family Medicine 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 Start Date End Date Lyssa Lemos MD [address] [place] [address] PCP - General Family Medicine 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 Start Date End Date Lyssa Lemos MD [address] [place] [address] PCP - General Family Medicine 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 Start Date End Date Lyssa Lemos MD [address] [place] [address] PCP - General Family Medicine 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 Start Date End Date Lyssa Lemos MD [address] [place] [address] PCP - General Family Medicine 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 Start Date End Date Lyssa Lemos MD [address] [place] [address] PCP - General Family Medicine 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 Start Date End Date Lyssa Lemos MD [address] [place] [address] PCP - General Family Medicine 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 [facility]. provides no warranty or guarantee of the accuracy or completeness of information in this document.
[2023-05-11] MEDS: Lactated Ringers 1,000 ML 15 ML IV (07:24)
[2023-05-11] MEDS: Acetaminophen 500 MG Tablet 1000 MG PO (07:25)
[2023-05-11] MEDS: Magnesium 1 GM over 15 mins IV (07:25)
[2023-05-11] MEDS: Gabapentin 600 MG Tablet PO (07:26)
[2023-05-11 07:52] LABS: Bedside Glucose 102 mg/dL (74-106)
[2023-05-11] MEDS: Cefazolin 3 GM in 0.9% Normal Saline (100mL Bag) 100 ML IV (09:23)
[2023-05-11] MEDS: JPS (Morphine 10mg/ml) OPERA.SITE (10:45)
[2023-05-11] MEDS: TXA in NS 100ml (Placed in Wound) OPERA.SITE (10:47)
[2023-05-11] MEDS: Lactated Ringers 1,000 ML 999 ML IV (11:25)
--- NOTE | 2023-05-11 11:28 | OP.PCM_ITS ---
Report of Operation Date of Procedure: 05/11/23 Pre-Operative Diagnosis: OA left knee Post-Operative Diagnosis: same Surgery/Procedure Performed:: Left TKR Description of Surgical Findings:: Report of Operation Date of Procedure: 05/11/23 Preoperative Diagnosis: [ Left ] knee primary osteoarthritis Postoperative Diagnosis: [ Left ] knee primary osteoarthritis Operation: Robotic Assisted Knee Total Arthroplasty, [Left ] knee Surgeon: Dr Zafar Valentin DO Registered Nurse First Assistant: Ajith Almanzar PA-C Anesthesia: spinal Anesthesiologist: Naresh Leong M.D. Findings: Stable knee with good patella tracking Specimen(s): Bony cuts Complications: No intraoperative complications Estimated Blood Loss: 30 cc IV Fluids: 100 cc crystalloid Implants Used: 1. [employer] Triathlon press-fit CR size 5 femur 2. [employer] Triathlon size 5 tibia 3. 35 mm patella 4. 10 mm CS polyethylene Brief History Operative Indications: [ (58 y/o male) ] with history of [left ] knee osteoarthrosis with radiographic findings with loss of joint space, osteophyte formation and subchondral sclerosis. Failed conservative measures as mentioned in the H&P. Discussion of total knee arthroplasty as well as risk and benefits were discussed with the patient including but not limited to blood loss, DVTs, PEs, neurovascular damage, general risk of anesthesia including loss of life, and stiffness or instability were also discussed with the patient. Patient demonstrated understanding and was able to sign informed consent. Procedure: On the date of procedure, patient's [ left ] lower extremity was marked in the preoperative area. The patient was then taken back to the operating room where that patient was placed on the table in the supine position. All bony prominences were identified and well-padded. Anesthesia assumed control of the C-spine and airway throughout the remainder of the procedure. A tourniquet was placed on the [ left ] upper thigh and the leg was prepped in a sterile fashion. The surgeon then scrubbed at this time. Upon reentering the room, the [ left ] lower extremity was draped in a standard orthopedic fashion. A timeout was then called and everyone agreed upon the side, the site, the procedure to be performed, patient's identity and antibiotics given. Esmarch bandage was used to exsanguinate the extremity and the tourniquet was placed up to 250 mmHg with the knee in flexion. A midline skin incision was made and a sharp dissection was taken down through skin, subcutaneous tissue and fat. The standard medial parapatellar incision was made and the patella was subluxed laterally. An appropriate deep MCL release was done and the fat pad was resected. Our attention was then directed to the patella. The patella was everted and a flat resection was made. The knee was then flexed up and 2 femoral pins were placed inside the incision and 2 tibial pins were placed outside the incision in the medial tibia bicortically. Once this was completed, the 2 checkpoints in the femur and tibia were placed. Knee was then flexed up and the bony landmarks were registered. Once the was completed, the knee taken through range of motion and manually stressed allowing us to plan for an appropriate tibial cut. The robotic arm was brought into the field sterilely and checkpoint and saw were registered. Based on the patient's deformity, the tibial cut was made in [2 degrees varus ]. At this time, the tensioner was then placed in the joint and ligament tension was checked at 90 degrees and full extension. Based on the patient's ligamentous tension, appropriate adjustments were made to the operative plan and ligament releases were done. Once we were happy with our operative plan with balanced flexion and extension gaps, our attention was directed to the femur. The robot was brought into the field sterilely and registered. Posterior condylar cuts, anterior chamfer cuts and anterior cuts were appropriately made for a [size 5 ] femur. When these were completed, the saws were switched out in the distal femoral and posterior chamfer cuts were made. Protecting the soft tissue throughout this time. A [size 5 ] base plate was selected. The knee was flexed to 90 degrees and soft tissues and posterior osteophytes were removed from the joint. 40 cc of the periarticular injection was injected into the posterior medial corner of the joint. The appropriate trials were then placed on the femur and tibia. A trial polyethylene was trialed to ensure proper balancing and stability of the knee. The appropriate tibial internal rotation was then marked with a bovie. Our attention was then directed to the patella. The lug holes were drilled and the patella trial was placed. Patellar tracking was checked and deemed appropriate. Once we were happy, lug holes were drilled for the femur and trial components were removed. The tibia was subluxed and pinned into place and the keel was punched and drilled appropriately. Final components were verified and opened. The wound was copiously irrigated with normal saline. The components were impacted into place with the tibia, femur and finally the patella. The trial poly component was placed and the knee was placed in full extension. The tracking, alignment and balance were verified and a [ 10 mm CS ] polyethylene component was placed. Once the final components were placed an Irrisept lavage was performed and the wound was copiously irrigated with normal saline solution and the periarticular injection was given. the wound was closed in a layer-pride fashion using #1 vicryl interrupted sutures for the arthrotomy, 2-0 interrupted vicryl suture for the subcuticular layer and seun for final skin closure. A sterile compressive dressing was then placed. The patient was then awakened from anesthesia, transferred to the rburgin and transferred to the PACU for recovery. My physician optometrist assistant was a vital part of this case. He was important in appropriate retraction during the case, and protection of soft tissues during bony cuts. His intimate knowledge of the case and my steps aided in safe and expedient completion of the procedure as well as appropriate position of the leg during the case. He was also vital in assisting with closure under my direct supervision. Due to the complexity of this case, robotic arm was used to assist in the surgery to improve accuracy and clinical outcomes. Post-op Plan: DVT ppx; ASA 81 mg BID, thigh high compression stockings Follow up: in office in 2 weeks for wound check PT: to start POD #0 at hospital, outpatient PT should be arranged. Preoperative antibiotic: Ancef 3 grams IV Zafar Valentin DO Surgeon: Zafar Valentin chief technician: Ajith Almanzar Type of Anesthesia: Spinal Anesthesiologist: Naresh Leong Estimated Blood Loss (mL): 30 cc Fluids Replaced: 1000 cc crystalloid Admit VTE Documentation VTE Present on Admission: No VTE Mechan Device Prophylaxis: SCD's and Thigh High SONAL Hose VTE Pharm Prophylaxis ordered?: Yes
--- NOTE | 2023-05-11 11:43 | RAD_ITS ---
STUDY: X-RAY - LEFT KNEE REASON FOR EXAM: Male, 58 years old. Postoperative evaluation after knee arthroplasty. TECHNIQUE: 2 view(s) of the knee. COMPARISON: None. FINDINGS: There is a 3 component total knee arthroplasty in anatomic position. There are expected post-operative findings. There are no complications. No other significant abnormality is identified. RAD/Knee 1 or 2 Views IMPRESSION: Total knee arthroplasty in anatomic alignment without complications. Electronically Signed: Ajith Reese MD at 9:34 EST ,
[2023-05-11] MEDS: Lactated Ringers 1,000 ML 125 ML IV (12:48)
[2023-05-11] MEDS: oxyCODONE 5 MG Tablet PO ×2 (14:28→15:09)
== END 2023-05-11 16:20 | disposition home or self-care (01) ==
LOC: SDC 06:53 → AC 06:53
PROVIDERS: Anesthesiology; PCP Family Medicine; Referring Provider Orthopaedic Surgery; Visit Provider Orthopaedic Surgery
PROC: 0SRD0JZ Replacement of Left Knee Joint with Synthetic Substitute, Open Approach (ICD-10-PCS; CPT 27447; principal; 2023-05-11 08:45)
DX: M17.12 Unilateral primary osteoarthritis, left knee (principal); Z79.01 Long term (current) use of anticoagulants; Z79.899 Other long term (current) drug therapy; I10 Essential (primary) hypertension
CPT/HCPCS: 27447; 01402; 36415; 73560; 80048; 82962; 83036; 83735; 85025; 87081; 88305; 88311; 93005; 97162; C1776; J7120; J2405; J3475

== ENCOUNTER 2023-06-30 16:18 | Outpatient (RCR) | payer BC, SELFPAY | END 2023-07-14 23:59 | LOC: NS 16:18 | PROVIDERS: PCP Family Medicine; Referring Provider Family Medicine; Visit Provider Family Medicine | DX: Z71.3 Dietary counseling and surveillance (principal); E66.01 Morbid (severe) obesity due to excess calories; Z68.42 Body mass index [BMI] 45.0-49.9, adult | CPT/HCPCS: 97803 ==

== ENCOUNTER 2023-11-18 16:42 | Outpatient (RCR) | payer BC, SELFPAY | END 2023-12-14 23:59 | LOC: NS 16:42 | PROVIDERS: PCP Family Medicine; Referring Provider Family Medicine; Visit Provider Family Medicine | DX: Z71.3 Dietary counseling and surveillance (principal); E66.01 Morbid (severe) obesity due to excess calories; Z68.42 Body mass index [BMI] 45.0-49.9, adult | CPT/HCPCS: 97803 ==